=== PATIENT | female | born 1955 | race Caucasian/White ===

== ENCOUNTER → 2018-03-24 08:08 | Outpatient (CLI) | payer OTHER, SELFPAY ==
--- NOTE | 2018-03-24 | DI.US.S_ITS ---
PROCEDURE: US RENAL COMPLETE INDICATIONS: RECURRANT UTI TECHNIQUE: Real-time scanning was performed of the kidneys and bladder, with image documentation. COMPARISON: [facility], US, ABDOMEN COMPLETE, 12/22/2017, 9:08. [facility], US, ABDOMEN COMPLETE, 01/17/2015, 10:34. FINDINGS: Kidneys: Kidneys are normal in size. Right kidney measures 12.1 cm long; left kidney measures 13.2 cm long. Right renal cortical thickness is 1.8 cm; left renal cortical thickness is 2.1 cm. Renal cortical echotexture is normal. No hydronephrosis or nephrolithiasis. No suspicious solid mass lesions. Bladder: Pre-void bladder volume is 58 mL. Post-void residual is 2 mL. Pre-void images demonstrate no intraluminal masses or stones. On pre-void images, no ureteral jets are noted with color Doppler interrogation. (Of note, ureteral jets may not be detectable in up to 25% of cases due to insufficient differences in specific gravity between ureteral and bladder urine). Miscellaneous: No free pelvic fluid. IMPRESSION: 1. Normal-appearing kidneys without obstruction. 2. Nondistended urinary bladder with no post voiding residual Dictated by: Pasha Stubbs M.D. on 03/24/2018 at 9:35 Approved by: Pasha Stubbs M.D. on 03/24/2018 at 9:37
== END ==
PROVIDERS: Family Provider Internal Medicine; PCP Internal Medicine; Visit Provider Physician Assistant
DX: N39.0 Urinary tract infection, site not specified (principal)
CPT/HCPCS: 76770

== ENCOUNTER → 2018-03-25 08:20 | Outpatient (CLI) | payer OTHER, SELFPAY ==
--- NOTE | 2018-03-25 | DI.MG.S_ITS ---
BILATERAL DIGITAL SCREENING MAMMOGRAM 3D/2D WITH CAD: 03/25/2018 CLINICAL: Routine screening. Family history of breast cancer. Comparison is made to exams dated: 03/12/2017 mammogram, 03/06/2016 mammogram, and 03/05/2015 mammogram - [facility]. The tissue of both breasts is predominantly fatty. Current study was also evaluated with a Computer Aided Detection (CAD) system. No significant masses, calcifications, or other findings are seen in either breast. There has been no significant interval change. IMPRESSION: NEGATIVE There is no mammographic evidence of malignancy. A 1 year screening mammogram is recommended. NOTE: For mammograms, a report in lay terms will be sent to the patient. Approximately 15% of breast malignancies will not be visualized mammographically. In the management of a palpable breast mass, a negative mammogram must not discourage biopsy of a clinically suspicious lesion. Electronically Signed By: Geraldine [email or web address]:03/25/2018 10:53:11 copy to: Lala Nuñez letter sent: Normal Exam ACR BI-RADS Category 1: Negative [id number]
== END ==
PROVIDERS: Family Provider Obstetrics & Gynecology; PCP Internal Medicine; Visit Provider Internal Medicine
DX: Z12.31 Encounter for screening mammogram for malignant neoplasm of breast (principal)
CPT/HCPCS: 77063; 77067

== ENCOUNTER → 2018-05-01 10:32 | Outpatient (CLI) | payer OTHER, SELFPAY ==
[2018-05-01 11:31] LABS: Alanine Aminotransferase 47 IU/L (9-52); Albumin 4.1 g/dL (3.5-5.0); Albumin Globulin Ratio 1.4 (1.0-2.8); Alkaline Phosphatase 68 U/L (38-126); Aspartate Aminotransferase 61 IU/L (14-36); Bilirubin Total 0.4 mg/dL (0.2-1.3); Blood Urea Nitrogen 14 mg/dL (7-17); Calcium 9.1 mg/dL (8.4-10.2); Carbon Dioxide 26 mmol/L (22-32); Chloride 101 mmol/L (98-107); Estimated Glomerular Filt Rate > 60.0 mL/min (>60); Globulin 2.9 g/dL (1.7-4.1); Glucose 170 mg/dL (80-110); HEMOLYSIS < 15 (0-50); Sodium 137 mmol/L (137-145)
[2018-05-01 12:04] LABS: Hemoglobin A1C% w Est Avg Glu 6.1 % (4.0-6.0)
== END ==
PROVIDERS: PCP Internal Medicine; Visit Provider Internal Medicine
DX: K76.0 Fatty (change of) liver, not elsewhere classified (principal); E11.9 Type 2 diabetes mellitus without complications
CPT/HCPCS: 36415; 80053; 83036

== ENCOUNTER 2018-09-02 15:15 | Outpatient (RCR) | payer OTHER, SELFPAY ==
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
--- NOTE | 2018-08-27 14:35 | PT.IPTN ---
Current Diagnoses Cervicalgia (08/27/18) Dorsalgia, unspecified (08/27/18)
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
== END 2018-09-10 11:11 ==
LOC: PHYS 15:15
PROVIDERS: PCP Internal Medicine; Visit Provider Internal Medicine
DX: M54.2 Cervicalgia (principal); M54.9 Dorsalgia, unspecified
CPT/HCPCS: 97110; 97140; 97161

== ENCOUNTER → 2018-09-11 11:43 | Outpatient (CLI) | payer OTHER, SELFPAY ==
[2018-09-11 12:20] LABS: Hemoglobin A1C% w Est Avg Glu 5.8 % (4.0-6.0)
[2018-09-11 12:25] LABS: Alanine Aminotransferase 36 IU/L (9-52); Albumin 4.2 g/dL (3.5-5.0); Albumin Globulin Ratio 1.4 (1.0-2.8); Alkaline Phosphatase 79 U/L (38-126); Aspartate Aminotransferase 58 IU/L (14-36); BUN Creatinine Ratio 23.3 (6-22); Bilirubin Total 0.3 mg/dL (0.2-1.3); Blood Urea Nitrogen 14 mg/dL (7-17); Calcium 9.2 mg/dL (8.4-10.2); Carbon Dioxide 31 mmol/L (22-32); Chloride 103 mmol/L (98-107); Estimated Glomerular Filt Rate > 60.0 mL/min (>60); Globulin 2.9 g/dL (1.7-4.1); Glucose 128 mg/dL (80-110); HEMOLYSIS < 15 (0-50); Potassium 4.2 mmol/L (3.4-5.1); Sodium 146 mmol/L (137-145); Total Protein 7.1 g/dL (6.3-8.2)
[2018-09-11 12:38] LABS: Erythrocyte Sedimentation Rate 67 MM/HR (0-20)
== END ==
PROVIDERS: PCP Internal Medicine; Visit Provider Internal Medicine
DX: M35.3 Polymyalgia rheumatica (principal); E11.9 Type 2 diabetes mellitus without complications
CPT/HCPCS: 36415; 80053; 83036; 85651

== ENCOUNTER → 2018-10-15 14:14 | Outpatient (CLI) | payer MEDICARE, OTHER, SELFPAY | PROVIDERS: PCP Internal Medicine; Visit Provider Internal Medicine | DX: Z78.0 Asymptomatic menopausal state (principal); M35.3 Polymyalgia rheumatica | CPT/HCPCS: 77080 ==

== ENCOUNTER → 2018-12-22 11:40 | Outpatient (CLI) | payer MEDICARE, OTHER, SELFPAY ==
[2018-12-22 12:09] LABS: Add Manual Diff / Slide Review NO; Basophils Absolute Auto 100 /uL (0-100); Basophils Percent Auto 0.8 % (0-2); Eosinophils Absolute Auto 100 /uL (0-450); Eosinophils Percent Auto 1.9 % (2-4); Hematocrit 40.2 % (36-46); Hemoglobin 13.8 g/dL (12.0-16.0); Lymphocytes Absolute Auto 1800 /uL (1100-4500); Lymphocytes Percent Auto 25.6 % (25-40); Mean Corpuscular HGB Conc 34.4 % (30-36); Mean Corpuscular Hemoglobin 32.7 PG (26-34); Mean Corpuscular Volume 95.2 fL (80-100); Monocytes Absolute Auto 600 /uL (0-900); Monocytes Percent Auto 8.5 % (3-14); Neutrophils Absolute Auto 4400 /uL (1500-7000); Neutrophils Percent Auto 63.2 % (50-75); Platelet Count 157 X10^3/uL (150-400); Red Blood Cell Count 4.22 X10^6/uL (4.0-5.2); Red Cell Distribution Width 14.1 % (11.6-14.8)
[2018-12-22 12:29] LABS: Hemoglobin A1C% w Est Avg Glu 5.7 % (4.0-6.0)
[2018-12-22 12:36] LABS: Erythrocyte Sedimentation Rate 56 MM/HR (0-20)
[2018-12-22 13:35] LABS: Alanine Aminotransferase 45 IU/L (9-52); Albumin 4.4 g/dL (3.5-5.0); Albumin Globulin Ratio 1.6 (1.0-2.8); Alkaline Phosphatase 76 U/L (38-126); Aspartate Aminotransferase 59 IU/L (14-36); Bilirubin Total 0.3 mg/dL (0.2-1.3); Blood Urea Nitrogen 15 mg/dL (7-17); Calcium 9.6 mg/dL (8.4-10.2); Carbon Dioxide 31 mmol/L (22-32); Chloride 102 mmol/L (98-107); Estimated Glomerular Filt Rate > 60.0 mL/min (>60); Globulin 2.7 g/dL (1.7-4.1); Glucose 64 mg/dL (80-110); HEMOLYSIS < 15 (0-50); Potassium 4.5 mmol/L (3.4-5.1); Sodium 142 mmol/L (137-145); Total Protein 7.1 g/dL (6.3-8.2)
== END ==
PROVIDERS: PCP Internal Medicine; Visit Provider Internal Medicine
DX: M35.3 Polymyalgia rheumatica (principal); E11.9 Type 2 diabetes mellitus without complications; K76.0 Fatty (change of) liver, not elsewhere classified
CPT/HCPCS: 36415; 80053; 83036; 85025; 85651

== ENCOUNTER → 2019-01-24 09:39 | Outpatient (CLI) | payer MEDICARE, OTHER, SELFPAY ==
[2019-01-24 10:28] LABS: Erythrocyte Sedimentation Rate 35 MM/HR (0-20)
[2019-01-24 10:37] LABS: Alanine Aminotransferase 38 IU/L (9-52); Albumin 4.1 g/dL (3.5-5.0); Albumin Globulin Ratio 1.5 (1.0-2.8); Alkaline Phosphatase 85 U/L (38-126); Aspartate Aminotransferase 38 IU/L (14-36); BUN Creatinine Ratio 32.9 (6-22); Bilirubin Total 0.4 mg/dL (0.2-1.3); Blood Urea Nitrogen 23 mg/dL (7-17); C-Reactive Protein Quant 1.2 mg/dL (<1.0); Calcium 9.6 mg/dL (8.4-10.2); Carbon Dioxide 31 mmol/L (22-32); Chloride 101 mmol/L (98-107); Estimated Glomerular Filt Rate > 60.0 mL/min (>60); Globulin 2.7 g/dL (1.7-4.1); Glucose 137 mg/dL (80-110); HEMOLYSIS < 15 (0-50); Potassium 4.8 mmol/L (3.4-5.1); Sodium 140 mmol/L (137-145); Total Protein 6.8 g/dL (6.3-8.2)
== END ==
PROVIDERS: PCP Internal Medicine; Visit Provider Internal Medicine
DX: I10 Essential (primary) hypertension (principal); M35.3 Polymyalgia rheumatica; K76.0 Fatty (change of) liver, not elsewhere classified
CPT/HCPCS: 36415; 80053; 85651; 86140

== ENCOUNTER → 2019-03-23 14:32 | Outpatient (CLI) | payer MEDICARE, OTHER, SELFPAY ==
[2019-03-23 16:00] LABS: Erythrocyte Sedimentation Rate 56 MM/HR (0-20)
[2019-03-23 16:05] LABS: C-Reactive Protein Quant 1.9 mg/dL (<1.0)
== END ==
PROVIDERS: PCP Internal Medicine; Visit Provider Internal Medicine
DX: M35.3 Polymyalgia rheumatica (principal)
CPT/HCPCS: 36415; 85651; 86140

== ENCOUNTER → 2019-04-01 12:46 | Outpatient (CLI) | payer MEDICARE, OTHER, SELFPAY ==
--- NOTE | 2019-04-01 | DI.MG.S_ITS ---
BILATERAL DIGITAL SCREENING MAMMOGRAM 3D/2D WITH CAD: 04/01/2019 CLINICAL: Routine screening. Family history of breast cancer. Comparison is made to exams dated: 03/25/2018 mammogram, 03/12/2017 mammogram, and 03/06/2016 mammogram - [facility]. There are scattered fibroglandular elements in both breasts. Current study was also evaluated with a Computer Aided Detection (CAD) system. No significant masses, calcifications, or other findings are seen in either breast. There has been no significant interval change. IMPRESSION: NEGATIVE There is no mammographic evidence of malignancy. A 1 year screening mammogram is recommended. This exam was interpreted at Station ID: [id number]. NOTE: For mammograms, a report in lay terms will be sent to the patient. Approximately 15% of breast malignancies will not be visualized mammographically. In the management of a palpable breast mass, a negative mammogram must not discourage biopsy of a clinically suspicious lesion. Electronically Signed By: Geraldine thibodeaux/matteo:04/01/2019 14:35:31 copy to: Lala Nuñez letter sent: Normal Exam ACR BI-RADS Category 1: Negative [id number]
== END ==
PROVIDERS: Family Provider Obstetrics & Gynecology; PCP Internal Medicine; Visit Provider Internal Medicine
DX: Z12.31 Encounter for screening mammogram for malignant neoplasm of breast (principal); Z80.3 Family history of malignant neoplasm of breast
CPT/HCPCS: 77063; 77067

== ENCOUNTER → 2019-05-13 09:46 | Outpatient (CLI) | payer MEDICARE, OTHER, SELFPAY ==
[2019-05-13 10:39] LABS: Add Manual Diff / Slide Review NO; Basophils Absolute Auto 100 /uL (0-100); Basophils Percent Auto 0.6 % (0-2); Eosinophils Absolute Auto 100 /uL (0-450); Eosinophils Percent Auto 0.8 % (2-4); Hemoglobin 13.5 g/dL (12.0-16.0); Lymphocytes Absolute Auto 1600 /uL (1100-4500); Lymphocytes Percent Auto 17.3 % (25-40); Mean Corpuscular HGB Conc 34.6 % (30-36); Mean Corpuscular Hemoglobin 33.1 PG (26-34); Mean Corpuscular Volume 95.7 fL (80-100); Monocytes Absolute Auto 500 /uL (0-900); Monocytes Percent Auto 5.6 % (3-14); Neutrophils Absolute Auto 6900 /uL (1500-7000); Neutrophils Percent Auto 75.7 % (50-75); Platelet Count 221 X10^3/uL (150-400); Red Blood Cell Count 4.07 X10^6/uL (4.0-5.2); Red Cell Distribution Width 14.5 % (11.6-14.8); White Blood Cell Count 9.2 X10^3/uL (4.5-11.0)
[2019-05-13 10:49] LABS: Alanine Aminotransferase 38 IU/L (9-52); Albumin Globulin Ratio 1.3 (1.0-2.8); Alkaline Phosphatase 81 U/L (38-126); Aspartate Aminotransferase 44 IU/L (14-36); BUN Creatinine Ratio 26.7 (6-22); Bilirubin Total 0.5 mg/dL (0.2-1.3); Blood Urea Nitrogen 16 mg/dL (7-17); C-Reactive Protein Quant 1.8 mg/dL (<1.0); Calcium 9.4 mg/dL (8.4-10.2); Carbon Dioxide 31 mmol/L (22-32); Chloride 104 mmol/L (98-107); Estimated Glomerular Filt Rate > 60.0 mL/min (>60); Globulin 3.1 g/dL (1.7-4.1); Glucose 100 mg/dL (80-110); HEMOLYSIS < 15 (0-50); Potassium 4.4 mmol/L (3.4-5.1); Sodium 143 mmol/L (137-145); Total Protein 7.1 g/dL (6.3-8.2)
[2019-05-13 11:02] LABS: Erythrocyte Sedimentation Rate 53 MM/HR (0-20)
== END ==
PROVIDERS: PCP Internal Medicine; Visit Provider Internal Medicine
DX: I10 Essential (primary) hypertension (principal); M35.3 Polymyalgia rheumatica
CPT/HCPCS: 36415; 80053; 85025; 85651; 86140

== ENCOUNTER → 2019-05-20 06:57 | Outpatient (CLI) | payer MEDICARE, OTHER, SELFPAY ==
--- NOTE | 2019-05-20 | DI.ECHO.S_ITS ---
[facility] +---------+ : : [address] : : : : [id number] : : : : Phone: [phone]+ Echocardiogram Report + + :Name: JOSY LE Study Date: 05/20/2019 Height: 64 in : :[facility] Exam Location: [facility] Weight: 250 lb : : Gender: Female BSA: 2.2 m2 : :: 1955 Age: 63 yrs BP: 158/72 mmHg: :Reason For Study: DIASTOLIC HEART FAILURE : : Performed By: Gold Delgado : :Referring: DO MARADIAGA : + + Interpretation Summary The left ventricle is normal in size. The ejection fraction is estimated to be 65-70%. The right ventricle is normal in size and function. No significant valvular pathology seen. Procedure: A two-dimensional transthoracic echocardiogram with color flow and Doppler was performed. The study quality was technically adequate. There is no prior echocardiogram noted for this patient. The patient was in normal sinus rhythm during the exam. Left Ventricle: The left ventricle is normal in size. Left ventricular wall thickness is mildly increased. There is no echo evidence for significant left ventricular outflow tract obstruction. There is no thrombus. The ejection fraction is estimated to be 65-70%. There are no focal wall motion abnormalities. Diastolic parameters suggest a relaxation abnormality of the left ventricle, consistent with probable normal filling pressures. Right Ventricle: The right ventricle is normal in size and function. Atria: Both atria are normal in size. The interatrial septum is intact with no evidence for an atrial septal defect. Mitral Valve: There is mild mitral annular calcification. There is trace mitral regurgitation. Aortic Valve: The aortic valve is trileaflet. The aortic valve opens well. There is no aortic valve stenosis. No aortic regurgitation is present. Tricuspid Valve: The tricuspid valve is normal in structure and function. There is trace tricuspid regurgitation. The right ventricular systolic pressure is estimated to be at least 26 mmHg based on an estimated right atrial pressure of 3 mm Hg. Pulmonic Valve: The pulmonic valve is not well seen, but is grossly normal. There is trace pulmonic regurgitation. Great Vessels: The aortic root is normal size. The dimensions of the ascending aorta are normal. The pulmonary artery is normal size. The IVC is of normal diameter and collapses greater than 50% with a sniff. This suggests a low right atrial pressure of 3 mm Hg. Pericardium/ Pleura There is no pericardial effusion. There is no pleural effusion. MMode/2D Measurements & Calculations LVIDd: 4.2 cm LVOT diam: 2.2 cm LVIDs: 2.4 cm Ao root diam: 3.0 cm FS: 42.3 % Aortic Jxn: 2.6 cm EPSS: 0.30 cm asc Aorta Diam: 3.3 cm IVSd: 1.2 cm Ao Arch Diam (Prox Trans): 2.3 cm LVPWd: 1.1 cm LV fraser. diameter/BSA (cm/m^2): 2.0 LV sys. diameter/BSA (cm/m^2): 1.1 LA dimension: 3.6 cm RA long axis: 4.1 cm LA A2 area: 19.7 cm2 RA area: 12.3 cm2 LA A4 area: 17.3 cm2 RA vol: 31.4 ml LA length (vol): 4.6 cm RA : 14.6 ml/m2 LA vol: 63.2 ml IVC diam: 0.85 cm LA vol index: 29.4 ml/m2 Doppler Measurements & Calculations Ao V2 max: 149.9 cm/sec LVOT Max Lalit: 123.3 cm/sec Ao V2 mean: 119.4 cm/sec LV V1 max P.1 mmHg Ao max P.0 mmHg LV V1 VTI: 24.0 cm Ao mean P.9 mmHg DONI(I,D): 3.2 cm2 Ao V2 VTI: 28.5 cm DONI(V,D): 3.1 cm2 sev ratio: 0.84 DONI indexed to BSA (cm^2/m^2): 1.5 MV E max lalit: 62.4 cm/sec TR max lalit: 240.1 cm/sec MV A max lalit: 90.6 cm/sec TR max P.1 mmHg MV E/A: 0.69 PA V2 max: 92.5 cm/sec Med Peak E' Lalit: 4.5 cm/sec PA V2 mean: 74.7 cm/sec E/E' med: 13.8 PA mean P.3 mmHg Lat Peak E' Lalit: 7.2 cm/sec PA pr(Accel): 46.6 mmHg E/E' lat: 8.6 PA Accel Time: 0.08 sec E/e' average: 11.2 MV dec time: 0.15 sec SV(LVOT): 91.0 ml Reading Physician:01:43 PM
== END ==
PROVIDERS: PCP Internal Medicine; Visit Provider Internal Medicine
DX: I50.32 Chronic diastolic (congestive) heart failure (principal)
CPT/HCPCS: 93306

== ENCOUNTER → 2019-06-22 10:12 | Outpatient (CLI) | payer MEDICARE, OTHER, SELFPAY ==
[2019-06-22 11:55] LABS: BUN Creatinine Ratio 26.7 (6-22); Blood Urea Nitrogen 16 mg/dL (7-17); Calcium 9.6 mg/dL (8.4-10.2); Carbon Dioxide 28 mmol/L (22-32); Chloride 100 mmol/L (98-107); Estimated Glomerular Filt Rate > 60.0 mL/min (>60); Glucose 140 mg/dL (80-110); HEMOLYSIS 17 (0-50); Potassium 4.2 mmol/L (3.4-5.1); Sodium 139 mmol/L (137-145)
== END ==
PROVIDERS: PCP Internal Medicine; Visit Provider Internal Medicine
DX: M35.3 Polymyalgia rheumatica (principal); I50.32 Chronic diastolic (congestive) heart failure
CPT/HCPCS: 36415; 80048

== ENCOUNTER → 2019-08-11 10:23 | Outpatient (CLI) | payer MEDICARE, OTHER, SELFPAY ==
--- NOTE | 2019-08-11 | DI.RAD.S_ITS ---
PROCEDURE: XR TIBIA FIBULA RT 2V INDICATIONS: LEFT LET PAIN TECHNIQUE: 2 views of the tibia and fibula were acquired. COMPARISON: Left knee radiographs 09/13/2015. FINDINGS: Bones: No fractures or dislocations. No periosteal reaction. No suspicious bony lesions. Soft tissues: No suspicious soft tissue calcifications or masses. IMPRESSION: No fracture or dislocation. Dictated by: Ankit Baez M.D. on 08/11/2019 at 11:06 Approved by: Ankit Baez M.D. on 08/11/2019 at 11:10
== END ==
PROVIDERS: PCP Internal Medicine; Visit Provider Student in an Organized Health Care Education/Training Program
DX: M79.605 Pain in left leg (principal); K62.5 Hemorrhage of anus and rectum; K64.4 Residual hemorrhoidal skin tags; K64.8 Other hemorrhoids; K62.89 Other specified diseases of anus and rectum; K21.9 Gastro-esophageal reflux disease without esophagitis; I10 Essential (primary) hypertension; M35.3 Polymyalgia rheumatica; E28.2 Polycystic ovarian syndrome; G47.33 Obstructive sleep apnea (adult) (pediatric); J45.909 Unspecified asthma, uncomplicated
CPT/HCPCS: 73590; 99214

== ENCOUNTER 2019-09-07 10:10 | Day surgery (SDC) | payer MEDICARE, OTHER, SELFPAY ==
[2019-09-02 15:14] VITALS: BMI 43.6
--- NOTE | 2019-09-07 | PATH_ITS ---
[facility] Accession Number: [id number] . 01 Material submitted: . rectum - RECTAL BIOPSY . 01 Clinical history: . ANORECTL EXAM . 02 Diagnosis: Rectum, Biopsy: Anorectal junctional mucosa with features consistent with fissure/fistula tract. No evidence of neoplasm. MRV 09/09/2019 1108 Local . 02 Electronically signed: . Arsalan Ervin MD, PhD, Pathologist NPI- [id number] . 01 Gross description: . RECTAL BIOPSY: Received in formalin is 1 fragment(s) of guadarrama, soft tissue measuring 1.4 x 0.6 x 0.4 cm which is inked, serially sectioned and submitted entirely in 1 cassette(s) /TRC 09/08/2019 1602 Local . 02 Pathologist provided ICD-10: K60.3 . 02 CPT . 041896 Performed at: 01 [facility] [address] [facility], [place], [place] [id number] MD Jose Rice MD Phone: [phone] Performed at: 02 [facility] [address] [place], [place] [id number] MD Linda Garcia MD Phone: [phone]
[2019-09-07] MEDS: metroNIDAZOLE 500 MG/100 ML PIGGYBACK 100 MG IV (11:00)
[2019-09-07 11:09] VITALS: BP 173/85; PULSE 97; RESP 16; TEMP 36.4; O2SAT 95; BMI 43.6
[2019-09-07] MEDS: LACTATED RINGERS 1,000 ML 100 ML IV (11:25)
--- NOTE | 2019-09-07 12:21 | PM.PREOP ---
Pre-operative Note Interval Note History & Physical reviewed/Exam performed by Physician: Yes Changes to H&P: No
[2019-09-07] MEDS: CEFAZOLIN 2 GM/100 ML FROZ.PIGGY IV (12:40)
--- NOTE | 2019-09-07 12:57 | SUR.OPER ---
Prone on padded OR bed, head in foam head support, gel chest rolls, gel pad under knees, pillow under lower legs, toes free of pressure, arms secured on padded arm boards at <90 degrees abduction. Safety belt at thigh.
[2019-09-07] MEDS: BUPIVACAINE 0.25% W/ EPI 30 ML VIAL INJ (13:05)
[2019-09-07] MEDS: DIBUCAINE 1% OINT 28 GM 1 APPLIC TOP (13:07)
[2019-09-07 13:17] VITALS: BP 151/88; PULSE 99; RESP 13; TEMP 36.8; O2SAT 94
--- NOTE | 2019-09-07 13:18 | PM.OP.1 ---
Operative Date/Time/Diagnoses Date of procedure: 09/07/19 Time of procedure: 13:18 Pre-op diagnosis: hemorrhoids, possible anal neoplasm Post-op diagnosis: same Procedure & Clinicians Procedure: Anorectal exam under anesthesia, biopsy of anal plaque Same procedure as scheduled: Yes Indications: This is a 63 yo woman with hemorrhoids and anal bleeding. She was found to have a white plaque in her anal canal on exam by her shift stacker doctor. She is here for anal exam under anesthesia and biopsy of the anal plaque. Surgeon: Naida Matos Click Yes if Unassisted: Yes Anesthesia Type: General Operative Notes Findings: circumferential hemorrhoids, heavy scar with fissure; biopsied anal plaque Specimen(s): other (excisional biopsy of anal plaque) Estimated Blood Loss (mL): 1 Procedure in detail: The patient was brought into the OR. Sequential compression devices were placed on both legs and turned on. Appropriate perioperative antibiotics were given. General anesthesia was induced and the patient was intubated. She was turned prone onto the OR table. All bony prominences were padded. The buttocks were taped apart. The perianal area was prepped and draped in sterile fashion. Surgical timeout was conducted. 0.25% Marcaine with epi was used to place a four quadrant anal block. On visual inspection she was found to have large external hemorrhoids. With copious lubricant, an anorectal exam was performed. A heavy white plaque was seen on the posterior anal mucosa approximately 2cm x 2cm in size. 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 A 1mm x 5mm section of the white plaque was excised and sent to pathology. Hemostasis was achieved with cautery. A large Gelfoam was then coated and rolled with Dibucaine and placed in the anal canal. A thick layer of Dibucaine was used to coat the anoderm. A stack of 4x4 gauze was then used to cover the anal opening and secured in place with medipore tape. The patient was transferred onto her hospital bed into supine position. She was then awakened from anesthesia and extubated. Needle, sponge, and instrument counts were correct x 2. The patient was transferred to the PACU in stable condition. Complications: none Post-operative Condition: stable Disposition: PACU
[2019-09-07 13:23] VITALS: BP 172/82; PULSE 99; RESP 13; O2SAT 96
[2019-09-07 13:30] VITALS: BP 150/69; PULSE 99; RESP 14; O2SAT 98
[2019-09-07] MEDS: ALBUTEROL 2.5 MG/3 ML NEB (ADULT) INH (13:32)
--- NOTE | 2019-09-07 13:35 | SUR.PHASEI ---
ALBUTEROL TREATMENT GIVEN FOR CONTINUED COUGHING, LUNGS ARE CLEAR .
[2019-09-07 13:40] VITALS: BP 127/54; PULSE 97; RESP 16; TEMP 36.7; O2SAT 97
[2019-09-07 14:05] VITALS: BP 139/79; PULSE 96; RESP 16; TEMP 36.2; O2SAT 92
--- NOTE | 2019-09-07 15:36 | SUR.PHASEII ---
1415 late entry tyler corbett sent home with patient.
== END 2019-09-07 14:18 | disposition home or self-care (01) ==
PROVIDERS: PCP Internal Medicine; Referring Provider Obstetrics & Gynecology; Visit Provider Surgery
PROC: (CPT 45990; principal; 2019-09-07 11:15)
DX: K64.4 Residual hemorrhoidal skin tags (principal); K60.2 Anal fissure, unspecified; J45.909 Unspecified asthma, uncomplicated; G47.33 Obstructive sleep apnea (adult) (pediatric); M35.3 Polymyalgia rheumatica
CPT/HCPCS: 46999; J0690; J1100; J2405; J2704; J3010; J7613

== ENCOUNTER → 2019-09-13 11:23 | Outpatient (CLI) | payer MEDICARE, OTHER, SELFPAY ==
[2019-09-13 11:49] LABS: Hematocrit 41.3 % (36-46); Hemoglobin 13.9 g/dL (12.0-16.0); Mean Corpuscular HGB Conc 33.6 % (30-36); Mean Corpuscular Hemoglobin 32.1 PG (26-34); Mean Corpuscular Volume 95.4 fL (80-100); Platelet Count 211 X10^3/uL (150-400); Red Blood Cell Count 4.32 X10^6/uL (4.0-5.2); Red Cell Distribution Width 14.4 % (11.6-14.8); White Blood Cell Count 11.2 X10^3/uL (4.5-11.0)
== END ==
PROVIDERS: Family Provider Internal Medicine; PCP Internal Medicine; Visit Provider Surgery
DX: K62.5 Hemorrhage of anus and rectum (principal); R53.1 Weakness
CPT/HCPCS: 36415; 85027

== ENCOUNTER → 2019-10-19 13:03 | Outpatient (CLI) | payer MEDICARE, OTHER, SELFPAY ==
[2019-10-19 14:02] LABS: Hemoglobin A1C% w Est Avg Glu 6.2 % (4.0-6.0)
[2019-10-19 14:11] LABS: Alanine Aminotransferase 26 IU/L (<35); Albumin 4.2 g/dL (3.5-5.0); Albumin Globulin Ratio 1.4 (1.0-2.8); Alkaline Phosphatase 108 U/L (38-126); Aspartate Aminotransferase 42 IU/L (14-36); Bilirubin Total 0.3 mg/dL (0.2-1.3); Blood Urea Nitrogen 14 mg/dL (7-17); Calcium 9.5 mg/dL (8.4-10.2); Carbon Dioxide 32 mmol/L (22-32); Chloride 99 mmol/L (98-107); Estimated Glomerular Filt Rate > 60.0 mL/min (>60); Globulin 2.9 g/dL (1.7-4.1); Glucose 132 mg/dL (80-110); HEMOLYSIS < 15 (0-50); Potassium 3.7 mmol/L (3.4-5.1); Sodium 141 mmol/L (137-145); Total Protein 7.1 g/dL (6.3-8.2)
== END ==
PROVIDERS: PCP Internal Medicine; Visit Provider Internal Medicine
DX: I10 Essential (primary) hypertension (principal); E11.9 Type 2 diabetes mellitus without complications; K76.0 Fatty (change of) liver, not elsewhere classified
CPT/HCPCS: 36415; 80053; 83036

== ENCOUNTER → 2019-11-23 18:48 | Outpatient (ROUT) | payer MEDICARE, OTHER, SELFPAY | PROVIDERS: PCP Internal Medicine; Visit Provider Internal Medicine | DX: R39.9 Unspecified symptoms and signs involving the genitourinary system (principal) | CPT/HCPCS: 87077; 87086; 87186 ==

== ENCOUNTER → 2020-02-13 09:56 | Outpatient (CLI) | payer MEDICARE, OTHER, SELFPAY ==
[2020-02-13 11:20] LABS: Hemoglobin A1C% w Est Avg Glu 6.5 % (4.0-6.0)
[2020-02-13 11:25] LABS: Alanine Aminotransferase 32 IU/L (<35); Albumin Globulin Ratio 1.3 (1.0-2.8); Alkaline Phosphatase 93 U/L (38-126); Aspartate Aminotransferase 44 IU/L (14-36); BUN Creatinine Ratio 19.1 (6-22); Bilirubin Total 0.3 mg/dL (0.2-1.3); Blood Urea Nitrogen 13 mg/dL (7-17); Calcium 9.8 mg/dL (8.4-10.2); Carbon Dioxide 31 mmol/L (22-32); Chloride 100 mmol/L (98-107); Estimated Glomerular Filt Rate > 60.0 mL/min (>60); Globulin 3.1 g/dL (1.7-4.1); Glucose 170 mg/dL (80-110); HEMOLYSIS < 15 (0-50); Potassium 3.8 mmol/L (3.4-5.1); Sodium 139 mmol/L (137-145); Total Protein 7.1 g/dL (6.3-8.2)
== END ==
PROVIDERS: PCP Internal Medicine; Referring Provider Internal Medicine; Visit Provider Internal Medicine
DX: E11.9 Type 2 diabetes mellitus without complications (principal); I10 Essential (primary) hypertension
CPT/HCPCS: 36415; 80053; 83036

== ENCOUNTER → 2020-02-15 08:16 | Outpatient (CLI) | payer MEDICARE, OTHER, SELFPAY ==
[2020-02-16 09:56] LABS: SARS CoV19 IgG Negative (Negative)
== END ==
PROVIDERS: PCP Internal Medicine; Referring Provider Internal Medicine; Visit Provider Internal Medicine
DX: Z03.818 Encounter for observation for suspected exposure to other biological agents ruled out (principal)
CPT/HCPCS: 36415; 86769

== ENCOUNTER → 2020-02-27 11:51 | Outpatient (CLI) | payer MEDICARE, OTHER, SELFPAY ==
[2020-02-27 14:19] LABS: Appearance Urine UA SL CLOUDY; Bilirubin Urine UA NEGATIVE (NEGATIVE); Color Urine UA YELLOW; Glucose Urine UA TRACE g/dL (Negative); Ketones Urine UA NEGATIVE (NEGATIVE); Leukocyte Esterase Urine UA 2+ (NEGATIVE); Nitrite Urine UA NEGATIVE (Negative); Occult Blood Urine UA 1+ (Negative); Protein Urine UA TRACE (Negative); Urobilinogen Urine UA 0.2 E.U./dL (0.2)
[2020-02-27 14:20] LABS: pH Urine UA 5.5 (4.5-8.0)
[2020-02-27 14:34] LABS: Bacteria Urine Few (2-10); RBC Urine 1-5/HPF (0-5/HPF); Squamous Epithelial Cell Urine 1-5 /HPF (0-5/HPF); WBC Urine >100/HPF (0-5/HPF)
[2020-02-27 14:35] LABS: Mucus Urine 1+ (Negative)
== END ==
PROVIDERS: Physician Assistant; PCP Internal Medicine; Referring Provider Internal Medicine; Visit Provider Internal Medicine
DX: I10 Essential (primary) hypertension (principal); M35.3 Polymyalgia rheumatica; E11.9 Type 2 diabetes mellitus without complications; N39.0 Urinary tract infection, site not specified
CPT/HCPCS: 81001; 87077; 87086; 87186

== ENCOUNTER → 2020-04-25 11:56 | Outpatient (CLI) | payer MEDICARE, OTHER, SELFPAY ==
[2020-04-25 13:08] LABS: Appearance Urine UA CLEAR; Bilirubin Urine UA NEGATIVE (NEGATIVE); Color Urine UA ORANGE; Glucose Urine UA NEGATIVE (Negative); Ketones Urine UA NEGATIVE (NEGATIVE); Leukocyte Esterase Urine UA NEGATIVE (NEGATIVE); Nitrite Urine UA POSITIVE (Negative); Occult Blood Urine UA NEGATIVE (Negative); Protein Urine UA NEGATIVE (Negative); Urobilinogen Urine UA 0.2 E.U./dL (0.2)
[2020-04-25 13:12] LABS: RBC Urine None Seen (0-5/HPF); pH Urine UA 5.5 (4.5-8.0)
[2020-04-25 13:15] LABS: WBC Urine 0-1/HPF (0-5/HPF)
[2020-04-25 13:16] LABS: Bacteria Urine Few (2-10); Squamous Epithelial Cell Urine 5-10 /HPF (0-5/HPF)
== END ==
PROVIDERS: PCP Internal Medicine; Referring Provider Internal Medicine; Visit Provider Internal Medicine
DX: N39.0 Urinary tract infection, site not specified (principal)
CPT/HCPCS: 81003; 81015; 87077; 87086; 87186

== ENCOUNTER → 2020-05-03 08:39 | Outpatient (CLI) | payer MEDICARE, OTHER, SELFPAY ==
[2020-05-03 10:05] LABS: Add Manual Diff / Slide Review NO; Basophils Absolute Auto 100 /uL (0-100); Eosinophils Absolute Auto 200 /uL (0-450); Eosinophils Percent Auto 2.2 % (2-4); Hematocrit 40.7 % (36-46); Hemoglobin 13.7 g/dL (12.0-16.0); Lymphocytes Absolute Auto 1800 /uL (1100-4500); Lymphocytes Percent Auto 23.1 % (25-40); Mean Corpuscular HGB Conc 33.6 % (30-36); Mean Corpuscular Hemoglobin 32.3 PG (26-34); Mean Corpuscular Volume 96.3 fL (80-100); Monocytes Absolute Auto 500 /uL (0-900); Monocytes Percent Auto 6.8 % (3-14); Neutrophils Absolute Auto 5300 /uL (1500-7000); Neutrophils Percent Auto 66.9 % (50-75); Platelet Count 154 X10^3/uL (150-400); Red Blood Cell Count 4.23 X10^6/uL (4.0-5.2); Red Cell Distribution Width 14.3 % (11.6-14.8); White Blood Cell Count 7.9 X10^3/uL (4.5-11.0)
[2020-05-03 10:23] LABS: Hemoglobin A1C% w Est Avg Glu 6.4 % (4.0-6.0)
[2020-05-03 10:37] LABS: Alanine Aminotransferase 38 IU/L (<35); Albumin Globulin Ratio 1.5 (1.0-2.8); Alkaline Phosphatase 104 U/L (38-126); Aspartate Aminotransferase 50 IU/L (14-36); BUN Creatinine Ratio 33.3 (6-22); Bilirubin Total 0.6 mg/dL (0.2-1.3); Blood Urea Nitrogen 19 mg/dL (7-17); Calcium 9.7 mg/dL (8.4-10.2); Carbon Dioxide 27 mmol/L (22-32); Chloride 105 mmol/L (98-107); Cholesterol 151 mg/dL (140-199); Estimated Glomerular Filt Rate > 60.0 mL/min (>60); Globulin 2.6 g/dL (1.7-4.1); Glucose 106 mg/dL (80-110); HDL Cholesterol 68 mg/dL (40-60); HEMOLYSIS 15 (0-50); LDL Cholesterol Calculated 70 mg/dL (<100); Potassium 4.2 mmol/L (3.4-5.1); Sodium 140 mmol/L (137-145); Total Protein 6.6 g/dL (6.3-8.2); Triglycerides 66 mg/dL (35-150)
[2020-05-03 10:53] LABS: Erythrocyte Sedimentation Rate 57 MM/HR (0-20)
== END ==
PROVIDERS: PCP Internal Medicine; Referring Provider Internal Medicine; Visit Provider Internal Medicine
DX: I10 Essential (primary) hypertension (principal); M35.3 Polymyalgia rheumatica; E11.9 Type 2 diabetes mellitus without complications
CPT/HCPCS: 36415; 80053; 80061; 83036; 85025; 85651

== ENCOUNTER → 2020-05-09 15:01 | Outpatient (CLI) | payer MEDICARE, OTHER, SELFPAY ==
--- NOTE | 2020-05-09 | DI.MG.S_ITS ---
BILATERAL DIGITAL SCREENING MAMMOGRAM 3D/2D WITH CAD: 05/09/2020 CLINICAL: Routine screening. Family history of breast cancer. Comparison is made to exams dated: 04/01/2019 mammogram, 03/25/2018 mammogram, and 03/12/2017 mammogram - [facility]. There are scattered fibroglandular elements in both breasts. Current study was also evaluated with a Computer Aided Detection (CAD) system. No significant masses, calcifications, or other findings are seen in either breast. There has been no significant interval change. IMPRESSION: NEGATIVE There is no mammographic evidence of malignancy. A 1 year screening mammogram is recommended. This exam was interpreted at Station ID: [id number]. NOTE: For mammograms, a report in lay terms will be sent to the patient. Approximately 15% of breast malignancies will not be visualized mammographically. In the management of a palpable breast mass, a negative mammogram must not discourage biopsy of a clinically suspicious lesion. Electronically Signed By: Tomasz lopez/matteo:05/09/2020 17:01:08 copy to: Lala Nuñez letter sent: Normal Exam ACR BI-RADS Category 1: Negative [id number]
== END ==
PROVIDERS: PCP Internal Medicine; Referring Provider Internal Medicine; Visit Provider Internal Medicine
DX: Z12.31 Encounter for screening mammogram for malignant neoplasm of breast (principal); Z80.3 Family history of malignant neoplasm of breast
CPT/HCPCS: 77063; 77067

== ENCOUNTER → 2020-05-18 15:12 | Outpatient (ROUT) | payer MEDICARE, OTHER, SELFPAY | PROVIDERS: PCP Internal Medicine; Visit Provider Internal Medicine | DX: N39.0 Urinary tract infection, site not specified (principal) | CPT/HCPCS: 87077; 87086; 87186 ==

== ENCOUNTER → 2020-05-29 14:24 | Outpatient (CLI) | payer MEDICARE, OTHER, SELFPAY ==
[2020-05-30 10:12] LABS: COVID19 Sendout Not Detected (Not Detect)
== END ==
PROVIDERS: PCP Internal Medicine; Visit Provider Nurse Practitioner
DX: Z11.59 Encounter for screening for other viral diseases (principal)
CPT/HCPCS: 87635

== ENCOUNTER 2020-06-01 06:50 | Day surgery (SDC) | payer MEDICARE, OTHER, SELFPAY ==
--- NOTE | 2020-06-01 | PATH_ITS ---
[facility] Accession Number: [id number] . 01 Material submitted: . colon - COLON POLYP AT 45CM . 01 Clinical history: . SCREENING COLONOSCOPY . 02 Diagnosis: Colon Polyp at 45 cm, Biopsy: Tubular adenoma. V 06/05/2020 1008 Local . 02 Electronically signed: . Arsalan Ervin MD, PhD, Pathologist NPI- [id number] . 01 Gross description: . Received in formalin, labeled with the patient's name, MRN, and colon polyp at 45 cm, are two guadarrama-white, irregular fragments of tissue measuring 0.3 cm and 0.4 cm in greatest dimension. The entire specimen is submitted in cassette A1. ([id number]) /[facility] 06/02/2020 0959 Local . 02 Pathologist provided ICD-10: D12.6 . 02 CPT . 632164 Performed at: 01 [facility] [address] [facility], [place], [place] [id number] MD Jose Rice MD Phone: [phone] Performed at: 02 [facility] [address] [place], [place] [id number] MD Linda Garcia MD Phone: [phone]
[2020-06-01 07:20] VITALS: BP 152/88; PULSE 92; RESP 16; TEMP 37; O2SAT 98; BMI 42.0
[2020-06-01] MEDS: SODIUM CHLORIDE 0.9% 1,000 ML 200 ML IV (07:20)
--- NOTE | 2020-06-01 07:30 | PM.PREOP ---
Pre-operative Note COVID-19 COVID-19 status: Negative Result date/Date tested (Pos, Neg/Pending): 05/29/20 Interval Note History & Physical reviewed/Exam performed by Physician: Yes Changes to H&P: No
--- NOTE | 2020-06-01 07:40 | PM.OP.ENDO ---
Operative Date/Time/Diagnoses Date of procedure: 06/01/20 Time of procedure: 07:40 Pre-op diagnosis: Personal history of colon polyps number with Procedure & Clinicians Study performed: Colonoscopy Conscious sedation performed by endoscopy Polypectomy with cold forceps at 45 cm Same procedure as scheduled: Yes Indications: Personal history of colon polyps, rectal bleed Surgeon: Naida Matos Procedure Notes SCOAP/Timeout: Performed Procedure in detail: The patient was brought to the room and placed in left lateral decubitus position with all bony prominences padded. A time-out was performed and then the patient was given procedural sedation starting with 3 mg of Versed and 100 mcg of fentanyl. Total of 5 mg of Versed and 150 micro g of fentanyl were given for the entire procedure Vitals were monitored throughout the procedure and remained stable. Once adequately sedated, the procedure was begun. A rectal exam was performed revealing large external hemorrhoids, and a chronic fissure the posterior midline. The colonoscope was then introduced to the rectum and advanced to the cecum in the usual fashion. The cecum was identified by the appendiceal orifice, the mucosal tri-fold, and the ileocecal valve. The scope was then retracted while rotating side to side and examining each mucosal fold. A small polyp was found at 45 cm and removed clips. At the conclusion of the procedure retroflexion was performed and moderate grade 2-3 internal hemorrhoids with stigmata of recent bleeding were seen]. There is a raw place on the mucosa consistent with chronic prolapsing internal hemorrhoids. The scope was then withdrawn from the rectum the procedure was concluded. The patient tolerated the procedure well and was transferred to the PACU in stable condition. Scope withdrawal time: 9 Sedation minutes: 28 Findings: internal hemorrhoids, polyp and other findings (External hemorrhoids, chronic fissure) Specimen(s): other (Small polyp from 45 cm) Complications: none Impression: The patient is hemorrhoids and fissure of the likely source of her rectal bleeding. Post-procedure Recommendations: Colonscopy in 10 years Follow up: as needed Disposition: PACU
[2020-06-01] MEDS: MIDAZOLAM 5 MG/5 ML VIAL IV ×3 (07:43→07:48)
[2020-06-01] MEDS: fentaNYL 250 MCG/5 ML INJ IV ×2 (07:43→07:48)
[2020-06-01 08:17] VITALS: BP 121/65; PULSE 87; RESP 20; TEMP 35.6; O2SAT 96
--- NOTE | 2020-06-01 08:22 | SUR.PHASEI ---
pt awake and alert. Denies any complaints sitting up drinking cranberry juice.
[2020-06-01 08:23] VITALS: BP 114/68; PULSE 85; RESP 16; O2SAT 97
[2020-06-01 08:27] VITALS: BP 117/58; PULSE 83; RESP 20; TEMP 35.8; O2SAT 98
[2020-06-01 08:45] VITALS: BP 121/65; PULSE 78; RESP 15; TEMP 36.3; O2SAT 97
== END 2020-06-01 08:50 | disposition home or self-care (01) ==
PROVIDERS: PCP Internal Medicine; Referring Provider Internal Medicine; Visit Provider Surgery
PROC: 0DJD8ZZ Inspection of Lower Intestinal Tract, Via Natural or Artificial Opening Endoscopic (ICD-10-PCS; CPT 45378; principal; 2020-06-01 07:45)
DX: Z12.11 Encounter for screening for malignant neoplasm of colon (principal); Z86.010 Personal history of colon polyps; E66.01 Morbid (severe) obesity due to excess calories; Z68.41 Body mass index [BMI] 40.0-44.9, adult; K64.1 Second degree hemorrhoids; K64.4 Residual hemorrhoidal skin tags; K60.1 Chronic anal fissure
CPT/HCPCS: G0105; 99152; J2250; J3010

== ENCOUNTER → 2020-06-20 14:11 | Outpatient (CLI) | payer MEDICARE, OTHER, SELFPAY ==
[2020-06-20 14:42] LABS: Add Manual Diff / Slide Review NO; Basophils Absolute Auto 0 /uL (0-100); Basophils Percent Auto 0.4 % (0-2); Eosinophils Absolute Auto 100 /uL (0-450); Eosinophils Percent Auto 1.2 % (2-4); Hemoglobin 13.4 g/dL (12.0-16.0); Lymphocytes Absolute Auto 1100 /uL (1100-4500); Lymphocytes Percent Auto 12.3 % (25-40); Mean Corpuscular HGB Conc 34.2 % (30-36); Mean Corpuscular Hemoglobin 32.6 PG (26-34); Mean Corpuscular Volume 95.3 fL (80-100); Monocytes Absolute Auto 800 /uL (0-900); Monocytes Percent Auto 8.6 % (3-14); Neutrophils Absolute Auto 7200 /uL (1500-7000); Neutrophils Percent Auto 77.5 % (50-75); Platelet Count 151 X10^3/uL (150-400); White Blood Cell Count 9.3 X10^3/uL (4.5-11.0)
[2020-06-20 14:57] LABS: Blood Urea Nitrogen 13 mg/dL (7-17); Calcium 8.9 mg/dL (8.4-10.2); Carbon Dioxide 33 mmol/L (22-32); Chloride 102 mmol/L (98-107); Estimated Glomerular Filt Rate > 60.0 mL/min (>60); Glucose 116 mg/dL (80-110); HEMOLYSIS < 15 (0-50); Potassium 3.9 mmol/L (3.4-5.1); Sodium 140 mmol/L (137-145)
[2020-06-20 15:00] LABS: Erythrocyte Sedimentation Rate 54 MM/HR (0-20)
== END ==
PROVIDERS: PCP Internal Medicine; Referring Provider Internal Medicine; Visit Provider Internal Medicine
DX: I10 Essential (primary) hypertension (principal); E11.9 Type 2 diabetes mellitus without complications; E88.81 Metabolic syndrome and other insulin resistance
CPT/HCPCS: 36415; 80048; 85025; 85651

== ENCOUNTER 2020-06-20 15:25 | Observation (INO) | payer MEDICARE, OTHER, SELFPAY ==
[2020-06-20] VITALS (37 sets, daily range): BP systolic 108–232; BP diastolic 57–107; PULSE 72–110; RESP 11–26; TEMP 36.9–37.7; O2SAT 95–99; BMI 41.5
--- NOTE | 2020-06-20 | DI.ECHO.S_ITS ---
[place] [facility]---------+ [facility] +---------+ : : [address] : : : : [id number] : : : : Phone: [phone]+ Echocardiogram Report + + :Name: JOSY LE Study Date: 06/21/2020 Height: 65 in : :[facility] Weight: 249 lb : : Gender: Female BSA: 2.2 m2 : :: 1955 Age: 64 yrs BP: 142/68 mmHg: :Reason For Study: CHEST PAIN : :Ordering Physician: : :HOSPITALISTKAROL Performed By: Pat Benavidez : :Referring: KAROL GRACIA : + + Interpretation Summary Normal sinus rhythm. Normal LV size, mild concentric LVH, normal wall motion and left ventricular systolic function. Ejection fraction is 65-70%. Normal chamber sizes. No significant valvular abnormalities. 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 Peak gradient at rest is 16 mmHg. Peak gradient with Valsalva maneuvers 36 mmHg. Compared to prior study 05/20/2019 LVOT obstruction is newly described Procedure: Comparison is made with the echocardiogram of 05/20/2019. Left Ventricle: The left ventricle is normal in size. There is mild concentric left ventricular hypertrophy. An intracavitary gradient is suspected. The ejection fraction is estimated to be 65-70%. Diastolic function could not be accurately assessed due to tachycardia. Right Ventricle: The right ventricle is normal in size and function. Atria: Both atria are normal in size. There is no Doppler evidence for an interatrial shunt. Mitral Valve: The mitral valve is normal in structure and function. There is trace mitral regurgitation. Aortic Valve: The aortic valve is trileaflet. The aortic valve opens well. There is no aortic valve stenosis. No aortic regurgitation is present. Tricuspid Valve: The tricuspid valve is normal in structure and function. Pulmonary artery pressures cannot be estimated because of the lack of a measurable TR jet velocity but the IVC suggests a CVP of around 3 mmHg. There is trace tricuspid regurgitation. Pulmonic Valve: The pulmonic valve is not well seen, but is grossly normal. There is no pulmonic valvular regurgitation. Great Vessels: The aortic root is normal size. The dimensions of the ascending aorta are normal. The IVC is of normal diameter and collapses greater than 50% with a sniff. This suggests a low right atrial pressure of 3 mm Hg. Pericardium/ Pleura There is no pericardial effusion. There is no pleural effusion. MMode/2D Measurements & Calculations LVIDd: 4.3 cm LVOT diam: 2.0 cm LVIDs: 2.7 cm Ao root diam: 3.2 cm FS: 38.0 % asc Aorta Diam: 3.3 cm EPSS: 0.49 cm Ao Arch Diam (Prox Trans): 3.4 cm IVSd: 1.00 cm LVPWd: 1.1 cm LV fraser. diameter/BSA (cm/m^2): 2.0 LV sys. diameter/BSA (cm/m^2): 1.2 LA A2 area: 15.8 cm2 RA long axis: 4.6 cm LA A4 area: 19.9 cm2 RA area: 15.3 cm2 LA length (vol): 5.3 cm RA vol: 42.9 ml LA vol: 50.0 ml RA : 19.8 ml/m2 LA vol index: 23.0 ml/m2 IVC diam: 1.2 cm RVD1 (basal): 3.3 cm TAPSE: 2.7 cm Doppler Measurements & Calculations Ao V2 max: 156.6 cm/sec LVOT Max Lalit: 149.7 cm/sec Ao V2 mean: 110.2 cm/sec LV V1 max P.0 mmHg Ao max P.8 mmHg LV V1 VTI: 26.5 cm Ao mean P.6 mmHg DONI(I,D): 2.8 cm2 Ao V2 VTI: 30.5 cm DONI(V,D): 3.1 cm2 sev ratio: 0.87 DONI indexed to BSA (cm^2/m^2): 1.3 MV E max lalit: 92.7 cm/sec PA V2 max: 92.4 cm/sec MV A max lalit: 108.0 cm/sec PA V2 mean: 64.9 cm/sec MV E/A: 0.86 PA mean P.9 mmHg Med Peak E' Lalit: 6.8 cm/sec PA pr(Accel): 36.2 mmHg E/E' med: 13.6 Lat Peak E' Lalit: 8.6 cm/sec E/E' lat: 10.8 E/e' average: 12.2 MV dec time: 0.18 sec SV(LVOT): 86.6 ml Electronically signed by: Astrid Christine M.D. on Reading Physician:06/21/2020 06:35 PM
--- NOTE | 2020-06-20 15:38 | DI.RAD.S_ITS ---
PROCEDURE: XR CHEST 1V INDICATIONS: chest pain TECHNIQUE: One view of the chest was acquired. COMPARISON: None. FINDINGS: Surgical changes and devices: None. Lungs and pleura: Lungs are clear. No pleural effusions or pneumothorax. Mediastinum: Mediastinal contours appear normal. Heart size is normal. Bones and chest wall: No suspicious bony lesions. Overlying soft tissues appear unremarkable. IMPRESSION: No acute cardiopulmonary disease process. Dictated by: Liliam Zaldivar MD, PhD on 06/20/2020 at 16:01 Approved by: Liliam Zaldivar MD, PhD on 06/20/2020 at 16:02
--- NOTE | 2020-06-20 15:52 | ED.CHESTPAIN ---
HPI - Chest Pain <Helena Ashley MD - Last Filed: 06/21/20 07:19> General Chief Complaint: Chest Pain Stated Complaint: chest pain Time Seen by Provider: 06/20/20 15:39 Source: patient Mode of arrival: Ambulatory History of Present Illness HPI narrative: 64-year-old woman with obesity, hypertension, polymyalgia rheumatica presents with chest pain. Her symptoms began last night with some discomfort up the back of her neck and mild headache. When she woke this morning she had chest pain across the front of her neck and underneath her shoulder blades. She talked with her primary care physician who had her do some blood work. As she was coming from that visit walking up the stairs she describes dramatic dyspnea diaphoresis crushing pain and decided at that point to come to the emergency department. On arrival she is still describing 7/10 pain is tachycardic and hypertensive but not diaphoretic at this time. She has never had a heart attack or stroke. Has not been diagnosed with diabetes. Describes no fever, cough, vomiting, diarrhea, abdominal pain, urinary symptoms, rashes. She does note she has lower extremity edema for which she wears compression socks left is greater than right after having some surgery on the left leg. She has not noticed that the edema has gotten worsen describes no recent orthopnea. Related Data Home Medications Medication Instructions Recorded Confirmed cholecalciferol (vitamin D3) 2,000 unit PO DAILY #0 07/14/11 06/20/20 [Vitamin D3] albuterol sulfate 90 mcg/actuation 2 puff INHALATION Q6H PRN 03/02/18 06/20/20 aerosol inhaler clindamycin phosphate 1 % topical 1 applictn TOP BEDTIME 03/02/18 06/20/20 solution [id number] 1 mg PO DAILY ml 03/02/18 06/20/20 1,937 mg-188 mg/15 mL oral liquid cyanocobalamin (vitamin B-12) 2,500 mcg PO DAILY 03/02/18 06/20/20 2,500 mcg tablet Resmed Airsense 10 CPAP #1 ea 04/13/19 06/21/20 fluticasone 250 mcg-salmeterol 50 1 inhalation INHALATION BID PRN 09/13/19 06/20/20 mcg/dose blistr powdr for inhalation methotrexate sodium 2.5 mg tablet 20 mg PO QWEEK tab 04/11/20 06/20/20 prednisone 10 mg tablet 3 mg PO DAILY tab 04/11/20 06/20/20 tolterodine 2 mg capsule,extended 4 mg PO DAILY cap 04/11/20 06/20/20 release 24 hr venlafaxine 150 mg tablet,extended 150 mg PO DAILY 04/11/20 06/20/20 release 24 hr estradiol 10 mcg vaginal tablet 10 mcg VAG 2XW 05/22/20 06/20/20 folic acid 1 mg tablet 1 mg PO DAILY 05/22/20 06/20/20 hydrochlorothiazide 25 mg tablet 25 mg PO DAILY PRN 05/22/20 06/20/20 losartan 25 mg tablet 25 mg PO DAILY 05/22/20 06/20/20 naproxen sodium 220 mg tablet 220 mg PO BID PRN 05/22/20 06/20/20 Allergies Allergy/AdvReac Type Severity Reaction Status Date / Time clarithromycin [From BIAXIN] Allergy Unknown Verified 06/20/20 15:48 ciprofloxacin AdvReac Severe tendonitis Verified 06/20/20 15:48 sulfamethoxazole AdvReac Intermediate Nausea Verified 06/20/20 15:48 [From Bactrim] trimethoprim [From Bactrim] AdvReac Intermediate Nausea Verified 06/20/20 15:48 Review of Systems <Helena Ashley MD - Last Filed: 06/21/20 07:19> Review of Systems Narrative: Remainder of review of systems including constitutional, ENT, cardiovascular, respiratory, GI, , musculoskeletal, skin, neurologic and psychiatric systems reviewed and are unremarkable except as noted in HPI. Patient History <Helena Ashley MD - Last Filed: 06/21/20 07:19> Medical History Asthma (Chronic) Basal cell carcinoma (BCC) in situ of skin (Resolved) Depression (Chronic) Diastolic heart failure (Acute) GERD (gastroesophageal reflux disease) (Chronic) Hayfever (Chronic) Hx of lipoma (Acute) Hypertension (Resolved) Insulin resistance (Chronic) Lower extremity edema (Acute) Obstructive sleep apnea of adult (Chronic) Osteoarthritis (Chronic) PCOS (polycystic ovarian syndrome) (Chronic) Polymyalgia rheumatica (Acute) Primary insomnia (Chronic) Rosacea (Chronic) Snoring (Inactive) Surgical History History of third molar tooth extraction (Resolved 1973) History of tonsillectomy (Resolved 1958) Status post delivery (Resolved 12/28/80) Status post cholecystectomy (Resolved 1991) Status post colonoscopy (Resolved 2013) Status post dilation and curettage (Resolved 09/16/11) Family History Father CVA (cerebral vascular accident) Chronic lymphocytic leukemia Mother Lewy body dementia Other Dementia Habitual snoring Social History marital status: household members: spouse occupational status: previously employed Smoking Status: Never smoker alcohol intake: never substance use type: does not use Smoking Status: Never smoker alcohol intake frequency: a few times a week Substance Use Type: does not use Exam <Helena Ashley MD - Last Filed: 06/21/20 07:19> Narrative Exam Narrative: General: in no acute distress. Able to give a complete and coherent history. Well-nourished well-developed HEENT: Moist mucous membranes, normal sclera with reactive pupils, Neck: No JVD, supple Respiratory: Lungs are clear to auscultation, no wheezing no rales no rhonchi. Full and symmetrical air movement Cardiac: Regular rate and rhythm no murmurs no bruits Abdomen: Soft nontender good bowel tones, no flank pain Skin: Warm and dry, no rashes Neurologic: Grossly neurologically intact with no obvious asymmetries or abnormalities Extremities: No trauma, well perfused Psych: Cooperative, appropriate insight and affect Initial Vital Signs Initial Vital Signs: Vital Signs Temperature 99.9 F H 06/20/20 15:32 Pulse Rate 106 H 06/20/20 15:32 Respiratory Rate 18 06/20/20 15:32 Blood Pressure 232/107 H 06/20/20 15:32 Pulse Oximetry 98 06/20/20 15:32 <Arnaud Paz MD - Last Filed: 06/21/20 00:39> Initial Vital Signs Initial Vital Signs: Vital Signs Temperature 99.9 F H 06/20/20 15:32 Pulse Rate 106 H 06/20/20 15:32 Respiratory Rate 18 06/20/20 15:32 Blood Pressure 232/107 H 06/20/20 15:32 Pulse Oximetry 98 06/20/20 15:32 Course <Helena Ashley MD - Last Filed: 06/21/20 07:19> Orders Ordered: Acetaminophen (Tylenol) 650 mg PO Q6HR PRN PRN Reason: Fever/Mild Pain (1-3) Aspirin (Aspirin Ec) 81 mg PO DAILY [facility] Atorvastatin Calcium (Lipitor) 40 mg PO BEDTIME [facility] Dextrose (D50w) 25 gm IV PRN PRN PRN Reason: Hypoglycemia Heparin Sodium/Dextrose (Heparin Drip) 25,000 unit in 500 mls @ 20 mls/hr IV CONT BELTRAN; Protocol Last Titration: 06/20/20 22:19 Dose: 950 units/hr, 19 mls/hr Documented by: Titration: 06/20/20 20:58 Dose: 1,000 units/hr, 20 mls/hr Documented by: Admin: 06/20/20 16:10 Dose: 1,000 units/hr, 20 mls/hr Documented by: SUSIE Insulin Aspart (Novolog Flexpen) 0 unit SUBCUT ACHS [facility]; Protocol Morphine Sulfate (Morphine) 2 mg IV Q5MIN PRN PRN Reason: Chest Pain Last Admin: 06/21/20 01:26 Dose: 1 mg Documented by: NINA Naloxone HCl (Narcan) 0.2 mg IV Q2MIN PRN PRN Reason: Opiate Reversal Nitroglycerin (Nitrostat) 0.4 mg SL [id number] PRN PRN Reason: Chest Pain Last Admin: 06/21/20 00:10 Dose: 0.4 mg Documented by: Admin: 06/20/20 23:54 Dose: 0.4 mg Documented by: NINA Ondansetron HCl (Zofran) 4 mg IV Q8HR PRN PRN Reason: Nausea And Vomiting Discontinued Medications Acetaminophen (Tylenol) 975 mg PO NOW ONE Stop: 06/20/20 17:16 Last Admin: 06/20/20 17:23 Dose: 975 mg Documented by: SUSIE Aspirin (Aspirin Chew) 324 mg PO NOW ONE Stop: 06/20/20 15:39 Last Admin: 06/20/20 16:03 Dose: Not Given Documented by: SUSIE Heparin Sodium (Porcine) (Heparin) 7,500 unit IV NOW ONE Stop: 06/20/20 15:51 Last Admin: 06/20/20 16:01 Dose: 7,500 unit Documented by: SUSIE Nitroglycerin (Nitrostat) 0.4 mg SL [id number] PRN PRN Reason: Chest Pain Last Admin: 06/20/20 16:33 Dose: 0.4 mg Documented by: Admin: 06/20/20 16:18 Dose: 0.4 mg Documented by: Admin: 06/20/20 15:59 Dose: 0.4 mg Documented by: SUSIE Nitroglycerin (Nitro-Bid) 1 inch TOP NOW ONE Stop: 06/20/20 17:12 Last Admin: 06/20/20 17:24 Dose: 1 inch Documented by: SUSIE Vital Signs Vital signs: Vital Signs - 8 hr 06/20/20 16:40 06/20/20 16:45 06/20/20 16:50 Temperature Pulse Rate 100 H 96 H 94 H Respiratory Rate 20 17 14 Blood Pressure 137/62 135/64 135/65 Pulse Oximetry 96 97 97 06/20/20 16:55 06/20/20 17:00 06/20/20 17:05 Temperature Pulse Rate 100 H 97 H 96 H Respiratory Rate 25 H 14 17 Blood Pressure 137/63 142/64 H 143/64 H Pulse Oximetry 98 98 98 06/20/20 17:10 06/20/20 17:15 06/20/20 17:20 Temperature Pulse Rate 94 H 93 H 95 H Respiratory Rate 13 12 12 Blood Pressure 147/63 H 146/66 H 147/65 H Pulse Oximetry 98 99 97 06/20/20 17:24 06/20/20 17:30 06/20/20 17:45 Temperature Pulse Rate 94 H 94 H 96 H Respiratory Rate 17 22 Blood Pressure 147/65 H 153/65 H 147/68 H Pulse Oximetry 99 98 06/20/20 18:00 06/20/20 18:15 06/20/20 18:30 Temperature Pulse Rate 97 H 97 H 96 H Respiratory Rate 26 H 14 11 L Blood Pressure 144/58 H 145/64 H 141/64 H Pulse Oximetry 98 97 97 06/20/20 18:41 06/20/20 19:00 Temperature 99.1 F Pulse Rate 101 H Respiratory Rate 19 Blood Pressure 149/65 H Pulse Oximetry 95 <Arnaud Paz MD - Last Filed: 06/21/20 00:39> Course Course Narrative: Time 6:00 p.m.. Sign-out from Dr. Gifford, 2nd troponin pending. Results dictate hospitalization here or at [facility]. Currently chest pain free. On heparin drip. Hemodynamically stable. Blood pressures improved Orders Ordered: Acetaminophen (Tylenol) 650 mg PO Q6HR PRN PRN Reason: Fever/Mild Pain (1-3) Aspirin (Aspirin Ec) 81 mg PO DAILY [facility] Atorvastatin Calcium (Lipitor) 40 mg PO BEDTIME BELTRAN Dextrose (D50w) 25 gm IV PRN PRN PRN Reason: Hypoglycemia Heparin Sodium/Dextrose (Heparin Drip) 25,000 unit in 500 mls @ 20 mls/hr IV CONT [facility]; Protocol Last Titration: 06/20/20 22:19 Dose: 950 units/hr, 19 mls/hr Documented by: Titration: 06/20/20 20:58 Dose: 1,000 units/hr, 20 mls/hr Documented by: Admin: 06/20/20 16:10 Dose: 1,000 units/hr, 20 mls/hr Documented by: SUSEI Insulin Aspart (Novolog Flexpen) 0 unit SUBCUT ACHS [facility]; Protocol Morphine Sulfate (Morphine) 2 mg IV Q5MIN PRN PRN Reason: Chest Pain Last Admin: 06/21/20 01:26 Dose: 1 mg Documented by: NINA Naloxone HCl (Narcan) 0.2 mg IV Q2MIN PRN PRN Reason: Opiate Reversal Nitroglycerin (Nitrostat) 0.4 mg SL [id number] PRN PRN Reason: Chest Pain Last Admin: 06/21/20 00:10 Dose: 0.4 mg Documented by: Admin: 06/20/20 23:54 Dose: 0.4 mg Documented by: NINA Ondansetron HCl (Zofran) 4 mg IV Q8HR PRN PRN Reason: Nausea And Vomiting Discontinued Medications Acetaminophen (Tylenol) 975 mg PO NOW ONE Stop: 06/20/20 17:16 Last Admin: 06/20/20 17:23 Dose: 975 mg Documented by: SUSIE Aspirin (Aspirin Chew) 324 mg PO NOW ONE Stop: 06/20/20 15:39 Last Admin: 06/20/20 16:03 Dose: Not Given Documented by: SUSIE Heparin Sodium (Porcine) (Heparin) 7,500 unit IV NOW ONE Stop: 06/20/20 15:51 Last Admin: 06/20/20 16:01 Dose: 7,500 unit Documented by: SUSIE Nitroglycerin (Nitrostat) 0.4 mg SL [id number] PRN PRN Reason: Chest Pain Last Admin: 06/20/20 16:33 Dose: 0.4 mg Documented by: Admin: 06/20/20 16:18 Dose: 0.4 mg Documented by: Admin: 06/20/20 15:59 Dose: 0.4 mg Documented by: SUSIE Nitroglycerin (Nitro-Bid) 1 inch TOP NOW ONE Stop: 06/20/20 17:12 Last Admin: 06/20/20 17:24 Dose: 1 inch Documented by: SUSIE Consultations Consultation #1: Spoke with Dr. Moeller, cardiology. Second troponin negative. Keep patient here. Continue heparin drip through the night and may DC in the morning if troponins tonight remain normal. Stress test in the morning. Time: 19:00 Consultation #2: Spoke with hospitalist, Dr. Goyal, will admit Time: 19:00 Vital Signs Vital signs: Vital Signs - 8 hr 06/20/20 16:40 06/20/20 16:45 06/20/20 16:50 Temperature Pulse Rate 100 H 96 H 94 H Respiratory Rate 20 17 14 Blood Pressure 137/62 135/64 135/65 Pulse Oximetry 96 97 97 06/20/20 16:55 06/20/20 17:00 06/20/20 17:05 Temperature Pulse Rate 100 H 97 H 96 H Respiratory Rate 25 H 14 17 Blood Pressure 137/63 142/64 H 143/64 H Pulse Oximetry 98 98 98 06/20/20 17:10 06/20/20 17:15 06/20/20 17:20 Temperature Pulse Rate 94 H 93 H 95 H Respiratory Rate 13 12 12 Blood Pressure 147/63 H 146/66 H 147/65 H Pulse Oximetry 98 99 97 06/20/20 17:24 06/20/20 17:30 06/20/20 17:45 Temperature Pulse Rate 94 H 94 H 96 H Respiratory Rate 17 22 Blood Pressure 147/65 H 153/65 H 147/68 H Pulse Oximetry 99 98 06/20/20 18:00 06/20/20 18:15 06/20/20 18:30 Temperature Pulse Rate 97 H 97 H 96 H Respiratory Rate 26 H 14 11 L Blood Pressure 144/58 H 145/64 H 141/64 H Pulse Oximetry 98 97 97 06/20/20 18:41 06/20/20 19:00 Temperature 99.1 F Pulse Rate 101 H Respiratory Rate 19 Blood Pressure 149/65 H Pulse Oximetry 95 MDM - Chest Pain <Helena Ashley MD - Last Filed: 06/21/20 07:19> Medical Records Data Attestation: I reviewed the patient's medical records. Lab Data Attestation: I reviewed the patient's lab results. Result diagrams: 06/21/20 03:36 06/21/20 03:36 Labs: Lab Results 06/20/20 06/20/20 06/20/20 Range/Units 15:45 15:45 15:45 WBC 10.0 (4.5-11.0) X10^3/uL RBC 4.31 (4.0-5.2) X10^6/uL Hgb 14.1 (12.0-16.0) g/dL Hct 40.9 (36-46) % MCV 95.0 (80-100) fL MCH 32.8 (26-34) PG MCHC 34.5 (30-36) % RDW 14.9 H (11.6-14.8) % Plt Count 151 (150-400) X10^3/uL Neut % (Auto) 77.6 H (50-75) % Lymph % (Auto) 11.3 L (25-40) % [place] % (Auto) 9.8 (3-14) % Eos % (Auto) 0.9 L (2-4) % Baso % (Auto) 0.4 (0-2) % Neut # (Auto) 7800 H (0062-9997) /uL Lymph # (Auto) 1100 (2107-5901) /uL [place] # (Auto) 1000 H (0-900) /uL Eos # (Auto) 100 (0-450) /uL Baso # (Auto) 0 (0-100) /uL PT 12.8 H (10.1-12.7) SECONDS INR 1.1 (0.9-1.3) APTT 30 (26.4-36.2) SECONDS Sodium 139 (137-145) mmol/L Potassium 3.7 (3.4-5.1) mmol/L Chloride 100 (98-107) mmol/L Carbon Dioxide 34 H (22-32) mmol/L BUN 13 (7-17) mg/dL Creatinine 0.67 (0.52-1.04) mg/dL Estimated GFR > 60.0 (>60) mL/min BUN/Creatinine Ratio 19.4 (6-22) Glucose 101 (80-110) mg/dL Hemoglobin A1c (4.0-6.0) % Calcium 9.2 (8.4-10.2) mg/dL Total Bilirubin 0.5 (0.2-1.3) mg/dL AST 42 H (14-36) IU/L ALT 37 H (<35) IU/L Alkaline Phosphatase 124 (38-126) U/L Total Creatine Kinase 35 (30-135) U/L CK-MB (CK-2) TNP CK-MB (CK-2) Rel Index TNP Troponin I < 0.012 (0.01-0.034) ng/mL Total Protein 7.6 (6.3-8.2) g/dL Albumin 4.1 (3.5-5.0) g/dL Globulin 3.5 (1.7-4.1) g/dL Albumin/Globulin Ratio 1.2 (1.0-2.8) Lipase 77 (23-300) U/L COVID-19 PCR (Negative) 06/20/20 06/20/20 06/20/20 Range/Units 15:45 18:00 18:35 WBC (4.5-11.0) X10^3/uL RBC (4.0-5.2) X10^6/uL Hgb (12.0-16.0) g/dL Hct (36-46) % MCV (80-100) fL MCH (26-34) PG MCHC (30-36) % RDW (11.6-14.8) % Plt Count (150-400) X10^3/uL Neut % (Auto) (50-75) % Lymph % (Auto) (25-40) % [place] % (Auto) (3-14) % Eos % (Auto) (2-4) % Baso % (Auto) (0-2) % Neut # (Auto) (5587-1630) /uL Lymph # (Auto) (9441-7548) /uL [place] # (Auto) (0-900) /uL Eos # (Auto) (0-450) /uL Baso # (Auto) (0-100) /uL PT (10.1-12.7) SECONDS INR (0.9-1.3) APTT (26.4-36.2) SECONDS Sodium (137-145) mmol/L Potassium (3.4-5.1) mmol/L Chloride (98-107) mmol/L Carbon Dioxide (22-32) mmol/L BUN (7-17) mg/dL Creatinine (0.52-1.04) mg/dL Estimated GFR (>60) mL/min BUN/Creatinine Ratio (6-22) Glucose (80-110) mg/dL Hemoglobin A1c 6.2 H (4.0-6.0) % Calcium (8.4-10.2) mg/dL Total Bilirubin (0.2-1.3) mg/dL AST (14-36) IU/L ALT (<35) IU/L Alkaline Phosphatase (38-126) U/L Total Creatine Kinase (30-135) U/L CK-MB (CK-2) CK-MB (CK-2) Rel Index Troponin I < 0.012 (0.01-0.034) ng/mL Total Protein (6.3-8.2) g/dL Albumin (3.5-5.0) g/dL Globulin (1.7-4.1) g/dL Albumin/Globulin Ratio (1.0-2.8) Lipase (23-300) U/L COVID-19 PCR Negative (Negative) Imaging Data Chest x-ray: Radiologist's Impression: FINDINGS: Surgical changes and devices: None. Lungs and pleura: Lungs are clear. No pleural effusions or pneumothorax. Mediastinum: Mediastinal contours appear normal. Heart size is normal. Bones and chest wall: No suspicious bony lesions. Overlying soft tissues appear unremarkable. IMPRESSION: No acute cardiopulmonary disease process. Dictated by: Liliam Zaldivar MD, PhD on 06/20/2020 at 16:01 ECG Data Attestation: I personally reviewed and interpreted this ECG as follows: Interpretation: Sinus rhythm at a rate of 100 Normal interval, normal axis No acute ischemic changes MDM Narrative Medical decision making narrative: 64-year-old woman with a clinical story very concerning for unstable angina. Initial troponin and EKG are unremarkable. Story is impressive enough that she was started on heparin drip on arrival. Pain went from a 7/10 to a 1/10 with 3 sublingual nitroglycerin. Blood pressure has come down nicely. An inch of nitro paste is placed. [address] Moeller, cardiology. If repeat troponin is still negative she remains pain-free and EKG does not suggest evolving changes than admit to [facility] would be appropriate. If there are additional changes or her symptoms escalate then transfer to [facility] would be appropriate. 545 pain was down to a 1/10 after the sublingual nitroglycerin. In the time from the last sublingual nitro and nitropaste been placed her pain was beginning to increase again. EKG has been ordered and repeat troponin has been ordered as well. <Arnaud Paz MD - Last Filed: 06/21/20 00:39> Lab Data Labs: Lab Results 06/20/20 06/20/20 06/20/20 Range/Units 15:45 15:45 15:45 WBC 10.0 (4.5-11.0) X10^3/uL RBC 4.31 (4.0-5.2) X10^6/uL Hgb 14.1 (12.0-16.0) g/dL Hct 40.9 (36-46) % MCV 95.0 (80-100) fL MCH 32.8 (26-34) PG MCHC 34.5 (30-36) % RDW 14.9 H (11.6-14.8) % Plt Count 151 (150-400) X10^3/uL Neut % (Auto) 77.6 H (50-75) % Lymph % (Auto) 11.3 L (25-40) % [place] % (Auto) 9.8 (3-14) % Eos % (Auto) 0.9 L (2-4) % Baso % (Auto) 0.4 (0-2) % Neut # (Auto) 7800 H (8599-6336) /uL Lymph # (Auto) 1100 (3888-8043) /uL [place] # (Auto) 1000 H (0-900) /uL Eos # (Auto) 100 (0-450) /uL Baso # (Auto) 0 (0-100) /uL PT 12.8 H (10.1-12.7) SECONDS INR 1.1 (0.9-1.3) APTT 30 (26.4-36.2) SECONDS Sodium 139 (137-145) mmol/L Potassium 3.7 (3.4-5.1) mmol/L Chloride 100 (98-107) mmol/L Carbon Dioxide 34 H (22-32) mmol/L BUN 13 (7-17) mg/dL Creatinine 0.67 (0.52-1.04) mg/dL Estimated GFR > 60.0 (>60) mL/min BUN/Creatinine Ratio 19.4 (6-22) Glucose 101 (80-110) mg/dL Hemoglobin A1c (4.0-6.0) % Calcium 9.2 (8.4-10.2) mg/dL Total Bilirubin 0.5 (0.2-1.3) mg/dL AST 42 H (14-36) IU/L ALT 37 H (<35) IU/L Alkaline Phosphatase 124 (38-126) U/L Total Creatine Kinase 35 (30-135) U/L CK-MB (CK-2) TNP CK-MB (CK-2) Rel Index TNP Troponin I < 0.012 (0.01-0.034) ng/mL Total Protein 7.6 (6.3-8.2) g/dL Albumin 4.1 (3.5-5.0) g/dL Globulin 3.5 (1.7-4.1) g/dL Albumin/Globulin Ratio 1.2 (1.0-2.8) Lipase 77 (23-300) U/L COVID-19 PCR (Negative) 06/20/20 06/20/20 06/20/20 Range/Units 15:45 18:00 18:35 WBC (4.5-11.0) X10^3/uL RBC (4.0-5.2) X10^6/uL Hgb (12.0-16.0) g/dL Hct (36-46) % MCV (80-100) fL MCH (26-34) PG MCHC (30-36) % RDW (11.6-14.8) % Plt Count (150-400) X10^3/uL Neut % (Auto) (50-75) % Lymph % (Auto) (25-40) % [place] % (Auto) (3-14) % Eos % (Auto) (2-4) % Baso % (Auto) (0-2) % Neut # (Auto) (7685-9564) /uL Lymph # (Auto) (2157-9706) /uL [place] # (Auto) (0-900) /uL Eos # (Auto) (0-450) /uL Baso # (Auto) (0-100) /uL PT (10.1-12.7) SECONDS INR (0.9-1.3) APTT (26.4-36.2) SECONDS Sodium (137-145) mmol/L Potassium (3.4-5.1) mmol/L Chloride (98-107) mmol/L Carbon Dioxide (22-32) mmol/L BUN (7-17) mg/dL Creatinine (0.52-1.04) mg/dL Estimated GFR (>60) mL/min BUN/Creatinine Ratio (6-22) Glucose (80-110) mg/dL Hemoglobin A1c 6.2 H (4.0-6.0) % Calcium (8.4-10.2) mg/dL Total Bilirubin (0.2-1.3) mg/dL AST (14-36) IU/L ALT (<35) IU/L Alkaline Phosphatase (38-126) U/L Total Creatine Kinase (30-135) U/L CK-MB (CK-2) CK-MB (CK-2) Rel Index Troponin I < 0.012 (0.01-0.034) ng/mL Total Protein (6.3-8.2) g/dL Albumin (3.5-5.0) g/dL Globulin (1.7-4.1) g/dL Albumin/Globulin Ratio (1.0-2.8) Lipase (23-300) U/L COVID-19 PCR Negative (Negative) Discharge Plan Departure Patient Disposition: Admitted as Observation Clinical Impression: Chest pain Qualifiers: Chest pain type: unspecified Qualified Code(s): R07.9 - Chest pain, unspecified Discharge Date/Time: 06/20/20 20:45 Referrals: Jj Hernandez MD [Primary Care Provider] - Admit Date/Time: 06/20/20 19:03 Admit Provider: Reji Goyal ED Sign-out <Helena Ashley MD - Last Filed: 06/21/20 07:19> Cosign ED Attending Cosignature Attestation: I was immediately available in the department for consultation throughout this patient's visit. I agree with documentation as above. Helena Ashley MD
[2020-06-20 15:54] LABS: Add Manual Diff / Slide Review NO; Basophils Absolute Auto 0 /uL (0-100); Basophils Percent Auto 0.4 % (0-2); Eosinophils Absolute Auto 100 /uL (0-450); Eosinophils Percent Auto 0.9 % (2-4); Hematocrit 40.9 % (36-46); Hemoglobin 14.1 g/dL (12.0-16.0); Lymphocytes Absolute Auto 1100 /uL (1100-4500); Lymphocytes Percent Auto 11.3 % (25-40); Mean Corpuscular HGB Conc 34.5 % (30-36); Mean Corpuscular Hemoglobin 32.8 PG (26-34); Monocytes Absolute Auto 1000 /uL (0-900); Monocytes Percent Auto 9.8 % (3-14); Neutrophils Absolute Auto 7800 /uL (1500-7000); Neutrophils Percent Auto 77.6 % (50-75); Platelet Count 151 X10^3/uL (150-400); Red Blood Cell Count 4.31 X10^6/uL (4.0-5.2); Red Cell Distribution Width 14.9 % (11.6-14.8)
[2020-06-20] MEDS: NITROGLYCERIN 0.4 MG SL TAB SL ×4 (15:59→23:54)
[2020-06-20 16:01] LABS: INR 1.1 (0.9-1.3); Prothrombin Time 12.8 SECONDS (10.1-12.7)
[2020-06-20] MEDS: HEPARIN 5,000 UNIT/ML VIAL 7500 UNIT IV (16:01)
[2020-06-20 16:09] LABS: PTT Partial Thromboplastin Tim 30 SECONDS (26.4-36.2)
[2020-06-20 16:10] LABS: Alanine Aminotransferase 37 IU/L (<35); Albumin 4.1 g/dL (3.5-5.0); Albumin Globulin Ratio 1.2 (1.0-2.8); Alkaline Phosphatase 124 U/L (38-126); Aspartate Aminotransferase 42 IU/L (14-36); BUN Creatinine Ratio 19.4 (6-22); Bilirubin Total 0.5 mg/dL (0.2-1.3); Blood Urea Nitrogen 13 mg/dL (7-17); Calcium 9.2 mg/dL (8.4-10.2); Carbon Dioxide 34 mmol/L (22-32); Chloride 100 mmol/L (98-107); Creatine Kinase 35 U/L (30-135); Estimated Glomerular Filt Rate > 60.0 mL/min (>60); Globulin 3.5 g/dL (1.7-4.1); Glucose 101 mg/dL (80-110); HEMOLYSIS < 15 (0-50); Lipase 77 U/L (23-300); Potassium 3.7 mmol/L (3.4-5.1); Sodium 139 mmol/L (137-145); Total Protein 7.6 g/dL (6.3-8.2)
[2020-06-20] MEDS: HEPARIN DRIP 25,000 UNIT/500 ML IV.SOLN 20 UNIT IV (16:10)
[2020-06-20 16:21] LABS: Troponin I < 0.012 ng/mL (0.01-0.034)
[2020-06-20] MEDS: ACETAMINOPHEN 325 MG TABLET 975 MG PO (17:23)
[2020-06-20] MEDS: NITROGLYCERIN OINT 1 INCH/GM OINT...G. TOP (17:24)
[2020-06-20 18:29] LABS: Troponin I < 0.012 ng/mL (0.01-0.034)
[2020-06-20 19:10] LABS: COVID19 -Nasal RAPID Negative (Negative)
--- NOTE | 2020-06-20 20:45 | PC.ADMIT ---
Admission Note: The patient,Marie Bernal,64 y/o, was given written information regarding hospital policies, unit procedures and contact persons. Patient's smoking status: Never smoker. Pt arrived from ED via stretcher. Ambulated from stretcher to bed. Denies dizziness when up. BP much lower than prior readings. Reports mild chest pain 12/05. Hep drip infusing at 20 ml/hr (1000 units/hr). Next lab draw ordered by ER . Oriented to room and call system. Pt verbalized she will call for needs. Vital Signs - 8 hr 06/20/20 15:32 06/20/20 15:33 06/20/20 15:36 Temperature 99.9 F H Pulse Rate 106 H 105 H 104 H Respiratory Rate 18 21 Blood Pressure 232/107 H 232/107 H 204/88 H Pulse Oximetry 98 98 99 06/20/20 15:59 06/20/20 16:00 06/20/20 16:01 Temperature Pulse Rate 103 H 102 H 100 H Respiratory Rate 20 26 H Blood Pressure 192/86 H 192/86 H Pulse Oximetry 98 98 06/20/20 16:05 06/20/20 16:10 06/20/20 16:15 Temperature Pulse Rate 99 H 100 H 101 H Respiratory Rate 18 14 20 Blood Pressure 162/77 H 136/67 143/65 H Pulse Oximetry 96 95 97 06/20/20 16:18 06/20/20 16:21 06/20/20 16:25 Temperature Pulse Rate 110 H 109 H 109 H Respiratory Rate 18 20 Blood Pressure 143/65 H 139/62 114/57 L Pulse Oximetry 98 96 06/20/20 16:30 06/20/20 16:33 06/20/20 16:35 Temperature Pulse Rate 104 H 99 H 97 H Respiratory Rate 22 13 Blood Pressure 144/66 H 144/66 H 139/63 Pulse Oximetry 95 97 06/20/20 16:40 06/20/20 16:45 06/20/20 16:50 Temperature Pulse Rate 100 H 96 H 94 H Respiratory Rate 20 17 14 Blood Pressure 137/62 135/64 135/65 Pulse Oximetry 96 97 97 06/20/20 16:55 06/20/20 17:00 06/20/20 17:05 Temperature Pulse Rate 100 H 97 H 96 H Respiratory Rate 25 H 14 17 Blood Pressure 137/63 142/64 H 143/64 H Pulse Oximetry 98 98 98 06/20/20 17:10 06/20/20 17:15 06/20/20 17:20 Temperature Pulse Rate 94 H 93 H 95 H Respiratory Rate 13 12 12 Blood Pressure 147/63 H 146/66 H 147/65 H Pulse Oximetry 98 99 97 06/20/20 17:24 06/20/20 17:30 06/20/20 17:45 Temperature Pulse Rate 94 H 94 H 96 H Respiratory Rate 17 22 Blood Pressure 147/65 H 153/65 H 147/68 H Pulse Oximetry 99 98 06/20/20 18:00 06/20/20 18:15 06/20/20 18:30 Temperature Pulse Rate 97 H 97 H 96 H Respiratory Rate 26 H 14 11 L Blood Pressure 144/58 H 145/64 H 141/64 H Pulse Oximetry 98 97 97 06/20/20 18:41 06/20/20 19:00 06/20/20 19:30 Temperature 99.1 F Pulse Rate 101 H 96 H Respiratory Rate 19 24 Blood Pressure 149/65 H 148/65 H Pulse Oximetry 95 95 06/20/20 20:00 Temperature Pulse Rate 96 H Respiratory Rate 15 Blood Pressure 143/65 H Pulse Oximetry 95
[2020-06-20 22:16] LABS: PTT Partial Thromboplastin Tim 79 SECONDS (26.4-36.2)
[2020-06-20 22:19] LABS: Troponin I < 0.012 ng/mL (0.01-0.034)
[2020-06-20 22:19] LABS: Hemoglobin A1C% w Est Avg Glu 6.2 % (4.0-6.0)
[2020-06-21] VITALS (9 sets, daily range): BP systolic 121–155; BP diastolic 54–79; PULSE 82–101; RESP 16–20; TEMP 36.7–37.2; O2SAT 93–98
[2020-06-21] MEDS: NITROGLYCERIN 0.4 MG SL TAB SL (00:10)
--- NOTE | 2020-06-21 01:19 | PM.HP.1 ---
History of Present Illness History of Present Illness Date Patient Seen: 06/20/20 Time Patient Seen: 21:00 Chief complaint: chest pain Narrative: Marie Knott is a 64-year-old morbidly obese female with polymyalgia rheumatica, depression, bladder leakage, asthma and a history of fatty liver disease presented to the ED with chest pain. It started out with a headache this morning and then had pain in her back of her neck. When she returned home seeing her PCP today she noted that she had pain across her upper chest described as a crushing pain in her chest and radiating to her back. And also had a headache. She states that she has been watching her blood pressures and it has been running from systolics of 108-162 to diastolics of 55-70, the highest being today. She does state that she feels losartan makes her fingers curl and her legs cramp. She denies nausea or vomiting, abdominal pain, dysuria other than chronic bladder leakage, diarrhea or constipation. She takes methotrexate and prednisone regularly for the polymyalgia rheumatica. ED consulted with Dr. Moeller on-call medical dermatologist who recommended that the patient be put on a heparin drip and admitted to the floor. Patient's EKG was reported to be normal sinus rhythm. Troponins x3 are negative. Patient is afebrile with a blood pressure of 129/69, heart rate 88, respiratory rate of 18, oxygen saturation of 95% on room air, she weighs 113 kg with a BMI of 41.5. CBC is largely within normal limits, she does have an elevated APTT of 79 seconds, she has a CO2 of 34, hemoglobin A1c, AST 42, ALT is 37, COVID-19 is negative. Patient History Medical History Asthma (Chronic) Basal cell carcinoma (BCC) in situ of skin (Resolved) Depression (Chronic) Diastolic heart failure (Acute) GERD (gastroesophageal reflux disease) (Chronic) Hayfever (Chronic) Hx of lipoma (Acute) Hypertension (Resolved) Insulin resistance (Chronic) Lower extremity edema (Acute) Obstructive sleep apnea of adult (Chronic) Osteoarthritis (Chronic) PCOS (polycystic ovarian syndrome) (Chronic) Polymyalgia rheumatica (Acute) Primary insomnia (Chronic) Rosacea (Chronic) Snoring (Inactive) Surgical History History of third molar tooth extraction (Resolved 1973) History of tonsillectomy (Resolved 1958) Status post delivery (Resolved 12/28/80) Status post cholecystectomy (Resolved 1991) Status post colonoscopy (Resolved 2013) Status post dilation and curettage (Resolved 09/16/11) Family & Social History Family History Father CVA (cerebral vascular accident) Chronic lymphocytic leukemia Mother Lewy body dementia Other Dementia Habitual snoring Social History: household members spouse Prior Living Arrangements House Safety & Behavioral: Feels Safe in Current Yes Environment Been Physically Hurt or No Threatened By a Person Suicidal Ideation Description None Suicide Plan Description No Plan Tobacco & Substance use: Smoking Status Never smoker alcohol intake never alcohol intake frequency a few times a week Substance Use Type does not use Meds Home Medications and Allergies Home Medications Medication Instructions Recorded Confirmed Type cholecalciferol (vitamin D3) 2,000 unit PO DAILY #0 07/14/11 06/20/20 History [Vitamin D3] albuterol sulfate 90 mcg/actuation 2 puff INHALATION Q6H PRN 03/02/18 06/20/20 History aerosol inhaler clindamycin phosphate 1 % topical 1 applictn TOP BEDTIME 03/02/18 06/20/20 History solution [id number]-[id number] 1 mg PO DAILY ml 03/02/18 06/20/20 History 1,937 mg-188 mg/15 mL oral liquid cyanocobalamin (vitamin B-12) 2,500 mcg PO DAILY 03/02/18 06/20/20 History 2,500 mcg tablet Resmed Airsense 10 CPAP #1 ea 04/13/19 06/19/20 History fluticasone 250 mcg-salmeterol 50 1 inhalation INHALATION BID PRN 09/13/19 06/20/20 History mcg/dose blistr powdr for inhalation methotrexate sodium 2.5 mg tablet 20 mg PO QWEEK tab 04/11/20 06/20/20 History prednisone 10 mg tablet 3 mg PO DAILY tab 04/11/20 06/20/20 History tolterodine 2 mg capsule,extended 4 mg PO DAILY cap 04/11/20 06/20/20 History release 24 hr venlafaxine 150 mg tablet,extended 150 mg PO DAILY 04/11/20 06/20/20 History release 24 hr estradiol 10 mcg vaginal tablet 10 mcg VAG 2XW 05/22/20 06/20/20 History folic acid 1 mg tablet 1 mg PO DAILY 05/22/20 06/20/20 History hydrochlorothiazide 25 mg tablet 25 mg PO DAILY PRN 05/22/20 06/20/20 History losartan 25 mg tablet 25 mg PO DAILY 05/22/20 06/20/20 History naproxen sodium 220 mg tablet 220 mg PO BID PRN 05/22/20 06/20/20 History Allergies Allergy/AdvReac Type Severity Reaction Status Date / Time clarithromycin [From BIAXIN] Allergy Unknown Verified 06/20/20 15:48 ciprofloxacin AdvReac Severe tendonitis Verified 06/20/20 15:48 sulfamethoxazole AdvReac Intermediate Nausea Verified 06/20/20 15:48 [From Bactrim] trimethoprim [From Bactrim] AdvReac Intermediate Nausea Verified 06/20/20 15:48 Review of Systems Review of Systems ROS: Yes All systems reviewed with the patient and are negative except as otherwise documented Exam Vital Signs (past 8 hours): - 06/20/20 17:20 06/20/20 17:24 06/20/20 17:30 Temperature Pulse Rate 95 H 94 H 94 H Respiratory Rate 12 17 Blood Pressure 147/65 H 147/65 H 153/65 H Pulse Oximetry 97 99 06/20/20 17:45 06/20/20 18:00 06/20/20 18:15 Temperature Pulse Rate 96 H 97 H 97 H Respiratory Rate 22 26 H 14 Blood Pressure 147/68 H 144/58 H 145/64 H Pulse Oximetry 98 98 97 06/20/20 18:30 06/20/20 18:41 06/20/20 19:00 Temperature 99.1 F Pulse Rate 96 H 101 H Respiratory Rate 11 L 19 Blood Pressure 141/64 H 149/65 H Pulse Oximetry 97 95 06/20/20 19:30 06/20/20 20:00 06/20/20 21:31 Temperature 98.4 F Pulse Rate 96 H 96 H 93 H Respiratory Rate 24 15 18 Blood Pressure 148/65 H 143/65 H 108/57 L Pulse Oximetry 95 95 96 06/20/20 22:40 06/20/20 23:54 06/21/20 00:10 Temperature Pulse Rate 72 91 H 92 H Respiratory Rate 16 Blood Pressure 141/63 H 121/58 L Pulse Oximetry 96 06/21/20 00:56 06/21/20 00:57 06/21/20 01:16 Temperature 98.9 F Pulse Rate 90 92 H 88 Respiratory Rate 18 Blood Pressure 141/63 H 121/54 L 129/69 Pulse Oximetry 95 Oxygen Delivery Method CPAP Narrative Exam Narrative: Gen: Alert, oriented, morbidly obese 64 y.o. female, NAD HEENT: normocephalic, atraumatic, conjunctiva clear, sclera non-icteric, oral mucosa pink and moist Neck: supple, full ROM, no JVD, trachea is midline Resp: Lungs CTA, non-labored breathing CV: RRR, no murmur or rubs Abd: soft, non-tender, normoactive BTs Skin: no lesions or rashes, dry and intact Neuro: Alert and oriented X 4 w/no focal deficits. Speech clear and coherent. Extremities: moves all 4 extremities, is ambulatory, negative Nelson?s sign Psyche: normal mood and affect. Objective Labs Result Diagrams: 06/20/20 15:45 06/20/20 15:45 Labs: Laboratory Results - last 24 hr 06/20/20 06/20/20 06/20/20 15:45 15:45 15:45 WBC 10.0 RBC 4.31 Hgb 14.1 Hct 40.9 MCV 95.0 MCH 32.8 MCHC 34.5 RDW 14.9 H Plt Count 151 Neut % (Auto) 77.6 H Lymph % (Auto) 11.3 L [place] % (Auto) 9.8 Eos % (Auto) 0.9 L Baso % (Auto) 0.4 Neut # (Auto) 7800 H Lymph # (Auto) 1100 [place] # (Auto) 1000 H Eos # (Auto) 100 Baso # (Auto) 0 PT 12.8 H INR 1.1 APTT 30 Sodium 139 Potassium 3.7 Chloride 100 Carbon Dioxide 34 H BUN 13 Creatinine 0.67 Estimated GFR > 60.0 BUN/Creatinine Ratio 19.4 Glucose 101 Hemoglobin A1c Calcium 9.2 Total Bilirubin 0.5 AST 42 H ALT 37 H Alkaline Phosphatase 124 Total Creatine Kinase 35 CK-MB (CK-2) TNP CK-MB (CK-2) Rel Index TNP Troponin I < 0.012 Total Protein 7.6 Albumin 4.1 Globulin 3.5 Albumin/Globulin Ratio 1.2 Lipase 77 COVID-19 PCR 06/20/20 06/20/20 06/20/20 15:45 18:00 18:35 WBC RBC Hgb Hct MCV MCH MCHC RDW Plt Count Neut % (Auto) Lymph % (Auto) [place] % (Auto) Eos % (Auto) Baso % (Auto) Neut # (Auto) Lymph # (Auto) [place] # (Auto) Eos # (Auto) Baso # (Auto) PT INR APTT Sodium Potassium Chloride Carbon Dioxide BUN Creatinine Estimated GFR BUN/Creatinine Ratio Glucose Hemoglobin A1c 6.2 H Calcium Total Bilirubin AST ALT Alkaline Phosphatase Total Creatine Kinase CK-MB (CK-2) CK-MB (CK-2) Rel Index Troponin I < 0.012 Total Protein Albumin Globulin Albumin/Globulin Ratio Lipase COVID-19 PCR Negative 06/20/20 06/20/20 21:44 21:44 WBC RBC Hgb Hct MCV MCH MCHC RDW Plt Count Neut % (Auto) Lymph % (Auto) [place] % (Auto) Eos % (Auto) Baso % (Auto) Neut # (Auto) Lymph # (Auto) [place] # (Auto) Eos # (Auto) Baso # (Auto) PT INR APTT 79 H* D Sodium Potassium Chloride Carbon Dioxide BUN Creatinine Estimated GFR BUN/Creatinine Ratio Glucose Hemoglobin A1c Calcium Total Bilirubin AST ALT Alkaline Phosphatase Total Creatine Kinase CK-MB (CK-2) CK-MB (CK-2) Rel Index Troponin I < 0.012 Total Protein Albumin Globulin Albumin/Globulin Ratio Lipase COVID-19 PCR Assessment & Plan Assessment & Plan narrative: Marie Bernal is placed into observation for ACS rule out and a new diagnosis of diabetes type 2. Chest pain, acute and present on admission -All 3 troponins were negative -Echo and nuclear stress study tomorrow. -start ASA 81 mg po daily tomorrow -After discussion w/Dr. Moeller, the patient was initiated on heparin drip in the ED. -She was administered ASA 325 mg in the ED -start Beta canelo after stress test New diagonosis of diabetes type 2 with an A1c of 6.2 -Has existing diagnosis of insulin intolerance, probable steriod induced -Carb controlled diet -ACHS glucose checks -Low dose correctional insulin -Will need diabetic teaching Risk stratification -lipid panel in the am -started on atorvastatin 40 mg po at bedtime Asthma, chronic -Albuterol prn VTE prophylaxis: Wells risk score: 0 Patient is on a heparin drip Consults: none Patient is admitted under inpatient status with expected length of stay greater than 2 midnights due to severity of presenting symptoms, risk of adverse event, and complexity of treatment plan. FEN: IV saline lock, carb controlled diet, BMP and magnesium in the am. Dispo: Likely discharge to home Code Status: Full code as discussed with patient COVID-19 COVID-19 status: Negative Result date/Date tested (Pos, Neg/Pending): 06/20/20 Scores Wells' Criteria for PE Clinical signs and symptoms of DVT: No PE is #1 Dx or equally likely: No Heart rate > 100: No Immobilization at least 3 days or surg in previous 4 weeks: No History of PE or DVT: No Hemoptysis: No Malignancy w/Treatment within 6 months or palliative: No Wells' PE Score total: 0 Quality VTE Deep Vein Thrombosis/Pulmonary Embolism Present on Admission: No
[2020-06-21] MEDS: MORPHINE 2 MG/ML INJ IV (01:26)
[2020-06-21 04:01] LABS: Add Manual Diff / Slide Review NO; Basophils Absolute Auto 0 /uL (0-100); Basophils Percent Auto 0.3 % (0-2); Eosinophils Absolute Auto 100 /uL (0-450); Eosinophils Percent Auto 0.8 % (2-4); Hematocrit 37.6 % (36-46); Hemoglobin 12.7 g/dL (12.0-16.0); Lymphocytes Absolute Auto 1300 /uL (1100-4500); Lymphocytes Percent Auto 12.9 % (25-40); Mean Corpuscular HGB Conc 33.9 % (30-36); Mean Corpuscular Hemoglobin 32.3 PG (26-34); Mean Corpuscular Volume 95.3 fL (80-100); Monocytes Absolute Auto 800 /uL (0-900); Monocytes Percent Auto 8.5 % (3-14); Neutrophils Absolute Auto 7600 /uL (1500-7000); Neutrophils Percent Auto 77.5 % (50-75); Platelet Count 140 X10^3/uL (150-400); Red Blood Cell Count 3.94 X10^6/uL (4.0-5.2); Red Cell Distribution Width 14.8 % (11.6-14.8); White Blood Cell Count 9.8 X10^3/uL (4.5-11.0)
[2020-06-21 04:09] LABS: PTT Partial Thromboplastin Tim 52 SECONDS (26.4-36.2)
[2020-06-21 04:11] LABS: Creatine Kinase < 20 U/L (30-135)
[2020-06-21 04:12] LABS: Alanine Aminotransferase 29 IU/L (<35); Albumin 3.6 g/dL (3.5-5.0); Albumin Globulin Ratio 1.2 (1.0-2.8); Alkaline Phosphatase 106 U/L (38-126); Aspartate Aminotransferase 33 IU/L (14-36); BUN Creatinine Ratio 28.1 (6-22); Bilirubin Total 0.7 mg/dL (0.2-1.3); Bilirubin Unconjugated 0.6 mg/dL (0.0-1.1); Blood Urea Nitrogen 16 mg/dL (7-17); Carbon Dioxide 30 mmol/L (22-32); Chloride 100 mmol/L (98-107); Cholesterol 132 mg/dL (140-199); Estimated Glomerular Filt Rate > 60.0 mL/min (>60); Glucose 203 mg/dL (80-110); HDL Cholesterol 56 mg/dL (40-60); HEMOLYSIS < 15 (0-50); LDL Cholesterol Calculated 64 mg/dL (<100); Magnesium 1.9 mg/dL (1.6-2.3); Potassium 3.5 mmol/L (3.4-5.1); Sodium 136 mmol/L (137-145); Total Protein 6.6 g/dL (6.3-8.2); Triglycerides 59 mg/dL (35-150)
[2020-06-21 04:22] LABS: Troponin I < 0.012 ng/mL (0.01-0.034)
[2020-06-21 04:23] LABS: Hemoglobin A1C% w Est Avg Glu 6.2 % (4.0-6.0)
[2020-06-21 05:26] LABS: TSH w/ Reflex to FT4 2.88 uIU/mL (0.47-4.68)
--- NOTE | 2020-06-21 07:59 | DI.CT.S_ITS ---
PROCEDURE: CT ANGIO CHEST ABDOMEN PELVIS INDICATIONS: severe chest/back pain, diaphoresis TECHNIQUE: Precontrast 5 mm thick sections acquired from the lung apices to the iliac crests. After the administration of intravenous contrast, 2.5 mm thick sections again acquired from the lung apices to the iliac crests. Maximum intensity projection (MIP) oblique sagittal and coronal reformats were then acquired. For radiation dose reduction, the following was used: automated exposure control. COMPARISON: None. FINDINGS: Image quality: Excellent. AORTA: The thoracic aorta is normal caliber without evidence of aneurysm, dissection, or intramural hematoma. No periaortic inflammation. CHEST: Lungs and pleura: Patchy bibasilar alveolar opacities, left more extensive than right. Trace bilateral pleural effusions.. Central and peripheral airways are patent and normal in caliber. Mediastinum: Heart size is normal. Circumferential pericardial thickening without effusion.. Borderline right subcarinal/bronchovascular adenopathy measuring 9 mm in short axis. Other mediastinal and hilar lymph nodes are normal caliber. No mediastinal or hilar adenopathy by size criteria. Central pulmonary arteries are normal in size. Esophagus is normal in caliber. No hiatal hernias. Bones and chest wall: No axillary adenopathy by size criteria. Thyroid gland is normal . No suspicious bony lesions. No vertebral body compression fractures. ABDOMEN: Vasculature: The abdominal aortic caliber is normal. No significant atherosclerotic calcification. Celiac trunk and mesenteric arteries are patent. Renal arteries are also patent. Retro aortic left renal vein. Solid organs: The liver demonstrates left lobe hypertrophy and nodular margin. Mild diffuse parenchymal hypodensity. No discrete lesion. The portal vein is patent.. Gallbladder surgically absent. . Biliary system is non dilated. Pancreas enhances normally. Spleen is enlarged measuring 14.1 cm in craniocaudal dimension by 14.6 cm in AP diameter, but is normal in enhancement. No adrenal nodules. Both kidneys are normal in size and enhancement, without hydronephrosis. Peritoneum and bowel: No free fluid or air. Bowel loops are normal in caliber and wall thickness. Nodes and vessels: No retroperitoneal or mesenteric adenopathy by size criteria. Inferior vena cava is normal in morphology. Miscellaneous: No ventral hernias. PELVIS: Genitourinary: Bladder wall thickness is normal. Uterus and ovaries are normal. Miscellaneous: No inguinal hernias or adenopathy. No ventral hernias. Bones: No suspicious bony lesions. No vertebral body compression fractures. There is moderate sclerosis on both sides of both sacroiliac joints and vacuum phenomenon within both joints. Severe degenerative facet arthropathy on the left at the L5-S1 level. IMPRESSION: 1. No evidence of acute aortic pathology. 2. Small bibasilar parenchymal opacities and trace effusions. This is likely atelectasis although underlying infection may be present. 3. Normal size heart with circumferential pericardial thickening. Correlate with any cardiac history and/or echocardiogram. 4. Cirrhotic liver morphology with mild splenomegaly. No ascites present. 5. Surgically absent gallbladder. 6. Sacroiliitis, degenerative disease, or osteitis condensans ilii. Dictated by: Melissa Dixon M.D. on 06/21/2020 at 8:17 Approved by: Melissa Dixon M.D. on 06/21/2020 at 8:39
[2020-06-21] MEDS: CYCLOBENZAPRINE 10 MG TABLET PO (08:49)
[2020-06-21] MEDS: ASPIRIN EC 81 MG TABLET PO (08:49)
--- NOTE | 2020-06-21 11:33 | PC.NURSE ---
Addendum entered by Sg Burgess R.N. 06/21/20 12:02: ECHO completed at bedside. Patient back in chair sitting up, states she is feeling a little better now. Dr. Arechiga ordering home medications, patient agrees to try tylenol at this time. Declines heat pack or ice pack at this time. call light within reach, continue to monitor. Original Note: 0800 Patient reports that pain across chest has continued throughout the night, states there was a brief period of time in ER that it seems to dissipate but then came back worse and now rates the discomfort and tightness as moderate 6-/10. Describes it as worse with deep breathing, denies that it changes with exertion, endorses a feeling of shortness of breath at times and with exertion, 97% on RA. Patient declines trying nitroglycerin and morphine as ordered prn, stating they did not seem to help and gave her a headache. Dr. Arechiga notified of patient's complaints. Tried cyclobenzaprine as ordered. Patient down to CT for her scan. Plan for ECHO today and Nuc med stress test. Call light within reach, continue to monitor.
[2020-06-21] MEDS: predniSONE 1 MG TABLET 3 MG PO (12:32)
[2020-06-21] MEDS: ACETAMINOPHEN 325 MG TABLET 650 MG PO (12:32)
[2020-06-21] MEDS: ALBUTEROL HFA 200 PUFF/18 GM INH (COVID POS/VENT PTS) INH ×2 (12:38→19:24)
--- NOTE | 2020-06-21 13:00 | PC.NURSE ---
Patient picked up for nuc med test approx. 1240.
--- NOTE | 2020-06-21 13:35 | CM.DANOTE ---
Discharge Planning/Care Management DCP: assessment: case received, EMR reviewed and met with pt and her during Team Bedside Rounds. Introduced self and role. Pt is a 64 year old female who admitted to care of hospitalist team last night with c/o chest pain PCP: Dr. Miroslava Hernandez Payer: Medicare and [employer] Admission status: OBS. A d/c order was placed by Dr. Arechiga this morning but she clarifies that this will only be finalized IF pt does well with ECHO and stress test, both planned for today. She stated that she would be back later this afternoon to discuss results and POC going forward and that pt MIGHT be able to d/c home this evening. Pt and spouse with lots of questions for Dr. Arechiga on her home medications and desires to cut out what may not be needed anymore. Dr. Arechiga said she would address this later with them but that pt also should followup with her PCP for this discussion and management of this process in the clinic setting. Will check in tomorrow and follow prn for any needs that may arise. Advanced directive, confirm from FAMILY Start: 06/20/20 21:07 Freq: Q24H Status: Active Protocol: Document 06/20/20 20:41 GMP (Rec: 06/20/20 22:09 [facility] [id number]) Advance Directive, confirm on record Time 20:41 Person contacted pt Copy received Yes CM Discharge Assessment Start: 06/21/20 13:34 Freq: Status: Active Protocol: Document 06/21/20 13:34 ITV (Rec: 06/21/20 13:34 ITV [id number]) Discharge Planning Assessment Advance Directives? Yes History Provided By Patient,Family Member,Medical Record Has Patient been admitted in last 30 No days? Prior Living Arrangements House Household Members spouse Review Status In Process
--- NOTE | 2020-06-21 14:41 | PC.NURSE ---
Patient back from nuc med stress test, she states it went well and is now waiting for chief airport guide for results. She is sitting up in chair, smiling, states she is feeling much better, conversant with her . Plan for discharge home later if cleared by MD. Back on telemetry, shows sinus rhythm.
[2020-06-21] MEDS: INSULIN ASPART 100 UNIT/ML INSULN PEN SUBCUT (17:33)
--- NOTE | 2020-06-21 18:39 | P.DS_ITS ---
History of Present Illness History of Present Illness Date Patient Seen: 06/20/20 Chief complaint: chest pain Narrative: Written by Destinee CHAUDHARY: Marie Knott is a 64-year-old morbidly obese female with polymyalgia rheumatica, depression, bladder leakage, asthma and a history of fatty liver disease presented to the ED with chest pain. It started out with a headache this morning and then had pain in her back of her neck. When she returned home seeing her PCP today she noted that she had pain across her upper chest described as a crushing pain in her chest and radiating to her back. And also had a headache. She states that she has been watching her blood pressures and it has been running from systolics of 108-162 to diastolics of 55-70, the highest being today. She does state that she feels losartan makes her fingers curl and her legs cramp. She denies nausea or vomiting, abdominal pain, dysuria other than chronic bladder leakage, diarrhea or constipation. She takes methotrexate and prednisone regularly for the polymyalgia rheumatica. ED consulted with Dr. Moeller on-call supervisor dog license officer who recommended that the patient be put on a heparin drip and admitted to the floor. Patient's EKG was reported to be normal sinus rhythm. Troponins x3 are negative. Patient is afebrile with a blood pressure of 129/69, heart rate 88, respiratory rate of 18, oxygen saturation of 95% on room air, she weighs 113 kg with a BMI of 41.5. CBC is largely within normal limits, she does have an elevated APTT of 79 seconds, she has a CO2 of 34, hemoglobin A1c, AST 42, ALT is 37, COVID-19 is negative. Discharge Providers Provider Date of admission: 06/20/20 19:03 Discharge Date: 06/21/20 Primary care physician: Jj Hernandez MD Discharge provider: Claudia Arechiga DO Summary Hospital Course Discharge Diagnosis: 1. Acute chest pain, present on admission. Resolved. 2. Newly diagnosed hypertrophic cardiomyopathy with moderate outflow tract obstruction, secondary to hypertension, present on admission. Stable. 3. NICE with evidence on cirrhosis CT, chronic and newly diagnosed, present on admission. Stable. 4. Hypertension, chronic, present on admission. Stable. 5. Prediabetes, chronic, present on admission. Stable. 6. Asthma, chronic, present on admission. Stable. 7. Morbid obesity, chronic, present on admission. Stable. 8. Polymyalgia rhumatic, chronic, present on admission. Stable. Hospital Course: Marie Knott is a 64-year-old morbidly obese female with a past medical history significant for hypertension, prediabetes, polymyalgia rheumatica, depression, b ladder leakage, asthma and a history of fatty liver disease who presented to the ED with chest pain. 1. Acute chest pain, present on admission. Resolved. -Patient presented with neck pain that later progressed to substernal chest pain/pressure radiating to back with associated diaphoresis. -Cardiac risk factors include: Hypertension and prediabetes. -EKG demonstrated sinus rhythm without acute ischemic changes such as ST elevation or depression. Continued to monitor closely on telemetry. Patient remained in sinus rhythm throughout hospitalization without significant ectopy. -CTA chest, abdomen and pelvis did not demonstrate any evidence of aortic dissection or aortic pathology. -Trended serial troponins x3 which were < 0.012. -Risk stratified with hemoglobin A1c which was elevated at 6.2% indicative of prediabetes and and fasting lipid panel which demonstrated excellent lipid con trol with: Total cholesterol 132, triglyceride 59, LDL 64 (goal <100) and HDL 56. -Echocardiogram did not demonstrate any wall motion abnormalities and moderate LVOT with hypertrophic cardiomyopathy as below. -Ordered nitroglycerin 0.4 mg sublingual every 5 minutes as needed for chest pain and morphine 2 mg every 5 minutes as needed for chest pain not relieved with nitroglycerin. -Received aspirin 324 mg in ED. Continued aspirin 81 mg daily and atorvastatin 40 mg daily at bedtime until stress test was performed and low risk. Started cardiac heparin gtt until troponins negative x 3. Started and continued metoprolol tartrate 25 mg twice daily. -NM cardiac stress test normal myocardial perfusion study with evidence of breast tissue attenuation artifact which resolved during prone images. Overall, a low-risk myocardial perfusion scan. 2. Newly diagnosed hypertrophic cardiomyopathy with moderate outflow tract obstruction, secondary to hypertension, present on admission. Stable. -Echocardiogram demonstrated normal sinus rhythm, normal LV size, mild concentric LVH, normal wall motion and left ventricular systolic function EF is 65-70%, normal chamber sizes, no significant valvular abnormalities and moderate left ventricular outflow tract obstruction with peak gradient at rest is 16 mmHg and peak gradient with Valsalva maneuvers 36 mmHg. Compared to prior study 05/20/2019 LVOT obstruction is newly described. -CTA chest, abdomen and pelvis demonstrated normal size heart with cir cumferential pericardial thickening. -Started metoprolol tartrate 25 mg twice daily. Discontinued losartan per patients wishes due to concern for allergic reaction. Continued HCTZ only if needed for lower extremity edema. Recommend caution with diuretics or discontinuation in setting of LVOT per PCP or cardiology. -Recommend referral to cardiology per PCP. 3. NICE with evidence on cirrhosis CT, chronic and newly diagnosed, present on admission. Stable. -CTA chest, abdomen and pelvis demonstrated cirrhotic liver morphology with mild splenomegaly. No ascites present. -Recommend referral to hepatology per PCP. 4. Hypertension, chronic, present on admission. Stable. -Discontinued losartan per patients wishes due to concern for allergic reaction. Started metoprolol tartrate 25 mg twice daily. Continued HCTZ only if needed for lower extremity edema. Recommend caution with diuretics or discontinuation in setting of LVOT per PCP or cardiology. -Recommended heart healthy low fat, sodium and carbohydrate diet. 5. Prediabetes, chronic, present on admission. Stable. -Hemoglobin A1C 6.2% indicative of prediabetes likely steriod induced. -Continued ACHS blood glucose checks and low dose correctional scale insulin. -Discussed in detail and recommended lifestyle modification including diet and exercise. 6. Asthma, chronic, present on admission. Stable. -Continued home Albuterol 2 puffs every 6 hours as needed for shortness of ana ath or wheezing and Advair 1 puff twice daily. 7. Morbid obesity, chronic, present on admission. Stable. -BMI 41.5. -Discussed in detail and recommended lifestyle modification including diet and exercise. 8. Polymyalgia rhumatic, chronic, present on admission. Stable. -Continued prednisone 3 mg daily which she has been slowly titrating off over the last several months. Consider staying at 3 mg daily or going back up to 5 mg daily as neck/chest pain could be flare of PMR. Continue methotrexate 20 mg weekly and folic acid 1 mg daily. Recommend rheumatology referral per PCP in lieu of possible flare of PMR titrating down in glucocorticoid and cirrhosis on CT with concurrent methotrexate therapy. Exam Vital Signs (past 8 hours): - 06/21/20 11:45 06/21/20 15:33 Temperature 98.5 F 98.9 F Pulse Rate 99 H 101 H Respiratory Rate 19 16 Blood Pressure 155/78 H 130/54 L Pulse Oximetry 98 93 Oxygen Delivery Method Room Air Oxygen Flow Rate 2 Narrative Exam Narrative: General: Older female lying in bed and in no acute distress, well-developed, well-nourished, appropriately interactive. HEENT: Normocephalic, atraumatic. External ears without defect. Pupils equal, round, and reactive to light . Anicteric sclerae, moist conjunctivae, and no lid lag. Oropharynx free of erythema and cobble stoning with moist mucosa. Neck: Supple with full range of motion. No jugular venous distension. No lymphadenopathy or thyromegaly. Cardiovascular: Regular rate and rhythm without murmurs, rubs, or gallops appreciated. Pulmonary: Clear to auscultation bilaterally without crackles, wheezes, or rhonchi. Normal respiratory effort with no use of accessory muscles. Abdomen: Soft, bowel tones present, nontender, nondistended. No hepatosplenomegaly or masses appreciated. Extremities: No clubbing, cyanosis, or edema. Skin: Normal temperature, turgor, and texture; no rash, ulcers, or subcutaneous nodules appreciated. Neurological: Cranial nerves grossly intact. Psychiatric: Normal mood and affect. Alert and oriented to person, place, and time. Objective Labs Result Diagrams: 06/21/20 03:36 06/21/20 03:36 Labs: Laboratory Results - last 24 hr 06/20/20 06/20/20 06/20/20 15:45 18:35 21:44 WBC RBC Hgb Hct MCV MCH MCHC RDW Plt Count Neut % (Auto) Lymph % (Auto) Mccracken % (Auto) Eos % (Auto) Baso % (Auto) Neut # (Auto) Lymph # (Auto) Mccracken # (Auto) Eos # (Auto) Baso # (Auto) APTT 79 H* D Sodium Potassium Chloride Carbon Dioxide BUN Creatinine Estimated GFR BUN/Creatinine Ratio Glucose Hemoglobin A1c 6.2 H Calcium Magnesium Total Bilirubin Conjugated Bilirubin Unconjugated Bilirubin AST ALT Alkaline Phosphatase Total Creatine Kinase CK-MB (CK-2) CK-MB (CK-2) Rel Index Troponin I Total Protein Albumin Globulin Albumin/Globulin Ratio Triglycerides Cholesterol LDL Cholesterol, Calc HDL Cholesterol TSH COVID-19 PCR Negative 06/20/20 06/21/20 06/21/20 21:44 03:36 03:36 WBC 9.8 RBC 3.94 L Hgb 12.7 Hct 37.6 MCV 95.3 MCH 32.3 MCHC 33.9 RDW 14.8 Plt Count 140 L Neut % (Auto) 77.5 H Lymph % (Auto) 12.9 L Mccracken % (Auto) 8.5 Eos % (Auto) 0.8 L Baso % (Auto) 0.3 Neut # (Auto) 7600 H Lymph # (Auto) 1300 Mccracken # (Auto) 800 Eos # (Auto) 100 Baso # (Auto) 0 APTT Sodium 136 L Potassium 3.5 Chloride 100 Carbon Dioxide 30 BUN 16 Creatinine 0.57 Estimated GFR > 60.0 BUN/Creatinine Ratio 28.1 H Glucose 203 H D Hemoglobin A1c Calcium 9.0 Magnesium 1.9 Total Bilirubin 0.7 Conjugated Bilirubin 0.0 Unconjugated Bilirubin 0.6 AST 33 ALT 29 Alkaline Phosphatase 106 Total Creatine Kinase CK-MB (CK-2) CK-MB (CK-2) Rel Index Troponin I < 0.012 Total Protein 6.6 Albumin 3.6 Globulin 3.0 Albumin/Globulin Ratio 1.2 Triglycerides 59 Cholesterol 132 L LDL Cholesterol, Calc 64 HDL Cholesterol 56 TSH COVID-19 PCR 06/21/20 06/21/20 06/21/20 03:36 03:36 03:36 WBC RBC Hgb Hct MCV MCH MCHC RDW Plt Count Neut % (Auto) Lymph % (Auto) Mccracken % (Auto) Eos % (Auto) Baso % (Auto) Neut # (Auto) Lymph # (Auto) Mccracken # (Auto) Eos # (Auto) Baso # (Auto) APTT 52 H D Sodium Potassium Chloride Carbon Dioxide BUN Creatinine Estimated GFR BUN/Creatinine Ratio Glucose Hemoglobin A1c 6.2 H Calcium Magnesium Total Bilirubin Conjugated Bilirubin Unconjugated Bilirubin AST ALT Alkaline Phosphatase Total Creatine Kinase CK-MB (CK-2) CK-MB (CK-2) Rel Index Troponin I Total Protein Albumin Globulin Albumin/Globulin Ratio Triglycerides Cholesterol LDL Cholesterol, Calc HDL Cholesterol TSH 2.88 COVID-19 PCR 06/21/20 03:36 WBC RBC Hgb Hct MCV MCH MCHC RDW Plt Count Neut % (Auto) Lymph % (Auto) Mccracken % (Auto) Eos % (Auto) Baso % (Auto) Neut # (Auto) Lymph # (Auto) Mccracken # (Auto) Eos # (Auto) Baso # (Auto) APTT Sodium Potassium Chloride Carbon Dioxide BUN Creatinine Estimated GFR BUN/Creatinine Ratio Glucose Hemoglobin A1c Calcium Magnesium Total Bilirubin Conjugated Bilirubin Unconjugated Bilirubin AST ALT Alkaline Phosphatase Total Creatine Kinase < 20 L CK-MB (CK-2) TNP CK-MB (CK-2) Rel Index TNP Troponin I < 0.012 Total Protein Albumin Globulin Albumin/Globulin Ratio Triglycerides Cholesterol LDL Cholesterol, Calc HDL Cholesterol TSH COVID-19 PCR Discharge Plan Discharge Plan Patient Disposition: Home Discharge comment: You are being discharged home. Your chest and neck pain were likely a flare of your polymyalgia rheumatica and the slow titration down of your prednisone. Your asthma may also be contributing to chest tightness. You have no evidence of heart attack or impending heart attack. Your EKG and heart monitoring were normal. Your heart enzymes were undetectable. Your stress test was normal and did not show any signs of impending heart attack/blockage. Your heart muscle is thickened and working too efficiently and at times causing MILD obstruction of blood flow from your heart (called left ventricular outflow tract obstruction or hypertrophic cardiomyopathy). You have been started on metoprolol tartrate 25 mg twice daily to slow your heart rate and control blood pressure better. You may continue taking hydrochlorothiazide only as needed for lower extremity edema. You may stop your losartan if you are having side effects of this medication. Recommend keeping a blood pressure log using correct blood pressure measurements technique (sitting in a chair with your back supported, feet flat on the floor, with a cuff at the level of your heart, your arm resting on a hard surface, and sitting stationary for 5 minutes prior to measurement) with 4 measurements daily (2 in the morning and 2 at night 10 minutes apart). Please take your blood pressure log and blood pressure cuff to all of your doctor's appointments. You have fatty liver disease that has led to cirrhosis) extensive scarring) changes of your liver and you are prediabetic. Recommend lifestyle modification as discussed including: Low-fat, low-carbohydrate diet and exercise. Please follow-up with your primary care physician, Dr. Hernandez, in the next 1 week regarding your hospitalization and referral to hepatology for further evaluation of cirrhosis, cardiology for monitoring of your heart and rheumatology for further evaluation of PMR. Discharge orders & Medications Prescriptions: New metoprolol tartrate 25 mg Tablet 25 mg PO BID Qty: 60 RF: 0 Continued cholecalciferol (vitamin D3) [Vitamin D3] 1,000 unit Tablet,Chewable 2,000 unit PO DAILY Qty: 0 RF: 0 clindamycin phosphate 1 % solution 1 applictn TOP BEDTIME RF: 0 [id number]-[id number] [Cystex Cranberry] 1,937-188 mg/15 mL liquid 1 mg PO DAILY RF: 0 cyanocobalamin (vitamin B-12) 2,500 mcg tablet 2,500 mcg PO DAILY RF: 0 albuterol sulfate 90 mcg/actuation HFA aerosol inhaler 2 puff INHALATION Q6H PRN (Reason: Shortness Of Breath Or Wheezing) RF: 0 tolterodine 2 mg capsule,extended release 24hr 4 mg PO DAILY RF: 0 fluticasone propion-salmeterol [Advair Diskus] 250-50 mcg/dose blister with device 1 inhalation INHALATION BID PRN (Reason: Shortness Of Breath) RF: 0 estradiol [Yuvafem] 10 mcg tablet 10 mcg VAG 2XW RF: 0 naproxen sodium 220 mg tablet 220 mg PO BID PRN (Reason: Pain (Scale Score 1-3)) RF: 0 folic acid 1 mg tablet 1 mg PO DAILY RF: 0 prednisone 10 mg tablet 3 mg PO DAILY RF: 0 methotrexate sodium 2.5 mg tablet 20 mg PO QWEEK RF: 0 venlafaxine 150 mg tablet extended release 24hr 150 mg PO DAILY RF: 0 (DME) Resmed Airsense 10 CPAP Qty: 1 RF: 0 Changed hydrochlorothiazide 25 mg tablet 25 mg PO DAILY Qty: 0 RF: 0 Discontinued losartan 25 mg tablet 25 mg PO DAILY RF: 0 Follow up/Referrals: Jj Hernandez MD [Primary Care Provider] - 1 Week Diet/Activity/Treatments Diet: Carb-consistent/Diabetic, Low-fat, Low-sodium and Low-cholesterol Activity: Activity as tolerated Visit Report/Discharge Packet Instructions: The Mediterranean Diet and Good Health, Polymyalgia Rheumatica, Hypertrophic Cardiomyopathy -- Adult, DI for Cirrhosis, Prednisone, DI for Prediabetes Visit Report Forms: Patient Portal/API, Stroke Signs & Symptoms Discharge Data Primary Care Provider: Jj Hernandez Attending Provider: Reji Goyal Admit Date/Time: 06/20/20 19:03 Discharges patient from system. Discharge Date/Time: 06/21/20 20:00 Quality VTE Deep Vein Thrombosis/Pulmonary Embolism Present on Admission: No
--- NOTE | 2020-06-21 20:40 | PC.NURSE ---
Discharge Note Patient A&O, VSS no complaints of pain or discomfort. Discharge information given to patient along with follow-up instructions, no questions or concerns. PIV/telemetry discontinued. All belongings packed and given to patient and , along with discharge packet. Patient reminded to picking tech prescription at local pharmacy. Patient taken to POV via wheelchair by this RN.
--- NOTE | 2020-06-22 06:37 | DI.NM.S_ITS ---
DATE OF SERVICE: 06/21/2020 PROCEDURE: One-day protocol and exercise stress perfusion study only. INDICATIONS: Chest pain with underlying hypertension. RADIOPHARMACEUTICAL: 26.0 millicurie technetium-99m Myoview IV was injected at stress. CARDIAC STRESS: The patient underwent IV Lexiscan perfusion study under the supervision of an attending staff. The patient received IV Lexiscan, as per standard protocol. She remained hemodynamically stable. She felt chest discomfort, lightheadedness, and minimal dyspnea. Baseline rhythm was sinus with mild sinus tachycardia. During stress, no convincing ischemic changes. No significant other arrhythmias. RAW DATA: There was breast shadow seen. GATED STUDY: Stress LV ejection fraction 93 percent without any obvious wall motion abnormalities. Stress end-diastolic volume 84 mL. Lung/heart ratio 0.33, which is within normal limits. MYOCARDIAL PERFUSION: Stress supine images revealed minimally decreased perfusion of the distal anterior wall, which got resolved during prone images suggestive of breast tissue attenuation artifact. Prone images revealed normal myocardial perfusion. CONCLUSION: I will call this study a normal myocardial perfusion study with evidence of breast tissue attenuation artifact which got resolved during prone images. Overall, this is a low-risk myocardial perfusion scan. Marie Bernal - REID/philip/darin doc#: [id number]/job#: [id number] dd: 06/21/2020 17:14:00 dt: 06/21/2020 20:22:00 DICTATING /COPIES TO: Homa Evans MD COPIES MNE: JEFF;
== END 2020-06-21 20:00 | disposition home or self-care (01) ==
LOC: ED 19:01 → AC 19:03
PROVIDERS: Emergency Medicine; Nurse Practitioner Family; Admitting Provider Internal Medicine; Emergency Provider Emergency Medicine; PCP Internal Medicine; Referring Provider Emergency Medicine; Visit Provider Internal Medicine
DX: R07.9 Chest pain, unspecified (principal); E66.9 Obesity, unspecified; K74.69 Other cirrhosis of liver; K76.0 Fatty (change of) liver, not elsewhere classified; M35.3 Polymyalgia rheumatica; J45.909 Unspecified asthma, uncomplicated; K21.9 Gastro-esophageal reflux disease without esophagitis; F32.9 Major depressive disorder, single episode, unspecified; I50.31 Acute diastolic (congestive) heart failure; G47.33 Obstructive sleep apnea (adult) (pediatric); Z68.41 Body mass index [BMI] 40.0-44.9, adult; Z11.59 Encounter for screening for other viral diseases; E11.9 Type 2 diabetes mellitus without complications; E88.81 Metabolic syndrome and other insulin resistance; I11.0 Hypertensive heart disease with heart failure
CPT/HCPCS: 36415; 36592; 71045; 71275; 74174; 78451; 80048; 80053; 80061; 80076; 82550; 82962; 83036; 83690; 83735; 84443; 84484; 85025; 85610; 85651; 85730; 87635; 93005; 93010; 93017; 93306; 94760; 96365; 96366; 96372; 96375; 99284; G0378; A9270; A9502; J1644; J2270; J2785; Q9967

== ENCOUNTER → 2020-08-01 14:31 | Outpatient (CLI) | payer MEDICARE, OTHER, SELFPAY ==
[2020-06-20 20:41] VITALS: BMI 41.5
[2020-08-01 15:33] LABS: Add Manual Diff / Slide Review NO; Basophils Absolute Auto 0 /uL (0-100); Basophils Percent Auto 0.4 % (0-2); Eosinophils Absolute Auto 100 /uL (0-450); Hematocrit 39.6 % (36-46); Hemoglobin 13.2 g/dL (12.0-16.0); Lymphocytes Absolute Auto 1500 /uL (1100-4500); Lymphocytes Percent Auto 23.2 % (25-40); Mean Corpuscular HGB Conc 33.4 % (30-36); Mean Corpuscular Hemoglobin 32.4 PG (26-34); Mean Corpuscular Volume 96.9 fL (80-100); Monocytes Absolute Auto 400 /uL (0-900); Monocytes Percent Auto 6.6 % (3-14); Neutrophils Absolute Auto 4500 /uL (1500-7000); Neutrophils Percent Auto 67.8 % (50-75); Platelet Count 160 X10^3/uL (150-400); Red Blood Cell Count 4.09 X10^6/uL (4.0-5.2); Red Cell Distribution Width 15.1 % (11.6-14.8); White Blood Cell Count 6.6 X10^3/uL (4.5-11.0)
[2020-08-01 15:35] LABS: Hemoglobin A1C% w Est Avg Glu 5.5 % (4.0-6.0)
[2020-08-01 15:41] LABS: Alanine Aminotransferase 26 IU/L (<35); Albumin 3.9 g/dL (3.5-5.0); Albumin Globulin Ratio 1.3 (1.0-2.8); Alkaline Phosphatase 87 U/L (38-126); Aspartate Aminotransferase 37 IU/L (14-36); Bilirubin Total 0.5 mg/dL (0.2-1.3); Blood Urea Nitrogen 16 mg/dL (7-17); C-Reactive Protein Quant 0.8 mg/dL (<1.0); Calcium 9.1 mg/dL (8.4-10.2); Carbon Dioxide 28 mmol/L (22-32); Chloride 105 mmol/L (98-107); Estimated Glomerular Filt Rate > 60.0 mL/min (>60); Globulin 3.1 g/dL (1.7-4.1); Glucose 119 mg/dL (80-110); HEMOLYSIS < 15 (0-50); Potassium 3.8 mmol/L (3.4-5.1); Sodium 140 mmol/L (137-145)
[2020-08-01 16:30] LABS: Erythrocyte Sedimentation Rate 39 MM/HR (0-20)
== END ==
PROVIDERS: PCP Internal Medicine; Referring Provider Internal Medicine; Visit Provider Internal Medicine
DX: M35.3 Polymyalgia rheumatica (principal); M75.81 Other shoulder lesions, right shoulder; E11.9 Type 2 diabetes mellitus without complications
CPT/HCPCS: 36415; 80053; 83036; 85025; 85651; 86140

== ENCOUNTER → 2020-09-03 09:53 | Outpatient (CLI) | payer MEDICARE, OTHER, SELFPAY ==
[2020-06-20 20:41] VITALS: BMI 41.5
[2020-09-03 12:10] LABS: Estimated Glomerular Filt Rate > 60.0 mL/min (>60)
== END ==
PROVIDERS: PCP Internal Medicine; Referring Provider Internal Medicine; Visit Provider Internal Medicine
DX: E11.9 Type 2 diabetes mellitus without complications (principal)
CPT/HCPCS: 36415; 82565

== ENCOUNTER 2020-10-04 10:30 | Outpatient (RCR) | payer MEDICARE, OTHER, SELFPAY ==
--- NOTE | 2020-05-02 16:00 | PT.OPPOC ---
Physical, Occupational & Speech Therapy At Located Within [facility] Current Diagnoses Pain in right shoulder (05/02/20) Stiffness of right shoulder, not elsewhere classified (05/02/20) Other shoulder lesions, right shoulder (05/02/20) Pain in right arm (05/02/20) Strain of muscle(s) and tendon(s) of the rotator cuff of right shoulder, subsequent encounter (05/02/20) Other injury of muscle(s) and tendon(s) of the rotator cuff of right shoulder, subsequent encounter (05/02/20) Visit Care Team Role Provider Type Jj Hernandez MD Attending Provider Physician Primary Care Provider Referring Provider Specialty: Internal Medicine Address: [address] [place] [address], [facility] Email: [email or web address] Plan Of Care PT-OP-T Assessment and Plan Start: 05/02/20 17:44 Freq: Status: Active Protocol: Document 05/02/20 15:15 DCW (Rec: 05/02/20 18:00 DCW [id number]) Physical Therapy Assessment Rehab Potential Rehabilitation Potential Good Evaluation Complexity Number of Personal Factors/Comorbidities 3 or More Number of Body Systems Impaired 3 Clinical Presentation at Evaluation Stable Impairments Impairments Functional Activities, Functional Mobility,Pain, Posture,ROM,Soft Tissue Mobility,Strength Goals Four Impairment Weakness secondary to pain with R shoulder flexion and abduction Assisted Goal (LTG) Pt to demonstrate MMT of 4-/5 with R shoulder flexion and abduction to improve ability to pick items up off her floor LTG Duration 07/02/20 Three Impairment Shoulder AROM limited to 90? abduction and 110? flexion Supervisor Picking Crew Goal (LTG) Pt to demonstrate pain-free AROM to 130? in both flexion and abduction LTG Duration 07/02/20 Two Impairment Pt unable to lift glass of water using right arm without pain Short Term Goal (STG) Pt to drink from glass using right arm with no increased pain STG Duration 06/02/20 Supervisor Picking Crew Goal (LTG) Pt to demonstrate ROM 0?-90? Abduction with no painful arc sign LTG Duration 07/02/20 One Impairment Pt does not have an appropriate home exercise program Short Term Goal (STG) Pt to be independent and compliant with an appropriate HEP STG Duration 06/02/20 Assessment Summary Assessment Pt presents with signs and symptoms strongly suggestive of a supraspinatus injury, potentially a moderate tear or sprain. Pt tests positive with a painful arc, drop arm, and Guillermo-Chris tests, but has no issues with tests that involve other R/C or shoulder muscles, such as Belly Press, Lift-off, Passive ER, or Speed's biceps test. Pt's limited AROM and significant pain when trying to raise arm into abduction, combined with the nearly three month time period since her initial injury, may point toward a tear, although she will likely benefit from skilled rehab in an effort to strengthen supporting musculature and continue to ensure pt's PROM remains WNL. If pt does not show improvement over the next four weeks, she may benefit from imaging to rule in or rule out a tear. Physical Therapy Plan Frequency and Duration Frequency of Treatment 2x/Week Duration of Treatment 10 weeks Plan of Care Start Date 05/02/20 Plan of Care End Date 07/11/20 Therapeutic Interventions Therapeutic Interventions Home Exercise Program,Joint Mobilizations,Manual Therapy, Patient/Caregiver Education, Self-Care/Home Management,Soft Tissue Mobilization, Therapeutic Activities, Therapeutic Exercises Modalities Cold Pack/Ice Massage,Electric Stimulation,Hot Packs, Ultrasound Next Visit Focus/Plan Next Note Type Treatment Note Next Visit Plan PROM, AROM, strengthening Plan of Care Dates Plan of Care Start Date 05/02/20 Plan of Care End Date 07/11/20 Electronically Signed by: Andrea Patricia, PT 05/03/20 [id number] Please Sign and Return: I have reviewed this Plan of Care and certify that the skilled therapy services above are required to meet the patient?s needs. Physician Signature Date Printed Name and Credentials Clinical Instructor Signature Printed Name and Credentials
--- NOTE | 2020-05-02 16:00 | PT.OIE ---
Current Diagnoses Pain in right shoulder (05/02/20) Stiffness of right shoulder, not elsewhere classified (05/02/20) Other shoulder lesions, right shoulder (05/02/20) Pain in right arm (05/02/20) Strain of muscle(s) and tendon(s) of the rotator cuff of right shoulder, subsequent encounter (05/02/20) Other injury of muscle(s) and tendon(s) of the rotator cuff of right shoulder, subsequent encounter (05/02/20) Past Medical History (Last Updated 04/11/20 @ 17:52 by NEENA Sen) Asthma (Chronic) Basal cell carcinoma (BCC) in situ of skin (Resolved) Depression (Chronic) Diastolic heart failure (Acute) GERD (gastroesophageal reflux disease) (Chronic) Hayfever (Chronic) Hx of lipoma (Acute) Hypertension (Resolved) Insulin resistance (Chronic) Lower extremity edema (Acute) Obstructive sleep apnea of adult (Chronic) Osteoarthritis (Chronic) PCOS (polycystic ovarian syndrome) (Chronic) Polymyalgia rheumatica (Acute) Primary insomnia (Chronic) Rosacea (Chronic) Snoring (Inactive) Past Surgical History (Last Reviewed 04/11/20 @ 17:46 by NEENA Sen) History of third molar tooth extraction (Resolved 1973) History of tonsillectomy (Resolved 1958) Status post delivery (Resolved 12/28/80) Status post cholecystectomy (Resolved 1991) Status post colonoscopy (Resolved 2013) Status post dilation and curettage (Resolved 09/16/11) Visit Care Team Role Provider Type Jj Hernandez MD Attending Provider Physician Primary Care Provider Referring Provider Specialty: Internal Medicine Address: [address] [place] [address], [facility] Email: [email or web address] Physical Therapy Initial Evaluation PT-OP-A Visit Information Start: 05/02/20 17:44 Freq: Status: Active Protocol: Document 05/02/20 15:15 DCW (Rec: 05/03/20 09:41 DCW [id number]) Out-Patient Physical Therapy Visit Information Visit Information Visit Type Initial Evaluation Visit Start Time 15:15 Visit Stop Time 16:00 Total Visit Minutes 45 Visit Number 1 Number of NIGHT SHIFT SUPERVISOR Visits 0 Evaluation Information Evaluation Date 05/02/20 PT-OP-B Current Condition Start: 05/02/20 17:44 Freq: Status: Active Protocol: Document 05/02/20 15:15 DCW (Rec: 05/03/20 09:41 DCW [id number]) Current Condition History of Current Condition Onset Date 2.5 months Current Complaints R shoulder pain, immobility History of Current Condition Pt is a 64 year old female presenting with a two and a half month history of shoulder pain. Pt reports she and her were moving furniture out of her snlrso-[id number]'s house, and there was no actual instance of pain or injury that she can remember, but then over the next few days she began to experience more and more pain and limitations with movement. Pt reports she cannot really lift anything, even a glass of water, and it hurts to even just attempt to lift her arm up. The pain also limits her sleeping at night. Pt does admit that last Thursday, she suffered a fall, and her shoulder pain has been even worse since then. Treatment Goals Patient/Caregiver Goals Improve shoulder mobility and strength, decrease pain Prior Functional Status Baseline Function- ADL's Independent Baseline Function- Mobility Independent PT-OP-C Subjective Start: 05/02/20 17:44 Freq: Status: Active Protocol: Document 05/02/20 15:15 DCW (Rec: 05/03/20 09:46 DCW [id number]) OP-PT Subjective Patient Comments Patient Comments The pain at night might be the worst thing. It is really limiting my ability to sleep. Patient Reported Progress Worse Patient Questionnaires Quick Dash- Upper Extremity Quick Dash UE Score 43.18 Quick Dash UE Impairment 40 to 59% Impaired (Score 40- 59) OP-PT Pain Assessment Pain Assessment Grid Paper Pain Assessment Grid Completed Yes Location Right Shoulder Intensity 7 Scale Used Numeric (0 - 10) Description Aching,Throbbing Pain Aggravating Factors ADL's,Activity,Lifting PT-OP-K Range of Motion Start: 05/02/20 17:44 Freq: Status: Active Protocol: Document 05/02/20 15:15 DCW (Rec: 05/03/20 14:57 DCW [id number]) Shoulder Goniometric Range of Motion Shoulder Right Passive Shoulder ROM WFL Yes Flexion 180 Abduction 170 Right Active Testing Position Sitting Flexion 120 Abduction 90 External Rotation at 0 degrees Abduction 80 Internal Rotation Behind Back (text) T10 PT-OP-L Special Tests Start: 05/02/20 17:44 Freq: Status: Active Protocol: Document 05/02/20 15:15 DCW (Rec: 05/03/20 14:57 [facility] [id number]) Special Tests Shoulder Special Tests Yergason's Biceps Test Results Negative Speed's Biceps Test Results Negative Guillermo Chris Impingement Test Results Positive R Painful Arc Test Results Positive R Lift-Off Rotator Cuff Test Results Negative Empty Can Test Results Positive R Drop Arm Rotator Cuff Test Results Positive R Belly Press Test Results Negative PT-OP-M Strength Start: 05/02/20 17:44 Freq: Status: Active Protocol: Document 05/02/20 15:15 DCW (Rec: 05/03/20 14:57 [facility] [id number]) Shoulder Strength Shoulder Manual Muscle Testing Right Flexion 3- Fair- Abduction (C5) 2+ Poor+ External Rotation 4 Good Internal Rotation 5 Normal PT-OP-Q Treatments Start: 05/02/20 17:44 Freq: Status: Active Protocol: Document 05/02/20 15:15 DCW (Rec: 05/03/20 14:57 [facility] [id number]) Therapeutic Exercises Sitting Exercises 3 Sitting Exercise Name Table stretch Side right Comments Flexion/Abduction PROM 2 Sitting Exercise Name Shoulder Abduction Side right Equipment Used PVC Comments PROM 1 Sitting Exercise Name Shoulder Flexion Side right Equipment Used PVC Comments PROM Upper Trap stretch Sitting Exercise Name Upper trap stretch Side right Reps/Minutes 30 x 2 PT-OP-T Assessment and Plan Start: 05/02/20 17:44 Freq: Status: Active Protocol: Document 05/02/20 15:15 DCW (Rec: 05/02/20 18:00 [facility] [id number]) Physical Therapy Assessment Rehab Potential Rehabilitation Potential Good Evaluation Complexity Number of Personal Factors/Comorbidities 3 or More Number of Body Systems Impaired 3 Clinical Presentation at Evaluation Stable Impairments Impairments Functional Activities, Functional Mobility,Pain, Posture,ROM,Soft Tissue Mobility,Strength Goals Four Impairment Weakness secondary to pain with R shoulder flexion and abduction Non Destructive Testing Technician Goal (LTG) Pt to demonstrate MMT of 4-/5 with R shoulder flexion and abduction to improve ability to pick items up off her floor LTG Duration 07/02/20 Three Impairment Shoulder AROM limited to 90? abduction and 110? flexion Care Home Goal (LTG) Pt to demonstrate pain-free AROM to 130? in both flexion and abduction LTG Duration 07/02/20 Two Impairment Pt unable to lift glass of water using right arm without pain Short Term Goal (STG) Pt to drink from glass using right arm with no increased pain STG Duration 06/02/20 Non Destructive Testing Technician Goal (LTG) Pt to demonstrate ROM 0?-90? Abduction with no painful arc sign LTG Duration 07/02/20 One Impairment Pt does not have an appropriate home exercise program Short Term Goal (STG) Pt to be independent and compliant with an appropriate HEP STG Duration 06/02/20 Assessment Summary Assessment Pt presents with signs and symptoms strongly suggestive of a supraspinatus injury, potentially a moderate tear or sprain. Pt tests positive with a painful arc, drop arm, and Guillermo-Chris tests, but has no issues with tests that involve other R/C or shoulder muscles, such as Belly Press, Lift-off, Passive ER, or Speed's biceps test. Pt's limited AROM and significant pain when trying to raise arm into abduction, combined with the nearly three month time period since her initial injury, may point toward a tear, although she will likely benefit from skilled rehab in an effort to strengthen supporting musculature and continue to ensure pt's PROM remains WNL. If pt does not show improvement over the next four weeks, she may benefit from imaging to rule in or rule out a tear. Physical Therapy Plan Frequency and Duration Frequency of Treatment 2x/Week Duration of Treatment 10 weeks Plan of Care Start Date 05/02/20 Plan of Care End Date 07/11/20 Therapeutic Interventions Therapeutic Interventions Home Exercise Program,Joint Mobilizations,Manual Therapy, Patient/Caregiver Education, Self-Care/Home Management,Soft Tissue Mobilization, Therapeutic Activities, Therapeutic Exercises Modalities Cold Pack/Ice Massage,Electric Stimulation,Hot Packs, Ultrasound Next Visit Focus/Plan Next Note Type Treatment Note Next Visit Plan PROM, AROM, strengthening
--- NOTE | 2020-05-08 16:02 | PT.OTN ---
Current Diagnoses Pain in right shoulder (05/08/20) Stiffness of right shoulder, not elsewhere classified (05/08/20) Other shoulder lesions, right shoulder (05/08/20) Pain in right arm (05/08/20) Strain of muscle(s) and tendon(s) of the rotator cuff of right shoulder, subsequent encounter (05/08/20) Other injury of muscle(s) and tendon(s) of the rotator cuff of right shoulder, subsequent encounter (05/08/20) Physical Therapy Treatment Note PT-OP-A Visit Information Start: 05/02/20 17:44 Freq: Status: Active Protocol: Document 05/08/20 15:15 DCW (Rec: 05/08/20 16:02 DCW [id number]) Out-Patient Physical Therapy Visit Information Visit Information Visit Type Treatment Note Visit Start Time 15:15 Visit Stop Time 16:10 Total Visit Minutes 55 Visit Number 3 Number of [employer]ERAL DISTRICT LAW CLERK Visits 0 Evaluation Information Evaluation Date 05/02/20 PT-OP-B Current Condition Start: 05/02/20 17:44 Freq: Status: Active Protocol: Document 05/02/20 15:15 DCW (Rec: 05/03/20 09:41 DCW [id number]) Current Condition History of Current Condition Onset Date 2.5 months Current Complaints R shoulder pain, immobility History of Current Condition Pt is a 64 year old female presenting with a two and a half month history of shoulder pain. Pt reports she and her were moving furniture out of her ejimqn-sj-xfu's house, and there was no actual instance of pain or injury that she can remember, but then over the next few days she began to experience more and more pain and limitations with movement. Pt reports she cannot really lift anything, even a galss of water, and it hurts to even just attempt to lift her arm up. The pain also limits her sleeping at night. Pt does admit that last Thursday, she suffered a fall, and her shoulder pain has been even worse since then. Treatment Goals Patient/Caregiver Goals Improve shoulder mobility and strength, decrease pain Prior Functional Status Baseline Function- ADL's Independent Baseline Function- Mobility Independent PT-OP-C Subjective Start: 05/02/20 17:44 Freq: Status: Active Protocol: Document 05/08/20 15:15 DCW (Rec: 05/08/20 16:02 DCW [id number]) OP-PT Subjective Patient Comments Patient Comments Pt is a little sore today, but admits she was working in her garden this morning. PT-OP-K Range of Motion Start: 05/02/20 17:44 Freq: Status: Active Protocol: Document 05/02/20 15:15 DCW (Rec: 05/03/20 14:57 DCW [id number]) Shoulder Goniometric Range of Motion Shoulder Right Passive Shoulder ROM WFL Yes Flexion 180 Abduction 170 Right Active Testing Position Sitting Flexion 120 Abduction 90 External Rotation at 0 degrees Abduction 80 Internal Rotation Behind Back (text) T10 PT-OP-L Special Tests Start: 05/02/20 17:44 Freq: Status: Active Protocol: Document 05/02/20 15:15 DCW (Rec: 05/03/20 14:57 DCW [id number]) Special Tests Shoulder Special Tests Yergason's Biceps Test Results Negative Speed's Biceps Test Results Negative Guillermo Chris Impingement Test Results Positive R Painful Arc Test Results Positive R Lift-Off Rotator Cuff Test Results Negative Empty Can Test Results Positive R Drop Arm Rotator Cuff Test Results Positive R Belly Press Test Results Negative PT-OP-M Strength Start: 05/02/20 17:44 Freq: Status: Active Protocol: Document 05/02/20 15:15 DCW (Rec: 05/03/20 14:57 DCW [id number]) Shoulder Strength Shoulder Manual Muscle Testing Right Flexion 3- Fair- Abduction (C5) 2+ Poor+ External Rotation 4 Good Internal Rotation 5 Normal PT-OP-Q Treatments Start: 05/02/20 17:44 Freq: Status: Active Protocol: Document 05/08/20 15:15 DCW (Rec: 05/08/20 16:02 DCW [id number]) Cardio Equipment Upper Body Ergometer (UBE) Duration (Minutes) 5 RPM 60 Seat Position 15 Height 3 Therapeutic Exercises Supine Exercises 1 Supine Exercise Name ER/IR at 90? Side right Resistance 3.3# Equipment Used Weighted ball Supine Punch Supine Exercise Name Serratus Punch Side bilateral Sitting Exercises 4 Sitting Exercise Name PROM Flexion/Abduction Side bilateral Equipment Used Pulleys 2 Sitting Exercise Name Shoulder Abduction Side right Equipment Used PVC Comments PROM 1 Sitting Exercise Name Shoulder Flexion Side right Equipment Used PVC Comments PROM Manual Therapy Treatment Soft Tissue Mobilization STM/MFR Body Location Upper Trap Mobilization Type Strumming,Sustained Pressure Body Position Supine Joint Mobilizations 1 Joint A/C joint Direction Inf Grade II PT-OP-R Modalities Start: 05/02/20 17:44 Freq: Status: Active Protocol: Document 05/08/20 15:15 DCW (Rec: 05/08/20 16:02 DCW [id number]) Electric Stimulation Electric Stimulation Interferential Current (IFC) Body Location R shoulder Duration (Minutes) 15 Patient Position Hooklying Combined With Heat/Cold Cold Pack PT-OP-T Assessment and Plan Start: 05/02/20 17:44 Freq: Status: Active Protocol: Document 05/08/20 15:15 DCW (Rec: 05/08/20 16:02 DCW [id number]) Physical Therapy Assessment Assessment Summary Assessment Pt did well today, had no complaints of increased pain or soreness. Physical Therapy Plan Frequency and Duration Frequency of Treatment 2x/Week Duration of Treatment 10 weeks Plan of Care Start Date 05/02/20 Plan of Care End Date 07/11/20 Therapeutic Interventions Therapeutic Interventions Home Exercise Program,Joint Mobilizations,Manual Therapy, Patient/Caregiver Education, Self-Care/Home Management,Soft Tissue Mobilization, Therapeutic Activities, Therapeutic Exercises Modalities Cold Pack/Ice Massage,Electric Stimulation,Hot Packs, Ultrasound Next Visit Focus/Plan Next Note Type Treatment Note Next Visit Plan PROM, AROM, strengthening
--- NOTE | 2020-05-11 16:02 | PT.OTN ---
Current Diagnoses Pain in right shoulder (05/11/20) Stiffness of right shoulder, not elsewhere classified (05/11/20) Other shoulder lesions, right shoulder (05/11/20) Pain in right arm (05/11/20) Strain of muscle(s) and tendon(s) of the rotator cuff of right shoulder, subsequent encounter (05/11/20) Other injury of muscle(s) and tendon(s) of the rotator cuff of right shoulder, subsequent encounter (05/11/20) Physical Therapy Treatment Note PT-OP-A Visit Information Start: 05/02/20 17:44 Freq: Status: Active Protocol: Document 05/11/20 15:15 DCW (Rec: 05/11/20 16:02 DCW [id number]) Out-Patient Physical Therapy Visit Information Visit Information Visit Type Treatment Note Visit Start Time 15:15 Visit Stop Time 16:10 Total Visit Minutes 55 Visit Number 4 Number of MENTAL HEALTH PRACTITIONER Visits 0 Evaluation Information Evaluation Date 05/02/20 PT-OP-B Current Condition Start: 05/02/20 17:44 Freq: Status: Active Protocol: Document 05/02/20 15:15 DCW (Rec: 05/03/20 09:41 DCW [id number]) Current Condition History of Current Condition Onset Date 2.5 months Current Complaints R shoulder pain, immobility History of Current Condition Pt is a 64 year old female presenting with a two and a half month history of shoulder pain. Pt reports she and her were moving furniture out of her khpvoz-xi-ykd's house, and there was no actual instance of pain or injury that she can remember, but then over the next few days she began to experience more and more pain and limitations with movement. Pt reports she cannot really lift anything, even a galss of water, and it hurts to even just attempt to lift her arm up. The pain also limits her sleeping at night. Pt does admit that last Thursday, she suffered a fall, and her shoulder pain has been even worse since then. Treatment Goals Patient/Caregiver Goals Improve shoulder mobility and strength, decrease pain Prior Functional Status Baseline Function- ADL's Independent Baseline Function- Mobility Independent PT-OP-C Subjective Start: 05/02/20 17:44 Freq: Status: Active Protocol: Document 05/11/20 15:15 DCW (Rec: 05/11/20 16:02 DCW [id number]) OP-PT Subjective Patient Comments Patient Comments Pt reports she had a cortisone injection this morning, but it is too soon to determine if it actually helped or not. Pt reports Dr Hernandez told her to just keep it up regarding therapy. PT-OP-K Range of Motion Start: 05/02/20 17:44 Freq: Status: Active Protocol: Document 05/02/20 15:15 DCW (Rec: 05/03/20 14:57 DCW [id number]) Shoulder Goniometric Range of Motion Shoulder Right Passive Shoulder ROM WFL Yes Flexion 180 Abduction 170 Right Active Testing Position Sitting Flexion 120 Abduction 90 External Rotation at 0 degrees Abduction 80 Internal Rotation Behind Back (text) T10 PT-OP-L Special Tests Start: 05/02/20 17:44 Freq: Status: Active Protocol: Document 05/02/20 15:15 DCW (Rec: 05/03/20 14:57 DCW [id number]) Special Tests Shoulder Special Tests Yergason's Biceps Test Results Negative Speed's Biceps Test Results Negative Guillermo Chris Impingement Test Results Positive R Painful Arc Test Results Positive R Lift-Off Rotator Cuff Test Results Negative Empty Can Test Results Positive R Drop Arm Rotator Cuff Test Results Positive R Belly Press Test Results Negative PT-OP-M Strength Start: 05/02/20 17:44 Freq: Status: Active Protocol: Document 05/02/20 15:15 DCW (Rec: 05/03/20 14:57 DCW [id number]) Shoulder Strength Shoulder Manual Muscle Testing Right Flexion 3- Fair- Abduction (C5) 2+ Poor+ External Rotation 4 Good Internal Rotation 5 Normal PT-OP-Q Treatments Start: 05/02/20 17:44 Freq: Status: Active Protocol: Document 05/11/20 15:15 DCW (Rec: 05/11/20 16:02 DCW [id number]) Cardio Equipment Upper Body Ergometer (UBE) Duration (Minutes) 6 RPM 60 Seat Position 15 Height 3 Therapeutic Exercises Supine Exercises 1 Supine Exercise Name ER/IR at 90? Side right Resistance 3.3# Equipment Used Weighted ball Sitting Exercises 4 Sitting Exercise Name PROM Flexion/Abduction Side bilateral Equipment Used Pulleys 2 Sitting Exercise Name Shoulder Abduction Side right Equipment Used PVC Comments PROM - standing 1 Sitting Exercise Name Shoulder Flexion Side right Equipment Used PVC Comments PROM - standing Standing Exercises 1 Standing Exercise Name Shoulder Extension Side bilateral Equipment Used PVC Manual Therapy Treatment Soft Tissue Mobilization STM/MFR Body Location Upper Trap Mobilization Type Strumming,Sustained Pressure Body Position Supine Joint Mobilizations 1 Joint A/C joint Direction Inf Grade II PT-OP-R Modalities Start: 05/02/20 17:44 Freq: Status: Active Protocol: Document 05/11/20 15:15 DCW (Rec: 05/11/20 16:02 DCW [id number]) Electric Stimulation Electric Stimulation Interferential Current (IFC) Body Location R shoulder Duration (Minutes) 15 Patient Position Hooklying Combined With Heat/Cold Cold Pack PT-OP-T Assessment and Plan Start: 05/02/20 17:44 Freq: Status: Active Protocol: Document 05/11/20 15:15 DCW (Rec: 05/11/20 16:02 DCW [id number]) Physical Therapy Assessment Impairments Impairments Functional Activities, Functional Mobility,Pain, Posture,ROM,Soft Tissue Mobility,Strength Goals Four Impairment Weakness secondary to pain with R shoulder flexion and abduction Offset Proof Press Operator Goal (LTG) Pt to demonstrate MMT of 4-/5 with R shoulder flexion and abduction to improve ability to pick items up off her floor LTG Duration 07/02/20 Three Impairment Shoulder AROM limited to 90? abduction and 110? flexion Group Home Goal (LTG) Pt to demonstrate pain-free AROM to 130? in both flexion and abduction LTG Duration 07/02/20 Two Impairment Pt unable to lift glass of water using right arm without pain Short Term Goal (STG) Pt to drink from glass using right arm with no increased pain STG Duration 06/02/20 Offset Proof Press Operator Goal (LTG) Pt to demonstrate ROM 0?-90? Abduction with no painful arc sign LTG Duration 07/02/20 One Impairment Pt does not have an appropriate home exercise program Short Term Goal (STG) Pt to be independent and compliant with an appropriate HEP STG Duration 06/02/20 Assessment Summary Assessment Pt continues to have limitations with AROM due to pain/discomfort, but tolerates PROM well. Physical Therapy Plan Frequency and Duration Frequency of Treatment 2x/Week Duration of Treatment 10 weeks Plan of Care Start Date 05/02/20 Plan of Care End Date 07/11/20 Therapeutic Interventions Therapeutic Interventions Home Exercise Program,Joint Mobilizations,Manual Therapy, Patient/Caregiver Education, Self-Care/Home Management,Soft Tissue Mobilization, Therapeutic Activities, Therapeutic Exercises Modalities Cold Pack/Ice Massage,Electric Stimulation,Hot Packs, Ultrasound Next Visit Focus/Plan Next Note Type Treatment Note Next Visit Plan If cortisone injection has decreased pain significantly, increase gentle strengthening.
--- NOTE | 2020-05-25 09:00 | PT.OTN ---
Current Diagnoses Pain in right shoulder (05/25/20) Stiffness of right shoulder, not elsewhere classified (05/25/20) Other shoulder lesions, right shoulder (05/25/20) Pain in right arm (05/25/20) Strain of muscle(s) and tendon(s) of the rotator cuff of right shoulder, subsequent encounter (05/25/20) Other injury of muscle(s) and tendon(s) of the rotator cuff of right shoulder, subsequent encounter (05/25/20) Physical Therapy Treatment Note PT-OP-A Visit Information Start: 05/02/20 17:44 Freq: Status: Active Protocol: Document 05/25/20 08:15 SP (Rec: 05/25/20 09:02 SP [id number]) Out-Patient Physical Therapy Visit Information Visit Information Visit Type Treatment Note Visit Start Time 08:15 Visit Stop Time 09:00 Total Visit Minutes 45 Visit Number 5 Number of SENIOR RECRUITER Visits 1 PT-OP-B Current Condition Start: 05/02/20 17:44 Freq: Status: Active Protocol: Document 05/02/20 15:15 DCW (Rec: 05/03/20 09:41 DCW [id number]) Current Condition History of Current Condition Onset Date 2.5 months Current Complaints R shoulder pain, immobility History of Current Condition Pt is a 64 year old female presenting with a two and a half month history of shoulder pain. Pt reports she and her were moving furniture out of her poegnw-lt-vve's house, and there was no actual instance of pain or injury that she can remember, but then over the next few days she began to experience more and more pain and limitations with movement. Pt reports she cannot really lift anything, even a galss of water, and it hurts to even just attempt to lift her arm up. The pain also limits her sleeping at night. Pt does admit that last Thursday, she suffered a fall, and her shoulder pain has been even worse since then. Treatment Goals Patient/Caregiver Goals Improve shoulder mobility and strength, decrease pain Prior Functional Status Baseline Function- ADL's Independent Baseline Function- Mobility Independent PT-OP-C Subjective Start: 05/02/20 17:44 Freq: Status: Active Protocol: Document 05/25/20 08:15 SP (Rec: 05/25/20 09:02 SP [id number]) OP-PT Subjective Patient Comments Patient Comments Pt stated couple week ago was more painful but since cortizone in R shld and combo of PT shld is much better. It' s not really painful to lift R arm up OH. Pt stated her L knee twisted when going down stairs last week so noticing more awareness than R shld. Pt stated used to go to pool to help knee strength and hasn't since COVID, SENIOR RECRUITER suggested calling and reserving spot for self guided think allowing right now. Pt stated able to put clothes on easier. PT-OP-K Range of Motion Start: 05/02/20 17:44 Freq: Status: Active Protocol: Document 05/02/20 15:15 DCW (Rec: 05/03/20 14:57 DCW [id number]) Shoulder Goniometric Range of Motion Shoulder Right Passive Shoulder ROM WFL Yes Flexion 180 Abduction 170 Right Active Testing Position Sitting Flexion 120 Abduction 90 External Rotation at 0 degrees Abduction 80 Internal Rotation Behind Back (text) T10 PT-OP-L Special Tests Start: 05/02/20 17:44 Freq: Status: Active Protocol: Document 05/02/20 15:15 DCW (Rec: 05/03/20 14:57 DCW [id number]) Special Tests Shoulder Special Tests Yergason's Biceps Test Results Negative Speed's Biceps Test Results Negative Guillermo Chris Impingement Test Results Positive R Painful Arc Test Results Positive R Lift-Off Rotator Cuff Test Results Negative Empty Can Test Results Positive R Drop Arm Rotator Cuff Test Results Positive R Belly Press Test Results Negative PT-OP-M Strength Start: 05/02/20 17:44 Freq: Status: Active Protocol: Document 05/02/20 15:15 DCW (Rec: 05/03/20 14:57 DCW [id number]) Shoulder Strength Shoulder Manual Muscle Testing Right Flexion 3- Fair- Abduction (C5) 2+ Poor+ External Rotation 4 Good Internal Rotation 5 Normal PT-OP-Q Treatments Start: 05/02/20 17:44 Freq: Status: Active Protocol: Document 05/25/20 08:15 SP (Rec: 05/25/20 09:02 SP [id number]) Cardio Equipment Upper Body Ergometer (UBE) Duration (Minutes) 6 RPM 60 Seat Position 15 Height 3 Other little pinching during retro but tolerable to do. Therapeutic Exercises Sitting Exercises 4 Sitting Exercise Name PROM Flexion/Abduction Side bilateral Equipment Used Pulleys Standing Exercises IR R shld towel stretch Side right Reps/Minutes 15 sec x3 Comments cued slow tolerant range scap retraction/depression Reps/Minutes 5 sec hold x5 Comments cued neutral c/s and no forceful arm involvement standing wall slide Standing Exercise Name FF/ ABD Reps/Minutes 20 sec hold x10 Comments cued scap depression PT-OP-R Modalities Start: 05/02/20 17:44 Freq: Status: Active Protocol: Document 05/11/20 15:15 DCW (Rec: 05/11/20 16:02 DCW [id number]) Electric Stimulation Electric Stimulation Interferential Current (IFC) Body Location R shoulder Duration (Minutes) 15 Patient Position Hooklying Combined With Heat/Cold Cold Pack PT-OP-T Assessment and Plan Start: 05/02/20 17:44 Freq: Status: Active Protocol: Document 05/25/20 08:15 SP (Rec: 05/25/20 09:02 SP [id number]) Physical Therapy Assessment Goals Four Impairment Weakness secondary to pain with R shoulder flexion and abduction Snf Goal (LTG) Pt to demonstrate MMT of 4-/5 with R shoulder flexion and abduction to improve ability to pick items up off her floor LTG Duration 07/02/20 Three Impairment Shoulder AROM limited to 90? abduction and 110? flexion Bag Mender Goal (LTG) Pt to demonstrate pain-free AROM to 130? in both flexion and abduction LTG Duration 07/02/20 Two Impairment Pt unable to lift glass of water using right arm without pain Short Term Goal (STG) Pt to drink from glass using right arm with no increased pain STG Duration 06/02/20 Bag Mender Goal (LTG) Pt to demonstrate ROM 0?-90? Abduction with no painful arc sign LTG Duration 07/02/20 One Impairment Pt does not have an appropriate home exercise program Short Term Goal (STG) Pt to be independent and compliant with an appropriate HEP STG Duration 06/02/20 Assessment Summary Assessment Pt tolerated tx today, progressed into AAROM and scapular and GH stabilization strengthening using wall and towel FF, ABD IR R shld with good response. Cued no shld elevation and head protraction compenstations. Provided HO for self review at home HEP. Physical Therapy Plan Frequency and Duration Frequency of Treatment 2x/Week Duration of Treatment 10 weeks Plan of Care Start Date 05/02/20 Plan of Care End Date 07/11/20 Therapeutic Interventions Therapeutic Interventions Home Exercise Program,Joint Mobilizations,Manual Therapy, Patient/Caregiver Education, Self-Care/Home Management,Soft Tissue Mobilization, Therapeutic Activities, Therapeutic Exercises Modalities Cold Pack/Ice Massage,Electric Stimulation,Hot Packs, Ultrasound Next Visit Focus/Plan Next Note Type Treatment Note Next Visit Plan Assess response to last tx AAROM and strengthening: good response to cortisone injection 2 weeks ago and so gentle progression in strengthening and stretching today.
--- NOTE | 2020-05-28 09:50 | PT.OTN ---
Current Diagnoses Pain in right shoulder (05/28/20) Stiffness of right shoulder, not elsewhere classified (05/28/20) Other shoulder lesions, right shoulder (05/28/20) Pain in right arm (05/28/20) Strain of muscle(s) and tendon(s) of the rotator cuff of right shoulder, subsequent encounter (05/28/20) Other injury of muscle(s) and tendon(s) of the rotator cuff of right shoulder, subsequent encounter (05/28/20) Physical Therapy Treatment Note PT-OP-A Visit Information Start: 05/02/20 17:44 Freq: Status: Active Protocol: Document 05/28/20 09:18 HH (Rec: 05/28/20 09:49 HH [id number]) Out-Patient Physical Therapy Visit Information Visit Information Visit Type Treatment Note Visit Note pt is 15 mins late Visit Start Time 09:15 Visit Stop Time 09:44 Total Visit Minutes 29 Visit Number 6 Number of STUDIO OWNER Visits 0 PT-OP-B Current Condition Start: 05/02/20 17:44 Freq: Status: Active Protocol: Document 05/02/20 15:15 DCW (Rec: 05/03/20 09:41 DCW [id number]) Current Condition History of Current Condition Onset Date 2.5 months Current Complaints R shoulder pain, immobility History of Current Condition Pt is a 64 year old female presenting with a two and a half month history of shoulder pain. Pt reports she and her were moving furniture out of her tohzut-rw-jaa's house, and there was no actual instance of pain or injury that she can remember, but then over the next few days she began to experience more and more pain and limitations with movement. Pt reports she cannot really lift anything, even a galss of water, and it hurts to even just attempt to lift her arm up. The pain also limits her sleeping at night. Pt does admit that last Thursday, she suffered a fall, and her shoulder pain has been even worse since then. Treatment Goals Patient/Caregiver Goals Improve shoulder mobility and strength, decrease pain Prior Functional Status Baseline Function- ADL's Independent Baseline Function- Mobility Independent PT-OP-C Subjective Start: 05/02/20 17:44 Freq: Status: Active Protocol: Document 05/28/20 09:49 HH (Rec: 05/28/20 09:50 HH [id number]) OP-PT Subjective Patient Comments Patient Comments Its been getting a lot better since i started therapy. I still have difficulty getting my end range of motion. Im a bit sore today. Patient Reported Progress Improving PT-OP-K Range of Motion Start: 05/02/20 17:44 Freq: Status: Active Protocol: Document 05/02/20 15:15 DCW (Rec: 05/03/20 14:57 DCW [id number]) Shoulder Goniometric Range of Motion Shoulder Right Passive Shoulder ROM WFL Yes Flexion 180 Abduction 170 Right Active Testing Position Sitting Flexion 120 Abduction 90 External Rotation at 0 degrees Abduction 80 Internal Rotation Behind Back (text) T10 PT-OP-L Special Tests Start: 05/02/20 17:44 Freq: Status: Active Protocol: Document 05/02/20 15:15 DCW (Rec: 05/03/20 14:57 DCW [id number]) Special Tests Shoulder Special Tests Yergason's Biceps Test Results Negative Speed's Biceps Test Results Negative Guillermo Crhis Impingement Test Results Positive R Painful Arc Test Results Positive R Lift-Off Rotator Cuff Test Results Negative Empty Can Test Results Positive R Drop Arm Rotator Cuff Test Results Positive R Belly Press Test Results Negative PT-OP-M Strength Start: 05/02/20 17:44 Freq: Status: Active Protocol: Document 05/02/20 15:15 DCW (Rec: 05/03/20 14:57 DCW [id number]) Shoulder Strength Shoulder Manual Muscle Testing Right Flexion 3- Fair- Abduction (C5) 2+ Poor+ External Rotation 4 Good Internal Rotation 5 Normal PT-OP-Q Treatments Start: 05/02/20 17:44 Freq: Status: Active Protocol: Document 05/28/20 09:18 HH (Rec: 05/28/20 09:49 HH [id number]) Therapeutic Exercises Sitting Exercises OH madeleine Sitting Exercise Name flexion, abd, IR Side bilateral Reps/Minutes 4 mins Comments slight soreness at end range Standing Exercises shoulder lift off at end range Standing Exercise Name with extended arm, flex and abd Side bilateral Equipment Used towel Reps/Minutes full range 5 x2 Comments then lift off at end range, cues on engaging deltoid standing wall slide Standing Exercise Name with extended arm, flex and abd Side bilateral Equipment Used towel Reps/Minutes full range 5 x 2 Comments no discomfort noted Manual Therapy Treatment Soft Tissue Mobilization STM/MFR Body Location Upper Trap Mobilization Type Strumming,Sustained Pressure Body Position Sitting PT-OP-R Modalities Start: 05/02/20 17:44 Freq: Status: Active Protocol: Document 05/11/20 15:15 DCW (Rec: 05/11/20 16:02 DCW [id number]) Electric Stimulation Electric Stimulation Interferential Current (IFC) Body Location R shoulder Duration (Minutes) 15 Patient Position Hooklying Combined With Heat/Cold Cold Pack PT-OP-T Assessment and Plan Start: 05/02/20 17:44 Freq: Status: Active Protocol: Document 05/28/20 09:18 HH (Rec: 05/28/20 09:49 HH [id number]) Physical Therapy Assessment Goals Four Impairment Weakness secondary to pain with R shoulder flexion and abduction Chcf Goal (LTG) Pt to demonstrate MMT of 4-/5 with R shoulder flexion and abduction to improve ability to pick items up off her floor LTG Duration 07/02/20 Three Impairment Shoulder AROM limited to 90? abduction and 110? flexion Police Cadet Goal (LTG) Pt to demonstrate pain-free AROM to 130? in both flexion and abduction LTG Duration 07/02/20 Two Impairment Pt unable to lift glass of water using right arm without pain Short Term Goal (STG) Pt to drink from glass using right arm with no increased pain STG Duration 06/02/20 Police Cadet Goal (LTG) Pt to demonstrate ROM 0?-90? Abduction with no painful arc sign LTG Duration 07/02/20 One Impairment Pt does not have an appropriate home exercise program Short Term Goal (STG) Pt to be independent and compliant with an appropriate HEP STG Duration 06/02/20 Assessment Summary Assessment pt cont to improve but still has difficulty at end range flexion, abduction and reaching behind her back with min discomfort. Rec her to acquire OH madeleine for home use , modified her wall slide today with end range lift off to focus on deltoid engagement . Physical Therapy Plan Next Visit Focus/Plan Next Note Type Treatment Note Next Visit Plan Assess response to last tx AAROM and strengthening: good response to cortisone injection 2 weeks ago and so gentle progression in strengthening and stretching today.
--- NOTE | 2020-05-29 11:18 | PT.OTN ---
Current Diagnoses Pain in right shoulder (05/29/20) Stiffness of right shoulder, not elsewhere classified (05/29/20) Other shoulder lesions, right shoulder (05/29/20) Pain in right arm (05/29/20) Strain of muscle(s) and tendon(s) of the rotator cuff of right shoulder, subsequent encounter (05/29/20) Other injury of muscle(s) and tendon(s) of the rotator cuff of right shoulder, subsequent encounter (05/29/20) Physical Therapy Treatment Note PT-OP-A Visit Information Start: 05/02/20 17:44 Freq: Status: Active Protocol: Document 05/29/20 10:37 HH (Rec: 05/29/20 11:18 HH [id number]) Out-Patient Physical Therapy Visit Information Visit Information Visit Type Treatment Note Visit Start Time 10:35 Visit Stop Time 11:15 Total Visit Minutes 40 Visit Number 7 Number of SERVER MANAGER Visits 0 PT-OP-B Current Condition Start: 05/02/20 17:44 Freq: Status: Active Protocol: Document 05/02/20 15:15 DCW (Rec: 05/03/20 09:41 DCW [id number]) Current Condition History of Current Condition Onset Date 2.5 months Current Complaints R shoulder pain, immobility History of Current Condition Pt is a 64 year old female presenting with a two and a half month history of shoulder pain. Pt reports she and her were moving furniture out of her bdcvdd-mi-fxw's house, and there was no actual instance of pain or injury that she can remember, but then over the next few days she began to experience more and more pain and limitations with movement. Pt reports she cannot really lift anything, even a galss of water, and it hurts to even just attempt to lift her arm up. The pain also limits her sleeping at night. Pt does admit that last Thursday, she suffered a fall, and her shoulder pain has been even worse since then. Treatment Goals Patient/Caregiver Goals Improve shoulder mobility and strength, decrease pain Prior Functional Status Baseline Function- ADL's Independent Baseline Function- Mobility Independent PT-OP-C Subjective Start: 05/02/20 17:44 Freq: Status: Active Protocol: Document 05/29/20 10:37 HH (Rec: 05/29/20 11:18 HH [id number]) OP-PT Subjective Patient Comments Patient Comments I got sore from yesterday session and i wasnt able to sleep well. I got a OH madeleine and my motion seems pretty good overall. Patient Reported Progress Same PT-OP-K Range of Motion Start: 05/02/20 17:44 Freq: Status: Active Protocol: Document 05/02/20 15:15 DCW (Rec: 05/03/20 14:57 DCW [id number]) Shoulder Goniometric Range of Motion Shoulder Right Passive Shoulder ROM WFL Yes Flexion 180 Abduction 170 Right Active Testing Position Sitting Flexion 120 Abduction 90 External Rotation at 0 degrees Abduction 80 Internal Rotation Behind Back (text) T10 PT-OP-L Special Tests Start: 05/02/20 17:44 Freq: Status: Active Protocol: Document 05/02/20 15:15 DCW (Rec: 05/03/20 14:57 DCW [id number]) Special Tests Shoulder Special Tests Yergason's Biceps Test Results Negative Speed's Biceps Test Results Negative Guillermo Chris Impingement Test Results Positive R Painful Arc Test Results Positive R Lift-Off Rotator Cuff Test Results Negative Empty Can Test Results Positive R Drop Arm Rotator Cuff Test Results Positive R Belly Press Test Results Negative PT-OP-M Strength Start: 05/02/20 17:44 Freq: Status: Active Protocol: Document 05/02/20 15:15 DCW (Rec: 05/03/20 14:57 DCW [id number]) Shoulder Strength Shoulder Manual Muscle Testing Right Flexion 3- Fair- Abduction (C5) 2+ Poor+ External Rotation 4 Good Internal Rotation 5 Normal PT-OP-Q Treatments Start: 05/02/20 17:44 Freq: Status: Active Protocol: Document 05/29/20 10:37 HH (Rec: 05/29/20 11:18 HH [id number]) Cardio Equipment Upper Body Ergometer (UBE) Duration (Minutes) 6 RPM 60 Seat Position 13 Height 3 Other little pinching occasionally during RETRO Therapeutic Exercises Sidelying Exercises SL scap stability Sidelying Exercise Name elevation, depression, protraction and retractoin Side right Reps/Minutes 6 mins Comments against PT resistance Sitting Exercises OH madeleine Sitting Exercise Name flexion, abd, IR Side bilateral Reps/Minutes 8 mins Comments slight soreness at end range Manual Therapy Treatment Soft Tissue Mobilization Deltoids Mobilization Type Sustained Pressure,Trigger Point Release Intensity/Depth Moderate Body Position Sidelying Comments slight soreness today. RTC Mobilization Type Sustained Pressure,Trigger Point Release Intensity/Depth Moderate Body Position Sidelying Comments infraspinatus tenderness noted . STM/MFR Body Location Upper Trap Mobilization Type Strumming,Sustained Pressure Body Position Sitting PT-OP-R Modalities Start: 05/02/20 17:44 Freq: Status: Active Protocol: Document 05/11/20 15:15 DCW (Rec: 05/11/20 16:02 DCW [id number]) Electric Stimulation Electric Stimulation Interferential Current (IFC) Body Location R shoulder Duration (Minutes) 15 Patient Position Hooklying Combined With Heat/Cold Cold Pack PT-OP-T Assessment and Plan Start: 05/02/20 17:44 Freq: Status: Active Protocol: Document 05/29/20 10:37 HH (Rec: 05/29/20 11:18 HH [id number]) Physical Therapy Assessment Goals Four Impairment Weakness secondary to pain with R shoulder flexion and abduction Skilled Nursing Goal (LTG) Pt to demonstrate MMT of 4-/5 with R shoulder flexion and abduction to improve ability to pick items up off her floor LTG Duration 07/02/20 Three Impairment Shoulder AROM limited to 90? abduction and 110? flexion Mortgage Operations Manager Goal (LTG) Pt to demonstrate pain-free AROM to 130? in both flexion and abduction LTG Duration 07/02/20 Two Impairment Pt unable to lift glass of water using right arm without pain Short Term Goal (STG) Pt to drink from glass using right arm with no increased pain STG Duration 06/02/20 Mortgage Operations Manager Goal (LTG) Pt to demonstrate ROM 0?-90? Abduction with no painful arc sign LTG Duration 07/02/20 One Impairment Pt does not have an appropriate home exercise program Short Term Goal (STG) Pt to be independent and compliant with an appropriate HEP STG Duration 06/02/20 Assessment Summary Assessment Pt feels sore today since she had her appointment yesterday but her ROM cont to improve. Flexion is WFL, abd = ~120-140 degrees with slight discomfort, reaching behind her back @ T-6. This session focused on mobility and manual therapy for active recovery. Pt bolivar session well. Physical Therapy Plan Next Visit Focus/Plan Next Note Type Treatment Note Next Visit Plan progress scap stability, strength SL/ prone position end range abd flexion strengthening (wall lift off) wall slide
--- NOTE | 2020-06-08 15:17 | PT.OTN ---
Current Diagnoses Pain in right shoulder (06/08/20) Stiffness of right shoulder, not elsewhere classified (06/08/20) Other shoulder lesions, right shoulder (06/08/20) Pain in right arm (06/08/20) Strain of muscle(s) and tendon(s) of the rotator cuff of right shoulder, subsequent encounter (06/08/20) Other injury of muscle(s) and tendon(s) of the rotator cuff of right shoulder, subsequent encounter (06/08/20) Physical Therapy Treatment Note PT-OP-A Visit Information Start: 05/02/20 17:44 Freq: Status: Active Protocol: Document 06/08/20 14:35 DCW (Rec: 06/08/20 15:17 DCW [id number]) Out-Patient Physical Therapy Visit Information Visit Information Visit Type Treatment Note Visit Note 5 min late Visit Start Time 14:35 Visit Stop Time 15:15 Total Visit Minutes 40 Visit Number 8 Number of WORKDAY DIRECTOR Visits 0 Evaluation Information Evaluation Date 05/02/20 PT-OP-B Current Condition Start: 05/02/20 17:44 Freq: Status: Active Protocol: Document 05/02/20 15:15 DCW (Rec: 05/03/20 09:41 DCW [id number]) Current Condition History of Current Condition Onset Date 2.5 months Current Complaints R shoulder pain, immobility History of Current Condition Pt is a 64 year old female presenting with a two and a half month history of shoulder pain. Pt reports she and her were moving furniture out of her rwloxu-do-sxq's house, and there was no actual instance of pain or injury that she can remember, but then over the next few days she began to experience more and more pain and limitations with movement. Pt reports she cannot really lift anything, even a galss of water, and it hurts to even just attempt to lift her arm up. The pain also limits her sleeping at night. Pt does admit that last Thursday, she suffered a fall, and her shoulder pain has been even worse since then. Treatment Goals Patient/Caregiver Goals Improve shoulder mobility and strength, decrease pain Prior Functional Status Baseline Function- ADL's Independent Baseline Function- Mobility Independent PT-OP-C Subjective Start: 05/02/20 17:44 Freq: Status: Active Protocol: Document 06/08/20 14:35 DCW (Rec: 06/08/20 15:17 DCW [id number]) OP-PT Subjective Patient Comments Patient Comments My arms been feeling a lot better, but then I've been doing things I really shouldn' t have been, like mulching and pushing a wheelbarrow around, but even then it really isn't too bad. PT-OP-K Range of Motion Start: 05/02/20 17:44 Freq: Status: Active Protocol: Document 05/02/20 15:15 DCW (Rec: 05/03/20 14:57 DCW [id number]) Shoulder Goniometric Range of Motion Shoulder Right Passive Shoulder ROM WFL Yes Flexion 180 Abduction 170 Right Active Testing Position Sitting Flexion 120 Abduction 90 External Rotation at 0 degrees Abduction 80 Internal Rotation Behind Back (text) T10 PT-OP-L Special Tests Start: 05/02/20 17:44 Freq: Status: Active Protocol: Document 05/02/20 15:15 DCW (Rec: 05/03/20 14:57 DCW [id number]) Special Tests Shoulder Special Tests Yergason's Biceps Test Results Negative Speed's Biceps Test Results Negative Guillermo Chris Impingement Test Results Positive R Painful Arc Test Results Positive R Lift-Off Rotator Cuff Test Results Negative Empty Can Test Results Positive R Drop Arm Rotator Cuff Test Results Positive R Belly Press Test Results Negative PT-OP-M Strength Start: 05/02/20 17:44 Freq: Status: Active Protocol: Document 05/02/20 15:15 DCW (Rec: 05/03/20 14:57 DCW [id number]) Shoulder Strength Shoulder Manual Muscle Testing Right Flexion 3- Fair- Abduction (C5) 2+ Poor+ External Rotation 4 Good Internal Rotation 5 Normal PT-OP-Q Treatments Start: 05/02/20 17:44 Freq: Status: Active Protocol: Document 06/08/20 14:35 DCW (Rec: 06/08/20 15:17 DCW [id number]) Cardio Equipment Upper Body Ergometer (UBE) Duration (Minutes) 6 RPM 60 Seat Position 14 Height 3 Therapeutic Exercises Sitting Exercises OH madeleine Sitting Exercise Name flexion, abd, IR Side bilateral Reps/Minutes 8 mins Comments slight soreness at end range Standing Exercises IR R shld towel stretch Side right Reps/Minutes 15 sec x3 Comments cued slow tolerant range 3 Standing Exercise Name Sh Abd Side bilateral Resistance 3# Comments Pain-free ROM 2 Standing Exercise Name Sh Flex Side bilateral Resistance 3# Comments Pain-free ROM 1 Standing Exercise Name Shoulder Press Side bilateral Resistance 4# Equipment Used PVC Manual Therapy Treatment Soft Tissue Mobilization Deltoids Mobilization Type Sustained Pressure,Trigger Point Release Intensity/Depth Moderate Body Position Sidelying Comments slight soreness today. RTC Mobilization Type Sustained Pressure,Trigger Point Release Intensity/Depth Moderate Body Position Sidelying Comments infraspinatus tenderness noted . STM/MFR Body Location Upper Trap Mobilization Type Strumming,Sustained Pressure Body Position Sitting Joint Mobilizations 1 Joint A/C joint Direction Inf Grade II PT-OP-R Modalities Start: 05/02/20 17:44 Freq: Status: Active Protocol: Document 05/11/20 15:15 DCW (Rec: 05/11/20 16:02 DCW [id number]) Electric Stimulation Electric Stimulation Interferential Current (IFC) Body Location R shoulder Duration (Minutes) 15 Patient Position Hooklying Combined With Heat/Cold Cold Pack PT-OP-T Assessment and Plan Start: 05/02/20 17:44 Freq: Status: Active Protocol: Document 06/08/20 14:35 DCW (Rec: 06/08/20 15:17 DCW [id number]) Physical Therapy Assessment Impairments Impairments Functional Activities, Functional Mobility,Pain, Posture,ROM,Soft Tissue Mobility,Strength Goals Four Impairment Weakness secondary to pain with R shoulder flexion and abduction Retread Operator Goal (LTG) Pt to demonstrate MMT of 4-/5 with R shoulder flexion and abduction to improve ability to pick items up off her floor LTG Duration 07/02/20 Three Impairment Shoulder AROM limited to 90? abduction and 110? flexion Retread Operator Goal (LTG) Pt to demonstrate pain-free AROM to 130? in both flexion and abduction LTG Duration 07/02/20 Two Impairment Pt unable to lift glass of water using right arm without pain Short Term Goal (STG) Pt to drink from glass using right arm with no increased pain STG Duration 06/02/20 Care Home Goal (LTG) Pt to demonstrate ROM 0?-90? Abduction with no painful arc sign LTG Duration 07/02/20 One Impairment Pt does not have an appropriate home exercise program Short Term Goal (STG) Pt to be independent and compliant with an appropriate HEP STG Duration 06/02/20 Assessment Summary Assessment Pt has made great progress over the past few weeks, ROM and activity tolerance substantially improved, much less discomfort with movement. Still has some difficulty with shoulder abduction and flexion with resistance Physical Therapy Plan Frequency and Duration Frequency of Treatment 2x/Week Duration of Treatment 10 weeks Plan of Care Start Date 05/02/20 Plan of Care End Date 07/11/20 Next Visit Focus/Plan Next Note Type Treatment Note Next Visit Plan progress scap stability, strength SL/ prone position end range abd flexion strengthening (wall lift off) wall slide
--- NOTE | 2020-06-14 09:04 | PT.OTN ---
Current Diagnoses Pain in right shoulder (06/14/20) Stiffness of right shoulder, not elsewhere classified (06/14/20) Other shoulder lesions, right shoulder (06/14/20) Pain in right arm (06/14/20) Strain of muscle(s) and tendon(s) of the rotator cuff of right shoulder, subsequent encounter (06/14/20) Other injury of muscle(s) and tendon(s) of the rotator cuff of right shoulder, subsequent encounter (06/14/20) Physical Therapy Treatment Note PT-OP-A Visit Information Start: 05/02/20 17:44 Freq: Status: Active Protocol: Document 06/14/20 08:17 SP (Rec: 06/14/20 11:47 SP [id number]) Out-Patient Physical Therapy Visit Information Visit Information Visit Type Treatment Note Visit Start Time 08:17 Visit Stop Time 09:04 Total Visit Minutes 47 Visit Number 9 Number of METAL FURNITURE POLISHER Visits 1 PT-OP-B Current Condition Start: 05/02/20 17:44 Freq: Status: Active Protocol: Document 05/02/20 15:15 DCW (Rec: 05/03/20 09:41 DCW [id number]) Current Condition History of Current Condition Onset Date 2.5 months Current Complaints R shoulder pain, immobility History of Current Condition Pt is a 64 year old female presenting with a two and a half month history of shoulder pain. Pt reports she and her were moving furniture out of her [id number]-cv-tjs's house, and there was no actual instance of pain or injury that she can remember, but then over the next few days she began to experience more and more pain and limitations with movement. Pt reports she cannot really lift anything, even a galss of water, and it hurts to even just attempt to lift her arm up. The pain also limits her sleeping at night. Pt does admit that last Thursday, she suffered a fall, and her shoulder pain has been even worse since then. Treatment Goals Patient/Caregiver Goals Improve shoulder mobility and strength, decrease pain Prior Functional Status Baseline Function- ADL's Independent Baseline Function- Mobility Independent PT-OP-C Subjective Start: 05/02/20 17:44 Freq: Status: Active Protocol: Document 06/14/20 08:17 SP (Rec: 06/14/20 11:47 SP [id number]) OP-PT Subjective Patient Comments Patient Comments Pt reported having a little set back and some pain in R anterior shld and neck pain with hard to reach up in front over head, compliant with exercises and wall slide to help get range but not helping feel better. PT-OP-K Range of Motion Start: 05/02/20 17:44 Freq: Status: Active Protocol: Document 05/02/20 15:15 DCW (Rec: 05/03/20 14:57 DCW [id number]) Shoulder Goniometric Range of Motion Shoulder Right Passive Shoulder ROM WFL Yes Flexion 180 Abduction 170 Right Active Testing Position Sitting Flexion 120 Abduction 90 External Rotation at 0 degrees Abduction 80 Internal Rotation Behind Back (text) T10 PT-OP-L Special Tests Start: 05/02/20 17:44 Freq: Status: Active Protocol: Document 05/02/20 15:15 DCW (Rec: 05/03/20 14:57 DCW [id number]) Special Tests Shoulder Special Tests Yergason's Biceps Test Results Negative Speed's Biceps Test Results Negative Guillermo Chris Impingement Test Results Positive R Painful Arc Test Results Positive R Lift-Off Rotator Cuff Test Results Negative Empty Can Test Results Positive R Drop Arm Rotator Cuff Test Results Positive R Belly Press Test Results Negative PT-OP-M Strength Start: 05/02/20 17:44 Freq: Status: Active Protocol: Document 05/02/20 15:15 DCW (Rec: 05/03/20 14:57 DCW [id number]) Shoulder Strength Shoulder Manual Muscle Testing Right Flexion 3- Fair- Abduction (C5) 2+ Poor+ External Rotation 4 Good Internal Rotation 5 Normal PT-OP-Q Treatments Start: 05/02/20 17:44 Freq: Status: Active Protocol: Document 06/14/20 08:17 SP (Rec: 06/14/20 11:47 SP [id number]) Therapeutic Exercises Supine Exercises supine foam roller Supine Exercise Name R and B FF, HABD, scaption OH Side bilateral Resistance tB #1 Reps/Minutes x10 each direction Comments cued scap stabilization and inferior glide R humerous for pain free range supine pec stretch over foam roller Side bilateral Reps/Minutes 30 x2 approx 45-90 deg abd Sitting Exercises SHLD ER tb Resistance TB #1 Reps/Minutes 2x10 Comments cued humerous inf glide OH madeleine Sitting Exercise Name performing at home Upper Trap stretch Sitting Exercise Name Upper trap stretch Side right Reps/Minutes 30 x 2 Scalene stretch Sitting Exercise Name Scalene stretch Side bilateral Reps/Minutes 30 x 2 Standing Exercises standing row Tb Side bilateral Resistance TB #3 Reps/Minutes x20 Comments occasional cuing for scap retract/dep Manual Therapy Treatment Soft Tissue Mobilization STM/MFR Body Location R distal pec, coracobrachialis , pec minor, prox bicep, anterior deltoid Mobilization Type Strumming,Sustained Pressure Body Position Sitting Joint Mobilizations 1 Joint R GH jt Direction Inf, posterior Grade II PT-OP-R Modalities Start: 05/02/20 17:44 Freq: Status: Active Protocol: Document 05/11/20 15:15 DCW (Rec: 05/11/20 16:02 DCW [id number]) Electric Stimulation Electric Stimulation Interferential Current (IFC) Body Location R shoulder Duration (Minutes) 15 Patient Position Hooklying Combined With Heat/Cold Cold Pack PT-OP-T Assessment and Plan Start: 05/02/20 17:44 Freq: Status: Active Protocol: Document 06/14/20 08:17 SP (Rec: 06/14/20 11:47 SP [id number]) Physical Therapy Assessment Goals Four Impairment Weakness secondary to pain with R shoulder flexion and abduction Retirement Goal (LTG) Pt to demonstrate MMT of 4-/5 with R shoulder flexion and abduction to improve ability to pick items up off her floor LTG Duration 07/02/20 Three Impairment Shoulder AROM limited to 90? abduction and 110? flexion Retirement Goal (LTG) Pt to demonstrate pain-free AROM to 130? in both flexion and abduction LTG Duration 07/02/20 Two Impairment Pt unable to lift glass of water using right arm without pain Short Term Goal (STG) Pt to drink from glass using right arm with no increased pain STG Duration 06/02/20 Mechanical Meter Tester Goal (LTG) Pt to demonstrate ROM 0?-90? Abduction with no painful arc sign LTG Duration 07/02/20 One Impairment Pt does not have an appropriate home exercise program Short Term Goal (STG) Pt to be independent and compliant with an appropriate HEP STG Duration 06/02/20 Assessment Summary Assessment Pt responded well to today's tx, manual anterior R shld, intitiated scap stabilization supine on foam roller has at home while incorporating pec/ shld opening with reports of no pain with L1 TB. Reviewed neck stretching and anterior shld pec stretch with statement I feel alot looser than when arrived. Pt initially only able reach 90 deg FF supine improved to OH with TB during tx and cued serratus facilitation with good results. Physical Therapy Plan Frequency and Duration Frequency of Treatment 2x/Week Duration of Treatment 10 weeks Plan of Care Start Date 05/02/20 Plan of Care End Date 07/11/20 Therapeutic Interventions Therapeutic Interventions Home Exercise Program,Joint Mobilizations,Manual Therapy, Patient/Caregiver Education, Self-Care/Home Management,Soft Tissue Mobilization, Therapeutic Activities, Therapeutic Exercises Modalities Cold Pack/Ice Massage,Electric Stimulation,Hot Packs, Ultrasound Next Visit Focus/Plan Next Note Type Treatment Note Next Visit Plan Assess reponse to last tx: manual R shld, supine Tb foam roller UE strengthening and stretching. Continue per PT POC: progress scap stability, strength SL/ prone position end range abd flexion strengthening (wall lift off) wall slide
--- NOTE | 2020-06-19 09:03 | PT.OTN ---
Current Diagnoses Pain in right shoulder (06/19/20) Stiffness of right shoulder, not elsewhere classified (06/19/20) Other shoulder lesions, right shoulder (06/19/20) Pain in right arm (06/19/20) Strain of muscle(s) and tendon(s) of the rotator cuff of right shoulder, subsequent encounter (06/19/20) Other injury of muscle(s) and tendon(s) of the rotator cuff of right shoulder, subsequent encounter (06/19/20) Physical Therapy Treatment Note PT-OP-A Visit Information Start: 05/02/20 17:44 Freq: Status: Active Protocol: Document 06/19/20 08:17 (Rec: 06/19/20 09:02 [id number]) Out-Patient Physical Therapy Visit Information Visit Information Visit Type Treatment Note Visit Start Time 08:17 Visit Stop Time 09:00 Total Visit Minutes 43 Visit Number 10 Number of GEOTECHNICAL ENGINEER Visits 0 PT-OP-B Current Condition Start: 05/02/20 17:44 Freq: Status: Active Protocol: Document 05/02/20 15:15 DCW (Rec: 05/03/20 09:41 DCW [id number]) Current Condition History of Current Condition Onset Date 2.5 months Current Complaints R shoulder pain, immobility History of Current Condition Pt is a 64 year old female presenting with a two and a half month history of shoulder pain. Pt reports she and her were moving furniture out of her wzufqb-xk-jfx's house, and there was no actual instance of pain or injury that she can remember, but then over the next few days she began to experience more and more pain and limitations with movement. Pt reports she cannot really lift anything, even a galss of water, and it hurts to even just attempt to lift her arm up. The pain also limits her sleeping at night. Pt does admit that last Thursday, she suffered a fall, and her shoulder pain has been even worse since then. Treatment Goals Patient/Caregiver Goals Improve shoulder mobility and strength, decrease pain Prior Functional Status Baseline Function- ADL's Independent Baseline Function- Mobility Independent PT-OP-C Subjective Start: 05/02/20 17:44 Freq: Status: Active Protocol: Document 06/19/20 08:17 HH (Rec: 06/19/20 09:02 [id number]) OP-PT Subjective Patient Comments Patient Comments I think my cortisone shot has weaned off thats why my shoulder has been quite irritating. I had to put pillow underneath my shoulder to sleep now. I also coundnt lift my arm up. Patient Reported Progress Worse PT-OP-K Range of Motion Start: 05/02/20 17:44 Freq: Status: Active Protocol: Document 05/02/20 15:15 DCW (Rec: 05/03/20 14:57 DCW [id number]) Shoulder Goniometric Range of Motion Shoulder Right Passive Shoulder ROM WFL Yes Flexion 180 Abduction 170 Right Active Testing Position Sitting Flexion 120 Abduction 90 External Rotation at 0 degrees Abduction 80 Internal Rotation Behind Back (text) T10 PT-OP-L Special Tests Start: 05/02/20 17:44 Freq: Status: Active Protocol: Document 05/02/20 15:15 DCW (Rec: 05/03/20 14:57 DCW [id number]) Special Tests Shoulder Special Tests Yergason's Biceps Test Results Negative Speed's Biceps Test Results Negative Guillermo Chris Impingement Test Results Positive R Painful Arc Test Results Positive R Lift-Off Rotator Cuff Test Results Negative Empty Can Test Results Positive R Drop Arm Rotator Cuff Test Results Positive R Belly Press Test Results Negative PT-OP-M Strength Start: 05/02/20 17:44 Freq: Status: Active Protocol: Document 05/02/20 15:15 DCW (Rec: 05/03/20 14:57 DCW [id number]) Shoulder Strength Shoulder Manual Muscle Testing Right Flexion 3- Fair- Abduction (C5) 2+ Poor+ External Rotation 4 Good Internal Rotation 5 Normal PT-OP-Q Treatments Start: 05/02/20 17:44 Freq: Status: Active Protocol: Document 06/19/20 08:17 HH (Rec: 06/19/20 09:02 HH [id number]) Therapeutic Exercises Sidelying Exercises hor abduction Side bilateral Equipment Used 1lb DB Reps/Minutes 10 x2 Comments R is 70% weaker than L as pt stated SL ER Side bilateral Equipment Used 2 lbs DB Reps/Minutes 12 x 2 Comments R is 70% weaker than L as pt stated open book Sidelying Exercise Name prevent lumbar rotation Side bilateral Reps/Minutes 10 x2 Comments for HEP, slight discomfort noted at mid range cues on thoracic rotation Manual Therapy Treatment Soft Tissue Mobilization bicep tendon Body Location long head of bicep tendon on R Mobilization Type Sustained Pressure,Trigger Point Release Intensity/Depth Moderate Body Position Sidelying Comments tenderness noted at insertion STM/MFR Body Location R distal pec, coracobrachialis , pec minor, prox bicep, anterior deltoid Mobilization Type Strumming,Sustained Pressure Body Position Sitting Joint Mobilizations 1 Joint R GH jt Direction Inf, posterior Grade II PT-OP-R Modalities Start: 05/02/20 17:44 Freq: Status: Active Protocol: Document 05/11/20 15:15 DCW (Rec: 05/11/20 16:02 DCW [id number]) Electric Stimulation Electric Stimulation Interferential Current (IFC) Body Location R shoulder Duration (Minutes) 15 Patient Position Hooklying Combined With Heat/Cold Cold Pack PT-OP-T Assessment and Plan Start: 05/02/20 17:44 Freq: Status: Active Protocol: Document 06/19/20 08:17 HH (Rec: 06/19/20 09:02 HH [id number]) Physical Therapy Assessment Goals Four Impairment Weakness secondary to pain with R shoulder flexion and abduction Snf Goal (LTG) Pt to demonstrate MMT of 4-/5 with R shoulder flexion and abduction to improve ability to pick items up off her floor LTG Duration 07/02/20 Three Impairment Shoulder AROM limited to 90? abduction and 110? flexion Front Loader Residential Driver Goal (LTG) Pt to demonstrate pain-free AROM to 130? in both flexion and abduction LTG Duration 07/02/20 Two Impairment Pt unable to lift glass of water using right arm without pain Short Term Goal (STG) Pt to drink from glass using right arm with no increased pain STG Duration 06/02/20 Snf Goal (LTG) Pt to demonstrate ROM 0?-90? Abduction with no painful arc sign LTG Duration 07/02/20 One Impairment Pt does not have an appropriate home exercise program Short Term Goal (STG) Pt to be independent and compliant with an appropriate HEP STG Duration 06/02/20 Assessment Summary Assessment Pt has been having irritation on R shoulder since 10 days ago possibly d/t muscle strain from daily activities and home exercises. tx focused on manual therapy and pec stretch with RTC light strengthening. Pt did c/o pain during standing shoulder ER with resistive band at home. Modified her ex into SL ER with no discomfort noted. Physical Therapy Plan Frequency and Duration Frequency of Treatment 2x/Week Duration of Treatment 10 weeks Plan of Care Start Date 05/02/20 Plan of Care End Date 07/11/20 Next Visit Focus/Plan Next Note Type Treatment Note Next Visit Plan Assess reponse to last tx: manual R shld, supine Tb foam roller UE strengthening and stretching. Continue per PT POC: progress scap stability, strength SL/ prone position end range abd flexion strengthening (wall lift off) wall slide
--- NOTE | 2020-06-21 09:15 | PT-OP ANOTE ---
Pt appt cancelled, admitted to hospital for observations. Will need dr note to continue PT when DC from hospital.
--- NOTE | 2020-06-28 12:39 | PT.OTN ---
Current Diagnoses Pain in right shoulder (06/28/20) Stiffness of right shoulder, not elsewhere classified (06/28/20) Other shoulder lesions, right shoulder (06/28/20) Pain in right arm (06/28/20) Strain of muscle(s) and tendon(s) of the rotator cuff of right shoulder, subsequent encounter (06/28/20) Other injury of muscle(s) and tendon(s) of the rotator cuff of right shoulder, subsequent encounter (06/28/20) Physical Therapy Treatment Note PT-OP-A Visit Information Start: 05/02/20 17:44 Freq: Status: Active Protocol: Document 06/28/20 08:20 (Rec: 06/28/20 12:39 [id number]) Out-Patient Physical Therapy Visit Information Visit Information Visit Type Progress Note Visit Start Time 08:16 Visit Stop Time 09:00 Total Visit Minutes 44 Visit Number 11 Number of MIS DIRECTOR Visits 0 PT-OP-B Current Condition Start: 05/02/20 17:44 Freq: Status: Active Protocol: Document 05/02/20 15:15 DCW (Rec: 05/03/20 09:41 DCW [id number]) Current Condition History of Current Condition Onset Date 2.5 months Current Complaints R shoulder pain, immobility History of Current Condition Pt is a 64 year old female presenting with a two and a half month history of shoulder pain. Pt reports she and her were moving furniture out of her zfqfng-fz-axr's house, and there was no actual instance of pain or injury that she can remember, but then over the next few days she began to experience more and more pain and limitations with movement. Pt reports she cannot really lift anything, even a galss of water, and it hurts to even just attempt to lift her arm up. The pain also limits her sleeping at night. Pt does admit that last Thursday, she suffered a fall, and her shoulder pain has been even worse since then. Treatment Goals Patient/Caregiver Goals Improve shoulder mobility and strength, decrease pain Prior Functional Status Baseline Function- ADL's Independent Baseline Function- Mobility Independent PT-OP-C Subjective Start: 05/02/20 17:44 Freq: Status: Active Protocol: Document 06/28/20 08:20 HH (Rec: 06/28/20 12:39 [id number]) OP-PT Subjective Patient Comments Patient Comments I was admitted to hospital last week for 2 days d/t chest pain. I have to see weapons officer naval activity for further work up. I have not done any exercises at all but i did feel better after last time. Patient Reported Progress Improving PT-OP-K Range of Motion Start: 05/02/20 17:44 Freq: Status: Active Protocol: Document 05/02/20 15:15 DCW (Rec: 05/03/20 14:57 DCW [id number]) Shoulder Goniometric Range of Motion Shoulder Right Passive Shoulder ROM WFL Yes Flexion 180 Abduction 170 Right Active Testing Position Sitting Flexion 120 Abduction 90 External Rotation at 0 degrees Abduction 80 Internal Rotation Behind Back (text) T10 PT-OP-L Special Tests Start: 05/02/20 17:44 Freq: Status: Active Protocol: Document 05/02/20 15:15 DCW (Rec: 05/03/20 14:57 DCW [id number]) Special Tests Shoulder Special Tests Yergason's Biceps Test Results Negative Speed's Biceps Test Results Negative Guillermo Chris Impingement Test Results Positive R Painful Arc Test Results Positive R Lift-Off Rotator Cuff Test Results Negative Empty Can Test Results Positive R Drop Arm Rotator Cuff Test Results Positive R Belly Press Test Results Negative PT-OP-M Strength Start: 05/02/20 17:44 Freq: Status: Active Protocol: Document 05/02/20 15:15 DCW (Rec: 05/03/20 14:57 DCW [id number]) Shoulder Strength Shoulder Manual Muscle Testing Right Flexion 3- Fair- Abduction (C5) 2+ Poor+ External Rotation 4 Good Internal Rotation 5 Normal PT-OP-Q Treatments Start: 05/02/20 17:44 Freq: Status: Active Protocol: Document 06/28/20 08:20 HH (Rec: 06/28/20 12:39 HH [id number]) Therapeutic Exercises Sidelying Exercises SL abd Side right Equipment Used 1lb DB Reps/Minutes 8 x2 Comments min discomfort. hor abduction Side bilateral Equipment Used 1lb DB Reps/Minutes 10 x2 Comments R is 50% weaker than L as pt stated SL ER Side bilateral Equipment Used 2 lbs DB Reps/Minutes 12 x 2 Comments R is 50% weaker than L as pt stated open book Sidelying Exercise Name prevent lumbar rotation Side bilateral Reps/Minutes 10 x2 Comments for HEP, slight discomfort noted at mid range cues on thoracic rotation Manual Therapy Treatment Soft Tissue Mobilization bicep tendon Body Location long head of bicep tendon on R Mobilization Type Sustained Pressure,Trigger Point Release Intensity/Depth Moderate Body Position Sidelying Comments reduced tenderness noted at insertion RTC Mobilization Type Sustained Pressure,Trigger Point Release Intensity/Depth Moderate Body Position Sidelying Comments infrapsinatus STM/MFR Body Location R distal pec, coracobrachialis , pec minor, prox bicep, anterior deltoid Mobilization Type Strumming,Sustained Pressure Body Position Sitting Joint Mobilizations 1 Joint R GH jt Direction Inf, posterior Grade II PT-OP-R Modalities Start: 05/02/20 17:44 Freq: Status: Active Protocol: Document 05/11/20 15:15 DCW (Rec: 05/11/20 16:02 DCW [id number]) Electric Stimulation Electric Stimulation Interferential Current (IFC) Body Location R shoulder Duration (Minutes) 15 Patient Position Hooklying Combined With Heat/Cold Cold Pack PT-OP-T Assessment and Plan Start: 05/02/20 17:44 Freq: Status: Active Protocol: Document 06/28/20 08:20 HH (Rec: 06/28/20 12:39 HH [id number]) Physical Therapy Assessment Goals Three Impairment Shoulder AROM limited to 90? abduction and 110? flexion Short Term Goal (STG) Pt is able to reach 160 degrees with minimal pain but mod pain with abduction up to 130 Supervisor Mechanic Boilermaking Goal (LTG) Pt to demonstrate pain-free AROM to 170 in both flexion and abduction LTG Duration 08/28/20 Two Impairment Pt unable to lift glass of water using right arm without pain Short Term Goal (STG) no increased discomfort drinking with her glass using R arm STG Duration 06/02/20 [facility] Goal (LTG) 06/28 cont in progress Pt to demonstrate ROM 0?-90? Abduction with no painful arc sign LTG Duration 07/02/20 One Impairment Pt does not have an appropriate home exercise program Short Term Goal (STG) Pt to be independent and compliant with an appropriate HEP STG Duration 07/29/20 Assessment Summary Assessment Pt was hospitalized for few days last weekP because of new onset of chest pain. Howevre, Pt shows improved ROM with no discomfort during flexion but mod pain for abduction. Pt came in abduction up to 80- 90degrees but got up to 130 at the end of session. She reached full ROM with min-none discomfort in SL position. Needed cues to engage scap retraction. Tx focuses on strengthening in gravity eliminated position at this point. Physical Therapy Plan Frequency and Duration Frequency of Treatment 2x/Week Duration of Treatment 10 weeks Plan of Care Start Date 05/02/20 Plan of Care End Date 07/11/20 Next Visit Focus/Plan Next Note Type Treatment Note Next Visit Plan Assess reponse to last tx: focus on gravity eliminated position for abduction. progress strengthening as bolivar
--- NOTE | 2020-07-02 12:13 | PT.OTN ---
Current Diagnoses Pain in right shoulder (07/02/20) Stiffness of right shoulder, not elsewhere classified (07/02/20) Other shoulder lesions, right shoulder (07/02/20) Pain in right arm (07/02/20) Strain of muscle(s) and tendon(s) of the rotator cuff of right shoulder, subsequent encounter (07/02/20) Other injury of muscle(s) and tendon(s) of the rotator cuff of right shoulder, subsequent encounter (07/02/20) Physical Therapy Treatment Note PT-OP-A Visit Information Start: 05/02/20 17:44 Freq: Status: Active Protocol: Document 07/02/20 11:15 HH (Rec: 07/02/20 12:13 [id number]) Out-Patient Physical Therapy Visit Information Visit Information Visit Type Treatment Note Visit Start Time 11:17 Visit Stop Time 12:00 Total Visit Minutes 43 Visit Number 12 Number of ENGINEERING PROFESSOR Visits 0 PT-OP-B Current Condition Start: 05/02/20 17:44 Freq: Status: Active Protocol: Document 05/02/20 15:15 DCW (Rec: 05/03/20 09:41 DCW [id number]) Current Condition History of Current Condition Onset Date 2.5 months Current Complaints R shoulder pain, immobility History of Current Condition Pt is a 64 year old female presenting with a two and a half month history of shoulder pain. Pt reports she and her were moving furniture out of her wdxsrq-fh-his's house, and there was no actual instance of pain or injury that she can remember, but then over the next few days she began to experience more and more pain and limitations with movement. Pt reports she cannot really lift anything, even a galss of water, and it hurts to even just attempt to lift her arm up. The pain also limits her sleeping at night. Pt does admit that last Thursday, she suffered a fall, and her shoulder pain has been even worse since then. Treatment Goals Patient/Caregiver Goals Improve shoulder mobility and strength, decrease pain Prior Functional Status Baseline Function- ADL's Independent Baseline Function- Mobility Independent PT-OP-C Subjective Start: 05/02/20 17:44 Freq: Status: Active Protocol: Document 07/02/20 11:15 HH (Rec: 07/02/20 12:13 [id number]) OP-PT Subjective Patient Comments Patient Comments Its getting better but it bothers me at night. PT-OP-K Range of Motion Start: 05/02/20 17:44 Freq: Status: Active Protocol: Document 05/02/20 15:15 DCW (Rec: 05/03/20 14:57 DCW [id number]) Shoulder Goniometric Range of Motion Shoulder Right Passive Shoulder ROM WFL Yes Flexion 180 Abduction 170 Right Active Testing Position Sitting Flexion 120 Abduction 90 External Rotation at 0 degrees Abduction 80 Internal Rotation Behind Back (text) T10 PT-OP-L Special Tests Start: 05/02/20 17:44 Freq: Status: Active Protocol: Document 05/02/20 15:15 DCW (Rec: 05/03/20 14:57 DCW [id number]) Special Tests Shoulder Special Tests Davidernivia's Biceps Test Results Negative Speed's Biceps Test Results Negative Guillermo Chris Impingement Test Results Positive R Painful Arc Test Results Positive R Lift-Off Rotator Cuff Test Results Negative Empty Can Test Results Positive R Drop Arm Rotator Cuff Test Results Positive R Belly Press Test Results Negative PT-OP-M Strength Start: 05/02/20 17:44 Freq: Status: Active Protocol: Document 05/02/20 15:15 DCW (Rec: 05/03/20 14:57 DCW [id number]) Shoulder Strength Shoulder Manual Muscle Testing Right Flexion 3- Fair- Abduction (C5) 2+ Poor+ External Rotation 4 Good Internal Rotation 5 Normal PT-OP-Q Treatments Start: 05/02/20 17:44 Freq: Status: Active Protocol: Document 07/02/20 11:15 HH (Rec: 07/02/20 12:13 HH [id number]) Therapeutic Exercises Supine Exercises supine flexion Supine Exercise Name with PVC pipe Equipment Used 4lbs ankle weight Reps/Minutes 8 x2 Comments no discomfort with supinated arms. Supine Punch Side bilateral Equipment Used 4lbs ankle weight Reps/Minutes 8x1 Comments no dsicomfort Sidelying Exercises SL abd Side right Equipment Used 1lb DB Reps/Minutes 8 x2 Comments min discomfort but none with ER shoulder hor abduction Side bilateral Equipment Used 1lb DB Reps/Minutes 10 x2 Comments R is 50% weaker than L as pt stated SL ER Side bilateral Equipment Used 2 lbs DB Reps/Minutes 12 x 2 Comments R is 50% weaker than L as pt stated Standing Exercises ER Side right Equipment Used level 1 Reps/Minutes 8 Comments cues on scap retraction, no discomfort noted. wall slide Standing Exercise Name for abd Side bilateral Reps/Minutes 8 x2 Comments for HEP, slight pressure at top of abd scap retraction/depression Equipment Used level 1 band Reps/Minutes 8x1 Comments cues on scap retraction Manual Therapy Treatment Soft Tissue Mobilization bicep tendon Body Location long head of bicep tendon on R Mobilization Type Sustained Pressure,Trigger Point Release Intensity/Depth Moderate Body Position Sidelying Comments reduced tenderness noted at insertion RTC Mobilization Type Sustained Pressure,Trigger Point Release Intensity/Depth Moderate Body Position Sidelying Comments infrapsinatus and subscap Joint Mobilizations 1 Joint R GH jt Direction Inf, posterior Grade III PT-OP-R Modalities Start: 05/02/20 17:44 Freq: Status: Active Protocol: Document 05/11/20 15:15 DCW (Rec: 05/11/20 16:02 DCW [id number]) Electric Stimulation Electric Stimulation Interferential Current (IFC) Body Location R shoulder Duration (Minutes) 15 Patient Position Hooklying Combined With Heat/Cold Cold Pack PT-OP-T Assessment and Plan Start: 05/02/20 17:44 Freq: Status: Active Protocol: Document 07/02/20 11:15 HH (Rec: 07/02/20 12:13 HH [id number]) Physical Therapy Assessment Goals Four Impairment Weakness secondary to pain with R shoulder flexion and abduction Short Term Goal (STG) 105 flexion= 4-/5 abd= 3+/5 Nursing Home Goal (LTG) Pt to demonstrate MMT of 4-/5 with R shoulder flexion and abduction to improve ability to pick items up off her floor LTG Duration 07/02/20 Three Impairment Shoulder AROM limited to 90? abduction and 110? flexion Short Term Goal (STG) 10/5 no pain with full range of flexion able to reach full abd but slight pain at 90 degrees abd Public Health Microbiologist Goal (LTG) Pt to demonstrate pain-free AROM to 130? in both flexion and abduction LTG Duration 07/02/20 Two Impairment Pt unable to lift glass of water using right arm without pain Short Term Goal (STG) 10/5 Pt to drink from glass using right arm with no increased pain, but discomfort with a heavy pitcher. Public Health Microbiologist Goal (LTG) 10/5 slight discomfort at 90 degrees but no discomfort with external rotated shoulder. Pt to demonstrate ROM 0?-90? Abduction with no painful arc sign LTG Duration 07/02/20 One Impairment Pt does not have an appropriate home exercise program Short Term Goal (STG) Pt to be independent and compliant with an appropriate HEP STG Duration 06/02/20 Assessment Summary Assessment Pt shows improved symptoms since last visit. Able to reach full abd with min discomfort when she came in. Also noticed pt has less pain for abd with external rotated shoulder. Ex progressed to more in standing position. Added wall slide abd for HEP. Physical Therapy Plan Frequency and Duration Frequency of Treatment 2x/Week Duration of Treatment 10 weeks Plan of Care Start Date 05/02/20 Plan of Care End Date 07/11/20 Next Visit Focus/Plan Next Note Type Treatment Note Next Visit Plan Assess reponse to last tx: focus on gravity eliminated position for abduction. progress strengthening as bolivar
--- NOTE | 2020-07-10 10:31 | PT.OTN ---
Current Diagnoses Pain in right shoulder (07/10/20) Stiffness of right shoulder, not elsewhere classified (07/10/20) Other shoulder lesions, right shoulder (07/10/20) Pain in right arm (07/10/20) Strain of muscle(s) and tendon(s) of the rotator cuff of right shoulder, subsequent encounter (07/10/20) Other injury of muscle(s) and tendon(s) of the rotator cuff of right shoulder, subsequent encounter (07/10/20) Physical Therapy Treatment Note PT-OP-A Visit Information Start: 05/02/20 17:44 Freq: Status: Active Protocol: Document 07/10/20 09:45 DCW (Rec: 07/10/20 10:31 DCW [id number]) Out-Patient Physical Therapy Visit Information Visit Information Visit Type Treatment Note Visit Start Time 09:45 Visit Stop Time 10:30 Total Visit Minutes 45 Visit Number 13 Number of STEEL WELDER Visits 0 Evaluation Information Evaluation Date 05/02/20 PT-OP-B Current Condition Start: 05/02/20 17:44 Freq: Status: Active Protocol: Document 05/02/20 15:15 DCW (Rec: 05/03/20 09:41 DCW [id number]) Current Condition History of Current Condition Onset Date 2.5 months Current Complaints R shoulder pain, immobility History of Current Condition Pt is a 64 year old female presenting with a two and a half month history of shoulder pain. Pt reports she and her were moving furniture out of her [id number]'s house, and there was no actual instance of pain or injury that she can remember, but then over the next few days she began to experience more and more pain and limitations with movement. Pt reports she cannot really lift anything, even a galss of water, and it hurts to even just attempt to lift her arm up. The pain also limits her sleeping at night. Pt does admit that last Thursday, she suffered a fall, and her shoulder pain has been even worse since then. Treatment Goals Patient/Caregiver Goals Improve shoulder mobility and strength, decrease pain Prior Functional Status Baseline Function- ADL's Independent Baseline Function- Mobility Independent PT-OP-C Subjective Start: 05/02/20 17:44 Freq: Status: Active Protocol: Document 07/10/20 09:45 DCW (Rec: 07/10/20 10:31 DCW [id number]) OP-PT Subjective Patient Comments Patient Comments I'm not completely better, but I'm getting there. I think I'm probably even better than I had been my last visit here . PT-OP-K Range of Motion Start: 05/02/20 17:44 Freq: Status: Active Protocol: Document 05/02/20 15:15 DCW (Rec: 05/03/20 14:57 DCW [id number]) Shoulder Goniometric Range of Motion Shoulder Right Passive Shoulder ROM WFL Yes Flexion 180 Abduction 170 Right Active Testing Position Sitting Flexion 120 Abduction 90 External Rotation at 0 degrees Abduction 80 Internal Rotation Behind Back (text) T10 PT-OP-L Special Tests Start: 05/02/20 17:44 Freq: Status: Active Protocol: Document 05/02/20 15:15 DCW (Rec: 05/03/20 14:57 DCW [id number]) Special Tests Shoulder Special Tests Yergason's Biceps Test Results Negative Speed's Biceps Test Results Negative Guillermo Chris Impingement Test Results Positive R Painful Arc Test Results Positive R Lift-Off Rotator Cuff Test Results Negative Empty Can Test Results Positive R Drop Arm Rotator Cuff Test Results Positive R Belly Press Test Results Negative PT-OP-M Strength Start: 05/02/20 17:44 Freq: Status: Active Protocol: Document 05/02/20 15:15 DCW (Rec: 05/03/20 14:57 DCW [id number]) Shoulder Strength Shoulder Manual Muscle Testing Right Flexion 3- Fair- Abduction (C5) 2+ Poor+ External Rotation 4 Good Internal Rotation 5 Normal PT-OP-Q Treatments Start: 05/02/20 17:44 Freq: Status: Active Protocol: Document 07/10/20 09:45 DCW (Rec: 07/10/20 10:31 DCW [id number]) Therapeutic Exercises Supine Exercises supine flexion Supine Exercise Name with PVC pipe Equipment Used 4lbs ankle weight Reps/Minutes 8 x2 Comments no discomfort with supinated arms. Supine Punch Side bilateral Resistance 3# Reps/Minutes 8x1 Comments no dsicomfort Sitting Exercises OH madeleine Sitting Exercise Name Flex/Abd Standing Exercises 3 Standing Exercise Name Sh Abd Side bilateral Resistance 3# Comments Pain-free ROM 2 Standing Exercise Name Sh Flex Side bilateral Resistance 3# Comments Pain-free ROM Manual Therapy Treatment Soft Tissue Mobilization bicep tendon Body Location long head of bicep tendon on R Mobilization Type Sustained Pressure,Trigger Point Release Intensity/Depth Moderate Body Position Sidelying Comments reduced tenderness noted at insertion RTC Mobilization Type Sustained Pressure,Trigger Point Release Intensity/Depth Moderate Body Position Sidelying Comments infrapsinatus STM/MFR Body Location R distal pec, coracobrachialis , pec minor, prox bicep, anterior deltoid Mobilization Type Strumming,Sustained Pressure Body Position Sitting Joint Mobilizations 1 Joint R GH jt Direction Inf, posterior Grade II PT-OP-R Modalities Start: 05/02/20 17:44 Freq: Status: Active Protocol: Document 05/11/20 15:15 DCW (Rec: 05/11/20 16:02 DCW [id number]) Electric Stimulation Electric Stimulation Interferential Current (IFC) Body Location R shoulder Duration (Minutes) 15 Patient Position Hooklying Combined With Heat/Cold Cold Pack PT-OP-T Assessment and Plan Start: 05/02/20 17:44 Freq: Status: Active Protocol: Document 07/10/20 09:45 DCW (Rec: 07/10/20 10:31 DCW [id number]) Physical Therapy Assessment Goals Four Impairment Weakness secondary to pain with R shoulder flexion and abduction Short Term Goal (STG) 105 flexion= 4-/5 abd= 3+/5 Commercial Or Institutional Cleaner Goal (LTG) Pt to demonstrate MMT of 4-/5 with R shoulder flexion and abduction to improve ability to pick items up off her floor LTG Duration 07/02/20 Three Impairment Shoulder AROM limited to 90? abduction and 110? flexion Short Term Goal (STG) 105 no pain with full range of flexion able to reach full abd but slight pain at 90 degrees abd Nursing Home Goal (LTG) Pt to demonstrate pain-free AROM to 130? in both flexion and abduction LTG Duration 07/02/20 Two Impairment Pt unable to lift glass of water using right arm without pain Short Term Goal (STG) 10/5 Pt to drink from glass using right arm with no increased pain, but discomfort with a heavy pitcher. Nursing Home Goal (LTG) 10/5 slight discomfort at 90 degrees but no discomfort with external rotated shoulder. Pt to demonstrate ROM 0?-90? Abduction with no painful arc sign LTG Duration 07/02/20 One Impairment Pt does not have an appropriate home exercise program Short Term Goal (STG) Pt to be independent and compliant with an appropriate HEP STG Duration 06/02/20 Assessment Summary Assessment Pt continues to improve, still having increased pain with abduction activities. Pt continuing with independent HEP, continued skilled therapy beneficial to improvement. Physical Therapy Plan Frequency and Duration Frequency of Treatment 2x/Week Duration of Treatment 10 weeks Plan of Care Start Date 05/02/20 Plan of Care End Date 07/11/20 Next Visit Focus/Plan Next Note Type Treatment Note Next Visit Plan Assess reponse to last tx: focus on gravity eliminated position for abduction. progress strengthening as bolivar
--- NOTE | 2020-07-13 09:52 | PT.OTN ---
Current Diagnoses Pain in right shoulder (07/13/20) Stiffness of right shoulder, not elsewhere classified (07/13/20) Other shoulder lesions, right shoulder (07/13/20) Pain in right arm (07/13/20) Strain of muscle(s) and tendon(s) of the rotator cuff of right shoulder, subsequent encounter (07/13/20) Other injury of muscle(s) and tendon(s) of the rotator cuff of right shoulder, subsequent encounter (07/13/20) Physical Therapy Treatment Note PT-OP-A Visit Information Start: 05/02/20 17:44 Freq: Status: Active Protocol: Document 07/13/20 09:00 DCW (Rec: 07/13/20 09:46 DCW [id number]) Out-Patient Physical Therapy Visit Information Visit Information Visit Type Treatment Note Visit Start Time 09:00 Visit Stop Time 09:45 Total Visit Minutes 45 Visit Number 14 Number of AFTER SCHOOL CAREGIVER Visits 0 Evaluation Information Evaluation Date 05/02/20 PT-OP-B Current Condition Start: 05/02/20 17:44 Freq: Status: Active Protocol: Document 05/02/20 15:15 DCW (Rec: 05/03/20 09:41 DCW [id number]) Current Condition History of Current Condition Onset Date 2.5 months Current Complaints R shoulder pain, immobility History of Current Condition Pt is a 64 year old female presenting with a two and a half month history of shoulder pain. Pt reports she and her were moving furniture out of her sklvdw-vl-dzt's house, and there was no actual instance of pain or injury that she can remember, but then over the next few days she began to experience more and more pain and limitations with movement. Pt reports she cannot really lift anything, even a galss of water, and it hurts to even just attempt to lift her arm up. The pain also limits her sleeping at night. Pt does admit that last Thursday, she suffered a fall, and her shoulder pain has been even worse since then. Treatment Goals Patient/Caregiver Goals Improve shoulder mobility and strength, decrease pain Prior Functional Status Baseline Function- ADL's Independent Baseline Function- Mobility Independent PT-OP-C Subjective Start: 05/02/20 17:44 Freq: Status: Active Protocol: Document 07/13/20 09:00 DCW (Rec: 07/13/20 09:46 DCW [id number]) OP-PT Subjective Patient Comments Patient Comments Pt reports some pain in her upper arm today, thinks it was due to gardening yesterday. PT-OP-K Range of Motion Start: 05/02/20 17:44 Freq: Status: Active Protocol: Document 07/13/20 09:00 DCW (Rec: 07/13/20 09:52 DCW [id number]) Shoulder Goniometric Range of Motion Shoulder Right Passive Shoulder ROM WFL Yes Flexion 180 Abduction 170 Right Active Testing Position Sitting Flexion 128 Abduction 102 PT-OP-L Special Tests Start: 05/02/20 17:44 Freq: Status: Active Protocol: Document 07/13/20 09:00 DCW (Rec: 07/13/20 09:52 DCW [id number]) Special Tests Shoulder Special Tests Yergason's Biceps Test Results Negative Speed's Biceps Test Results Negative Guillermo Chris Impingement Test Results Positive R Painful Arc Test Results Positive R Lift-Off Rotator Cuff Test Results Negative Empty Can Test Results Positive R Drop Arm Rotator Cuff Test Results Positive R Belly Press Test Results Negative PT-OP-M Strength Start: 05/02/20 17:44 Freq: Status: Active Protocol: Document 07/13/20 09:00 DCW (Rec: 07/13/20 09:52 DCW [id number]) Shoulder Strength Shoulder Manual Muscle Testing Right Flexion 3 Fair Abduction (C5) 2+ Poor+ External Rotation 4+ Good+ Internal Rotation 5 Normal PT-OP-Q Treatments Start: 05/02/20 17:44 Freq: Status: Active Protocol: Document 07/13/20 09:00 DCW (Rec: 07/13/20 09:46 DCW [id number]) Cardio Equipment Upper Body Ergometer (UBE) Duration (Minutes) 6 RPM 60 Seat Position 14 Height 3 Therapeutic Exercises Supine Exercises supine flexion Supine Exercise Name with PVC pipe Equipment Used 4lbs ankle weight Reps/Minutes 8 x2 Comments no discomfort with supinated arms. Supine Punch Side bilateral Resistance 3# Reps/Minutes 8x1 Comments no dsicomfort Sitting Exercises OH madeleine Sitting Exercise Name Flex/Abd Standing Exercises ER Standing Exercise Name ER/IR Side right Resistance Lv 2 Equipment Used T-band Reps/Minutes x20 Comments cues on scap retraction, no discomfort noted. standing row Tb Side bilateral Resistance Lv 2 Equipment Used T-band Reps/Minutes x20 Comments occasional cuing for scap retract/dep 2 Standing Exercise Name Sh Flex Side bilateral Resistance 4# Equipment Used PVC Comments Pain-free ROM 1 Standing Exercise Name Sh Extension Side bilateral Resistance Lv 2 Equipment Used T-band Manual Therapy Treatment Soft Tissue Mobilization bicep tendon Body Location long head of bicep tendon on R Mobilization Type Sustained Pressure,Trigger Point Release Intensity/Depth Moderate Body Position Sidelying Comments reduced tenderness noted at insertion RTC Mobilization Type Sustained Pressure,Trigger Point Release Intensity/Depth Moderate Body Position Sidelying Comments infrapsinatus STM/MFR Body Location R distal pec, coracobrachialis , pec minor, prox bicep, anterior deltoid Mobilization Type Strumming,Sustained Pressure Body Position Sitting Joint Mobilizations 1 Joint R GH jt Direction Inf, posterior Grade II PT-OP-R Modalities Start: 05/02/20 17:44 Freq: Status: Active Protocol: Document 05/11/20 15:15 DCW (Rec: 05/11/20 16:02 DCW [id number]) Electric Stimulation Electric Stimulation Interferential Current (IFC) Body Location R shoulder Duration (Minutes) 15 Patient Position Hooklying Combined With Heat/Cold Cold Pack PT-OP-T Assessment and Plan Start: 05/02/20 17:44 Freq: Status: Active Protocol: Document 07/13/20 09:00 DCW (Rec: 07/13/20 09:46 DCW [id number]) Physical Therapy Assessment Goals Four Impairment Weakness secondary to pain with R shoulder flexion and abduction Short Term Goal (STG) 10 flexion= 4-/5 abd= 3+/5 Environmental Assistant Goal (LTG) Pt to demonstrate MMT of 4-/5 with R shoulder flexion and abduction to improve ability to pick items up off her floor LTG Duration 09/21/20 Three Impairment Shoulder AROM limited to 90? abduction and 110? flexion Short Term Goal (STG) 10/5 no pain with full range of flexion able to reach full abd but slight pain at 90 degrees abd Long-Term Goal (LTG) Pt to demonstrate pain-free AROM to 130? in both flexion and abduction LTG Duration 09/21/20 Two Impairment Pt unable to lift glass of water using right arm without pain Short Term Goal (STG) 10/5 Pt to drink from glass using right arm with no increased pain, but discomfort with a heavy pitcher. Environmental Assistant Goal (LTG) 10/ slight discomfort at 90 degrees but no discomfort with external rotated shoulder. Pt to demonstrate ROM 0?-90? Abduction with no painful arc sign LTG Duration 09/21/20 One Impairment Pt does not have an appropriate home exercise program Short Term Goal (STG) Pt to be independent and compliant with an appropriate HEP STG Duration Met Assessment Summary Assessment Pt still showing progress with ROM and pain level, may eventually need to return to PCP for possible MRI if a progress plateau is reached, but for now continue with current POC. Physical Therapy Plan Frequency and Duration Frequency of Treatment 2x/Week Duration of Treatment 10 weeks Plan of Care Start Date 07/13/20 Plan of Care End Date 09/21/20 Next Visit Focus/Plan Next Note Type Treatment Note Next Visit Plan Assess reponse to last tx: focus on gravity eliminated position for abduction. progress strengthening as bolivar
--- NOTE | 2020-07-13 09:53 | PT.OPPOC ---
Physical, Occupational & Speech Therapy At [facility] Current Diagnoses Pain in right shoulder (07/13/20) Stiffness of right shoulder, not elsewhere classified (07/13/20) Other shoulder lesions, right shoulder (07/13/20) Pain in right arm (07/13/20) Strain of muscle(s) and tendon(s) of the rotator cuff of right shoulder, subsequent encounter (07/13/20) Other injury of muscle(s) and tendon(s) of the rotator cuff of right shoulder, subsequent encounter (07/13/20) Visit Care Team Role Provider Type Jj Hernandez MD Attending Provider Physician Primary Care Provider Referring Provider Specialty: Internal Medicine Address: [address] [place] [address], [facility] Email: [email or web address] Plan Of Care PT-OP-T Assessment and Plan Start: 05/02/20 17:44 Freq: Status: Active Protocol: Document 07/13/20 09:00 DCW (Rec: 07/13/20 09:46 DCW [id number]) Physical Therapy Assessment Goals Four Impairment Weakness secondary to pain with R shoulder flexion and abduction Short Term Goal (STG) 10/5 flexion= 4-/5 abd= 3+/5 Half-Way Goal (LTG) Pt to demonstrate MMT of 4-/5 with R shoulder flexion and abduction to improve ability to pick items up off her floor LTG Duration 09/21/20 Three Impairment Shoulder AROM limited to 90? abduction and 110? flexion Short Term Goal (STG) 10/5 no pain with full range of flexion able to reach full abd but slight pain at 90 degrees abd Finance Intern Goal (LTG) Pt to demonstrate pain-free AROM to 130? in both flexion and abduction LTG Duration 09/21/20 Two Impairment Pt unable to lift glass of water using right arm without pain Short Term Goal (STG) 10/5 Pt to drink from glass using right arm with no increased pain, but discomfort with a heavy pitcher. Half-Way Goal (LTG) 10/5 slight discomfort at 90 degrees but no discomfort with external rotated shoulder. Pt to demonstrate ROM 0?-90? Abduction with no painful arc sign LTG Duration 09/21/20 One Impairment Pt does not have an appropriate home exercise program Short Term Goal (STG) Pt to be independent and compliant with an appropriate HEP STG Duration Met Assessment Summary Assessment Pt still showing progress with ROM and pain level, may eventually need to return to PCP for possible MRI if a progress plateau is reached, but for now continue with current POC. Physical Therapy Plan Frequency and Duration Frequency of Treatment 2x/Week Duration of Treatment 10 weeks Plan of Care Start Date 07/13/20 Plan of Care End Date 09/21/20 Next Visit Focus/Plan Next Note Type Treatment Note Next Visit Plan Assess reponse to last tx: focus on gravity eliminated position for abduction. progress strengthening as bolivar Plan of Care Dates Plan of Care Start Date 07/13/20 Plan of Care End Date 09/21/20 Electronically Signed by: Andrea Patricia, PT 07/13/20 0953 Please Sign and Return: I have reviewed this Plan of Care and certify that the skilled therapy services above are required to meet the patient?s needs. Physician Signature Date Printed Name and Credentials Clinical Instructor Signature Printed Name and Credentials
--- NOTE | 2020-07-17 10:30 | PT.OTN ---
Current Diagnoses Pain in right shoulder (07/17/20) Stiffness of right shoulder, not elsewhere classified (07/17/20) Other shoulder lesions, right shoulder (07/17/20) Pain in right arm (07/17/20) Strain of muscle(s) and tendon(s) of the rotator cuff of right shoulder, subsequent encounter (07/17/20) Other injury of muscle(s) and tendon(s) of the rotator cuff of right shoulder, subsequent encounter (07/17/20) Physical Therapy Treatment Note PT-OP-A Visit Information Start: 05/02/20 17:44 Freq: Status: Active Protocol: Document 07/17/20 09:46 HH (Rec: 07/17/20 10:29 HH [id number]) Out-Patient Physical Therapy Visit Information Visit Information Visit Type Treatment Note Visit Start Time 09:47 Visit Stop Time 10:30 Total Visit Minutes 43 Visit Number 15 Number of OFFICE TECHNICIAN Visits 0 PT-OP-B Current Condition Start: 05/02/20 17:44 Freq: Status: Active Protocol: Document 05/02/20 15:15 DCW (Rec: 05/03/20 09:41 DCW [id number]) Current Condition History of Current Condition Onset Date 2.5 months Current Complaints R shoulder pain, immobility History of Current Condition Pt is a 64 year old female presenting with a two and a half month history of shoulder pain. Pt reports she and her were moving furniture out of her lalphc-ph-jdo's house, and there was no actual instance of pain or injury that she can remember, but then over the next few days she began to experience more and more pain and limitations with movement. Pt reports she cannot really lift anything, even a galss of water, and it hurts to even just attempt to lift her arm up. The pain also limits her sleeping at night. Pt does admit that last Thursday, she suffered a fall, and her shoulder pain has been even worse since then. Treatment Goals Patient/Caregiver Goals Improve shoulder mobility and strength, decrease pain Prior Functional Status Baseline Function- ADL's Independent Baseline Function- Mobility Independent PT-OP-C Subjective Start: 05/02/20 17:44 Freq: Status: Active Protocol: Document 07/17/20 09:46 HH (Rec: 07/17/20 10:29 HH [id number]) OP-PT Subjective Patient Comments Patient Comments Im getting better with less trouble lifting my arms. But still cannot reach overhead for heavy objects. Patient Reported Progress Improving PT-OP-K Range of Motion Start: 05/02/20 17:44 Freq: Status: Active Protocol: Document 07/13/20 09:00 DCW (Rec: 07/13/20 09:52 DCW [id number]) Shoulder Goniometric Range of Motion Shoulder Right Passive Shoulder ROM WFL Yes Flexion 180 Abduction 170 Right Active Testing Position Sitting Flexion 128 Abduction 102 PT-OP-L Special Tests Start: 05/02/20 17:44 Freq: Status: Active Protocol: Document 07/13/20 09:00 DCW (Rec: 07/13/20 09:52 DCW [id number]) Special Tests Shoulder Special Tests Yergason's Biceps Test Results Negative Speed's Biceps Test Results Negative Guillermo Chris Impingement Test Results Positive R Painful Arc Test Results Positive R Lift-Off Rotator Cuff Test Results Negative Empty Can Test Results Positive R Drop Arm Rotator Cuff Test Results Positive R Belly Press Test Results Negative PT-OP-M Strength Start: 05/02/20 17:44 Freq: Status: Active Protocol: Document 07/13/20 09:00 DCW (Rec: 07/13/20 09:52 DCW [id number]) Shoulder Strength Shoulder Manual Muscle Testing Right Flexion 3 Fair Abduction (C5) 2+ Poor+ External Rotation 4+ Good+ Internal Rotation 5 Normal PT-OP-Q Treatments Start: 05/02/20 17:44 Freq: Status: Active Protocol: Document 07/17/20 09:46 HH (Rec: 07/17/20 10:29 HH [id number]) Cardio Equipment Upper Body Ergometer (UBE) Duration (Minutes) 4 Seat Position 14 Height 3 Other switch direction every min Therapeutic Exercises Sidelying Exercises SL abd Side bilateral Resistance #2 DB Reps/Minutes 8 x3 Comments No discomfort noted. #1 for the first set for the R, then progressed to #2. hor abduction Side bilateral Resistance #1 DB (R), #2 DB (L) Reps/Minutes 10 x2 Comments unable to perform #2 on the R d/t discomfort SL ER Side bilateral Resistance #2 DB Reps/Minutes 10 x2 Comments cues to keep elbow in place. Sitting Exercises OH madeleine Sitting Exercise Name Flex/Abd Side bilateral Reps/Minutes 2 min Standing Exercises Shoulder fly Standing Exercise Name body= lateral lean Side bilateral Resistance #1 on L, no weight on R Reps/Minutes 10 x2 Comments slight discomfort at superior aspect of shoulder standing wall slide Standing Exercise Name Lateral slide (abduction) Side bilateral Reps/Minutes 10 x2 Comments Lift off the wall at the end. Manual Therapy Treatment Soft Tissue Mobilization bicep tendon Body Location long head of bicep tendon on R Mobilization Type Sustained Pressure,Trigger Point Release Intensity/Depth Moderate Body Position Sidelying RTC Mobilization Type Sustained Pressure,Trigger Point Release Intensity/Depth Moderate Body Position Sidelying Comments infrapsinatus PT-OP-R Modalities Start: 05/02/20 17:44 Freq: Status: Active Protocol: Document 05/11/20 15:15 DCW (Rec: 05/11/20 16:02 DCW [id number]) Electric Stimulation Electric Stimulation Interferential Current (IFC) Body Location R shoulder Duration (Minutes) 15 Patient Position Hooklying Combined With Heat/Cold Cold Pack PT-OP-T Assessment and Plan Start: 05/02/20 17:44 Freq: Status: Active Protocol: Document 07/17/20 09:46 HH (Rec: 07/17/20 10:29 HH [id number]) Physical Therapy Assessment Goals Four Impairment Weakness secondary to pain with R shoulder flexion and abduction Short Term Goal (STG) 10/5 flexion= 4-/5 abd= 3+/5 Delivery Crew Member Goal (LTG) Pt to demonstrate MMT of 4-/5 with R shoulder flexion and abduction to improve ability to pick items up off her floor LTG Duration 09/21/20 Three Impairment Shoulder AROM limited to 90? abduction and 110? flexion Short Term Goal (STG) 10/5 no pain with full range of flexion able to reach full abd but slight pain at 90 degrees abd Delivery Crew Member Goal (LTG) Pt to demonstrate pain-free AROM to 130? in both flexion and abduction LTG Duration 09/21/20 Two Impairment Pt unable to lift glass of water using right arm without pain Short Term Goal (STG) 10/5 Pt to drink from glass using right arm with no increased pain, but discomfort with a heavy pitcher. Delivery Crew Member Goal (LTG) 10/5 slight discomfort at 90 degrees but no discomfort with external rotated shoulder. Pt to demonstrate ROM 0?-90? Abduction with no painful arc sign LTG Duration 12/25/20 One Impairment Pt does not have an appropriate home exercise program Short Term Goal (STG) Pt to be independent and compliant with an appropriate HEP STG Duration Met Assessment Summary Assessment Pt shows good progress with abduction. Progressed to SL abd with 2# lb DB and standing abd without weight. Cont POC and might add standing abd ex next visit Physical Therapy Plan Frequency and Duration Frequency of Treatment 2x/Week Duration of Treatment 10 weeks Plan of Care Start Date 07/13/20 Plan of Care End Date 09/21/20 Next Visit Focus/Plan Next Note Type Treatment Note Next Visit Plan Assess reponse to last tx: focus on gravity eliminated position for abduction. progress strengthening as bolivar
--- NOTE | 2020-07-19 10:36 | PT.OTN ---
Current Diagnoses Pain in right shoulder (07/19/20) Stiffness of right shoulder, not elsewhere classified (07/19/20) Other shoulder lesions, right shoulder (07/19/20) Pain in right arm (07/19/20) Strain of muscle(s) and tendon(s) of the rotator cuff of right shoulder, subsequent encounter (07/19/20) Other injury of muscle(s) and tendon(s) of the rotator cuff of right shoulder, subsequent encounter (07/19/20) Physical Therapy Treatment Note PT-OP-A Visit Information Start: 05/02/20 17:44 Freq: Status: Active Protocol: Document 07/19/20 09:52 HH (Rec: 07/19/20 10:35 [id number]) Out-Patient Physical Therapy Visit Information Visit Information Visit Type Treatment Note Visit Start Time 09:47 Visit Stop Time 10:31 Total Visit Minutes 44 Visit Number 16 Number of FENCE MANUFACTURE SUPERVISOR Visits 0 PT-OP-B Current Condition Start: 05/02/20 17:44 Freq: Status: Active Protocol: Document 05/02/20 15:15 DCW (Rec: 05/03/20 09:41 DCW [id number]) Current Condition History of Current Condition Onset Date 2.5 months Current Complaints R shoulder pain, immobility History of Current Condition Pt is a 64 year old female presenting with a two and a half month history of shoulder pain. Pt reports she and her were moving furniture out of her lizvxo-ny-wzn's house, and there was no actual instance of pain or injury that she can remember, but then over the next few days she began to experience more and more pain and limitations with movement. Pt reports she cannot really lift anything, even a galss of water, and it hurts to even just attempt to lift her arm up. The pain also limits her sleeping at night. Pt does admit that last Thursday, she suffered a fall, and her shoulder pain has been even worse since then. Treatment Goals Patient/Caregiver Goals Improve shoulder mobility and strength, decrease pain Prior Functional Status Baseline Function- ADL's Independent Baseline Function- Mobility Independent PT-OP-C Subjective Start: 05/02/20 17:44 Freq: Status: Active Protocol: Document 07/19/20 09:52 HH (Rec: 07/19/20 10:35 [id number]) OP-PT Subjective Patient Comments Patient Comments I am feeling okay. PT-OP-K Range of Motion Start: 05/02/20 17:44 Freq: Status: Active Protocol: Document 07/13/20 09:00 DCW (Rec: 07/13/20 09:52 DCW [id number]) Shoulder Goniometric Range of Motion Shoulder Right Passive Shoulder ROM WFL Yes Flexion 180 Abduction 170 Right Active Testing Position Sitting Flexion 128 Abduction 102 PT-OP-L Special Tests Start: 05/02/20 17:44 Freq: Status: Active Protocol: Document 07/13/20 09:00 DCW (Rec: 07/13/20 09:52 DCW [id number]) Special Tests Shoulder Special Tests Yergason's Biceps Test Results Negative Speed's Biceps Test Results Negative Guillermo Chris Impingement Test Results Positive R Painful Arc Test Results Positive R Lift-Off Rotator Cuff Test Results Negative Empty Can Test Results Positive R Drop Arm Rotator Cuff Test Results Positive R Belly Press Test Results Negative PT-OP-M Strength Start: 05/02/20 17:44 Freq: Status: Active Protocol: Document 07/13/20 09:00 DCW (Rec: 07/13/20 09:52 DCW [id number]) Shoulder Strength Shoulder Manual Muscle Testing Right Flexion 3 Fair Abduction (C5) 2+ Poor+ External Rotation 4+ Good+ Internal Rotation 5 Normal PT-OP-Q Treatments Start: 05/02/20 17:44 Freq: Status: Active Protocol: Document 07/19/20 09:52 HH (Rec: 07/19/20 10:35 HH [id number]) Cardio Equipment Upper Body Ergometer (UBE) Duration (Minutes) 4 Seat Position 14 Height 3 Other switch direction every min Therapeutic Exercises Sidelying Exercises SL abd Side bilateral Resistance #2 DB Reps/Minutes 8 x3 Comments No discomfort noted. #1 for the first set for the R, then progressed to #2. hor abduction Side bilateral Resistance #1 DB (R), #2 DB (L) Reps/Minutes 10 x2 Comments unable to complete #2 on R d/t pain SL ER Side bilateral Resistance #2 DB Reps/Minutes 10 x2 Comments cues to keep elbow in place. Sitting Exercises shoulder press Side bilateral Equipment Used pvc with 2 lbs Reps/Minutes 10 x2 Comments no discomfort Standing Exercises Shoulder fly Standing Exercise Name body= lateral lean Side bilateral Resistance #1 on L, no weight on R Reps/Minutes 10 x2 Comments less pain with ER shoulder standing row Tb Side bilateral Resistance Lv 2 Equipment Used T-band Reps/Minutes x20 Comments occasional cuing for scap retract/dep standing wall slide Standing Exercise Name Lateral slide (abduction) Side bilateral Reps/Minutes 10 x2 Comments Lift off the wall at the end. Manual Therapy Treatment Soft Tissue Mobilization bicep tendon Body Location long head of bicep tendon on R Mobilization Type Sustained Pressure,Trigger Point Release Intensity/Depth Moderate Body Position Sidelying RTC Mobilization Type Sustained Pressure,Trigger Point Release Intensity/Depth Moderate Body Position Sidelying Comments infrapsinatus PT-OP-R Modalities Start: 05/02/20 17:44 Freq: Status: Active Protocol: Document 05/11/20 15:15 DCW (Rec: 05/11/20 16:02 DCW [id number]) Electric Stimulation Electric Stimulation Interferential Current (IFC) Body Location R shoulder Duration (Minutes) 15 Patient Position Hooklying Combined With Heat/Cold Cold Pack PT-OP-T Assessment and Plan Start: 05/02/20 17:44 Freq: Status: Active Protocol: Document 07/19/20 09:52 HH (Rec: 07/19/20 10:35 HH [id number]) Physical Therapy Assessment Goals Four Impairment Weakness secondary to pain with R shoulder flexion and abduction Short Term Goal (STG) 10/5 flexion= 4-/5 abd= 3+/5 Scooper Goal (LTG) Pt to demonstrate MMT of 4-/5 with R shoulder flexion and abduction to improve ability to pick items up off her floor LTG Duration 09/21/20 Three Impairment Shoulder AROM limited to 90? abduction and 110? flexion Short Term Goal (STG) 10/5 no pain with full range of flexion able to reach full abd but slight pain at 90 degrees abd Scooper Goal (LTG) Pt to demonstrate pain-free AROM to 130? in both flexion and abduction LTG Duration 09/21/20 Two Impairment Pt unable to lift glass of water using right arm without pain Short Term Goal (STG) 10/5 Pt to drink from glass using right arm with no increased pain, but discomfort with a heavy pitcher. Residential Goal (LTG) 10/5 slight discomfort at 90 degrees but no discomfort with external rotated shoulder. Pt to demonstrate ROM 0?-90? Abduction with no painful arc sign LTG Duration 09/21/20 One Impairment Pt does not have an appropriate home exercise program Short Term Goal (STG) Pt to be independent and compliant with an appropriate HEP STG Duration Met Assessment Summary Assessment Pt bolivar this and last session without much discomfort. Able to complete OH shoulder press. Abd in standing is still difficult but easier with ER shoulder. Physical Therapy Plan Frequency and Duration Frequency of Treatment 2x/Week Duration of Treatment 10 weeks Plan of Care Start Date 07/13/20 Plan of Care End Date 09/21/20 Next Visit Focus/Plan Next Note Type Treatment Note Next Visit Plan Assess reponse to last tx: focus on gravity eliminated position for abduction. progress strengthening as bolivar
--- NOTE | 2020-07-24 09:00 | PT.OTN ---
Current Diagnoses Pain in right shoulder (07/24/20) Stiffness of right shoulder, not elsewhere classified (07/24/20) Other shoulder lesions, right shoulder (07/24/20) Pain in right arm (07/24/20) Strain of muscle(s) and tendon(s) of the rotator cuff of right shoulder, subsequent encounter (07/24/20) Other injury of muscle(s) and tendon(s) of the rotator cuff of right shoulder, subsequent encounter (07/24/20) Physical Therapy Treatment Note PT-OP-A Visit Information Start: 05/02/20 17:44 Freq: Status: Active Protocol: Document 07/24/20 08:28 (Rec: 07/24/20 09:00 [id number]) Out-Patient Physical Therapy Visit Information Visit Information Visit Type Treatment Note Visit Start Time 08:18 Visit Stop Time 09:00 Total Visit Minutes 42 Visit Number 17 Number of UNDERWEAR TRIMMER Visits 0 PT-OP-B Current Condition Start: 05/02/20 17:44 Freq: Status: Active Protocol: Document 05/02/20 15:15 DCW (Rec: 05/03/20 09:41 DCW [id number]) Current Condition History of Current Condition Onset Date 2.5 months Current Complaints R shoulder pain, immobility History of Current Condition Pt is a 64 year old female presenting with a two and a half month history of shoulder pain. Pt reports she and her were moving furniture out of her rnaqfi-po-wwk's house, and there was no actual instance of pain or injury that she can remember, but then over the next few days she began to experience more and more pain and limitations with movement. Pt reports she cannot really lift anything, even a galss of water, and it hurts to even just attempt to lift her arm up. The pain also limits her sleeping at night. Pt does admit that last Thursday, she suffered a fall, and her shoulder pain has been even worse since then. Treatment Goals Patient/Caregiver Goals Improve shoulder mobility and strength, decrease pain Prior Functional Status Baseline Function- ADL's Independent Baseline Function- Mobility Independent PT-OP-C Subjective Start: 05/02/20 17:44 Freq: Status: Active Protocol: Document 07/24/20 08:28 HH (Rec: 07/24/20 09:00 [id number]) OP-PT Subjective Patient Comments Patient Comments I am a littel sore from yesterday exercises but i have been doing good with my shoulder. Patient Reported Progress Improving PT-OP-K Range of Motion Start: 05/02/20 17:44 Freq: Status: Active Protocol: Document 07/13/20 09:00 DCW (Rec: 07/13/20 09:52 DCW [id number]) Shoulder Goniometric Range of Motion Shoulder Right Passive Shoulder ROM WFL Yes Flexion 180 Abduction 170 Right Active Testing Position Sitting Flexion 128 Abduction 102 PT-OP-L Special Tests Start: 05/02/20 17:44 Freq: Status: Active Protocol: Document 07/13/20 09:00 DCW (Rec: 07/13/20 09:52 DCW [id number]) Special Tests Shoulder Special Tests Yergason's Biceps Test Results Negative Speed's Biceps Test Results Negative Guillermo Chris Impingement Test Results Positive R Painful Arc Test Results Positive R Lift-Off Rotator Cuff Test Results Negative Empty Can Test Results Positive R Drop Arm Rotator Cuff Test Results Positive R Belly Press Test Results Negative PT-OP-M Strength Start: 05/02/20 17:44 Freq: Status: Active Protocol: Document 07/13/20 09:00 DCW (Rec: 07/13/20 09:52 DCW [id number]) Shoulder Strength Shoulder Manual Muscle Testing Right Flexion 3 Fair Abduction (C5) 2+ Poor+ External Rotation 4+ Good+ Internal Rotation 5 Normal PT-OP-Q Treatments Start: 05/02/20 17:44 Freq: Status: Active Protocol: Document 07/24/20 08:28 HH (Rec: 07/24/20 09:00 HH [id number]) Cardio Equipment Upper Body Ergometer (UBE) Duration (Minutes) 5 Seat Position 14 Height 3 Other switch direction every min Therapeutic Exercises Prone Exercises I, T Side bilateral Reps/Minutes 8 x 2 Comments no discomfort noted. Sidelying Exercises SL abd Side bilateral Resistance #2 DB Reps/Minutes 8 x3 Comments No discomfort noted. #1 for the first set for the R, then progressed to #2. hor abduction Side bilateral Resistance 2# bilateral Reps/Minutes 8 x2 Comments minimal discomfort on R SL ER Side bilateral Resistance #2 DB Reps/Minutes 10 x2 Comments no cues needed Sitting Exercises shoulder press Side bilateral Equipment Used pvc with 7lbs Reps/Minutes 10 x2 Comments no discomfort Standing Exercises standing row Tb Side bilateral Resistance Lv 2 Equipment Used T-band Reps/Minutes x20 Comments occasional cuing for scap retract/dep standing wall slide Standing Exercise Name Lateral slide (abduction) Side bilateral Reps/Minutes 10 x2 Comments Lift off the wall from 100 degress of abd PT-OP-R Modalities Start: 05/02/20 17:44 Freq: Status: Active Protocol: Document 05/11/20 15:15 DCW (Rec: 05/11/20 16:02 DCW [id number]) Electric Stimulation Electric Stimulation Interferential Current (IFC) Body Location R shoulder Duration (Minutes) 15 Patient Position Hooklying Combined With Heat/Cold Cold Pack PT-OP-T Assessment and Plan Start: 05/02/20 17:44 Freq: Status: Active Protocol: Document 07/24/20 08:28 HH (Rec: 07/24/20 09:00 HH [id number]) Physical Therapy Assessment Goals Four Impairment Weakness secondary to pain with R shoulder flexion and abduction Short Term Goal (STG) 10/5 flexion= 4-/5 abd= 3+/5 Musician Instrumental Goal (LTG) Pt to demonstrate MMT of 4-/5 with R shoulder flexion and abduction to improve ability to pick items up off her floor LTG Duration 09/21/20 Three Impairment Shoulder AROM limited to 90? abduction and 110? flexion Short Term Goal (STG) 10/5 no pain with full range of flexion able to reach full abd but slight pain at 90 degrees abd Musician Instrumental Goal (LTG) Pt to demonstrate pain-free AROM to 130? in both flexion and abduction LTG Duration 09/21/20 Two Impairment Pt unable to lift glass of water using right arm without pain Short Term Goal (STG) 10/5 Pt to drink from glass using right arm with no increased pain, but discomfort with a heavy pitcher. Senior Living Goal (LTG) 10/5 slight discomfort at 90 degrees but no discomfort with external rotated shoulder. Pt to demonstrate ROM 0?-90? Abduction with no painful arc sign LTG Duration 09/21/20 One Impairment Pt does not have an appropriate home exercise program Short Term Goal (STG) Pt to be independent and compliant with an appropriate HEP STG Duration Met Assessment Summary Assessment Pt bolivar session very with no discomfort noted. She progressed to 2lbs DB for SL abd and able bolivar active abduction from 100 degrees without discomfort x 8 reps x 2sets. Added prone I,T to therex today and no discomforted noted. Physical Therapy Plan Frequency and Duration Frequency of Treatment 2x/Week Duration of Treatment 10 weeks Plan of Care Start Date 07/13/20 Plan of Care End Date 09/21/20 Next Visit Focus/Plan Next Note Type Treatment Note Next Visit Plan Assess reponse to last tx: focus on gravity eliminated position for abduction. progress strengthening as bolivar
--- NOTE | 2020-07-27 14:30 | PT.OTN ---
Current Diagnoses Pain in right shoulder (07/27/20) Stiffness of right shoulder, not elsewhere classified (07/27/20) Other shoulder lesions, right shoulder (07/27/20) Pain in right arm (07/27/20) Strain of muscle(s) and tendon(s) of the rotator cuff of right shoulder, subsequent encounter (07/27/20) Other injury of muscle(s) and tendon(s) of the rotator cuff of right shoulder, subsequent encounter (07/27/20) Physical Therapy Treatment Note PT-OP-A Visit Information Start: 05/02/20 17:44 Freq: Status: Active Protocol: Document 07/27/20 13:51 SP (Rec: 07/27/20 14:30 SP [id number]) Out-Patient Physical Therapy Visit Information Visit Information Visit Type Treatment Note Visit Start Time 13:51 Visit Stop Time 14:30 Total Visit Minutes 39 Visit Number 18 Number of CLINICAL CODER Visits 1 PT-OP-B Current Condition Start: 05/02/20 17:44 Freq: Status: Active Protocol: Document 05/02/20 15:15 DCW (Rec: 05/03/20 09:41 DCW [id number]) Current Condition History of Current Condition Onset Date 2.5 months Current Complaints R shoulder pain, immobility History of Current Condition Pt is a 64 year old female presenting with a two and a half month history of shoulder pain. Pt reports she and her were moving furniture out of her vjhyfw-ul-noi's house, and there was no actual instance of pain or injury that she can remember, but then over the next few days she began to experience more and more pain and limitations with movement. Pt reports she cannot really lift anything, even a galss of water, and it hurts to even just attempt to lift her arm up. The pain also limits her sleeping at night. Pt does admit that last Thursday, she suffered a fall, and her shoulder pain has been even worse since then. Treatment Goals Patient/Caregiver Goals Improve shoulder mobility and strength, decrease pain Prior Functional Status Baseline Function- ADL's Independent Baseline Function- Mobility Independent PT-OP-C Subjective Start: 05/02/20 17:44 Freq: Status: Active Protocol: Document 07/27/20 13:51 SP (Rec: 07/27/20 14:30 SP [id number]) OP-PT Subjective Patient Comments Patient Comments Pt reported R shld pretty sore achy today, had a heavy box to donate to [employer] lifted and groceries at [facility] today and think over estimated the weight. PT-OP-K Range of Motion Start: 05/02/20 17:44 Freq: Status: Active Protocol: Document 07/13/20 09:00 DCW (Rec: 07/13/20 09:52 DCW [id number]) Shoulder Goniometric Range of Motion Shoulder Right Passive Shoulder ROM WFL Yes Flexion 180 Abduction 170 Right Active Testing Position Sitting Flexion 128 Abduction 102 PT-OP-L Special Tests Start: 05/02/20 17:44 Freq: Status: Active Protocol: Document 07/13/20 09:00 DCW (Rec: 07/13/20 09:52 DCW [id number]) Special Tests Shoulder Special Tests Daviderteofiloson's Biceps Test Results Negative Speed's Biceps Test Results Negative Guillermo Chris Impingement Test Results Positive R Painful Arc Test Results Positive R Lift-Off Rotator Cuff Test Results Negative Empty Can Test Results Positive R Drop Arm Rotator Cuff Test Results Positive R Belly Press Test Results Negative PT-OP-M Strength Start: 05/02/20 17:44 Freq: Status: Active Protocol: Document 07/13/20 09:00 DCW (Rec: 07/13/20 09:52 DCW [id number]) Shoulder Strength Shoulder Manual Muscle Testing Right Flexion 3 Fair Abduction (C5) 2+ Poor+ External Rotation 4+ Good+ Internal Rotation 5 Normal PT-OP-Q Treatments Start: 05/02/20 17:44 Freq: Status: Active Protocol: Document 07/27/20 13:51 SP (Rec: 07/27/20 14:30 SP [id number]) Cardio Equipment Upper Body Ergometer (UBE) Duration (Minutes) 6 RPM 55 Seat Position 14 Height 2.5 Other switch direction every min Therapeutic Exercises Supine Exercises supine pec stretch over foam roller Side bilateral Reps/Minutes 30 x2 approx 90 deg abd Prone Exercises I, T Side bilateral Reps/Minutes 8 x 2 Comments no discomfort noted, good stabillzation Sidelying Exercises SL abd Side bilateral Resistance AROM x8, #2 DB, X8, x1 Reps/Minutes 8 x3 hor abduction Side bilateral Resistance 2# bilateral Reps/Minutes 8 x2 Comments minimal discomfort on R Standing Exercises standing row Tb Standing Exercise Name row and ext (pull down) Side bilateral Resistance Lv 2 Equipment Used T-band Reps/Minutes 2x10 Comments occasional cuing for scap retract/dep standing wall slide Standing Exercise Name FF and Lateral slide ( abduction) Side bilateral Reps/Minutes 10 x2 Comments Lift off the wall from 100 degress of abd PT-OP-R Modalities Start: 05/02/20 17:44 Freq: Status: Active Protocol: Document 05/11/20 15:15 DCW (Rec: 05/11/20 16:02 DCW [id number]) Electric Stimulation Electric Stimulation Interferential Current (IFC) Body Location R shoulder Duration (Minutes) 15 Patient Position Hooklying Combined With Heat/Cold Cold Pack PT-OP-T Assessment and Plan Start: 05/02/20 17:44 Freq: Status: Active Protocol: Document 07/27/20 13:51 SP (Rec: 07/27/20 14:30 SP [id number]) Physical Therapy Assessment Goals Four Impairment Weakness secondary to pain with R shoulder flexion and abduction Short Term Goal (STG) 10/5 flexion= 4-/5 abd= 3+/5 Field Laboratory Operator Goal (LTG) Pt to demonstrate MMT of 4-/5 with R shoulder flexion and abduction to improve ability to pick items up off her floor LTG Duration 09/21/20 Three Impairment Shoulder AROM limited to 90? abduction and 110? flexion Short Term Goal (STG) 10/5 no pain with full range of flexion able to reach full abd but slight pain at 90 degrees abd Field Laboratory Operator Goal (LTG) Pt to demonstrate pain-free AROM to 130? in both flexion and abduction LTG Duration 09/21/20 Two Impairment Pt unable to lift glass of water using right arm without pain Short Term Goal (STG) 10/5 Pt to drink from glass using right arm with no increased pain, but discomfort with a heavy pitcher. Custodial Goal (LTG) 10/5 slight discomfort at 90 degrees but no discomfort with external rotated shoulder. Pt to demonstrate ROM 0?-90? Abduction with no painful arc sign LTG Duration 09/21/20 One Impairment Pt does not have an appropriate home exercise program Short Term Goal (STG) Pt to be independent and compliant with an appropriate HEP STG Duration Met Assessment Summary Assessment Tx focused on scap stabilizatoin and strengthening, required decreased to #1 DB HABD due to decreased tolerance from carrying boxes earlier. Occasional cuing for scap stab during wall slide. Pt reported decreased pain end of tx, suprised thought would be slightly worse but strengthening help make feel better. Physical Therapy Plan Frequency and Duration Frequency of Treatment 2x/Week Duration of Treatment 10 weeks Plan of Care Start Date 07/13/20 Plan of Care End Date 09/21/20 Therapeutic Interventions Therapeutic Interventions Home Exercise Program,Joint Mobilizations,Manual Therapy, Patient/Caregiver Education, Self-Care/Home Management,Soft Tissue Mobilization, Therapeutic Activities, Therapeutic Exercises Modalities Cold Pack/Ice Massage,Electric Stimulation,Hot Packs, Ultrasound Next Visit Focus/Plan Next Note Type Treatment Note Next Visit Plan Assess reponse to last tx: focused on gravity eliminated position for abduction, accept wall slide, cuing required. progress strengthening as bolivar
--- NOTE | 2020-07-31 12:00 | PT.OTN ---
Current Diagnoses Pain in right shoulder (07/31/20) Stiffness of right shoulder, not elsewhere classified (07/31/20) Other shoulder lesions, right shoulder (07/31/20) Pain in right arm (07/31/20) Strain of muscle(s) and tendon(s) of the rotator cuff of right shoulder, subsequent encounter (07/31/20) Other injury of muscle(s) and tendon(s) of the rotator cuff of right shoulder, subsequent encounter (07/31/20) Physical Therapy Treatment Note PT-OP-A Visit Information Start: 05/02/20 17:44 Freq: Status: Active Protocol: Document 07/31/20 11:15 DCW (Rec: 07/31/20 12:00 DCW [id number]) Out-Patient Physical Therapy Visit Information Visit Information Visit Type Treatment Note Visit Start Time 11:15 Visit Stop Time 12:00 Total Visit Minutes 45 Visit Number 19 Number of SUPERVISOR INSECTICIDE Visits 0 PT-OP-B Current Condition Start: 05/02/20 17:44 Freq: Status: Active Protocol: Document 05/02/20 15:15 DCW (Rec: 05/03/20 09:41 DCW [id number]) Current Condition History of Current Condition Onset Date 2.5 months Current Complaints R shoulder pain, immobility History of Current Condition Pt is a 64 year old female presenting with a two and a half month history of shoulder pain. Pt reports she and her were moving furniture out of her elceip-cu-wet's house, and there was no actual instance of pain or injury that she can remember, but then over the next few days she began to experience more and more pain and limitations with movement. Pt reports she cannot really lift anything, even a galss of water, and it hurts to even just attempt to lift her arm up. The pain also limits her sleeping at night. Pt does admit that last Thursday, she suffered a fall, and her shoulder pain has been even worse since then. Treatment Goals Patient/Caregiver Goals Improve shoulder mobility and strength, decrease pain Prior Functional Status Baseline Function- ADL's Independent Baseline Function- Mobility Independent PT-OP-C Subjective Start: 05/02/20 17:44 Freq: Status: Active Protocol: Document 07/31/20 11:15 DCW (Rec: 07/31/20 12:00 DCW [id number]) OP-PT Subjective Patient Comments Patient Comments I'm doing better, but it still hurts. Notes she is able to lift her arm up now, there's still a little bit of pain, but the range of motion has improved. PT-OP-K Range of Motion Start: 05/02/20 17:44 Freq: Status: Active Protocol: Document 07/13/20 09:00 DCW (Rec: 07/13/20 09:52 DCW [id number]) Shoulder Goniometric Range of Motion Shoulder Right Passive Shoulder ROM WFL Yes Flexion 180 Abduction 170 Right Active Testing Position Sitting Flexion 128 Abduction 102 PT-OP-L Special Tests Start: 05/02/20 17:44 Freq: Status: Active Protocol: Document 07/13/20 09:00 DCW (Rec: 07/13/20 09:52 DCW [id number]) Special Tests Shoulder Special Tests Yergason's Biceps Test Results Negative Speed's Biceps Test Results Negative Guillermo Chris Impingement Test Results Positive R Painful Arc Test Results Positive R Lift-Off Rotator Cuff Test Results Negative Empty Can Test Results Positive R Drop Arm Rotator Cuff Test Results Positive R Belly Press Test Results Negative PT-OP-M Strength Start: 05/02/20 17:44 Freq: Status: Active Protocol: Document 07/13/20 09:00 DCW (Rec: 07/13/20 09:52 DCW [id number]) Shoulder Strength Shoulder Manual Muscle Testing Right Flexion 3 Fair Abduction (C5) 2+ Poor+ External Rotation 4+ Good+ Internal Rotation 5 Normal PT-OP-Q Treatments Start: 05/02/20 17:44 Freq: Status: Active Protocol: Document 07/31/20 11:15 DCW (Rec: 07/31/20 12:00 DCW [id number]) Cardio Equipment Upper Body Ergometer (UBE) Duration (Minutes) 6 RPM 60 Seat Position 12 Height 3 Other switch direction every min Therapeutic Exercises Supine Exercises supine pec stretch over foam roller Side bilateral Reps/Minutes 30 x2 approx 90 deg abd 1 Supine Exercise Name IR/ER from 90/90 Side right Resistance 3.3# Equipment Used Weighted ball Supine Punch Side bilateral Resistance 3# Reps/Minutes 8x1 Comments no dsicomfort Standing Exercises standing row Tb Standing Exercise Name row and ext (pull down) Side bilateral Resistance Lv 3 Equipment Used T-band Reps/Minutes 2x10 Comments occasional cuing for scap retract/dep Manual Therapy Treatment Soft Tissue Mobilization bicep tendon Body Location long head of bicep tendon on R Mobilization Type Sustained Pressure,Trigger Point Release Intensity/Depth Moderate Body Position Sidelying Deltoids Mobilization Type Sustained Pressure,Trigger Point Release Intensity/Depth Moderate Body Position Sidelying Comments slight soreness today. RTC Mobilization Type Sustained Pressure,Trigger Point Release Intensity/Depth Moderate Body Position Sidelying Comments infrapsinatus Joint Mobilizations 1 Joint R GH jt Direction Inf, posterior Grade II PT-OP-R Modalities Start: 05/02/20 17:44 Freq: Status: Active Protocol: Document 05/11/20 15:15 DCW (Rec: 05/11/20 16:02 DCW [id number]) Electric Stimulation Electric Stimulation Interferential Current (IFC) Body Location R shoulder Duration (Minutes) 15 Patient Position Hooklying Combined With Heat/Cold Cold Pack PT-OP-T Assessment and Plan Start: 05/02/20 17:44 Freq: Status: Active Protocol: Document 07/31/20 11:15 DCW (Rec: 07/31/20 12:00 DCW [id number]) Physical Therapy Assessment Goals Four Impairment Weakness secondary to pain with R shoulder flexion and abduction Short Term Goal (STG) 10/5 flexion= 4-/5 abd= 3+/5 Crew Lead Goal (LTG) Pt to demonstrate MMT of 4-/5 with R shoulder flexion and abduction to improve ability to pick items up off her floor LTG Duration 09/21/20 Three Impairment Shoulder AROM limited to 90? abduction and 110? flexion Short Term Goal (STG) 10/5 no pain with full range of flexion able to reach full abd but slight pain at 90 degrees abd Snf Goal (LTG) Pt to demonstrate pain-free AROM to 130? in both flexion and abduction LTG Duration 09/21/20 Two Impairment Pt unable to lift glass of water using right arm without pain Short Term Goal (STG) 10/5 Pt to drink from glass using right arm with no increased pain, but discomfort with a heavy pitcher. Snf Goal (LTG) 10/5 slight discomfort at 90 degrees but no discomfort with external rotated shoulder. Pt to demonstrate ROM 0?-90? Abduction with no painful arc sign LTG Duration 09/21/20 One Impairment Pt does not have an appropriate home exercise program Short Term Goal (STG) Pt to be independent and compliant with an appropriate HEP STG Duration Met Assessment Summary Assessment Pt improving, still showing some increased pain and tenderness in area of subacromial arch. Physical Therapy Plan Frequency and Duration Frequency of Treatment 2x/Week Duration of Treatment 10 weeks Plan of Care Start Date 07/13/20 Plan of Care End Date 09/21/20 Therapeutic Interventions Therapeutic Interventions Home Exercise Program,Joint Mobilizations,Manual Therapy, Patient/Caregiver Education, Self-Care/Home Management,Soft Tissue Mobilization, Therapeutic Activities, Therapeutic Exercises Modalities Cold Pack/Ice Massage,Electric Stimulation,Hot Packs, Ultrasound Next Visit Focus/Plan Next Note Type Treatment Note Next Visit Plan Assess reponse to last tx: focused on gravity eliminated position for abduction, accept wall slide, cuing required. progress strengthening as bolivar
--- NOTE | 2020-08-07 09:45 | PT.OTN ---
Current Diagnoses Pain in right shoulder (08/07/20) Stiffness of right shoulder, not elsewhere classified (08/07/20) Other shoulder lesions, right shoulder (08/07/20) Pain in right arm (08/07/20) Strain of muscle(s) and tendon(s) of the rotator cuff of right shoulder, subsequent encounter (08/07/20) Other injury of muscle(s) and tendon(s) of the rotator cuff of right shoulder, subsequent encounter (08/07/20) Physical Therapy Treatment Note PT-OP-A Visit Information Start: 05/02/20 17:44 Freq: Status: Active Protocol: Document 08/07/20 09:00 HH (Rec: 08/07/20 09:45 [id number]) Out-Patient Physical Therapy Visit Information Visit Information Visit Type Progress Note Visit Note pt is going to see MD for another cortisone shot this afternoon Visit Start Time 09:01 Visit Stop Time 09:45 Total Visit Minutes 44 Visit Number 20 Number of DATA CENTER PROJECT MANAGER Visits 0 PT-OP-B Current Condition Start: 05/02/20 17:44 Freq: Status: Active Protocol: Document 05/02/20 15:15 DCW (Rec: 05/03/20 09:41 DCW [id number]) Current Condition History of Current Condition Onset Date 2.5 months Current Complaints R shoulder pain, immobility History of Current Condition Pt is a 64 year old female presenting with a two and a half month history of shoulder pain. Pt reports she and her were moving furniture out of her jumrji-ns-vap's house, and there was no actual instance of pain or injury that she can remember, but then over the next few days she began to experience more and more pain and limitations with movement. Pt reports she cannot really lift anything, even a galss of water, and it hurts to even just attempt to lift her arm up. The pain also limits her sleeping at night. Pt does admit that last Thursday, she suffered a fall, and her shoulder pain has been even worse since then. Treatment Goals Patient/Caregiver Goals Improve shoulder mobility and strength, decrease pain Prior Functional Status Baseline Function- ADL's Independent Baseline Function- Mobility Independent PT-OP-C Subjective Start: 05/02/20 17:44 Freq: Status: Active Protocol: Document 08/07/20 09:00 HH (Rec: 08/07/20 09:45 [id number]) OP-PT Subjective Patient Comments Patient Comments Its about the same and i can move better but still have pain at night because i cant get into the right position PT-OP-K Range of Motion Start: 05/02/20 17:44 Freq: Status: Active Protocol: Document 07/13/20 09:00 DCW (Rec: 07/13/20 09:52 DCW [id number]) Shoulder Goniometric Range of Motion Shoulder Right Passive Shoulder ROM WFL Yes Flexion 180 Abduction 170 Right Active Testing Position Sitting Flexion 128 Abduction 102 PT-OP-L Special Tests Start: 05/02/20 17:44 Freq: Status: Active Protocol: Document 07/13/20 09:00 DCW (Rec: 07/13/20 09:52 DCW [id number]) Special Tests Shoulder Special Tests Davidernivia's Biceps Test Results Negative Speed's Biceps Test Results Negative Guillermo Chris Impingement Test Results Positive R Painful Arc Test Results Positive R Lift-Off Rotator Cuff Test Results Negative Empty Can Test Results Positive R Drop Arm Rotator Cuff Test Results Positive R Belly Press Test Results Negative PT-OP-M Strength Start: 05/02/20 17:44 Freq: Status: Active Protocol: Document 07/13/20 09:00 DCW (Rec: 07/13/20 09:52 DCW [id number]) Shoulder Strength Shoulder Manual Muscle Testing Right Flexion 3 Fair Abduction (C5) 2+ Poor+ External Rotation 4+ Good+ Internal Rotation 5 Normal PT-OP-Q Treatments Start: 05/02/20 17:44 Freq: Status: Active Protocol: Document 08/07/20 09:00 (Rec: 08/07/20 09:45 [id number]) Therapeutic Exercises Supine Exercises Supine Punch Side bilateral Resistance 3# Reps/Minutes 8x1 Comments no dsicomfort Sidelying Exercises SL abd Side bilateral Resistance #2 DB, X8 Reps/Minutes 8 x3 Comments min discomfort hor abduction Side bilateral Resistance 2# bilateral Reps/Minutes 8 x2 Comments minimal discomfort on R SL ER Side bilateral Equipment Used 2# Reps/Minutes 10 x2 Sitting Exercises shoulder press Sitting Exercise Name with PVC Side bilateral Equipment Used 4# Reps/Minutes 10 x 2 Standing Exercises wall slide Standing Exercise Name wall slide up to 90 degrees then abd to end range Side bilateral Reps/Minutes 8 x 3 Comments min discomfort noted Manual Therapy Treatment Soft Tissue Mobilization bicep tendon Body Location long head of bicep tendon on R Mobilization Type Sustained Pressure,Trigger Point Release Intensity/Depth Moderate Body Position Sidelying PT-OP-R Modalities Start: 05/02/20 17:44 Freq: Status: Active Protocol: Document 05/11/20 15:15 DCW (Rec: 05/11/20 16:02 DCW [id number]) Electric Stimulation Electric Stimulation Interferential Current (IFC) Body Location R shoulder Duration (Minutes) 15 Patient Position Hooklying Combined With Heat/Cold Cold Pack PT-OP-T Assessment and Plan Start: 05/02/20 17:44 Freq: Status: Active Protocol: Document 08/07/20 09:00 HH (Rec: 08/07/20 09:45 HH [id number]) Physical Therapy Assessment Goals Four Impairment Weakness secondary to pain with R shoulder flexion and abduction Short Term Goal (STG) 10 flexion= 4-/5 abd= 3+/5 Senior Care Goal (LTG) 08/07 Pt demonstrate MMT of 4-/5 with R shoulder flexion and abduction to improve ability to pick items up off her floor LTG Duration 09/21/20 Three Impairment Shoulder AROM limited to 90? abduction and 110? flexion Short Term Goal (STG) 10 no pain with full range of flexion 08/07 able to reach full abd but slight pain at 90 degrees abd Senior Care Goal (LTG) Pt to demonstrate pain-free AROM to 130? in both flexion and abduction LTG Duration 09/21/20 Two Impairment Pt unable to lift glass of water using right arm without pain Short Term Goal (STG) 10/5 Pt to drink from glass using right arm with no increased pain, but discomfort with a heavy pitcher. Senior Care Goal (LTG) 10/5 slight discomfort at 90 degrees but no discomfort with external rotated shoulder. 11 pt still have discomfort reaching overhead for objects . Pt to demonstrate ROM 0?-90? Abduction with no painful arc sign LTG Duration 09/21/20 One Impairment Pt does not have an appropriate home exercise program Short Term Goal (STG) Pt to be independent and compliant with an appropriate HEP STG Duration Met Progress Towards Goals Progress Towards Goals Progressing Toward Goals Assessment Summary Assessment AK today. Pt is progressing with improved painful arc and shoulder strength (flexion and abd = 4-/5) . She is able to do 2# DB consistently for SL abd and able to bolivar from 80 degrees abd to end range actively with min discomfort. Will cont strengthen her painful arc in gravity position. Physical Therapy Plan Frequency and Duration Frequency of Treatment 2x/Week Duration of Treatment 10 weeks Plan of Care Start Date 07/13/20 Plan of Care End Date 09/21/20 Next Visit Focus/Plan Next Note Type Treatment Note Next Visit Plan Assess reponse to last tx: focused on gravity eliminated position for abduction, accept wall slide, cuing required. progress strengthening as bolivar
--- NOTE | 2020-08-21 12:46 | PT.OTN ---
Current Diagnoses Pain in right shoulder (08/21/20) Stiffness of right shoulder, not elsewhere classified (08/21/20) Other shoulder lesions, right shoulder (08/21/20) Pain in right arm (08/21/20) Strain of muscle(s) and tendon(s) of the rotator cuff of right shoulder, subsequent encounter (08/21/20) Other injury of muscle(s) and tendon(s) of the rotator cuff of right shoulder, subsequent encounter (08/21/20) Physical Therapy Treatment Note PT-OP-A Visit Information Start: 05/02/20 17:44 Freq: Status: Active Protocol: Document 08/21/20 12:00 DCW (Rec: 08/21/20 12:43 DCW [id number]) Out-Patient Physical Therapy Visit Information Visit Information Visit Type Treatment Note Visit Start Time 12:00 Visit Stop Time 12:45 Total Visit Minutes 45 Visit Number 21 Number of CHIEF COMPRESSOR STATION ENGINEER Visits 0 Evaluation Information Evaluation Date 05/02/20 PT-OP-B Current Condition Start: 05/02/20 17:44 Freq: Status: Active Protocol: Document 05/02/20 15:15 DCW (Rec: 05/03/20 09:41 DCW [id number]) Current Condition History of Current Condition Onset Date 2.5 months Current Complaints R shoulder pain, immobility History of Current Condition Pt is a 64 year old female presenting with a two and a half month history of shoulder pain. Pt reports she and her were moving furniture out of her tkgyiq-xp-rmn's house, and there was no actual instance of pain or injury that she can remember, but then over the next few days she began to experience more and more pain and limitations with movement. Pt reports she cannot really lift anything, even a galss of water, and it hurts to even just attempt to lift her arm up. The pain also limits her sleeping at night. Pt does admit that last Thursday, she suffered a fall, and her shoulder pain has been even worse since then. Treatment Goals Patient/Caregiver Goals Improve shoulder mobility and strength, decrease pain Prior Functional Status Baseline Function- ADL's Independent Baseline Function- Mobility Independent PT-OP-C Subjective Start: 05/02/20 17:44 Freq: Status: Active Protocol: Document 08/21/20 12:00 DCW (Rec: 08/21/20 12:43 DCW [id number]) OP-PT Subjective Patient Comments Patient Comments It's better. It still gives me some pain, but overall its much better than when I started. I got another Cortisone injection, and that' s helped, but not as much as the first time. Pt does not she was finally seen by the Rectifying Attendant, and was diagnosed with left ventricular hypertrophy PT-OP-K Range of Motion Start: 05/02/20 17:44 Freq: Status: Active Protocol: Document 07/13/20 09:00 DCW (Rec: 07/13/20 09:52 DCW [id number]) Shoulder Goniometric Range of Motion Shoulder Right Passive Shoulder ROM WFL Yes Flexion 180 Abduction 170 Right Active Testing Position Sitting Flexion 128 Abduction 102 PT-OP-L Special Tests Start: 05/02/20 17:44 Freq: Status: Active Protocol: Document 07/13/20 09:00 DCW (Rec: 07/13/20 09:52 DCW [id number]) Special Tests Shoulder Special Tests Yergason's Biceps Test Results Negative Speed's Biceps Test Results Negative Guillermo Chris Impingement Test Results Positive R Painful Arc Test Results Positive R Lift-Off Rotator Cuff Test Results Negative Empty Can Test Results Positive R Drop Arm Rotator Cuff Test Results Positive R Belly Press Test Results Negative PT-OP-M Strength Start: 05/02/20 17:44 Freq: Status: Active Protocol: Document 07/13/20 09:00 DCW (Rec: 07/13/20 09:52 DCW [id number]) Shoulder Strength Shoulder Manual Muscle Testing Right Flexion 3 Fair Abduction (C5) 2+ Poor+ External Rotation 4+ Good+ Internal Rotation 5 Normal PT-OP-Q Treatments Start: 05/02/20 17:44 Freq: Status: Active Protocol: Document 08/21/20 12:00 DCW (Rec: 08/21/20 12:43 DCW [id number]) Cardio Equipment Upper Body Ergometer (UBE) Duration (Minutes) 6 RPM 60 Seat Position 12 Height 3 Other switch direction every min Therapeutic Exercises Sidelying Exercises SL abd Side bilateral Resistance #2 DB, X8 Reps/Minutes x20 hor abduction Side bilateral Resistance 2# bilateral Reps/Minutes x20 SL ER Side bilateral Equipment Used 2# Reps/Minutes x20 Sitting Exercises shoulder press Sitting Exercise Name with PVC Side bilateral Equipment Used 4# Reps/Minutes 10 x 2 Comments switched to standing Standing Exercises standing row Tb Standing Exercise Name row and ext (pull down) Side bilateral Resistance Lv 3 Equipment Used T-band Reps/Minutes 2x10 Comments occasional cuing for scap retract/dep Manual Therapy Treatment Soft Tissue Mobilization bicep tendon Body Location long head of bicep tendon on R Mobilization Type Sustained Pressure,Trigger Point Release Intensity/Depth Moderate Body Position Sidelying Deltoids Mobilization Type Sustained Pressure,Trigger Point Release Intensity/Depth Moderate Body Position Sidelying Comments slight soreness today. RTC Mobilization Type Sustained Pressure,Trigger Point Release Intensity/Depth Moderate Body Position Sidelying Comments infrapsinatus Joint Mobilizations 1 Joint R GH jt Direction Inf, posterior Grade II PT-OP-R Modalities Start: 05/02/20 17:44 Freq: Status: Active Protocol: Document 05/11/20 15:15 DCW (Rec: 05/11/20 16:02 DCW [id number]) Electric Stimulation Electric Stimulation Interferential Current (IFC) Body Location R shoulder Duration (Minutes) 15 Patient Position Hooklying Combined With Heat/Cold Cold Pack PT-OP-T Assessment and Plan Start: 05/02/20 17:44 Freq: Status: Active Protocol: Document 08/21/20 12:00 DCW (Rec: 08/21/20 12:43 DCW [id number]) Physical Therapy Assessment Goals Four Impairment Weakness secondary to pain with R shoulder flexion and abduction Short Term Goal (STG) 07/02 flexion= 4-/5 abd= 3+/5 Sales Operations Manager Goal (LTG) 08/07 Pt demonstrate MMT of 4-/5 with R shoulder flexion and abduction to improve ability to pick items up off her floor LTG Duration 09/21/20 Three Impairment Shoulder AROM limited to 90? abduction and 110? flexion Short Term Goal (STG) 07/02 no pain with full range of flexion 08/07 able to reach full abd but slight pain at 90 degrees abd Half-Way Goal (LTG) Pt to demonstrate pain-free AROM to 130? in both flexion and abduction LTG Duration 09/21/20 Two Impairment Pt unable to lift glass of water using right arm without pain Short Term Goal (STG) 07/02 Pt to drink from glass using right arm with no increased pain, but discomfort with a heavy pitcher. Half-Way Goal (LTG) 07/02 slight discomfort at 90 degrees but no discomfort with external rotated shoulder. 08/07 pt still have discomfort reaching overhead for objects . Pt to demonstrate ROM 0?-90? Abduction with no painful arc sign LTG Duration 09/21/20 One Impairment Pt does not have an appropriate home exercise program Short Term Goal (STG) Pt to be independent and compliant with an appropriate HEP STG Duration Met Assessment Summary Assessment Pt showing good improvement overall. Increased pain-free ROM, improving strength. Pain/ tenderness along deltoid and subacromial arch has also improved. Physical Therapy Plan Frequency and Duration Frequency of Treatment 2x/Week Duration of Treatment 10 weeks Plan of Care Start Date 07/13/20 Plan of Care End Date 09/21/20 Therapeutic Interventions Therapeutic Interventions Home Exercise Program,Joint Mobilizations,Manual Therapy, Patient/Caregiver Education, Self-Care/Home Management,Soft Tissue Mobilization, Therapeutic Activities, Therapeutic Exercises Modalities Cold Pack/Ice Massage,Electric Stimulation,Hot Packs, Ultrasound Next Visit Focus/Plan Next Note Type Treatment Note Next Visit Plan Assess reponse to last tx: focused on gravity eliminated position for abduction, accept wall slide, cuing required. progress strengthening as bolivar
--- NOTE | 2020-08-27 12:07 | PT.OTN ---
Current Diagnoses Pain in right shoulder (08/27/20) Stiffness of right shoulder, not elsewhere classified (08/27/20) Other shoulder lesions, right shoulder (08/27/20) Pain in right arm (08/27/20) Strain of muscle(s) and tendon(s) of the rotator cuff of right shoulder, subsequent encounter (08/27/20) Other injury of muscle(s) and tendon(s) of the rotator cuff of right shoulder, subsequent encounter (08/27/20) Physical Therapy Treatment Note PT-OP-A Visit Information Start: 05/02/20 17:44 Freq: Status: Active Protocol: Document 08/27/20 11:34 HH (Rec: 08/27/20 12:06 [id number]) Out-Patient Physical Therapy Visit Information Visit Information Visit Type Treatment Note Visit Start Time 11:20 Visit Stop Time 12:00 Total Visit Minutes 40 Visit Number 22 Number of DOCTOR OF NURSING PRACTICE Visits 0 PT-OP-B Current Condition Start: 05/02/20 17:44 Freq: Status: Active Protocol: Document 05/02/20 15:15 DCW (Rec: 05/03/20 09:41 DCW [id number]) Current Condition History of Current Condition Onset Date 2.5 months Current Complaints R shoulder pain, immobility History of Current Condition Pt is a 64 year old female presenting with a two and a half month history of shoulder pain. Pt reports she and her were moving furniture out of her inietp-wa-znc's house, and there was no actual instance of pain or injury that she can remember, but then over the next few days she began to experience more and more pain and limitations with movement. Pt reports she cannot really lift anything, even a galss of water, and it hurts to even just attempt to lift her arm up. The pain also limits her sleeping at night. Pt does admit that last Thursday, she suffered a fall, and her shoulder pain has been even worse since then. Treatment Goals Patient/Caregiver Goals Improve shoulder mobility and strength, decrease pain Prior Functional Status Baseline Function- ADL's Independent Baseline Function- Mobility Independent PT-OP-C Subjective Start: 05/02/20 17:44 Freq: Status: Active Protocol: Document 08/27/20 11:34 HH (Rec: 08/27/20 12:06 HH [id number]) OP-PT Subjective Patient Comments Patient Comments Im able to reach over for empty cups but not a full one. My ROM is okay but still lacks of strength. Patient Reported Progress Improving PT-OP-K Range of Motion Start: 05/02/20 17:44 Freq: Status: Active Protocol: Document 07/13/20 09:00 DCW (Rec: 07/13/20 09:52 DCW [id number]) Shoulder Goniometric Range of Motion Shoulder Right Passive Shoulder ROM WFL Yes Flexion 180 Abduction 170 Right Active Testing Position Sitting Flexion 128 Abduction 102 PT-OP-L Special Tests Start: 05/02/20 17:44 Freq: Status: Active Protocol: Document 07/13/20 09:00 DCW (Rec: 07/13/20 09:52 DCW [id number]) Special Tests Shoulder Special Tests Yuval's Biceps Test Results Negative Speed's Biceps Test Results Negative Guillermo Chris Impingement Test Results Positive R Painful Arc Test Results Positive R Lift-Off Rotator Cuff Test Results Negative Empty Can Test Results Positive R Drop Arm Rotator Cuff Test Results Positive R Belly Press Test Results Negative PT-OP-M Strength Start: 05/02/20 17:44 Freq: Status: Active Protocol: Document 07/13/20 09:00 DCW (Rec: 07/13/20 09:52 DCW [id number]) Shoulder Strength Shoulder Manual Muscle Testing Right Flexion 3 Fair Abduction (C5) 2+ Poor+ External Rotation 4+ Good+ Internal Rotation 5 Normal PT-OP-Q Treatments Start: 05/02/20 17:44 Freq: Status: Active Protocol: Document 08/27/20 11:34 HH (Rec: 08/27/20 12:06 HH [id number]) Cardio Equipment Upper Body Ergometer (UBE) Duration (Minutes) 6 RPM 60 Seat Position 12 Height 3 Other switch direction every min Therapeutic Exercises Sidelying Exercises SL abd Side bilateral Resistance #3 DB Reps/Minutes 8 x3 SL ER Side bilateral Equipment Used 3# Reps/Minutes 8 x3 Sitting Exercises shoulder flys Sitting Exercise Name with elbow bend at 90 degrees Side right Equipment Used 1lb DB Reps/Minutes 10 x2 shoulder press Sitting Exercise Name unilateral Side bilateral Equipment Used #2 Reps/Minutes 10 x3 Comments cues on scap upward rotation. OH madeleine Side bilateral Equipment Used madeleine Reps/Minutes 4 mins Manual Therapy Treatment Soft Tissue Mobilization Deltoids Mobilization Type Sustained Pressure,Trigger Point Release Intensity/Depth Moderate Body Position Sidelying Comments slight soreness today. Joint Mobilizations MWM Joint R GH joint Direction upward Grade III Body Position Sidelying Reps/Duration 8 x 2 Comments scap upward rotation with SL shoulder abduction, no pinching discomfort PT-OP-R Modalities Start: 05/02/20 17:44 Freq: Status: Active Protocol: Document 05/11/20 15:15 DCW (Rec: 05/11/20 16:02 DCW [id number]) Electric Stimulation Electric Stimulation Interferential Current (IFC) Body Location R shoulder Duration (Minutes) 15 Patient Position Hooklying Combined With Heat/Cold Cold Pack PT-OP-T Assessment and Plan Start: 05/02/20 17:44 Freq: Status: Active Protocol: Document 08/27/20 11:34 HH (Rec: 08/27/20 12:06 HH [id number]) Physical Therapy Assessment Goals Four Impairment Weakness secondary to pain with R shoulder flexion and abduction Short Term Goal (STG) 07/02 flexion= 4-/5 abd= 3+/5 Detention Goal (LTG) 08/07 Pt demonstrate MMT of 4-/5 with R shoulder flexion and abduction to improve ability to pick items up off her floor LTG Duration 09/21/20 Three Impairment Shoulder AROM limited to 90? abduction and 110? flexion Short Term Goal (STG) 07/02 no pain with full range of flexion 08/07 able to reach full abd but slight pain at 90 degrees abd Detention Goal (LTG) Pt to demonstrate pain-free AROM to 130? in both flexion and abduction LTG Duration 09/21/20 Two Impairment Pt unable to lift glass of water using right arm without pain Short Term Goal (STG) 10 Pt to drink from glass using right arm with no increased pain, but discomfort with a heavy pitcher. Detention Goal (LTG) 07/02 slight discomfort at 90 degrees but no discomfort with external rotated shoulder. 08/07 pt still have discomfort reaching overhead for objects . Pt to demonstrate ROM 0?-90? Abduction with no painful arc sign LTG Duration 09/21/20 One Impairment Pt does not have an appropriate home exercise program Short Term Goal (STG) Pt to be independent and compliant with an appropriate HEP STG Duration Met Assessment Summary Assessment Pt cont to have painful arc for active shoulder abduction from 70-90 degrees, but only with internal rotated shoulder position. Pt's discomfort also improved with MWM for scap upward rotation. Progressed her SL abd with DB to seated shoulder fly with DB (elbow bend at 90 degrees) Physical Therapy Plan Next Visit Focus/Plan Next Note Type Treatment Note Next Visit Plan Assess reponse to last tx: focused on gravity eliminated position for abduction, accept wall slide, cuing required. progress strengthening as bolivar
--- NOTE | 2020-09-03 09:47 | PT.OTN ---
Current Diagnoses Pain in right shoulder (09/03/20) Stiffness of right shoulder, not elsewhere classified (09/03/20) Other shoulder lesions, right shoulder (09/03/20) Pain in right arm (09/03/20) Strain of muscle(s) and tendon(s) of the rotator cuff of right shoulder, subsequent encounter (09/03/20) Other injury of muscle(s) and tendon(s) of the rotator cuff of right shoulder, subsequent encounter (09/03/20) Physical Therapy Treatment Note PT-OP-A Visit Information Start: 05/02/20 17:44 Freq: Status: Active Protocol: Document 09/03/20 09:03 HH (Rec: 09/03/20 09:47 [id number]) Out-Patient Physical Therapy Visit Information Visit Information Visit Type Treatment Note Visit Start Time 09:04 Visit Stop Time 09:45 Total Visit Minutes 41 Visit Number 23 Number of CASH APPLICATIONS ANALYST Visits 0 PT-OP-B Current Condition Start: 05/02/20 17:44 Freq: Status: Active Protocol: Document 05/02/20 15:15 DCW (Rec: 05/03/20 09:41 DCW [id number]) Current Condition History of Current Condition Onset Date 2.5 months Current Complaints R shoulder pain, immobility History of Current Condition Pt is a 64 year old female presenting with a two and a half month history of shoulder pain. Pt reports she and her were moving furniture out of her jqhpgg-fc-rmi's house, and there was no actual instance of pain or injury that she can remember, but then over the next few days she began to experience more and more pain and limitations with movement. Pt reports she cannot really lift anything, even a galss of water, and it hurts to even just attempt to lift her arm up. The pain also limits her sleeping at night. Pt does admit that last Thursday, she suffered a fall, and her shoulder pain has been even worse since then. Treatment Goals Patient/Caregiver Goals Improve shoulder mobility and strength, decrease pain Prior Functional Status Baseline Function- ADL's Independent Baseline Function- Mobility Independent PT-OP-C Subjective Start: 05/02/20 17:44 Freq: Status: Active Protocol: Document 09/03/20 09:03 HH (Rec: 09/03/20 09:47 HH [id number]) OP-PT Subjective Patient Comments Patient Comments I was very sore after last session with the 3lb weight. it took me a few days to recover. Patient Reported Progress Same PT-OP-K Range of Motion Start: 05/02/20 17:44 Freq: Status: Active Protocol: Document 07/13/20 09:00 DCW (Rec: 07/13/20 09:52 DCW [id number]) Shoulder Goniometric Range of Motion Shoulder Right Passive Shoulder ROM WFL Yes Flexion 180 Abduction 170 Right Active Testing Position Sitting Flexion 128 Abduction 102 PT-OP-L Special Tests Start: 05/02/20 17:44 Freq: Status: Active Protocol: Document 07/13/20 09:00 DCW (Rec: 07/13/20 09:52 DCW [id number]) Special Tests Shoulder Special Tests Davidergason's Biceps Test Results Negative Speed's Biceps Test Results Negative Guillermo Chris Impingement Test Results Positive R Painful Arc Test Results Positive R Lift-Off Rotator Cuff Test Results Negative Empty Can Test Results Positive R Drop Arm Rotator Cuff Test Results Positive R Belly Press Test Results Negative PT-OP-M Strength Start: 05/02/20 17:44 Freq: Status: Active Protocol: Document 07/13/20 09:00 DCW (Rec: 07/13/20 09:52 DCW [id number]) Shoulder Strength Shoulder Manual Muscle Testing Right Flexion 3 Fair Abduction (C5) 2+ Poor+ External Rotation 4+ Good+ Internal Rotation 5 Normal PT-OP-Q Treatments Start: 05/02/20 17:44 Freq: Status: Active Protocol: Document 09/03/20 09:03 HH (Rec: 09/03/20 09:47 HH [id number]) Cardio Equipment Upper Body Ergometer (UBE) Duration (Minutes) 6 RPM 60 Seat Position 13 Height 5 Other switch direction every min Therapeutic Exercises Supine Exercises Supine Punch Side bilateral Equipment Used 3lbs DB Reps/Minutes 10 x2 Sidelying Exercises hor abduction Side bilateral Resistance 2# bilateral Reps/Minutes x20 SL ER Side bilateral Equipment Used 2# Reps/Minutes x20 SL scap stability Sidelying Exercise Name shoulder at 90 degrees abduction Equipment Used 3lbs DB Reps/Minutes 10 x2 Sitting Exercises shoulder press Sitting Exercise Name unilateral Side bilateral Equipment Used #2 Reps/Minutes 10 x3 Comments cues on scap upward rotation. SHLD ER tb Side bilateral Equipment Used level2 band Reps/Minutes 8 x1 Comments slight discomfort Scapular row with postural correction Equipment Used level 2 band Reps/Minutes 10 x2 Manual Therapy Treatment Soft Tissue Mobilization bicep tendon Body Location long head of bicep tendon on R Mobilization Type Sustained Pressure,Trigger Point Release Intensity/Depth Moderate Body Position Sidelying PT-OP-R Modalities Start: 05/02/20 17:44 Freq: Status: Active Protocol: Document 05/11/20 15:15 DCW (Rec: 05/11/20 16:02 DCW [id number]) Electric Stimulation Electric Stimulation Interferential Current (IFC) Body Location R shoulder Duration (Minutes) 15 Patient Position Hooklying Combined With Heat/Cold Cold Pack PT-OP-T Assessment and Plan Start: 05/02/20 17:44 Freq: Status: Active Protocol: Document 09/03/20 09:03 HH (Rec: 09/03/20 09:47 HH [id number]) Physical Therapy Assessment Goals Four Impairment Weakness secondary to pain with R shoulder flexion and abduction Short Term Goal (STG) 07/02 flexion= 4-/5 abd= 3+/5 Forklift Operator Goal (LTG) 08/07 Pt demonstrate MMT of 4-/5 with R shoulder flexion and abduction to improve ability to pick items up off her floor LTG Duration 09/21/20 Three Impairment Shoulder AROM limited to 90? abduction and 110? flexion Short Term Goal (STG) 10 no pain with full range of flexion 08/07 able to reach full abd but slight pain at 90 degrees abd Mcfp Goal (LTG) Pt to demonstrate pain-free AROM to 130? in both flexion and abduction LTG Duration 09/21/20 Two Impairment Pt unable to lift glass of water using right arm without pain Short Term Goal (STG) 10/ Pt to drink from glass using right arm with no increased pain, but discomfort with a heavy pitcher. Mcfp Goal (LTG) 10 slight discomfort at 90 degrees but no discomfort with external rotated shoulder. 08/07 pt still have discomfort reaching overhead for objects . Pt to demonstrate ROM 0?-90? Abduction with no painful arc sign LTG Duration 09/21/20 One Impairment Pt does not have an appropriate home exercise program Short Term Goal (STG) Pt to be independent and compliant with an appropriate HEP STG Duration Met Assessment Summary Assessment Pt has irritation after last session which focused on shoulder abduction. Reduced DB weight back to 2lbs today. Physical Therapy Plan Frequency and Duration Frequency of Treatment 2x/Week Duration of Treatment 10 weeks Plan of Care Start Date 07/13/20 Plan of Care End Date 09/21/20 Next Visit Focus/Plan Next Note Type Treatment Note Next Visit Plan Assess reponse to last tx: focused on gravity eliminated position for abduction, accept wall slide, cuing required. progress strengthening as bolivar
--- NOTE | 2020-09-10 12:17 | PT.OTN ---
Current Diagnoses Pain in right shoulder (09/10/20) Stiffness of right shoulder, not elsewhere classified (09/10/20) Other shoulder lesions, right shoulder (09/10/20) Pain in right arm (09/10/20) Strain of muscle(s) and tendon(s) of the rotator cuff of right shoulder, subsequent encounter (09/10/20) Other injury of muscle(s) and tendon(s) of the rotator cuff of right shoulder, subsequent encounter (09/10/20) Physical Therapy Treatment Note PT-OP-A Visit Information Start: 05/02/20 17:44 Freq: Status: Active Protocol: Document 09/10/20 12:01 MA (Rec: 09/10/20 12:17 MA [id number]) Out-Patient Physical Therapy Visit Information Visit Information Visit Type Treatment Note Visit Start Time 11:17 Visit Stop Time 11:59 Total Visit Minutes 42 Visit Number 24 Number of PRODUCT DEVELOPMENT CHEMIST Visits 1 PT-OP-B Current Condition Start: 05/02/20 17:44 Freq: Status: Active Protocol: Document 05/02/20 15:15 DCW (Rec: 05/03/20 09:41 DCW [id number]) Current Condition History of Current Condition Onset Date 2.5 months Current Complaints R shoulder pain, immobility History of Current Condition Pt is a 64 year old female presenting with a two and a half month history of shoulder pain. Pt reports she and her were moving furniture out of her eyhazf-kk-czg's house, and there was no actual instance of pain or injury that she can remember, but then over the next few days she began to experience more and more pain and limitations with movement. Pt reports she cannot really lift anything, even a galss of water, and it hurts to even just attempt to lift her arm up. The pain also limits her sleeping at night. Pt does admit that last Thursday, she suffered a fall, and her shoulder pain has been even worse since then. Treatment Goals Patient/Caregiver Goals Improve shoulder mobility and strength, decrease pain Prior Functional Status Baseline Function- ADL's Independent Baseline Function- Mobility Independent PT-OP-C Subjective Start: 05/02/20 17:44 Freq: Status: Active Protocol: Document 09/10/20 12:01 MA (Rec: 09/10/20 12:17 MA [id number]) OP-PT Subjective Patient Comments Patient Comments I wasn't sore after last session like I was before. PT-OP-K Range of Motion Start: 05/02/20 17:44 Freq: Status: Active Protocol: Document 07/13/20 09:00 DCW (Rec: 07/13/20 09:52 DCW [id number]) Shoulder Goniometric Range of Motion Shoulder Right Passive Shoulder ROM WFL Yes Flexion 180 Abduction 170 Right Active Testing Position Sitting Flexion 128 Abduction 102 PT-OP-L Special Tests Start: 05/02/20 17:44 Freq: Status: Active Protocol: Document 07/13/20 09:00 DCW (Rec: 07/13/20 09:52 DCW [id number]) Special Tests Shoulder Special Tests Yernivia's Biceps Test Results Negative Speed's Biceps Test Results Negative Guillermo Chris Impingement Test Results Positive R Painful Arc Test Results Positive R Lift-Off Rotator Cuff Test Results Negative Empty Can Test Results Positive R Drop Arm Rotator Cuff Test Results Positive R Belly Press Test Results Negative PT-OP-M Strength Start: 05/02/20 17:44 Freq: Status: Active Protocol: Document 07/13/20 09:00 DCW (Rec: 07/13/20 09:52 DCW [id number]) Shoulder Strength Shoulder Manual Muscle Testing Right Flexion 3 Fair Abduction (C5) 2+ Poor+ External Rotation 4+ Good+ Internal Rotation 5 Normal PT-OP-Q Treatments Start: 05/02/20 17:44 Freq: Status: Active Protocol: Document 09/10/20 12:01 MA (Rec: 09/10/20 12:17 MA [id number]) Cardio Equipment Upper Body Ergometer (UBE) Duration (Minutes) 6 RPM 60 Seat Position 13 Height 3 Other switch direction every min Therapeutic Exercises Supine Exercises Horizontal ABD Side bilateral Equipment Used 2# Reps/Minutes x10 Supine Punch Side right Equipment Used 3lbs DB Reps/Minutes 10 x2 Sidelying Exercises SL abd Side bilateral Resistance #2 DB Reps/Minutes 10x2 hor abduction Side right Resistance 2# bilateral Reps/Minutes x5 Comments discont. due to pain SL ER Side bilateral Equipment Used 2# Reps/Minutes x20 open book Sidelying Exercise Name prevent lumbar rotation Side right Reps/Minutes x10 Standing Exercises ER Standing Exercise Name ER/IR Side bilateral Resistance Lv 2 Reps/Minutes 2x10 standing row Tb Standing Exercise Name row Side bilateral Resistance Lv 2 Reps/Minutes 2x10 Comments Hold retraction for 3 sec Manual Therapy Treatment Soft Tissue Mobilization bicep tendon Body Location long head of bicep tendon on R Mobilization Type Sustained Pressure,Trigger Point Release Intensity/Depth Moderate Body Position Sidelying RTC Body Location R Mobilization Type Sustained Pressure,Trigger Point Release Intensity/Depth Moderate Body Position Supine PT-OP-R Modalities Start: 05/02/20 17:44 Freq: Status: Active Protocol: Document 05/11/20 15:15 DCW (Rec: 05/11/20 16:02 DCW [id number]) Electric Stimulation Electric Stimulation Interferential Current (IFC) Body Location R shoulder Duration (Minutes) 15 Patient Position Hooklying Combined With Heat/Cold Cold Pack PT-OP-T Assessment and Plan Start: 05/02/20 17:44 Freq: Status: Active Protocol: Document 09/10/20 12:01 MA (Rec: 09/10/20 12:17 MA [id number]) Physical Therapy Assessment Goals Four Impairment Weakness secondary to pain with R shoulder flexion and abduction Short Term Goal (STG) 07/02 flexion= 4-/5 abd= 3+/5 Integrity Director Goal (LTG) 08/07 Pt demonstrate MMT of 4-/5 with R shoulder flexion and abduction to improve ability to pick items up off her floor LTG Duration 09/21/20 Three Impairment Shoulder AROM limited to 90? abduction and 110? flexion Short Term Goal (STG) 10 no pain with full range of flexion 08/07 able to reach full abd but slight pain at 90 degrees abd Alf Goal (LTG) Pt to demonstrate pain-free AROM to 130? in both flexion and abduction LTG Duration 09/21/20 Two Impairment Pt unable to lift glass of water using right arm without pain Short Term Goal (STG) 10/ Pt to drink from glass using right arm with no increased pain, but discomfort with a heavy pitcher. Alf Goal (LTG) 10 slight discomfort at 90 degrees but no discomfort with external rotated shoulder. / pt still have discomfort reaching overhead for objects . Pt to demonstrate ROM 0?-90? Abduction with no painful arc sign LTG Duration 09/21/20 One Impairment Pt does not have an appropriate home exercise program Short Term Goal (STG) Pt to be independent and compliant with an appropriate HEP STG Duration Met Assessment Summary Assessment Pt had pain during SL horizontal abduction with 2# weight, but no pain when supine. Pt had tenderness to palpation over R bicipital tendon and RTC tendons. She is able to complete almost all exercises with no corrections and feels she is ready to discharge now that she is having less pain and better ROM than when she first started therapy in April. Physical Therapy Plan Frequency and Duration Frequency of Treatment 2x/Week Duration of Treatment 10 weeks Plan of Care Start Date 07/13/20 Plan of Care End Date 09/21/20 Next Visit Focus/Plan Next Note Type Treatment Note Next Visit Plan Reassess goals and proceed with discharge, ensuring pt feels confident in all HEP exercises.
--- NOTE | 2020-09-18 16:37 | PT.OPPOC ---
Physical, Occupational & Speech Therapy At [facility] Current Diagnoses Pain in right shoulder (09/18/20) Stiffness of right shoulder, not elsewhere classified (09/18/20) Other shoulder lesions, right shoulder (09/18/20) Pain in right arm (09/18/20) Strain of muscle(s) and tendon(s) of the rotator cuff of right shoulder, subsequent encounter (09/18/20) Other injury of muscle(s) and tendon(s) of the rotator cuff of right shoulder, subsequent encounter (09/18/20) Visit Care Team Role Provider Type Jj Hernandez MD Attending Provider Physician Primary Care Provider Referring Provider Specialty: Internal Medicine Address: [address] [place] [address], [facility] Email: [email or web address] Plan Of Care PT-OP-T Assessment and Plan Start: 05/02/20 17:44 Freq: Status: Active Protocol: Document 09/18/20 09:52 HH (Rec: 09/18/20 11:16 [id number]) Physical Therapy Assessment Goals Four Impairment Weakness secondary to pain with R shoulder flexion and abduction Short Term Goal (STG) 07/02 flexion= 4-/5 abd= 3+/5 Security System Technician Goal (LTG) 08/07 Pt demonstrate MMT of 4-/5 with R shoulder flexion and abduction to improve ability to pick items up off her floor LTG Duration 09/21/20 Three Impairment Shoulder AROM limited to 90? abduction and 110? flexion Short Term Goal (STG) 10 no pain with full range of flexion 08/07 able to reach full abd but slight pain at 90 degrees abd Security System Technician Goal (LTG) Per last visit, pain free AROM for both flexion and abduction. Pt to demonstrate pain-free AROM to 130? in both flexion and abduction LTG Duration 09/21/20 Two Impairment Pt unable to lift glass of water using right arm without pain Short Term Goal (STG) 10/5 Pt to drink from glass using right arm with no increased pain, but discomfort with a heavy pitcher. Security System Technician Goal (LTG) 10/5 slight discomfort at 90 degrees but no discomfort with external rotated shoulder. 11 pt still have discomfort reaching overhead for objects . Pt to demonstrate ROM 0?-90? Abduction with no painful arc sign LTG Duration 09/21/20 One Impairment Pt does not have an appropriate home exercise program Short Term Goal (STG) 09/18 goal met Pt to be independent and compliant with an appropriate HEP STG Duration Met Progress Towards Goals Progress Towards Goals Slow Progress due to Activity Tolerance Assessment Summary Assessment Pt has a setback after last visit after doing hor shoulder abduction with 3#. Tx focused on AROM and manual therapy. Noticed pt has new tenderness spot at R infraspinatus. Her ROM and pain significantly improved at the end of session . She reported her pain subsided significantly with MWM (for scap upward rotation) Added foam roller climb for SA activation as new HEP. D/t the setback, recommended pt to cont therapy for 2 more visits (every other week) Physical Therapy Plan Frequency and Duration Frequency of Treatment Every Other Week Duration of Treatment 6 weeks Plan of Care Start Date 09/18/20 Plan of Care End Date 11/02/20 Next Visit Focus/Plan Next Note Type Treatment Note Next Visit Plan Reassess goals and ROM and strength, cont upward rotation strengthening overall shoulder strengtehning as well . Plan of Care Dates Plan of Care Start Date 09/18/20 Plan of Care End Date 11/02/20 Electronically Signed by: Jose Benjamin, PT 09/18/20 [id number] Please Sign and Return: I have reviewed this Plan of Care and certify that the skilled therapy services above are required to meet the patient?s needs. Physician Signature Date Printed Name and Credentials Clinical Instructor Signature Printed Name and Credentials
--- NOTE | 2020-09-18 16:37 | PT.OTN ---
Current Diagnoses Pain in right shoulder (09/18/20) Stiffness of right shoulder, not elsewhere classified (09/18/20) Other shoulder lesions, right shoulder (09/18/20) Pain in right arm (09/18/20) Strain of muscle(s) and tendon(s) of the rotator cuff of right shoulder, subsequent encounter (09/18/20) Other injury of muscle(s) and tendon(s) of the rotator cuff of right shoulder, subsequent encounter (09/18/20) Physical Therapy Treatment Note PT-OP-A Visit Information Start: 05/02/20 17:44 Freq: Status: Active Protocol: Document 09/18/20 09:52 HH (Rec: 09/18/20 11:16 [id number]) Out-Patient Physical Therapy Visit Information Visit Information Visit Type Progress Note Visit Start Time 09:55 Visit Stop Time 10:30 Total Visit Minutes 35 Visit Number 25 Number of UPSTAIRS MAID Visits 0 PT-OP-B Current Condition Start: 05/02/20 17:44 Freq: Status: Active Protocol: Document 05/02/20 15:15 DCW (Rec: 05/03/20 09:41 DCW [id number]) Current Condition History of Current Condition Onset Date 2.5 months Current Complaints R shoulder pain, immobility History of Current Condition Pt is a 64 year old female presenting with a two and a half month history of shoulder pain. Pt reports she and her were moving furniture out of her jbfoek-vg-ozp's house, and there was no actual instance of pain or injury that she can remember, but then over the next few days she began to experience more and more pain and limitations with movement. Pt reports she cannot really lift anything, even a galss of water, and it hurts to even just attempt to lift her arm up. The pain also limits her sleeping at night. Pt does admit that last Thursday, she suffered a fall, and her shoulder pain has been even worse since then. Treatment Goals Patient/Caregiver Goals Improve shoulder mobility and strength, decrease pain Prior Functional Status Baseline Function- ADL's Independent Baseline Function- Mobility Independent PT-OP-C Subjective Start: 05/02/20 17:44 Freq: Status: Active Protocol: Document 09/18/20 09:52 HH (Rec: 09/18/20 11:16 HH [id number]) OP-PT Subjective Patient Comments Patient Comments My shoulder has been hurting from last visit after the hor abduction ex with 3lbs DB. It has been couple days and i couldnt lift my arm Patient Reported Progress Improving PT-OP-K Range of Motion Start: 05/02/20 17:44 Freq: Status: Active Protocol: Document 07/13/20 09:00 DCW (Rec: 07/13/20 09:52 DCW [id number]) Shoulder Goniometric Range of Motion Shoulder Right Passive Shoulder ROM WFL Yes Flexion 180 Abduction 170 Right Active Testing Position Sitting Flexion 128 Abduction 102 PT-OP-L Special Tests Start: 05/02/20 17:44 Freq: Status: Active Protocol: Document 07/13/20 09:00 DCW (Rec: 07/13/20 09:52 DCW [id number]) Special Tests Shoulder Special Tests Yergason's Biceps Test Results Negative Speed's Biceps Test Results Negative Guillermo Chris Impingement Test Results Positive R Painful Arc Test Results Positive R Lift-Off Rotator Cuff Test Results Negative Empty Can Test Results Positive R Drop Arm Rotator Cuff Test Results Positive R Belly Press Test Results Negative PT-OP-M Strength Start: 05/02/20 17:44 Freq: Status: Active Protocol: Document 07/13/20 09:00 DCW (Rec: 07/13/20 09:52 DCW [id number]) Shoulder Strength Shoulder Manual Muscle Testing Right Flexion 3 Fair Abduction (C5) 2+ Poor+ External Rotation 4+ Good+ Internal Rotation 5 Normal PT-OP-Q Treatments Start: 05/02/20 17:44 Freq: Status: Active Protocol: Document 09/18/20 09:52 HH (Rec: 09/18/20 11:16 HH [id number]) Cardio Equipment Upper Body Ergometer (UBE) Duration (Minutes) 6 RPM 60 Seat Position 13 Height 3 Other switch direction every min Therapeutic Exercises Sitting Exercises shoulder press Side bilateral Equipment Used PVC pipe Reps/Minutes 10 x3 Comments cues on scap upward rotation. OH madeleine Side bilateral Reps/Minutes 4 mins Comments flexion and abd Standing Exercises foam roller climb Standing Exercise Name forearm against foam roller, roll upward Side bilateral Reps/Minutes 8 x2 Comments for SA activation, pt reports reduced pinching pain. Manual Therapy Treatment Soft Tissue Mobilization RTC Body Location R infrapsinatus Mobilization Type Sustained Pressure,Trigger Point Release Intensity/Depth Moderate Body Position Supine Comments significant tenderness noted today but significantly resolved after manual therapy. Joint Mobilizations MWM Direction upward rotation Grade III Body Position Standing Comments during shoulder abduction, reduced pain noted. PT-OP-R Modalities Start: 05/02/20 17:44 Freq: Status: Active Protocol: Document 05/11/20 15:15 DCW (Rec: 05/11/20 16:02 DCW [id number]) Electric Stimulation Electric Stimulation Interferential Current (IFC) Body Location R shoulder Duration (Minutes) 15 Patient Position Hooklying Combined With Heat/Cold Cold Pack PT-OP-T Assessment and Plan Start: 05/02/20 17:44 Freq: Status: Active Protocol: Document 09/18/20 09:52 HH (Rec: 09/18/20 11:16 HH [id number]) Physical Therapy Assessment Goals Four Impairment Weakness secondary to pain with R shoulder flexion and abduction Short Term Goal (STG) 07/02 flexion= 4-/5 abd= 3+/5 Retirement Goal (LTG) 08/07 Pt demonstrate MMT of 4-/5 with R shoulder flexion and abduction to improve ability to pick items up off her floor LTG Duration 09/21/20 Three Impairment Shoulder AROM limited to 90? abduction and 110? flexion Short Term Goal (STG) 07/02 no pain with full range of flexion 08/07 able to reach full abd but slight pain at 90 degrees abd Retirement Goal (LTG) Per last visit, pain free AROM for both flexion and abduction. Pt to demonstrate pain-free AROM to 130? in both flexion and abduction LTG Duration 09/21/20 Two Impairment Pt unable to lift glass of water using right arm without pain Short Term Goal (STG) 10 Pt to drink from glass using right arm with no increased pain, but discomfort with a heavy pitcher. Retirement Goal (LTG) 07/02 slight discomfort at 90 degrees but no discomfort with external rotated shoulder. 08/07 pt still have discomfort reaching overhead for objects . Pt to demonstrate ROM 0?-90? Abduction with no painful arc sign LTG Duration 09/21/20 One Impairment Pt does not have an appropriate home exercise program Short Term Goal (STG) 09/18 goal met Pt to be independent and compliant with an appropriate HEP STG Duration Met Progress Towards Goals Progress Towards Goals Slow Progress due to Activity Tolerance Assessment Summary Assessment Pt has a setback after last visit after doing hor shoulder abduction with 3#. Tx focused on AROM and manual therapy. Noticed pt has new tenderness spot at R infraspinatus. Her ROM and pain significantly improved at the end of session . She reported her pain subsided significantly with MWM (for scap upward rotation) Added foam roller climb for SA activation as new HEP. D/t the setback, recommended pt to cont therapy for 2 more visits (every other week) Physical Therapy Plan Frequency and Duration Frequency of Treatment Every Other Week Duration of Treatment 6 weeks Plan of Care Start Date 09/18/20 Plan of Care End Date 11/02/20 Next Visit Focus/Plan Next Note Type Treatment Note Next Visit Plan Reassess goals and ROM and strength, cont upward rotation strengthening overall shoulder strengtehning as well .
--- NOTE | 2020-10-04 12:09 | PT.OTN ---
Current Diagnoses Pain in right shoulder (10/04/20) Stiffness of right shoulder, not elsewhere classified (10/04/20) Other shoulder lesions, right shoulder (10/04/20) Pain in right arm (10/04/20) Strain of muscle(s) and tendon(s) of the rotator cuff of right shoulder, subsequent encounter (10/04/20) Other injury of muscle(s) and tendon(s) of the rotator cuff of right shoulder, subsequent encounter (10/04/20) Physical Therapy Treatment Note PT-OP-A Visit Information Start: 05/02/20 17:44 Freq: Status: Active Protocol: Document 10/04/20 10:32 HH (Rec: 10/04/20 12:09 [id number]) Out-Patient Physical Therapy Visit Information Visit Information Visit Type Treatment Note Visit Note Pt is going to see Dr. Carnes for ortho consult. Visit Start Time 10:34 Visit Stop Time 11:15 Total Visit Minutes 41 Visit Number 26 Number of MMI TEACHER Visits 0 PT-OP-B Current Condition Start: 05/02/20 17:44 Freq: Status: Active Protocol: Document 05/02/20 15:15 DCW (Rec: 05/03/20 09:41 DCW [id number]) Current Condition History of Current Condition Onset Date 2.5 months Current Complaints R shoulder pain, immobility History of Current Condition Pt is a 64 year old female presenting with a two and a half month history of shoulder pain. Pt reports she and her were moving furniture out of her nvslog-vg-lcj's house, and there was no actual instance of pain or injury that she can remember, but then over the next few days she began to experience more and more pain and limitations with movement. Pt reports she cannot really lift anything, even a galss of water, and it hurts to even just attempt to lift her arm up. The pain also limits her sleeping at night. Pt does admit that last Thursday, she suffered a fall, and her shoulder pain has been even worse since then. Treatment Goals Patient/Caregiver Goals Improve shoulder mobility and strength, decrease pain Prior Functional Status Baseline Function- ADL's Independent Baseline Function- Mobility Independent PT-OP-C Subjective Start: 05/02/20 17:44 Freq: Status: Active Protocol: Document 10/04/20 10:32 HH (Rec: 10/04/20 12:09 [id number]) OP-PT Subjective Patient Comments Patient Comments My shoulder is still sore but lifting things overhead. My ROM is still good. Patient Reported Progress Same PT-OP-K Range of Motion Start: 05/02/20 17:44 Freq: Status: Active Protocol: Document 07/13/20 09:00 DCW (Rec: 07/13/20 09:52 DCW [id number]) Shoulder Goniometric Range of Motion Shoulder Right Passive Shoulder ROM WFL Yes Flexion 180 Abduction 170 Right Active Testing Position Sitting Flexion 128 Abduction 102 PT-OP-L Special Tests Start: 05/02/20 17:44 Freq: Status: Active Protocol: Document 07/13/20 09:00 DCW (Rec: 07/13/20 09:52 DCW [id number]) Special Tests Shoulder Special Tests Davidernivia's Biceps Test Results Negative Speed's Biceps Test Results Negative Guillermo Chris Impingement Test Results Positive R Painful Arc Test Results Positive R Lift-Off Rotator Cuff Test Results Negative Empty Can Test Results Positive R Drop Arm Rotator Cuff Test Results Positive R Belly Press Test Results Negative PT-OP-M Strength Start: 05/02/20 17:44 Freq: Status: Active Protocol: Document 07/13/20 09:00 DCW (Rec: 07/13/20 09:52 DCW [id number]) Shoulder Strength Shoulder Manual Muscle Testing Right Flexion 3 Fair Abduction (C5) 2+ Poor+ External Rotation 4+ Good+ Internal Rotation 5 Normal PT-OP-Q Treatments Start: 05/02/20 17:44 Freq: Status: Active Protocol: Document 10/04/20 10:32 HH (Rec: 10/04/20 12:09 [id number]) Cardio Equipment Upper Body Ergometer (UBE) Duration (Minutes) 6 RPM 60 Seat Position 13 Height 3 Other switch direction every min Therapeutic Exercises Supine Exercises Supine Punch Side right Equipment Used 3lbs DB Reps/Minutes 10 x2 Sidelying Exercises SL abd Side bilateral Resistance #2 DB Reps/Minutes 10x2 SL ER Side bilateral Equipment Used 2# Reps/Minutes x20 Standing Exercises shoulder flexion with SA activation Side bilateral Equipment Used yellow band Reps/Minutes 10 x2 foam roller climb Standing Exercise Name forearm against foam roller, roll upward Side bilateral Reps/Minutes 8 x2 Comments for SA activation, pt reports reduced pinching pain. PT-OP-R Modalities Start: 05/02/20 17:44 Freq: Status: Active Protocol: Document 05/11/20 15:15 DCW (Rec: 05/11/20 16:02 DCW [id number]) Electric Stimulation Electric Stimulation Interferential Current (IFC) Body Location R shoulder Duration (Minutes) 15 Patient Position Hooklying Combined With Heat/Cold Cold Pack PT-OP-T Assessment and Plan Start: 05/02/20 17:44 Freq: Status: Active Protocol: Document 10/04/20 10:32 HH (Rec: 10/04/20 12:09 HH [id number]) Physical Therapy Assessment Goals Four Impairment Weakness secondary to pain with R shoulder flexion and abduction Short Term Goal (STG) 10 flexion= 4-/5 abd= 3+/5 Jira Developer Goal (LTG) 08/07 Pt demonstrate MMT of 4-/5 with R shoulder flexion and abduction to improve ability to pick items up off her floor LTG Duration 09/21/20 Three Impairment Shoulder AROM limited to 90? abduction and 110? flexion Short Term Goal (STG) 07/02 no pain with full range of flexion 08/07 able to reach full abd but slight pain at 90 degrees abd Shelter Goal (LTG) Per last visit, pain free AROM for both flexion and abduction. Pt to demonstrate pain-free AROM to 130? in both flexion and abduction LTG Duration 09/21/20 Two Impairment Pt unable to lift glass of water using right arm without pain Short Term Goal (STG) 10/5 Pt to drink from glass using right arm with no increased pain, but discomfort with a heavy pitcher. Shelter Goal (LTG) 10 slight discomfort at 90 degrees but no discomfort with external rotated shoulder. 08/07 pt still have discomfort reaching overhead for objects . Pt to demonstrate ROM 0?-90? Abduction with no painful arc sign LTG Duration 09/21/20 One Impairment Pt does not have an appropriate home exercise program Short Term Goal (STG) 09/18 goal met Pt to be independent and compliant with an appropriate HEP STG Duration Met Progress Towards Goals Progress Towards Goals Slow Progress - Other Assessment Summary Assessment Pt has been plateaued with her progress for the past 2 months. Although she has full AROM but her abd strength/ overhead strength is still limited. However, pt seems to progress well with overhead therex that focuses on serratus anterior activation. PRovided SA wall climb and SA scaption with level 1 band. Will keep this PT case open and contact pt in 2 weeks to f /u progress. Physical Therapy Plan Frequency and Duration Frequency of Treatment Every Other Week Duration of Treatment 6 weeks Plan of Care Start Date 09/18/20 Plan of Care End Date 11/02/20 Next Visit Focus/Plan Next Note Type Treatment Note Next Visit Plan Reassess goals and ROM and strength, cont upward rotation strengthening overall shoulder strengtehning as well .
--- NOTE | 2020-10-11 15:18 | PT-OP ANOTE ---
Called pt via phone today and her MRI from 10/10/20 shows: Full-thickness tear of the supraspinatus tendon. Severe infraspinatus tendinopathy with low-grade bursal and articular surface fraying Subscapularis tendinopathy. Mild atrophy of the supraspinatus muscle. 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 Educated pt on outcomes regarding surgical intervention/ continuous PT. pt will consult ortho MD next week. Therefore, on hold for PT at this point.
--- NOTE | 2020-10-29 14:09 | PT.OPDS ---
Current Diagnoses Pain in right shoulder (10/04/20) Stiffness of right shoulder, not elsewhere classified (10/04/20) Other shoulder lesions, right shoulder (10/04/20) Pain in right arm (10/04/20) Strain of muscle(s) and tendon(s) of the rotator cuff of right shoulder, subsequent encounter (10/04/20) Other injury of muscle(s) and tendon(s) of the rotator cuff of right shoulder, subsequent encounter (10/04/20) Visit Care Team Role Provider Type Jj Hernandez MD Attending Provider Physician Primary Care Provider Referring Provider Specialty: Internal Medicine Address: [address] [place] [address] Email: [email or web address] Visit Number Visit Number 26 Discharge Summary PT-OP-T Assessment and Plan Start: 05/02/20 17:44 Freq: Status: Active Protocol: Document 10/29/20 14:08 (Rec: 10/29/20 14:09 [id number]) Physical Therapy Plan Discharge Physical Therapy Discharge Reasons Plateau in Progress Discharge Comments pt consulted with Dr. Rodriguez and decided to have RTC repair on 11/27/20 d/t plateau in rehab. Pt anticipate to cont therapy post surgically. DC this case
== END 2020-10-29 14:13 | disposition home or self-care (01) ==
LOC: PHYS 10:30
PROVIDERS: PCP Internal Medicine; Referring Provider Internal Medicine; Visit Provider Internal Medicine
DX: M75.81 Other shoulder lesions, right shoulder (principal); S46.091D Other injury of muscle(s) and tendon(s) of the rotator cuff of right shoulder, subsequent encounter; S46.011D Strain of muscle(s) and tendon(s) of the rotator cuff of right shoulder, subsequent encounter; M79.601 Pain in right arm; M25.611 Stiffness of right shoulder, not elsewhere classified; M25.511 Pain in right shoulder
CPT/HCPCS: 97032; 97110; 97140; 97161

== ENCOUNTER → 2020-10-10 08:48 | Outpatient (CLI) | payer MEDICARE, OTHER, SELFPAY ==
[2020-06-20 20:41] VITALS: BMI 41.5
--- NOTE | 2020-10-10 | DI.MRI.S_ITS ---
PROCEDURE: MR SHOULDER RT WO CON INDICATIONS: Other specific joint derangements of right shoulde TECHNIQUE: Noncontrast oblique coronal T2 fast spin echo with fat saturation, oblique sagittal T1 spin echo and T2 fast spin echo with fat saturation, axial T1 spin echo and T2 fast spin echo with fat saturation through the shoulder. COMPARISON: None. FINDINGS: Image quality: Excellent. Rotator cuff: Full-thickness tear of the supraspinatus tendon measuring approximately 1.4 cm in the AP dimension as seen on sagittal pulse sequences. This measures approximately 1.2 cm on coronal pulse sequences. Severe infraspinatus tendinopathy with marked thickening and low-grade bursal and articular surface fraying. There is also interstitial tear. Teres minor tendon appears intact. Subscapularis tendinopathy. Mild atrophy of the supraspinatus muscle. There is fatty infiltration of the supraspinatus and infraspinatus muscles. Bones and bursae: No bone marrow contusions or fractures. Moderate acromioclavicular joint degeneration. Acromion demonstrates conventional anatomy, without an os acromiale. Capsule and soft tissues: Labrum: Chronic appearing blunted tear of the posterior labrum, with adjacent spurring and sclerosis in the glenoid rim. Long head of the biceps tendon intact. The rotator interval appears normal, without fibrosis. Coracohumeral ligament intact. IMPRESSION: Full-thickness tear of the supraspinatus tendon. Severe infraspinatus tendinopathy with low-grade bursal and articular surface fraying Subscapularis tendinopathy. Mild atrophy of the supraspinatus muscle. 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 Dictated by: Jesus Ramos M.D. on 10/10/2020 at 9:39 Approved by: Jesus Ramos M.D. on 10/10/2020 at 9:51
== END ==
PROVIDERS: PCP Internal Medicine; Referring Provider Orthopaedic Surgery Adult Reconstructive Orthopaedic Surgery; Visit Provider Orthopaedic Surgery Adult Reconstructive Orthopaedic Surgery
DX: M75.121 Complete rotator cuff tear or rupture of right shoulder, not specified as traumatic (principal); S43.431A Superior glenoid labrum lesion of right shoulder, initial encounter
CPT/HCPCS: 73221

== ENCOUNTER → 2020-11-05 09:35 | Outpatient (CLI) | payer MEDICARE, OTHER, SELFPAY ==
[2020-06-20 20:41] VITALS: BMI 41.5
[2020-11-05 10:21] LABS: Add Manual Diff / Slide Review NO; Basophils Absolute Auto 0 /uL (0-100); Basophils Percent Auto 0.6 % (0-2); Eosinophils Absolute Auto 100 /uL (0-450); Eosinophils Percent Auto 2.7 % (2-4); Hematocrit 36.3 % (36-46); Hemoglobin 12.3 g/dL (12.0-16.0); Lymphocytes Absolute Auto 1300 /uL (1100-4500); Lymphocytes Percent Auto 27.1 % (25-40); Mean Corpuscular HGB Conc 33.9 % (30-36); Mean Corpuscular Hemoglobin 32.4 PG (26-34); Mean Corpuscular Volume 95.6 fL (80-100); Monocytes Absolute Auto 400 /uL (0-900); Monocytes Percent Auto 7.9 % (3-14); Neutrophils Absolute Auto 3100 /uL (1500-7000); Neutrophils Percent Auto 61.7 % (50-75); Platelet Count 124 X10^3/uL (150-400); Red Cell Distribution Width 14.1 % (11.6-14.8)
[2020-11-05 10:51] LABS: Alanine Aminotransferase 19 IU/L (<35); Albumin 3.4 g/dL (3.5-5.0); Albumin Globulin Ratio 1.3 (1.0-2.8); Alkaline Phosphatase 77 U/L (38-126); Aspartate Aminotransferase 34 IU/L (14-36); BUN Creatinine Ratio 27.5 (6-22); Bilirubin Total 0.3 mg/dL (0.2-1.3); Blood Urea Nitrogen 19 mg/dL (7-17); Carbon Dioxide 34 mmol/L (22-32); Chloride 107 mmol/L (98-107); Estimated Glomerular Filt Rate > 60.0 mL/min (>60); Globulin 2.6 g/dL (1.7-4.1); Glucose 102 mg/dL (80-110); HEMOLYSIS < 15 (0-50); Potassium 4.2 mmol/L (3.4-5.1); Sodium 139 mmol/L (137-145)
[2020-11-05 10:53] LABS: Erythrocyte Sedimentation Rate 66 MM/HR (0-20)
== END ==
PROVIDERS: PCP Internal Medicine; Referring Provider Internal Medicine; Visit Provider Internal Medicine
DX: E11.9 Type 2 diabetes mellitus without complications (principal)
CPT/HCPCS: 36415; 80053; 83036; 85025; 85651

== ENCOUNTER → 2020-11-06 11:16 | Outpatient (CLI) | payer MEDICARE, OTHER, SELFPAY ==
[2020-06-20 20:41] VITALS: BMI 41.5
--- NOTE | 2020-11-06 | DI.RAD.S_ITS ---
PROCEDURE: XR ABDOMEN MIN 2V INDICATIONS: Right lower quadrant pain TECHNIQUE: 2 views of the abdomen were acquired. COMPARISON: None. FINDINGS: Surgical changes and devices: None. Bowel: No pneumoperitoneum. The bowel gas pattern is normal. Moderate stool is seen in the colon. Soft tissues: No masses; visualized solid organ contours appear normal in size. No suspicious abdominal calcifications. Surgical clips are seen in the right upper quadrant. Bones: No suspicious bony abnormalities. IMPRESSION: Nonobstructive bowel gas pattern. Moderate stool in the colon. If symptoms persist, further evaluation with CT of the abdomen and pelvis may be obtained. Dictated by: Tomasz Ge M.D. on 11/06/2020 at 12:43 Approved by: Tomasz Ge M.D. on 11/06/2020 at 12:45
== END ==
PROVIDERS: PCP Internal Medicine; Referring Provider Internal Medicine; Visit Provider Internal Medicine
DX: R10.31 Right lower quadrant pain (principal)
CPT/HCPCS: 74019

== ENCOUNTER → 2020-11-07 07:10 | Outpatient (CLI) | payer MEDICARE, OTHER, SELFPAY ==
[2020-06-20 20:41] VITALS: BMI 41.5
--- NOTE | 2020-11-07 | DI.US.S_ITS ---
PROCEDURE: US ABDOMEN LIMITED INDICATIONS: CIRRHOSIS TECHNIQUE: Real-time focused scanning was performed of the abdomen, with image documentation. COMPARISON: [facility], CT, CT ANGIO CHEST ABDOMEN PELVIS, 06/21/2020, 8:27. CT 06/21/20 with contrast reviewed.. FINDINGS: The liver is normal in size, and demonstrates a mild fatty infiltration pattern. The left lateral hepatic segment is asymmetrically enlarged, a finding frequently seen in the setting of cirrhosis. Anterior capsular margination of the liver border is also noted. The main portal vein is patent with appropriate direction of flow. Bile ducts are not distended. Gallbladder is surgically absent. IMPRESSION: Cirrhotic change with mild fatty infiltration involving the liver parenchyma. No ascites varices are found, mass lesion within the liver, prior cholecystectomy. Dictated by: Patricio Hodgson M.D. on 11/07/2020 at 11:09 Approved by: Patricio Hodgson M.D. on 11/07/2020 at 11:11
[2020-11-08 07:39] LABS: Alpha Fetoprotein 2.5 ng/mL (0.0-8.3)
== END ==
PROVIDERS: PCP Internal Medicine; Referring Provider Internal Medicine; Visit Provider Internal Medicine
DX: K74.60 Unspecified cirrhosis of liver (principal); Z90.49 Acquired absence of other specified parts of digestive tract
CPT/HCPCS: 36415; 76705; 82105

== ENCOUNTER → 2020-11-09 12:31 | Outpatient (CLI) | payer MEDICARE, OTHER, SELFPAY ==
[2020-06-20 20:41] VITALS: BMI 41.5
--- NOTE | 2020-11-09 12:33 | DI.CT.S_ITS ---
PROCEDURE: CT ABDOMEN PELVIS W CON INDICATIONS: Right lower quadrant pain TECHNIQUE: After the administration of intravenous contrast, 5 mm thick sections acquired from the diaphragm to the symphysis. 5 mm coronal and sagittal reformats were acquired. For radiation dose reduction, the following was used: automated exposure control, adjustment of mA and/or kV according to patient size. COMPARISON: None. FINDINGS: Image quality: Excellent. ABDOMEN: Lung bases: Lung bases are clear. Heart size is normal. Solid organs: Liver is abnormal in morphology but normal in enhancement. There is asymmetric mild atrophy of the low right hepatic lobe and hypertrophy of the left hepatic lobe with nodular margination in a pattern generally seen in the setting of present. cirrhosis. Gallbladder appears previously resected. Biliary system is non dilated. Pancreas enhances normally. Spleen is mildly enlarged in size at 13.5 cm craniocaudad but normal in enhancement. No adrenal nodules. Kidneys demonstrate normal size and enhancement, without hydronephrosis. Peritoneum and bowel: Bowel loops demonstrate normal wall thickness and caliber. No free fluid or air. Nodes and vessels: No retroperitoneal or mesenteric adenopathy by size criteria. Aorta and inferior vena cava are normal in size. Miscellaneous: No ventral hernias. PELVIS: Genitourinary: Bladder wall thickness is normal. Miscellaneous: No inguinal hernias or adenopathy. Acute appendicitis is found at the right lower quadrant, with periappendiceal edema and abnormal appendiceal enhancement and thickening, with maximal transverse dimension of the appendix 10 mm. A periappendiceal abscess is not present. Bones: No suspicious bony lesions. No vertebral body compression fractures. IMPRESSION: 1. Acute appendicitis right lower quadrant without evidence of appendiceal perforation at this time. 10 mm diameter appendix, no appendicoliths is seen. 2. There is a morphologic pattern of relative right hepatic mild atrophy, and hypertrophy of the left lateral hepatic segment which is nodular. Splenomegaly. Early cirrhosis and early portal hypertension is the presumed cause. Ascites and varices have not yet developed. 3. Prior cholecystectomy. Dictated by: Patricio Hodgson M.D. on 11/09/2020 at 14:39 Approved by: Patricio Hodgson M.D. on 11/09/2020 at 14:44
== END ==
PROVIDERS: PCP Internal Medicine; Referring Provider Internal Medicine; Visit Provider Internal Medicine
DX: R10.31 Right lower quadrant pain (principal); K35.80 Unspecified acute appendicitis; R16.1 Splenomegaly, not elsewhere classified; Z90.49 Acquired absence of other specified parts of digestive tract
CPT/HCPCS: 74177

== ENCOUNTER 2020-11-09 15:47 | Observation (INO) | payer MEDICARE, OTHER, SELFPAY ==
[2020-06-20 20:41] VITALS: BMI 41.5
[2020-11-09] VITALS (9 sets, daily range): BP systolic 123–181; BP diastolic 57–83; PULSE 73–84; RESP 16–18; TEMP 36.7–37.1; O2SAT 94–99; BMI 37.9
[2020-11-09 16:13] LABS: Add Manual Diff / Slide Review NO; Basophils Absolute Auto 0 /uL (0-100); Basophils Percent Auto 0.6 % (0-2); Eosinophils Absolute Auto 200 /uL (0-450); Hematocrit 39.4 % (36-46); Hemoglobin 13.3 g/dL (12.0-16.0); Lymphocytes Absolute Auto 1800 /uL (1100-4500); Lymphocytes Percent Auto 28.5 % (25-40); Mean Corpuscular HGB Conc 33.7 % (30-36); Mean Corpuscular Hemoglobin 32.1 PG (26-34); Mean Corpuscular Volume 95.1 fL (80-100); Monocytes Absolute Auto 500 /uL (0-900); Monocytes Percent Auto 7.3 % (3-14); Neutrophils Absolute Auto 3800 /uL (1500-7000); Neutrophils Percent Auto 60.6 % (50-75); Platelet Count 151 X10^3/uL (150-400); Red Blood Cell Count 4.15 X10^6/uL (4.0-5.2); Red Cell Distribution Width 13.7 % (11.6-14.8); White Blood Cell Count 6.3 X10^3/uL (4.5-11.0)
[2020-11-09] MEDS: PIPERACILLIN-TAZO 3.375 GM/50 ML FROZ.PIGGY IV ×2 (16:15→21:19)
[2020-11-09] MEDS: SODIUM CHLORIDE 0.9% 1,000 ML 1000 ML IV (16:16)
[2020-11-09 16:20] LABS: COVID19 -Nasal RAPID Negative (Negative)
[2020-11-09 16:20] LABS: INR 1.1 (0.9-1.3); Prothrombin Time 12.9 SECONDS (10.1-12.7)
--- NOTE | 2020-11-09 16:24 | ED.ABDPAIN ---
HPI - Abdominal Pain General Chief Complaint: Abdominal Pain Stated Complaint: APPENDICITIS SENT BY DOCTOR Time Seen by Provider: 11/09/20 15:50 Source: patient Mode of arrival: Ambulatory Limitations: no limitations History of Present Illness HPI narrative: 65-year-old female nonsmoker with history of mild cirrhosis presents with an outpatient diagnosis of appendicitis. On Thursday evening she started developing increasingly severe right lower quadrant pain with nausea and vomiting. Her pain was most significant on Thursday and started slowly improving. She has had no fever or chills nor any ongoing nausea or vomiting. She has a normal appetite. She had an outpatient CT scan today which noted appendicitis at which point she was called to come to the emergency department for evaluation. She takes no blood thinners. She last had anything to eat or drink at 3:00 p.m. today. As stated, her discomfort is minimal but seems to maybe be worse with motion and improves with rest MD complaint: abdominal pain Onset (ago): day(s) Pain Consistency: other (improving) Location: RLQ Severity: mild Quality: cramping Radiation: none Relieving factors: rest Exacerbating factors: movement Associated symptoms: nausea and vomiting Related Data Home Medications Medication Instructions Recorded Confirmed albuterol sulfate 90 mcg/actuation 2 puff INHALATION Q6H PRN 03/02/18 11/09/20 aerosol inhaler clindamycin phosphate 1 % topical 1 applictn TOP BEDTIME PRN 03/02/18 11/09/20 solution algugsome-bgwV-xfxokpv-FOS-bromelain 1 mg PO DAILY ml 03/02/18 11/09/20 1,937 mg-188 mg/15 mL oral liquid Resmed Airsense 10 CPAP #1 ea 04/13/19 06/21/20 tolterodine 2 mg capsule,extended 4 mg PO DAILY cap 04/11/20 11/09/20 release 24 hr folic acid 1 mg tablet 1 mg PO DAILY 05/22/20 11/09/20 naproxen sodium 220 mg tablet 220 mg PO BID PRN 05/22/20 11/09/20 aspirin 81 mg tablet,delayed 81 mg PO DAILY 08/06/20 11/09/20 release carvedilol 6.25 mg tablet 6.25 mg PO BID 10/09/20 11/09/20 hydrochlorothiazide 25 mg tablet 25 mg PO DAILY tab 10/09/20 11/09/20 methotrexate sodium 2.5 mg tablet 15 mg PO QWEEK tab 10/09/20 11/09/20 betamethasone dipropionate 1 applic TOPICAL DAILY PRN 11/09/20 11/09/20 cholecalciferol (vitamin D3) 125 mcg PO DAILY 11/09/20 11/09/20 [Vitamin D3] cyanocobalamin (vitamin B-12) 100 mcg PO DAILY 11/09/20 11/09/20 [Vitamin B-12] estradiol [Yuvafem] 10 mcg VAGINAL 2XW 11/09/20 11/09/20 fluticasone propion-salmeterol 1 inh INHALATION BID PRN 11/09/20 11/09/20 [Advair Diskus] loratadine-pseudoephedrine 1 tab PO DAILY 11/09/20 11/09/20 [Claritin-D 24 Hour] nystatin 1,000,000 unit PO BID 11/09/20 11/09/20 nystatin-triamcinolone 1 applic TOPICAL DAILY 11/09/20 11/09/20 venlafaxine 150 mg PO DAILY 11/09/20 11/09/20 Allergies Allergy/AdvReac Type Severity Reaction Status Date / Time clarithromycin [From BIAXIN] Allergy Unknown Verified 11/09/20 16:05 ciprofloxacin AdvReac Severe tendonitis Verified 11/09/20 16:05 sulfamethoxazole AdvReac Intermediate Nausea Verified 11/09/20 16:05 [From Bactrim] trimethoprim [From Bactrim] AdvReac Intermediate Nausea Verified 11/09/20 16:05 Review of Systems Constitutional Constitutional: Denies chills, Denies fatigue, Denies fever(s), Denies frequent falls, Denies lethargy and Denies weakness Eyes Eyes: Denies change in vision, Denies eye discharge, Denies irritation and Denies loss of vision ENT Ears, Nose, Mouth, and Throat: Denies change in voice, Denies dizziness, Denies neck pain, Denies sore throat and Denies throat swelling Cardiovascular Cardiovascular: Denies chest pain, Denies irregular heart rhythm, Denies lightheadedness, Denies palpitations, Denies dyspnea, Denies dyspnea on exertion and Denies orthopnea Respiratory Respiratory: Denies cough, Denies dyspnea, Denies dyspnea on exertion and Denies wheezing Gastrointestinal Gastrointestinal: Reports abdominal pain, Denies change in bowel habits, Denies diarrhea, Reports nausea and Reports vomiting Musculoskeletal Musculoskeletal: Denies neck pain and Denies numbness Integumentary/Breasts Skin/Breast: Denies pruritus, Denies erythema, Denies rash and Denies wounds Neurologic Neurologic: Denies behavioral changes, Denies confusion, Denies dizziness, Denies frequent falls, Denies loss of vision, Denies numbness and Denies weakness Psychiatric Psychiatric: Denies anxiety, Denies behavioral changes, Denies confusion, Denies depression, Denies homicidal ideation and Denies suicidal ideation Endocrine Endocrine: Denies fatigue, Denies flushing and Denies palpitations Hematologic/Lymphatic Hematologic/Lymphatic: Denies easy bruising Allergic/Immunologic Allergic/Immunologic: Denies urticaria, Denies throat swelling and Denies wheezing Patient History Medical History Arthritis Asthma Basal cell carcinoma (BCC) in situ of skin Depression Diastolic heart failure GERD (gastroesophageal reflux disease) Hayfever History of chronic urinary tract infection History of prediabetes Hx of lipoma Hypertension Hypertrophic obstructive cardiomyopathy (~05/2020) Insulin resistance Left ventricular outflow tract obstruction Liver disease Lower extremity edema Obstructive sleep apnea (~2005) Osteoarthritis PCOS (polycystic ovarian syndrome) Polymyalgia rheumatica Primary insomnia Rosacea Snoring Surgical History History of third molar tooth extraction (1973) History of tonsillectomy (1958) Status post delivery (12/28/80) Status post cholecystectomy (1991) Status post colonoscopy (2013) Status post dilation and curettage (09/16/11) Family History Father CVA (cerebral vascular accident) Chronic lymphocytic leukemia Mother Lewy body dementia Other Dementia Habitual snoring Social History marital status: number of children: 1 household members: spouse occupational status: previously employed Smoking Status: Never smoker alcohol intake: never substance use type: does not use caffeine: Yes Smoking Status: Never smoker alcohol intake frequency: a few times a week Substance Use Type: does not use Exam Narrative Exam Narrative: GENERAL: [65] year old patient appears stated age. Well-nourished, well-developed patient, in mild distress. HEAD: Atraumatic. Normocephalic. EYES: Pupils equal round and reactive. Extraocular motions intact. No scleral icterus. No injection or drainage. ENT: Nose without bleeding, purulent drainage. Throat without erythema, tonsillar hypertrophy or exudate. Airway patent. NECK: Trachea midline. Non tender CARDIOVASCULAR: Regular rate and rhythm without murmurs, gallops, or rubs. RESPIRATORY: Clear to auscultation. Breath sounds equal bilaterally. No wheezes, rales, or rhonchi. GASTROINTESTINAL: Abdomen soft, mild RLQ pain, nondistended. NO rebound. No heel tap or obturators EXTREMITIES: No edema or joint tenderness. BACK: Nontender without deformity or crepitance. No flank tenderness. NEURO: AOx3. SKIN: No rash or erythema of visible areas Initial Vital Signs Initial Vital Signs: Vital Signs Pulse Rate 84 11/09/20 16:01 Pulse Oximetry 98 11/09/20 16:01 Course Orders Ordered: ED Orders 11/09/20 15:55 COVID19 Stat 11/09/20 16:05 Complete Blood Count AUTO DIFF Stat Comprehensive Metabolic Panel Stat Prothrombin Time INR Stat Fentanyl (Fentanyl 100 Mcg/2 Ml Inj) 0 mcg IV Q5M PRN PRN Reason: Pain, Moderate (4-6) Lactated Ringer's (Lactated Ringers) 1,000 mls @ 42 mls/hr IV CONT BELTRAN Ondansetron HCl (Ondansetron 4 Mg/2 Ml Inj) 4 mg IV NOW PRN PRN Reason: Nausea And Vomiting Discontinued Medications Sodium Chloride (Normal Saline 0.9%) 1,000 mls @ 1,000 mls/hr IV BOLUS ONE Stop: 11/09/20 16:49 Last Admin: 11/09/20 16:16 Dose: 1,000 mls/hr Documented by: SUSIE Piperacillin/Tazobactam/Dextrose (Zosyn) 3.375 gm in 50 mls @ 100 mls/hr IV NOW ONE Stop: 11/09/20 16:38 Last Admin: 11/09/20 16:15 Dose: 100 mls/hr Documented by: SUSIE Consultations Consultation #1: Dr. Templeton to see patient at bedside, will admit to her service on ABX Vital Signs Vital signs: Vital Signs - 8 hr 11/09/20 16:01 11/09/20 16:05 Temperature 98.2 F Pulse Rate 84 84 Respiratory Rate 18 Blood Pressure 181/83 H Pulse Oximetry 98 98 MDM - Abdominal Pain Lab Data Result diagrams: 11/09/20 16:05 11/09/20 16:05 Labs: Lab Results 11/09/20 11/09/20 11/09/20 Range/Units 15:55 16:05 16:05 WBC 6.3 (4.5-11.0) X10^3/uL RBC 4.15 (4.0-5.2) X10^6/uL Hgb 13.3 (12.0-16.0) g/dL Hct 39.4 (36-46) % MCV 95.1 (80-100) fL MCH 32.1 (26-34) PG MCHC 33.7 (30-36) % RDW 13.7 (11.6-14.8) % Plt Count 151 (150-400) X10^3/uL Neut % (Auto) 60.6 (50-75) % Lymph % (Auto) 28.5 (25-40) % Hubbard % (Auto) 7.3 (3-14) % Eos % (Auto) 3.0 (2-4) % Baso % (Auto) 0.6 (0-2) % Neut # (Auto) 3800 (9518-3083) /uL Lymph # (Auto) 1800 (7323-9564) /uL Hubbard # (Auto) 500 (0-900) /uL Eos # (Auto) 200 (0-450) /uL Baso # (Auto) 0 (0-100) /uL PT 12.9 H (10.1-12.7) SECONDS INR 1.1 (0.9-1.3) Sodium (137-145) mmol/L Potassium (3.4-5.1) mmol/L Chloride (98-107) mmol/L Carbon Dioxide (22-32) mmol/L BUN (7-17) mg/dL Creatinine (0.52-1.04) mg/dL Estimated GFR (>60) mL/min BUN/Creatinine Ratio (6-22) Glucose (80-110) mg/dL Calcium (8.4-10.2) mg/dL Total Bilirubin (0.2-1.3) mg/dL AST (14-36) IU/L ALT (<35) IU/L Alkaline Phosphatase (38-126) U/L Total Protein (6.3-8.2) g/dL Albumin (3.5-5.0) g/dL Globulin (1.7-4.1) g/dL Albumin/Globulin Ratio (1.0-2.8) SARS-CoV-2 (PCR) Negative (Negative) 11/09/20 Range/Units 16:05 WBC (4.5-11.0) X10^3/uL RBC (4.0-5.2) X10^6/uL Hgb (12.0-16.0) g/dL Hct (36-46) % MCV (80-100) fL MCH (26-34) PG MCHC (30-36) % RDW (11.6-14.8) % Plt Count (150-400) X10^3/uL Neut % (Auto) (50-75) % Lymph % (Auto) (25-40) % Hubbard % (Auto) (3-14) % Eos % (Auto) (2-4) % Baso % (Auto) (0-2) % Neut # (Auto) (4548-8373) /uL Lymph # (Auto) (1754-8276) /uL Hubbard # (Auto) (0-900) /uL Eos # (Auto) (0-450) /uL Baso # (Auto) (0-100) /uL PT (10.1-12.7) SECONDS INR (0.9-1.3) Sodium 139 (137-145) mmol/L Potassium 3.5 (3.4-5.1) mmol/L Chloride 103 (98-107) mmol/L Carbon Dioxide 32 (22-32) mmol/L BUN 14 (7-17) mg/dL Creatinine 0.66 (0.52-1.04) mg/dL Estimated GFR > 60.0 (>60) mL/min BUN/Creatinine Ratio 21.2 (6-22) Glucose 81 (80-110) mg/dL Calcium 9.0 (8.4-10.2) mg/dL Total Bilirubin 0.4 (0.2-1.3) mg/dL AST 36 (14-36) IU/L ALT 19 (<35) IU/L Alkaline Phosphatase 85 (38-126) U/L Total Protein 7.3 (6.3-8.2) g/dL Albumin 4.1 (3.5-5.0) g/dL Globulin 3.2 (1.7-4.1) g/dL Albumin/Globulin Ratio 1.3 (1.0-2.8) SARS-CoV-2 (PCR) (Negative) Imaging Data CT scan - abdomen/pelvis: Radiologist's Impression: Chart Viewer Diagnostics DATE TYPE STATUS REF RANGE/AUTHOR Hx Today 12:33 Patricio Hodgson 11/07/20 00:00 Patricio Hodgson 11/06/20 00:00 Tomasz Ge 10/10/20 00:00 Jesus Ramos 06/22/20 06:37 Paliwal,Vikareem 06/22/20 06:37 Paliwal,Vidhu 06/21/20 07:59 Melissa Dixon 06/20/20 19:03 06/20/20 15:38 Liliam Zaldivar 06/20/20 00:00 06/20/20 00:00 Astrid Christine 06/01/20 06:50 05/09/20 00:00 Tomasz Ge 08/11/19 00:00 Ankit Baez 05/20/19 00:00 Paliwal,Vidhu 04/01/19 00:00 KiviatGeraldine 10/15/18 00:00 03/25/18 00:00 Kiviat,Geraldine 03/24/18 00:00 Pasha Stubbs Betty A 65, F1955 ADM [place], [facility] R05 165.1cm 103.419kg BMI: 37.9kg/m? Search Chart No Data to Display NonFormulary Not Included in Conflicts tendonitis Nausea Nausea ONSET ~2005 ~05/2020 Today 17:00 Marie Bernal F [address] [id number] Scan ReportAddendum Patient: Marie Bernal AMR#: [id number]: 1955cct:[id number]/Sex: 65 / FDate of Service: 11/09/20Loc: CTAccession Number: [id number] Procedure: CT abdomen pelvis w con Ordering Provider: Jj Hernandez MD ADDENDUMThis report includes an Addendum and supersedes previous reports for this exam. PROCEDURE: CT ABDOMEN PELVIS W CON INDICATIONS: Right lower quadrant pain TECHNIQUE: After the administration of intravenous contrast, 5 mm thick sections acquired from the diaphragm to the symphysis. 5 mm coronal and sagittal reformats were acquired. For radiation dose reduction, the following was used: automated exposure control, adjustment of mA and/or kV according to patient size. COMPARISON: None. FINDINGS: Image quality: Excellent. ABDOMEN: Lung bases: Lung bases are clear. Heart size is normal. Solid organs: Liver is abnormal in morphology but normal in enhancement. There is asymmetric mild atrophy of the low right hepatic lobe and hypertrophy of the left hepatic lobe with nodular margination in a pattern generally seen in the setting of present. cirrhosis. Gallbladder appears previously resected. Biliary system is non dilated. Pancreas enhances normally. Spleen is mildly enlarged in size at 13.5 cm craniocaudad but normal in enhancement. No adrenal nodules. Kidneys demonstrate normal size and enhancement, without hydronephrosis. Peritoneum and bowel: Bowel loops demonstrate normal wall thickness and caliber. No free fluid or air. Nodes and vessels: No retroperitoneal or mesenteric adenopathy by size criteria. Aorta and inferior vena cava are normal in size. Miscellaneous: No ventral hernias. PELVIS: Genitourinary: Bladder wall thickness is normal. Miscellaneous: No inguinal hernias or adenopathy. Acute appendicitis is found at the right lower quadrant, with periappendiceal edema and abnormal appendiceal enhancement and thickening, with maximal transverse dimension of the appendix 10 mm. A periappendiceal abscess is not present. Bones: No suspicious bony lesions. No vertebral body compression fractures. IMPRESSION: 1. Acute appendicitis right lower quadrant without evidence of appendiceal perforation at this time. 10 mm diameter appendix, no appendicoliths is seen. 2. There is a morphologic pattern of relative right hepatic mild atrophy, and hypertrophy of the left lateral hepatic segment which is nodular. Splenomegaly. Early cirrhosis and early portal hypertension is the presumed cause. Ascites and varices have not yet developed. 3. Prior cholecystectomy. Dictated by: Patricio Hodgson M.D. on 11/09/2020 at 14:39 Approved by: Patricio Hodgson M.D. on 11/09/2020 at 14:44 ADDENDUM: The ordering healthcare provider could not be personally contacted. The clinic was then contacted and the cross covering healthcare provider was located, and the details were discussed including the recommendation for the patient to be returned to the hospital for surgical consultation. Dictated by: Patricio Hodgson M.D. on 11/09/2020 at 14:54 Approved by: Patricio Hodgson M.D. on 11/09/2020 at 14:56 Addendum Dictated By:Patricio Hodgson MDAddendum Signed By:Addendum Cosigned By:DD/ TD/TT: 11/09/2009/17/1456 PROCEDURE: CT ABDOMEN PELVIS W CON INDICATIONS: Right lower quadrant pain TECHNIQUE: After the administration of intravenous contrast, 5 mm thick sections acquired from the diaphragm to the symphysis. 5 mm coronal and sagittal reformats were acquired. For radiation dose reduction, the following was used: automated exposure control, adjustment of mA and/or kV according to patient size. COMPARISON: None. FINDINGS: Image quality: Excellent. ABDOMEN: Lung bases: Lung bases are clear. Heart size is normal. Solid organs: Liver is abnormal in morphology but normal in enhancement. There is asymmetric mild atrophy of the low right hepatic lobe and hypertrophy of the left hepatic lobe with nodular margination in a pattern generally seen in the setting of present. cirrhosis. Gallbladder appears previously resected. Biliary system is non dilated. Pancreas enhances normally. Spleen is mildly enlarged in size at 13.5 cm craniocaudad but normal in enhancement. No adrenal nodules. Kidneys demonstrate normal size and enhancement, without hydronephrosis. Peritoneum and bowel: Bowel loops demonstrate normal wall thickness and caliber. No free fluid or air. Nodes and vessels: No retroperitoneal or mesenteric adenopathy by size criteria. Aorta and inferior vena cava are normal in size. Miscellaneous: No ventral hernias. PELVIS: Genitourinary: Bladder wall thickness is normal. Miscellaneous: No inguinal hernias or adenopathy. Acute appendicitis is found at the right lower quadrant, with periappendiceal edema and abnormal appendiceal enhancement and thickening, with maximal transverse dimension of the appendix 10 mm. A periappendiceal abscess is not present. Bones: No suspicious bony lesions. No vertebral body compression fractures. IMPRESSION: 1. Acute appendicitis right lower quadrant without evidence of appendiceal perforation at this time. 10 mm diameter appendix, no appendicoliths is seen. 2. There is a morphologic pattern of relative right hepatic mild atrophy, and hypertrophy of the left lateral hepatic segment which is nodular. Splenomegaly. Early cirrhosis and early portal hypertension is the presumed cause. Ascites and varices have not yet developed. 3. Prior cholecystectomy. Dictated by: Patricio Hodgson M.D. on 11/09/2020 at 14:39 Approved by: Patricio Hodgson M.D. on 11/09/2020 at 14:44 Discharge Plan Departure Patient Disposition: Admitted As Inpatient Clinical Impression: Acute appendicitis Qualifiers: Acute appendicitis type: with localized peritonitis Appendicitis gangrene presence: without gangrene Appendicitis perforation presence: without perforation Appendicitis abscess presence: without abscess Qualified Code(s): K35.30 - Acute appendicitis with localized peritonitis, without perforation or gangrene Admit Date/Time: 11/09/20 17:19 Admit Provider: Naida Matos
[2020-11-09 16:25] LABS: Alanine Aminotransferase 19 IU/L (<35); Albumin 4.1 g/dL (3.5-5.0); Albumin Globulin Ratio 1.3 (1.0-2.8); Alkaline Phosphatase 85 U/L (38-126); Aspartate Aminotransferase 36 IU/L (14-36); BUN Creatinine Ratio 21.2 (6-22); Bilirubin Total 0.4 mg/dL (0.2-1.3); Blood Urea Nitrogen 14 mg/dL (7-17); Carbon Dioxide 32 mmol/L (22-32); Chloride 103 mmol/L (98-107); Estimated Glomerular Filt Rate > 60.0 mL/min (>60); Globulin 3.2 g/dL (1.7-4.1); Glucose 81 mg/dL (80-110); HEMOLYSIS < 15 (0-50); Potassium 3.5 mmol/L (3.4-5.1); Sodium 139 mmol/L (137-145); Total Protein 7.3 g/dL (6.3-8.2)
--- NOTE | 2020-11-09 16:44 | P.HP_ITS ---
History of Present Illness History of Present Illness Date Patient Seen: 11/09/20 Time Patient Seen: 16:44 Chief complaint: APPENDICITIS SENT BY DOCTOR Narrative: This is a 65 yo woman with history of polymyalgia rheumatica, arthritis, asthma, HOCM with left ventricular outflow tract obx, GERD, prediabetes, HTN, liver cirrhosis, LE edema, JOCELYNE, OA, PCOS who comes in with four days of abdominal pain starting on Thursday night after dinner. She reports she had a severe pain in her right lower abdomen and began to vomit after dinner. She called her primary care and was sent for an xray, US, and today was sent for a CT scan which was read as acute appendicitis. She was called and told to go into the ER because of this finding. She reports she feels better now than she has all week. She denies nausea, vomiting, diarrhea, subjective fevers/chills. She has some low grade RLQ pain as her only symptom. Her labs reveal WBC of 6 with no left shift. Her coags and chemistries are also normal. She is on methotrexate for PMR which may reduce her inflammatory response. ROS: Thirteen system review is otherwise negative other than as mentioned below and in HPI. PE: GENERAL: Alert, comfortable. Morbidly obese. Appears stated age. Answers questions promptly and appropriately. Vital signs noted. HENT: Normocephalic, atraumatic. Hearing intact. EYES: Conjunctiva pink, sclera white, no periorbital swelling. CARDIOVASCULAR: Regular rate. bilateral lower extremity edema, baseline RESPIRATORY: Non-tachypneic, breathing comfortably on room air. GASTROINTESTINAL: Abdomen soft and non-distended, mild tenderness to deep palpation of the right lower quadrant GENITALURINARY: No flank tenderness. MUSCULOSKELETAL: Equal tone and mass bilaterally. SKIN: Warm, dry, soft, appropriate color for ethnicity. No other lesions, rashes, or wounds. NEURO: Alert and Oriented X 3. No gross sensory deficits, or cognitive issues. PSYCH: Appropriate affect and mood. Patient History Medical History Arthritis Asthma Basal cell carcinoma (BCC) in situ of skin Depression Diastolic heart failure GERD (gastroesophageal reflux disease) Hayfever History of chronic urinary tract infection History of prediabetes Hx of lipoma Hypertension Hypertrophic obstructive cardiomyopathy (~05/2020) Insulin resistance Left ventricular outflow tract obstruction Liver disease Lower extremity edema Obstructive sleep apnea (~2005) Osteoarthritis PCOS (polycystic ovarian syndrome) Polymyalgia rheumatica Primary insomnia Rosacea Snoring Surgical History History of third molar tooth extraction (1973) History of tonsillectomy (1958) Status post delivery (12/28/80) Status post cholecystectomy (1991) Status post colonoscopy (2013) Status post dilation and curettage (09/16/11) Family & Social History Family History Father CVA (cerebral vascular accident) Chronic lymphocytic leukemia Mother Lewy body dementia Other Dementia Habitual snoring Social History: household members spouse Safety & Behavioral: Feels Safe in Current Yes Environment Tobacco & Substance use: Smoking Status Never smoker alcohol intake never alcohol intake frequency a few times a week Substance Use Type does not use Meds Home Medications and Allergies Home Medications Medication Instructions Recorded Confirmed Type albuterol sulfate 90 mcg/actuation 2 puff INHALATION Q6H PRN 03/02/18 11/09/20 History aerosol inhaler clindamycin phosphate 1 % topical 1 applictn TOP BEDTIME PRN 03/02/18 11/09/20 History solution dxenpjrej-ujyY-zbowzkt-FOS-bromelain 1 mg PO DAILY ml 03/02/18 11/09/20 History 1,937 mg-188 mg/15 mL oral liquid Resmed Airsense 10 CPAP #1 ea 04/13/19 06/21/20 History tolterodine 2 mg capsule,extended 4 mg PO DAILY cap 04/11/20 11/09/20 History release 24 hr folic acid 1 mg tablet 1 mg PO DAILY 05/22/20 11/09/20 History naproxen sodium 220 mg tablet 220 mg PO BID PRN 05/22/20 11/09/20 History aspirin 81 mg tablet,delayed 81 mg PO DAILY 08/06/20 11/09/20 History release carvedilol 6.25 mg tablet 6.25 mg PO BID 10/09/20 11/09/20 History hydrochlorothiazide 25 mg tablet 25 mg PO DAILY tab 10/09/20 11/09/20 History methotrexate sodium 2.5 mg tablet 15 mg PO QWEEK tab 10/09/20 11/09/20 History betamethasone dipropionate 1 applic TOPICAL DAILY PRN 11/09/20 11/09/20 History cholecalciferol (vitamin D3) 125 mcg PO DAILY 11/09/20 11/09/20 History [Vitamin D3] cyanocobalamin (vitamin B-12) 100 mcg PO DAILY 11/09/20 11/09/20 History [Vitamin B-12] estradiol [Yuvafem] 10 mcg VAGINAL 2XW 11/09/20 11/09/20 History fluticasone propion-salmeterol 1 inh INHALATION BID PRN 11/09/20 11/09/20 History [Advair Diskus] loratadine-pseudoephedrine 1 tab PO DAILY 11/09/20 11/09/20 History [Claritin-D 24 Hour] nystatin 1,000,000 unit PO BID 11/09/20 11/09/20 History nystatin-triamcinolone 1 applic TOPICAL DAILY 11/09/20 11/09/20 History venlafaxine 150 mg PO DAILY 11/09/20 11/09/20 History Allergies Allergy/AdvReac Type Severity Reaction Status Date / Time clarithromycin [From BIAXIN] Allergy Unknown Verified 11/09/20 16:05 ciprofloxacin AdvReac Severe tendonitis Verified 11/09/20 16:05 sulfamethoxazole AdvReac Intermediate Nausea Verified 11/09/20 16:05 [From Bactrim] trimethoprim [From Bactrim] AdvReac Intermediate Nausea Verified 11/09/20 16:05 Exam Vital Signs (past 8 hours): - 11/09/20 16:05 Temperature 98.2 F Pulse Rate 84 Respiratory Rate 18 Blood Pressure 181/83 H Pulse Oximetry 98 Oxygen Delivery Method Room Air Objective Imaging CT scan - abdomen: Radiologist's impression: [address] [id number] Scan ReportAddendum Patient: Marie Bernal [facility]#: [id number]: [id number]/Sex: 65 / FDate of Service: 11/09/20Loc: CTAccession Number: [id number] Procedure: CT abdomen pelvis w con Ordering Provider: Jj Hernandez MD ADDENDUMThis report includes an Addendum and supersedes previous reports for this exam. PROCEDURE: CT ABDOMEN PELVIS W CON INDICATIONS: Right lower quadrant pain TECHNIQUE: After the administration of intravenous contrast, 5 mm thick sections acquired from the diaphragm to the symphysis. 5 mm coronal and sagittal reformats were acquired. For radiation dose reduction, the following was used: automated exposure control, adjustment of mA and/or kV according to patient size. COMPARISON: None. FINDINGS: Image quality: Excellent. ABDOMEN: Lung bases: Lung bases are clear. Heart size is normal. Solid organs: Liver is abnormal in morphology but normal in enhancement. There is asymmetric mild atrophy of the low right hepatic lobe and hypertrophy of the left hepatic lobe with nodular margination in a pattern generally seen in the setting of present. cirrhosis. Gallbladder appears previously resected. Biliary system is non dilated. Pancreas enhances normally. 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 No adrenal nodules. Kidneys demonstrate normal size and enhancement, without hydronephrosis. Peritoneum and bowel: Bowel loops demonstrate normal wall thickness and caliber. No free fluid or air. Nodes and vessels: No retroperitoneal or mesenteric adenopathy by size criteria. Aorta and inferior vena cava are normal in size. Miscellaneous: No ventral hernias. PELVIS: Genitourinary: Bladder wall thickness is normal. Miscellaneous: No inguinal hernias or adenopathy. Acute appendicitis is found at the right lower quadrant, with periappendiceal edema and abnormal appendiceal enhancement and thickening, with maximal transverse dimension of the appendix 10 mm. A periappendiceal abscess is not present. Bones: No suspicious bony lesions. No vertebral body compression fractures. IMPRESSION: 1. Acute appendicitis right lower quadrant without evidence of appendiceal perforation at this time. 10 mm diameter appendix, no appendicoliths is seen. 2. There is a morphologic pattern of relative right hepatic mild atrophy, and hypertrophy of the left lateral hepatic segment which is nodular. Splenomegaly. Early cirrhosis and early portal hypertension is the presumed cause. Ascites and varices have not yet developed. 3. Prior cholecystectomy. Dictated by: Patricio Hodgson M.D. on 11/09/2020 at 14:39 Approved by: Patricio Hodgson M.D. on 11/09/2020 at 14:44 ADDENDUM: The ordering healthcare provider could not be personally contacted. The clinic was then contacted and the cross covering healthcare provider was located, and the details were discussed including the recommendation for the patient to be returned to the hospital for surgical consultation. Labs Result Diagrams: 11/09/20 16:05 11/09/20 16:05 Labs: Laboratory Results - last 24 hr 11/09/20 11/09/20 11/09/20 15:55 16:05 16:05 WBC 6.3 RBC 4.15 Hgb 13.3 Hct 39.4 MCV 95.1 MCH 32.1 MCHC 33.7 RDW 13.7 Plt Count 151 Neut % (Auto) 60.6 Lymph % (Auto) 28.5 Norman % (Auto) 7.3 Eos % (Auto) 3.0 Baso % (Auto) 0.6 Neut # (Auto) 3800 Lymph # (Auto) 1800 Norman # (Auto) 500 Eos # (Auto) 200 Baso # (Auto) 0 PT 12.9 H INR 1.1 Sodium Potassium Chloride Carbon Dioxide BUN Creatinine Estimated GFR BUN/Creatinine Ratio Glucose Calcium Total Bilirubin AST ALT Alkaline Phosphatase Total Protein Albumin Globulin Albumin/Globulin Ratio SARS-CoV-2 (PCR) Negative 11/09/20 16:05 WBC RBC Hgb Hct MCV MCH MCHC RDW Plt Count Neut % (Auto) Lymph % (Auto) Norman % (Auto) Eos % (Auto) Baso % (Auto) Neut # (Auto) Lymph # (Auto) Norman # (Auto) Eos # (Auto) Baso # (Auto) PT INR Sodium 139 Potassium 3.5 Chloride 103 Carbon Dioxide 32 BUN 14 Creatinine 0.66 Estimated GFR > 60.0 BUN/Creatinine Ratio 21.2 Glucose 81 Calcium 9.0 Total Bilirubin 0.4 AST 36 ALT 19 Alkaline Phosphatase 85 Total Protein 7.3 Albumin 4.1 Globulin 3.2 Albumin/Globulin Ratio 1.3 SARS-CoV-2 (PCR) Assessment & Plan Assessment and plan (1) Acute appendicitis: Qualifiers: Acute appendicitis type: with localized peritonitis Appendicitis abscess presence: without abscess Appendicitis gangrene presence: without gangrene Appendicitis perforation presence: without perforation Qualified Code(s): K35.30 - Acute appendicitis with localized peritonitis, without perforation or gangrene Status: Acute (2) Hypertrophic obstructive cardiomyopathy: Status: Chronic (3) Obstructive sleep apnea: Status: Chronic (4) Morbid obesity with BMI of 40.0-44.9, adult: Status: Acute (5) Polymyalgia rheumatica: Status: Acute (6) PCOS (polycystic ovarian syndrome): Status: Chronic (7) Obstructive sleep apnea of adult: Status: Chronic (8) Hypertension: Qualifiers: Hypertension type: unspecified Qualified Code(s): I10 - Essential (primary) hypertension Status: Resolved (9) GERD (gastroesophageal reflux disease): Qualifiers: Esophagitis presence: esophagitis presence not specified Qualified Code(s): K21.9 - Gastro-esophageal reflux disease without esophagitis Status: Chronic (10) Asthma: Qualifiers: Asthma severity: unspecified severity Asthma persistence: unspecified Asthma complication type: unspecified Qualified Code(s): J45.909 - Unspecified asthma, uncomplicated Status: Chronic (11) History of prediabetes: Status: Inactive (12) Left ventricular outflow tract obstruction: Status: Inactive (13) Liver disease: Status: Inactive Assessment & Plan narrative: This is a 65-year-old woman with a mild presentation of acute appendicitis. We discussed the risks and benefits of surgery verses antibiotic treatment. I told her that if she is treated with antibiotics, she has at least a 3 in 10 chance of recurrent appendicitis in the future. She would get 24 hours of IV antibiotics, and if her labs and exam continue to improve, she would go home on 2 weeks of oral antibiotics. I told her that surgery would involve likely laparoscopic but possible open appendectomy, she would likely be able to go home tomorrow, and would have a week or so of recovering at home, with 4 weeks of no lifting more than 10 lb and no straining for the port sites to heal. She understands there are risks of bleeding, infection, damage to nearby structures, need for additional procedures, abscess, bowel obstruction, risks of anesthesia. During this discu ssion she indicated that she would prefer to undergo antibiotic treatment rather than surgical removal of the appendix because she is supposed to get her COVID shot on Thursday, and she has shoulder surgery coming up in November. She said she would rather go ahead and treat with antibiotics now, rather than having surgery, and take the chance that she may have an appendicitis again later. I told her that given her white blood cell count is only 6, she appears nontoxic, and based on her CT scan her appendicitis appears quite early, that this would be a reasonable approach, so long as she continues to progress and improve on antibiotics. If she worsens, or does not improve, we would recommend that she go ahead to surgery. She is in agreement with this plan and seems to understand the risks and benefits of all that was discussed. Plan: Admit to the acute care floor for IV antibiotics x 24 hours Clear liquid Home meds Tylenol for pain Antiemetics as needed Probiotic DVT prophylaxis Stool softener Check labs in the morning, advanced diet as tolerated If improving tomorrow afternoon, she may go home by this time tomorrow with 2 weeks of oral antibiotics I told her that Dr. Sauer will be on tomorrow, would be seeing her and ultimately deciding if she could go home or would need to stay for appendectomy. She was in agreement with this. COVID-19 COVID-19 status: Negative Result date/Date tested (Pos, Neg/Pending): 11/09/20 Time Spent With Patient Time with patient: Greater than 35 minutes Quality VTE Deep Vein Thrombosis/Pulmonary Embolism Present on Admission: No
[2020-11-09] MEDS: LACTATED RINGERS 1,000 ML 100 ML IV (19:10)
[2020-11-09] MEDS: carvediloL 12.5 MG TABLET 6.25 MG PO (20:09)
[2020-11-09] MEDS: LACTOBACILLUS ACIDOPHILUS TABLET 1 EACH PO (20:09)
[2020-11-10 00:11] VITALS: BP 123/59; PULSE 73; RESP 18; TEMP 37.2; O2SAT 96
[2020-11-10 03:30] VITALS: BP 135/60; PULSE 76; RESP 16; TEMP 36.7; O2SAT 98
--- NOTE | 2020-11-10 03:31 | PC.NURSE ---
Addendum entered by Amena Ramires R.N. 11/10/20 05:52: Note: The patient shared with me that she is to get her 2nd Covid-19 vaccination on Thursday, the . Suggest provider consult with patient about postponing the vaccination until antibiotics are complete? She is also on an immunosuppressant. Antibody response to vaccine may not be optimal. Addendum entered by Amena Ramires R.N. 11/10/20 04:31: 0430 IV antibiotic infusing and will leave LR infusing to follow at 100mL/h per order. Original Note: 0000 Patient asks to shut off the IV fluids: I can't sleep with this thing making noise all night. PO intake has been excellent by report of evening nurse, and self report. Assessed for edema, negative in BLE. Shut off IV infusion for the night.
[2020-11-10] MEDS: PIPERACILLIN-TAZO 3.375 GM/50 ML FROZ.PIGGY IV ×3 (04:24→15:09)
[2020-11-10 05:40] LABS: Add Manual Diff / Slide Review NO; Basophils Absolute Auto 0 /uL (0-100); Basophils Percent Auto 0.7 % (0-2); Eosinophils Absolute Auto 100 /uL (0-450); Eosinophils Percent Auto 3.4 % (2-4); Hematocrit 36.4 % (36-46); Hemoglobin 12.3 g/dL (12.0-16.0); Lymphocytes Absolute Auto 1400 /uL (1100-4500); Lymphocytes Percent Auto 32.4 % (25-40); Mean Corpuscular HGB Conc 33.8 % (30-36); Mean Corpuscular Hemoglobin 32.4 PG (26-34); Mean Corpuscular Volume 95.6 fL (80-100); Monocytes Absolute Auto 500 /uL (0-900); Monocytes Percent Auto 11.1 % (3-14); Neutrophils Absolute Auto 2300 /uL (1500-7000); Neutrophils Percent Auto 52.4 % (50-75); Platelet Count 129 X10^3/uL (150-400); Red Blood Cell Count 3.81 X10^6/uL (4.0-5.2); Red Cell Distribution Width 14.2 % (11.6-14.8); White Blood Cell Count 4.4 X10^3/uL (4.5-11.0)
[2020-11-10 05:48] LABS: BUN Creatinine Ratio 15.6 (6-22); Blood Urea Nitrogen 10 mg/dL (7-17); Calcium 8.6 mg/dL (8.4-10.2); Carbon Dioxide 30 mmol/L (22-32); Chloride 110 mmol/L (98-107); Estimated Glomerular Filt Rate > 60.0 mL/min (>60); Glucose 95 mg/dL (80-110); HEMOLYSIS < 15 (0-50); Potassium 3.6 mmol/L (3.4-5.1); Sodium 141 mmol/L (137-145)
[2020-11-10 08:00] VITALS: BP 141/64; PULSE 75; RESP 18; TEMP 36.5; O2SAT 98
[2020-11-10] MEDS: LACTOBACILLUS ACIDOPHILUS TABLET 1 EACH PO (08:57)
[2020-11-10 09:07] VITALS: BP 141/64
[2020-11-10] MEDS: ASPIRIN EC 81 MG TABLET PO (09:07)
[2020-11-10] MEDS: carvediloL 12.5 MG TABLET 6.25 MG PO (09:07)
[2020-11-10] MEDS: CYANOCOBALAMIN (VITAMIN B-12) 100 MCG TABLET PO (09:09)
[2020-11-10] MEDS: CHOLECALCIFEROL (VITAMIN D3) 5,000 UNIT TABLET 5000 UNIT PO (09:09)
[2020-11-10] MEDS: FOLIC ACID 1 MG TABLET PO (09:10)
[2020-11-10] MEDS: LORATADINE 10 MG TABLET PO (09:10)
[2020-11-10] MEDS: hydroCHLOROthiazide 25 MG TABLET PO (09:10)
[2020-11-10] MEDS: TOLTERODINE LA 2 MG CAP 4 MG PO (09:11)
[2020-11-10] MEDS: VENLAFAXINE ER 75 MG CAP 150 MG PO (09:12)
--- NOTE | 2020-11-10 11:30 | CM.DANOTE ---
DCP: Case received, EMR reviewed and met with patient. Introduced self and role. Was able to obtain information from patient regarding her baseline activity status prior to hospitalization. DCP assessment completed with information currently available. Patient is a 65 year old female who admitted yesterday afternoon to the care of the hospitalist team. PCP: Dr. Hernandez. Payer: confirmed: Medicare/[employer]. Patient came to the hospital via private vehicle secondary to having right abdominal quadrant pain. Patient was diagnosed with acute appendicitis. Patient is being treated with IV antibiotics, and is wanting to not have surgery if possible. She will be getting surgery consult. Met with patient in her room. She is alert and oriented. She was sitting up on the chair in her room using her computer. She resides here in [place] with her spouse, Adelso. She is independent at baseline. P: DCP to continue to follow. Patient should be able to go home when she is medically stable. Sophia Vyas RN/Pathology Secretary/Transcriptionist
--- NOTE | 2020-11-10 12:06 | PC.NURSE ---
Addendum entered by Marilee Alicea R.N. 11/10/20 15:14: Patient given discharge instruction regarding follow up, medication, activity and diet modifications. Patient verbalized understanding. Addendum entered by Marilee Alicea R.N. 11/10/20 15:10: Patient eager to discharge. Spoke with Dr. Sauer, once patient receives last dose of IV abx she can discharge. Patient verbalized understanding. Original Note: Patient a/o x 4. Ambulating independently in the room. Voiding in the restroom. Denies pain. Up to chair for breakfast. Denies SOB, chest pain, dizziness or lightheadedness. Pulses equal bilaterally. Lungs clear, patient on RA. Tolerating clear liquid diet. IV is patent, ABX infused at 0945. Remains saline locked at this time. Call light in reach.
[2020-11-10 14:00] VITALS: BP 132/67; PULSE 81; RESP 18; TEMP 37; O2SAT 98
[2020-11-10 15:45] VITALS: BP 144/70; PULSE 78; RESP 16; TEMP 37; O2SAT 99
--- NOTE | 2020-11-10 16:26 | PC.NURSE ---
Pt awake, alert and sitting up in recliner. IV antibiotic has infused. Pt awaiting ride from spouse and states is confident spouse will arrive momentarily despite snowy conditions outside. [facility] RN has provided pt with discharge instructions and pt reports has all valuables in possession. Pt escorted via wheelchair by RNRosaura, to spouse's vehicle. Pt left hospital in stable condition. IV dc'd prior to discharge intact.
== END 2020-11-10 16:20 | disposition home or self-care (01) ==
LOC: ED 16:10 → AC 16:26
PROVIDERS: Admitting Provider Surgery; Emergency Provider Emergency Medicine; PCP Internal Medicine; Referring Provider Emergency Medicine; Visit Provider Surgery
DX: K35.30 Acute appendicitis with localized peritonitis, without perforation or gangrene (principal); I42.1 Obstructive hypertrophic cardiomyopathy; G47.33 Obstructive sleep apnea (adult) (pediatric); E66.01 Morbid (severe) obesity due to excess calories; Z68.41 Body mass index [BMI] 40.0-44.9, adult; M35.3 Polymyalgia rheumatica; E28.2 Polycystic ovarian syndrome; I10 Essential (primary) hypertension; K21.9 Gastro-esophageal reflux disease without esophagitis; J45.909 Unspecified asthma, uncomplicated; Q24.8 Other specified congenital malformations of heart; K76.9 Liver disease, unspecified; R16.1 Splenomegaly, not elsewhere classified; Z90.49 Acquired absence of other specified parts of digestive tract
CPT/HCPCS: 36415; 74177; 80048; 80053; 81003; 85025; 85610; 87635; 96365; 96366; 99219; 99281; 99284; C9803; G0378; A9270; J2543; J8610

== ENCOUNTER → 2020-11-13 09:34 | Outpatient (CLI) | payer MEDICARE, OTHER, SELFPAY ==
[2020-11-12 11:27] VITALS: BMI 37.9
[2020-11-13 10:25] LABS: Add Manual Diff / Slide Review NO; Basophils Absolute Auto 0 /uL (0-100); Basophils Percent Auto 0.4 % (0-2); Eosinophils Absolute Auto 100 /uL (0-450); Eosinophils Percent Auto 2.7 % (2-4); Hematocrit 37.2 % (36-46); Hemoglobin 12.6 g/dL (12.0-16.0); Lymphocytes Absolute Auto 1300 /uL (1100-4500); Lymphocytes Percent Auto 25.7 % (25-40); Mean Corpuscular HGB Conc 33.9 % (30-36); Mean Corpuscular Hemoglobin 32.2 PG (26-34); Monocytes Absolute Auto 300 /uL (0-900); Monocytes Percent Auto 6.1 % (3-14); Neutrophils Absolute Auto 3200 /uL (1500-7000); Neutrophils Percent Auto 65.1 % (50-75); Platelet Count 131 X10^3/uL (150-400); Red Blood Cell Count 3.91 X10^6/uL (4.0-5.2); Red Cell Distribution Width 13.5 % (11.6-14.8); White Blood Cell Count 4.9 X10^3/uL (4.5-11.0)
[2020-11-13 10:57] LABS: Alanine Aminotransferase 18 IU/L (<35); Albumin 3.7 g/dL (3.5-5.0); Albumin Globulin Ratio 1.3 (1.0-2.8); Alkaline Phosphatase 74 U/L (38-126); Aspartate Aminotransferase 33 IU/L (14-36); BUN Creatinine Ratio 22.4 (6-22); Bilirubin Total 0.3 mg/dL (0.2-1.3); Blood Urea Nitrogen 13 mg/dL (7-17); Calcium 8.7 mg/dL (8.4-10.2); Carbon Dioxide 33 mmol/L (22-32); Chloride 104 mmol/L (98-107); Estimated Glomerular Filt Rate > 60.0 mL/min (>60); Globulin 2.8 g/dL (1.7-4.1); Glucose 133 mg/dL (80-110); HEMOLYSIS < 15 (0-50); Potassium 4.1 mmol/L (3.4-5.1); Sodium 138 mmol/L (137-145); Total Protein 6.5 g/dL (6.3-8.2)
== END ==
PROVIDERS: PCP Internal Medicine; Referring Provider Surgery; Visit Provider Surgery
DX: K35.80 Unspecified acute appendicitis (principal)
CPT/HCPCS: 36415; 80053; 85025

== ENCOUNTER → 2020-12-05 12:32 | Outpatient (CLI) | payer MEDICARE, OTHER, SELFPAY ==
[2020-11-12 11:27] VITALS: BMI 37.9
[2020-12-05 14:06] LABS: Platelet Count 113 X10^3/uL (150-400)
[2020-12-05 14:11] LABS: INR 1.1 (0.9-1.3); Prothrombin Time 12.6 SECONDS (10.1-12.7)
== END ==
PROVIDERS: Family Provider Internal Medicine; PCP Internal Medicine; Referring Provider Specialist; Visit Provider Specialist
DX: R74.8 Abnormal levels of other serum enzymes (principal); R94.5 Abnormal results of liver function studies
CPT/HCPCS: 36415; 85049; 85610

== ENCOUNTER → 2020-12-22 11:59 | Outpatient (CLI) | payer MEDICARE, OTHER, SELFPAY ==
[2020-11-12 11:27] VITALS: BMI 37.9
[2020-12-22 13:21] LABS: COVID19 -Nasal RAPID Negative (Negative)
== END ==
PROVIDERS: Family Provider Internal Medicine; PCP Internal Medicine; Visit Provider Physician Assistant
DX: Z20.822 Contact with and (suspected) exposure to COVID-19 (principal)
CPT/HCPCS: 87635; C9803

== ENCOUNTER 2020-12-24 12:01 | Day surgery (SDC) | payer MEDICARE, OTHER, SELFPAY ==
[2020-11-12 11:27] VITALS: BMI 37.9
[2020-12-24] VITALS (10 sets, daily range): BP systolic 119–146; BP diastolic 57–85; PULSE 69–79; RESP 12–22; TEMP 36.5–36.8; O2SAT 94–97; BMI 37.9
[2020-12-24] MEDS: ACETAMINOPHEN 325 MG TABLET 975 MG PO (12:34)
[2020-12-24] MEDS: LACTATED RINGERS 1,000 ML 42 ML IV (12:37)
--- NOTE | 2020-12-24 12:45 | PM.PREOP ---
Pre-operative Note COVID-19 COVID-19 status: Negative Result date/Date tested (Pos, Neg/Pending): 12/22/20 Interval Note History & Physical reviewed/Exam performed by Physician: Yes Changes to H&P: No
--- NOTE | 2020-12-24 13:26 | SUR.PREOP ---
1337 - Block started - Monitoring and O2 2LNC initiated and maintained throughout the procedure. Timeout performed. Medications per Dr Geiger. 1343- Injection time 1345 - Block complete. Patient remained stable throughout procedure. No adverse reactions noted.
--- NOTE | 2020-12-24 13:33 | PM.HP.1 ---
History of Present Illness History of Present Illness Date Patient Seen: 12/24/20 Time Patient Seen: 13:33 Chief complaint: RIGHT SHOULDER *OPB* Narrative: The patient is a 65-year-old yzitk-cbbu-bepdfibb woman with right shoulder pain. She has a history of poly myalgia rheumatica and uses prednisone and methotrexate. She reports the onset of shoulder pain in January of 2020 after moving a lot of furniture after her father in law had . Treatments have included physical therapy for 4 months. Her primary caregiver gave her a corticosteroid injection in April of 2020 which helped for a few weeks. Her shoulder continues to be painful and weak. She complains of difficulty sleeping. Aleve is somewhat helpful. She has been tapered off her prednisone but remains on methotrexate for her PMR. She was originally scheduled for surgery on December 10 but this was delayed in order to allow for liver biopsy which has been completed. Patient History Medical History Acute appendicitis Arthritis Asthma Basal cell carcinoma (BCC) in situ of skin Depression Diastolic heart failure GERD (gastroesophageal reflux disease) Hayfever History of chronic urinary tract infection History of prediabetes Hx of lipoma Hypertension Hypertrophic obstructive cardiomyopathy (~05/2020) Insulin resistance Left ventricular outflow tract obstruction Liver disease Lower extremity edema Nontraumatic complete tear of right rotator cuff Obstructive sleep apnea (~2005) Osteoarthritis PCOS (polycystic ovarian syndrome) Plantar fasciitis Polymyalgia rheumatica Prediabetes Primary insomnia Rosacea Snoring Surgical History History of third molar tooth extraction (1973) History of tonsillectomy (1958) S/P epidural steroid injection Status post delivery (12/28/80) Status post cholecystectomy (1991) Status post colonoscopy (2013) Status post dilation and curettage (09/16/11) Family & Social History Family History Father CVA (cerebral vascular accident) Chronic lymphocytic leukemia Mother Lewy body dementia Other Dementia Habitual snoring Social History: household members spouse Tobacco & Substance use: Smoking Status Never smoker alcohol intake former alcohol intake frequency a few times a week Substance Use Type does not use Meds Home Medications and Allergies Home Medications Medication Instructions Recorded Confirmed Type albuterol sulfate 90 mcg/actuation 2 puff INHALATION Q6H PRN 03/02/18 12/24/20 History aerosol inhaler clindamycin phosphate 1 % topical 1 applictn TOP BEDTIME PRN 03/02/18 12/24/20 History solution hskdrjxhi-cfyT-lcozenp-FOS-bromelain 1 mg PO DAILY ml 03/02/18 12/24/20 History 1,937 mg-188 mg/15 mL oral liquid Resmed Airsense 10 CPAP #1 ea 04/13/19 11/20/20 History tolterodine 2 mg capsule,extended 4 mg PO DAILY cap 04/11/20 12/24/20 History release 24 hr folic acid 1 mg tablet 1 mg PO DAILY 05/22/20 12/24/20 History naproxen sodium 220 mg tablet 220 mg PO BID PRN 05/22/20 12/24/20 History aspirin 81 mg tablet,delayed 81 mg PO DAILY 08/06/20 12/24/20 History release carvedilol 6.25 mg tablet 6.25 mg PO BID 10/09/20 12/24/20 History hydrochlorothiazide 25 mg tablet 25 mg PO PRN PRN tab 10/09/20 12/24/20 History cyanocobalamin (vitamin B-12) 100 mcg PO DAILY 11/09/20 12/24/20 History [Vitamin B-12] estradiol [Yuvafem] 10 mcg VAGINAL 2XW 11/09/20 12/24/20 History fluticasone propion-salmeterol 1 inh INHALATION BID PRN 11/09/20 12/24/20 History [Advair Diskus] loratadine-pseudoephedrine 1 tab PO DAILY 11/09/20 12/24/20 History [Claritin-D 24 Hour] nystatin-triamcinolone 1 applic TOPICAL DAILY 11/09/20 12/24/20 History venlafaxine 150 mg PO DAILY 11/09/20 12/24/20 History Lactobacillus rhamnosus GG 1 cap PO BID #20 cap 11/10/20 12/24/20 Rx [Culturelle] cholecalciferol (vitamin D3) 1,000 unit PO DAILY 12/21/20 12/24/20 History [Vitamin D3] Allergies Allergy/AdvReac Type Severity Reaction Status Date / Time clarithromycin [From BIAXIN] Allergy Unknown Verified 12/24/20 12:18 ciprofloxacin AdvReac Severe tendonitis Verified 12/24/20 12:18 sulfamethoxazole AdvReac Intermediate Nausea Verified 12/24/20 12:18 [From Bactrim] trimethoprim [From Bactrim] AdvReac Intermediate Nausea Verified 12/24/20 12:18 Review of Systems Review of Systems ROS: Yes All systems reviewed with the patient and are negative except as otherwise documented Exam Vital Signs (past 8 hours): - 12/24/20 12:34 12/24/20 12:38 Temperature 98.2 F 98.2 F Pulse Rate 79 Respiratory Rate 14 Blood Pressure 131/75 Pulse Oximetry 97 Oxygen Delivery Method Room Air Narrative Exam Narrative: The patient appears to be in no acute distress. Cardiac exam is regular rate and rhythm no rubs murmurs or gallops. Respiratory examination is clear to auscultation. Abdomen is soft and nontender. The skin in the area of the proposed incisions is without lesions. Right upper extremity exam: She is tender over the subacromial area. Range of motion is forward flexion 150/170, external rotation at the side 45/45, external rotation in abduction 70/80, and internal rotation T7/T6. She does not wing or hikes her scapula and there is no atrophy noted. Strength is 4/5 in abduction, 5/5 in external rotation and internal rotation. Shoulder is stable and translational stress testing. Impingement signs are negative for the Neer and Guillermo but positive for the painful arc maneuver. Cross-body 80 duction is negative. Yergason's and speed's tests are mildly positive. MRI is reviewed. October 10, 2020 from [facility]. Full-thickness rotator cuff tear of the supraspinatus with no muscle atrophy. Degenerative labral tear. Tendinitis of subscapularis and infraspinatus. Assessment & Plan Assessment & Plan narrative: The patient has a full-thickness rotator cuff tear of the supraspinatus on the right with no significant muscle atrophy. This should be a repairable tear. I have discussed rotator cuff repair with her and the anticipated postoperative course. We have discussed risk, benefits and alternatives to surgery. Risks discussed included but were not limited to: Failure to improve pain or function, stiffness, infection, nerve damage, deep venous thrombosis, pulmonary embolism, stroke, myocardial infarction, permanent paralysis, aspiration pneumonia, and . Patient has given her signed informed consent. COVID-19 COVID-19 status: Negative Result date/Date tested (Pos, Neg/Pending): 12/22/20 Time Spent With Patient Time with patient: less than 15 minutes
--- NOTE | 2020-12-24 14:06 | P.PCN_ITS ---
Procedures Date/Time Date of procedure: 12/24/20 Time of procedure: 13:40 Nerve Block Time out performed: Yes Local anesthetic used: other (15mL 0.5opivacaine, 5mL 2* idocaine) Location of anesthetic used: interscalene Amount of anesthesia used (mL): 20 Nerve blocks: brachial plexus (interscalene) Procedure successful: Yes Patient tolerated procedure: well Complications: none Additional comments: Brachial plexus nerve block for post operative pain management. Risks and benefits discussed, including bleeding, infection, intravascular injection, nerve damage, block failure. Standard ASA monitors, NC O2. Pt supine. Chloroprep site preparation, sterile technique. Brachial plexus identified with US guidance, traced from supraclavicular to interscalene. 1mL 2% lidocaine skin wheal. 22g x 50mm Pajunk advanced with in-plane US guidance to brachial plexus. Negative aspiration. LA injected with intermittent negative aspiration. Good LA spread noted on US. No pain, no paraesthesia. Pt tolerated procedure well. Vital signs stable.
--- NOTE | 2020-12-24 14:26 | SUR.OPER ---
Lateral on padded OR bed with araujo bag positioner, head on pillow, gel axillary roll in place, bottom leg bent with gel pad under knee to foot, upper leg straight and supported with pillows. Operative arm secured in shoulder positioning suspension device. non-operative arm secured on padded arm board. Safety belt at hip, tape over blanket securing lower legs.
[2020-12-24] MEDS: BUPIVACAINE 0.25% W/ EPI (PF) 10 ML VIAL 20 ML INJ (14:49)
--- NOTE | 2020-12-24 15:13 | PM.OP.1 ---
Operative Date/Time/Diagnoses Date of procedure: 12/24/20 Time of procedure: 15:13 Pre-op diagnosis: Right shoulder rotator cuff tear Post-op diagnosis: same Procedure & Clinicians Procedure: Right shoulder arthroscopic rotator cuff repair Same procedure as scheduled: Yes Indications: The patient is a 65-year-old woman who has had right shoulder pain that has not responded to nonoperative measures. Her MRI appears to show a rotator cuff tear. She has agreed to surgery after discussion the risks benefits and alternatives as documented in my history and physical note. Surgeon: Mihai Rodriguez Geriatric Social Work Professor: Saroj Krishnan Click Yes if Unassisted: No Anesthesia Type: General, Peripheral nerve block and Local Operative Notes Findings: 1. Normal glenohumeral cartilage 2. Minimal degenerative fraying of the glenoid labrum 3. Intact glenohumeral ligaments 4. Intact subscapularis 5. Normal appearing biceps tendon with no evidence for detachment from its origin 6. 1.2 cm tear of the supraspinatus tendon with the essentially no retraction 7. Intact infraspinatus 8. Normal axillary pouch 9. Rotator cuff from the superior surface notable for the above-mentioned tear 10. Slight curvature of the acromion with mild impingement lesion. 11. AC joint not visualized due to lack of preoperative symptoms 12. Exam under anesthesia notable for full range of motion with no evidence for pathologic laxity. Closure Type: primary Specimen(s): none sent Prosthetic devices, grafts, tissues, transplants, or devices: One Mitek Healix BR 5.5 mm triple threaded anchor Applied: implant(s) Estimated Blood Loss (mL): 5 Blood products transfused: none Procedure in detail: The patient was seen in the preoperative area where she identified her right shoulder as the operative site and this was marked with my initials. She underwent the induction of an interscalene block and received preoperative antibiotics. She was taken to the operating room and placed on the operating room table in a supine position where she underwent induction with general anesthetic. Her shoulder was examined under anesthesia with result given above. She was repositioned in the left lateral decubitus position with an axillary roll and padding for all pressure points. She was stabilized in this position using the beanbag and adhesive tape. A full roll inspector-out was performed. The right arm was prepared for the fingertips to the base neck with ChloraPrep in the usual fashion and draped through sterile drapes. The arm was placed in 10 lb of balanced skin suspension. The subcutaneous landmarks were outlined on the skin with a marking pen and portal sites selected. The posterior portal was created for the arthroscope in the anterior portal created for placement of the shaver. Diagnostic arthroscopy ensued with result given above. The shaver was inserted and bluntly used to manipulate the biceps to confirm that there was no SLAP lesion. Shaver was then used to clean a torn flap of the rotator cuff. The arthroscopic equipment was removed in the arthroscope reinserted into the subacromial bursa through the posterior portal. A lateral portal was created for instrumentation. The shaver was inserted and used to perform bursectomy for visualization. The greater tuberosity was prepared to bleeding bone using the shaver. I elected not to perform a subacromial decompression as there was no significant hook. The impingement lesion was debrided. An accessory superolateral portal was created for anchor placement and a single anchor placed in the center of the prepared bleeding tuberosity. The sutures from this anchor were placed as simple sutures across the rotator cuff and tied to complete the repair. The integrity of the repair was confirmed both from the posterior and lateral views. All arthroscopic equipment was then removed. The wounds were closed with 4-0 Monocryl and Steri-Strips. A total of 20 mL 0.25% Marcaine with epinephrine was injected for postoperative pain control into the subcutaneous tissues in the subacromial bursa. Dressings of sterile 4x4s, an ABD and Medipore tape were applied. A 2nd ABD was placed in the axilla and the patient's arm was placed in a sling. She was then taken to the recovery room in good condition having tolerated procedure well. 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 If she is having difficulty maintaining oxygenation she will be admitted to the hospital for observation overnight. She will be maintained on a standard small size rotator cuff tear protocol.
== END 2020-12-24 16:15 | disposition home or self-care (01) ==
LOC: OR 12:08 → AC 12:08
PROVIDERS: Family Provider Internal Medicine; PCP Internal Medicine; Referring Provider Orthopaedic Surgery; Visit Provider Orthopaedic Surgery
PROC: (CPT 29827; principal; 2020-12-24 13:15)
DX: M75.121 Complete rotator cuff tear or rupture of right shoulder, not specified as traumatic (principal); M25.811 Other specified joint disorders, right shoulder; X50.9XXA Other and unspecified overexertion or strenuous movements or postures, initial encounter; Y93.E6 Activity, residential relocation; E66.01 Morbid (severe) obesity due to excess calories; Z68.39 Body mass index [BMI] 39.0-39.9, adult; G47.33 Obstructive sleep apnea (adult) (pediatric); J45.909 Unspecified asthma, uncomplicated; F32.9 Major depressive disorder, single episode, unspecified; K21.9 Gastro-esophageal reflux disease without esophagitis
CPT/HCPCS: 29827; 29822; J0330; J1100; J2250; J2405; J2704; J3010

== ENCOUNTER → 2021-01-04 14:43 | Outpatient (CLI) | payer MEDICARE, OTHER, SELFPAY ==
[2020-11-12 11:27] VITALS: BMI 37.9
[2021-01-04 15:31] LABS: Add Manual Diff / Slide Review NO; Basophils Absolute Auto 0 /uL (0-100); Basophils Percent Auto 0.5 % (0-2); Eosinophils Absolute Auto 200 /uL (0-450); Eosinophils Percent Auto 3.4 % (2-4); Hematocrit 35.3 % (36-46); Lymphocytes Absolute Auto 1200 /uL (1100-4500); Lymphocytes Percent Auto 23.4 % (25-40); Mean Corpuscular HGB Conc 34.1 % (30-36); Mean Corpuscular Volume 93.8 fL (80-100); Monocytes Absolute Auto 400 /uL (0-900); Monocytes Percent Auto 8.5 % (3-14); Neutrophils Absolute Auto 3200 /uL (1500-7000); Neutrophils Percent Auto 64.2 % (50-75); Platelet Count 107 X10^3/uL (150-400); Red Blood Cell Count 3.76 X10^6/uL (4.0-5.2); Red Cell Distribution Width 13.6 % (11.6-14.8); White Blood Cell Count 4.9 X10^3/uL (4.5-11.0)
[2021-01-04 16:07] LABS: BUN Creatinine Ratio 23.6 (6-22); Blood Urea Nitrogen 17 mg/dL (7-17); Calcium 9.1 mg/dL (8.4-10.2); Carbon Dioxide 30 mmol/L (22-32); Chloride 106 mmol/L (98-107); Estimated Glomerular Filt Rate > 60.0 mL/min (>60); Glucose 82 mg/dL (80-110); HEMOLYSIS < 15 (0-50); Sodium 141 mmol/L (137-145)
== END ==
PROVIDERS: Internal Medicine; Family Provider Internal Medicine; PCP Internal Medicine; Referring Provider Internal Medicine; Visit Provider Internal Medicine
DX: E11.9 Type 2 diabetes mellitus without complications (principal); N39.0 Urinary tract infection, site not specified
CPT/HCPCS: 36415; 80048; 85025; 87077; 87086; 87186

== ENCOUNTER 2021-03-28 17:54 | Observation (INO) | payer MEDICARE, OTHER, SELFPAY ==
[2020-11-12 11:27] VITALS: BMI 37.9
[2021-03-28] VITALS (10 sets, daily range): BP systolic 135–187; BP diastolic 75–98; PULSE 72–86; RESP 16–24; TEMP 36.7; O2SAT 95–99; BMI 38.6
--- NOTE | 2021-03-28 20:53 | ED.ABDPAIN ---
HPI - Abdominal Pain <Helena Ashley MD - Last Filed: 03/30/21 17:52> General Chief Complaint: Abdominal Pain Stated Complaint: states appendix is inflamed again Time Seen by Provider: 03/28/21 20:51 History of Present Illness HPI narrative: Medical history consisting of morbid obesity, PMR, depression, heart failure, obstructive cardiomyopathy, hypertension who was diagnosed with acute appendicitis on November 09 and treated with medical management with discharge home. She returns today saying that her appendix is again inflamed. She did have a rotator cuff repair and November and is still recovering from that. She notes that she has had a bout of constipation that was relieved yesterday. She began having significant right lower quadrant pain yesterday it did get a bit better after the bowel movement but is still quite irritated. She describes no fevers, cough, chills, flank pain, dysuria. She does note that she continues to have shoulder pain and is recovering from her recent rotator cuff surgery. No headaches chest pain palpitations or lower extremity edema appreciated. Related Data Home Medications Medication Instructions Recorded Confirmed albuterol sulfate 90 mcg/actuation 2 puff INHALATION Q6H PRN 03/02/18 03/29/21 aerosol inhaler [id number]-[id number]-FOS-bromelain 1 mg PO DAILY ml 03/02/18 03/29/21 1,937 mg-188 mg/15 mL oral liquid (Cystex Cranberry) Resmed Airsense 10 CPAP #1 ea 04/13/19 03/29/21 tolterodine 2 mg capsule,extended 4 mg PO DAILY cap 04/11/20 03/28/21 release 24 hr naproxen sodium 220 mg tablet 220 mg PO BID PRN 05/22/20 03/29/21 carvedilol 6.25 mg tablet 6.25 mg PO BID 10/09/20 03/28/21 hydrochlorothiazide 25 mg tablet 25 mg PO PRN PRN tab 10/09/20 03/28/21 cyanocobalamin (vitamin B-12) 100 100 mcg PO DAILY 11/09/20 03/29/21 mcg tablet (Vitamin B-12) fluticasone 250 mcg-salmeterol 50 1 inh INHALATION BID PRN 11/09/20 03/29/21 mcg/dose blistr powdr for inhalation (Advair Diskus) loratadine-pseudoephedrine ER 10 1 tab PO DAILY 11/09/20 03/29/21 mg-240 mg tablet,extended [id number] (Claritin-D 24 Hour) nystatin-triamcinolone 100,000 1 applic TOPICAL DAILY 11/09/20 03/29/21 unit/g-0.1 % topical cream venlafaxine 75 mg capsule,extended 150 mg PO DAILY 11/09/20 03/28/21 release 24 hr cholecalciferol (vitamin D3) 100 1,000 unit PO DAILY 12/21/20 03/29/21 mcg (4,000 unit) capsule (Vitamin D3) ursodiol 300 mg capsule 300 mg PO BID 03/28/21 03/28/21 Previous Rx's Medication Instructions Recorded acetaminophen 325 mg capsule 650 mg PO QID PRN #60 cap 03/29/21 (Tylenol) oxycodone 5 mg tablet 5 mg PO Q8H PRN #30 tab 03/29/21 Allergies Allergy/AdvReac Type Severity Reaction Status Date / Time clarithromycin [From BIAXIN] Allergy Unknown Verified 12/24/20 12:18 ciprofloxacin AdvReac Severe tendonitis Verified 12/24/20 12:18 sulfamethoxazole AdvReac Intermediate Nausea Verified 12/24/20 12:18 [From Bactrim] trimethoprim [From Bactrim] AdvReac Intermediate Nausea Verified 12/24/20 12:18 Review of Systems <Helena Ashley MD - Last Filed: 03/30/21 17:52> Review of Systems Narrative: Remainder of complete review of systems is otherwise unremarkable except for that included in the HPI. Patient History <Helena Ashley MD - Last Filed: 03/30/21 17:52> Medical History (Updated 03/28/21 @ 23:06 by Nilson Olson MD) Acute appendicitis Arthritis Asthma Basal cell carcinoma (BCC) in situ of skin Depression Diastolic heart failure GERD (gastroesophageal reflux disease) Hayfever History of chronic urinary tract infection History of prediabetes Hx of lipoma Hypertension Hypertrophic obstructive cardiomyopathy (~05/2020) Insulin resistance Left ventricular outflow tract obstruction Liver disease Lower extremity edema Nontraumatic complete tear of right rotator cuff Obstructive sleep apnea (~2005) Osteoarthritis PCOS (polycystic ovarian syndrome) Plantar fasciitis Polymyalgia rheumatica Prediabetes Primary biliary cirrhosis Primary insomnia Rosacea Snoring Surgical History History of third molar tooth extraction (1973) History of tonsillectomy (1958) S/P epidural steroid injection Status post delivery (12/28/80) Status post cholecystectomy (1991) Status post colonoscopy (2013) Status post dilation and curettage (09/16/11) Family History Father CVA (cerebral vascular accident) Chronic lymphocytic leukemia Mother Lewy body dementia Other Dementia Habitual snoring Social History marital status: number of children: 1 household members: spouse occupational status: previously employed Smoking Status: Never smoker alcohol intake: former substance use type: does not use caffeine: Yes Smoking Status: Never smoker alcohol intake frequency: a few times a week Substance Use Type: does not use Exam <Helena Ashley MD - Last Filed: 03/30/21 17:52> Narrative Exam Narrative: General: Healthy appearing, in no acute distress. Able to give a complete and coherent history. Well-nourished well-developed HEENT: Moist mucous membranes, normal sclera with reactive pupils, Respiratory: Lungs are clear to auscultation, no wheezing no rales no rhonchi. Full and symmetrical air movement Cardiac: Regular rate and rhythm no murmurs no bruits Abdomen: Soft, mildly tender in the right lower quadrant without rebound or guarding, good bowel tones, no flank pain Skin: Warm and dry, no rashes Neurologic: Grossly neurologically intact with no obvious asymmetries or abnormalities Extremities: No trauma, well perfused Psych: Cooperative, appropriate insight and affect Initial Vital Signs Initial Vital Signs: Vital Signs Temperature 98.1 F 03/28/21 18:00 Pulse Rate 81 03/28/21 18:00 Respiratory Rate 16 03/28/21 18:00 Blood Pressure 187/80 H 03/28/21 18:00 Pulse Oximetry 99 03/28/21 18:00 <Arnaud Paz MD - Last Filed: 03/29/21 01:38> Initial Vital Signs Initial Vital Signs: Vital Signs Temperature 98.1 F 03/28/21 18:00 Pulse Rate 81 03/28/21 18:00 Respiratory Rate 16 03/28/21 18:00 Blood Pressure 187/80 H 03/28/21 18:00 Pulse Oximetry 99 03/28/21 18:00 Course <Helena Ashley MD - Last Filed: 03/30/21 17:52> Orders Ordered: Discontinued Medications Acetaminophen (Acetaminophen 325 Mg Tablet) 650 mg PO Q4HR PRN PRN Reason: Fever/Mild Pain (1-3) Albuterol (Albuterol 2.5 Mg/3 Ml Neb (Adult)) 2.5 mg INH Q6H PRN PRN Reason: Shortness Of Breath Or Wheezing Bupivacaine HCl (Bupivacaine 0.25% (Pf) Vial) 30 ml INJ NOW ONE Stop: 03/29/21 14:51 Last Admin: 03/29/21 14:51 Dose: 30 ml Documented by: CHRIS Carvedilol (Carvedilol 3.125 Mg Tablet) 6.25 mg PO BID [facility] Last Admin: 03/30/21 09:42 Dose: 6.25 mg Documented by: Admin: 03/29/21 20:50 Dose: 6.25 mg Documented by: Admin: 03/29/21 09:07 Dose: 6.25 mg Documented by: EHSAN Fentanyl (Fentanyl 100 Mcg/2 Ml Inj) 0 mcg IV Q5M PRN PRN Reason: Pain, Moderate (4-6) Hydrochlorothiazide (Hydrochlorothiazide 25 Mg Tablet) 25 mg PO PRN PRN PRN Reason: Edema Hydrochlorothiazide (Hydrochlorothiazide 25 Mg Tablet) 25 mg PO DAILY PRN PRN Reason: Edema Hydromorphone HCl (Hydromorphone 0.5 Mg Inj) 0.5 mg IV Q15MIN PRN PRN Reason: Pain, Hydromorphone HCl (Hydromorphone 2 Mg Inj) 0 mg IV Q5M PRN PRN Reason: Pain, Severe (7-10) Hydromorphone HCl (Hydromorphone 1 Mg Inj) 1 mg IV Q3H PRN PRN Reason: Pain, Moderate (4-6) Lactated Ringer's (Lactated Ringers) 1,000 mls @ 150 mls/hr IV CONT BELTRAN Last Infusion: 03/30/21 09:46 Dose: 0 mls/hr Documented by: Admin: 03/29/21 22:36 Dose: 150 mls/hr Documented by: Infusion: 03/29/21 20:45 Dose: 150 mls/hr Documented by: Admin: 03/29/21 14:04 Dose: 150 mls/hr Documented by: JOSÉ MIGUEL Infusion: 03/29/21 13:33 Dose: 150 mls/hr Documented by: JOSÉ MIGUEL Admin: 03/29/21 06:52 Dose: 150 mls/hr Documented by: Infusion: 03/29/21 06:02 Dose: 150 mls/hr Documented by: Admin: 03/28/21 23:21 Dose: 150 mls/hr Documented by: SUSIE Ceftriaxone Sodium 1,000 mg/ (Sodium Chloride) 100 mls @ 200 mls/hr IV Q24H [facility] Last Infusion: 03/30/21 00:30 Dose: 0 mls/hr Documented by: Admin: 03/29/21 23:55 Dose: 200 mls/hr Documented by: Infusion: 03/29/21 01:45 Dose: 0 mls/hr Documented by: Admin: 03/29/21 00:45 Dose: 200 mls/hr Documented by: ACE Metronidazole (Flagyl) 250 mg in 50 mls @ 100 mls/hr IV Q6H [facility] Last Admin: 03/29/21 11:15 Dose: Not Given Documented by: Infusion: 03/29/21 04:55 Dose: 0 mls/hr Documented by: Admin: 03/29/21 04:21 Dose: 100 mls/hr Documented by: Infusion: 03/29/21 00:06 Dose: 0 mls/hr Documented by: Admin: 03/28/21 23:25 Dose: 100 mls/hr Documented by: SUSIE Metronidazole (Flagyl) 500 mg in 100 mls @ 100 mls/hr IV Q6H [facility] Last Admin: 03/30/21 11:47 Dose: Not Given Documented by: Infusion: 03/30/21 06:19 Dose: 0 mls/hr Documented by: Admin: 03/30/21 05:05 Dose: 100 mls/hr Documented by: Infusion: 03/29/21 23:55 Dose: 0 mls/hr Documented by: Admin: 03/29/21 22:36 Dose: 100 mls/hr Documented by: Infusion: 03/29/21 18:34 Dose: 100 mls/hr Documented by: Admin: 03/29/21 17:34 Dose: 100 mls/hr Documented by: Infusion: 03/29/21 17:24 Dose: 0 mls/hr Documented by: Admin: 03/29/21 11:14 Dose: 100 mls/hr Documented by: EHSAN Lactated Ringer's (Lactated Ringers) 1,000 mls @ 42 mls/hr IV CONT BELTRAN Last Admin: 03/29/21 17:26 Dose: Not Given Documented by: RONALDO Piperacillin Sod/Tazobactam (Sod 4.5 gm/ Sodium Chloride) 100 mls @ 200 mls/hr IV NOW ONE Stop: 03/29/21 14:17 Last Admin: 03/29/21 17:24 Dose: Not Given Documented by: RONALDO Piperacillin Sod/Tazobactam (Sod 3.375 gm/ Sodium Chloride) 100 mls @ 25 mls/hr IV NOW ONE Stop: 03/29/21 14:52 Last Admin: 03/29/21 14:38 Dose: 25 mls/hr Documented by: SUSY Lorazepam (Lorazepam 2 Mg/Ml Inj) 0.25 mg IV NOW PRN PRN Reason: Anxiety Ondansetron HCl (Ondansetron 4 Mg/2 Ml Inj) 4 mg IV NOW PRN PRN Reason: Nausea And Vomiting Last Admin: 03/29/21 16:18 Dose: 4 mg Documented by: [email or web address] Oxycodone HCl (Oxycodone Ir 5 Mg Tablet) 5 mg PO Q4HR PRN PRN Reason: Pain, Moderate (4-6) Oxycodone/Acetaminophen (Oxycodone/Acetaminophen 5/325 Tablet) 1 tab PO PACUNOW PRN PRN Reason: Mild or Moderate Pain Vital Signs Vital signs: Vital Signs - 8 hr 03/28/21 18:00 03/28/21 20:45 03/28/21 20:52 Temperature 98.1 F Pulse Rate 81 72 74 Respiratory Rate 16 16 23 Blood Pressure 187/80 H 139/79 Pulse Oximetry 99 98 99 03/28/21 21:00 03/28/21 21:01 03/28/21 21:31 Temperature Pulse Rate 76 75 86 Respiratory Rate 22 24 19 Blood Pressure 152/98 H Pulse Oximetry 99 99 98 03/28/21 22:00 Temperature Pulse Rate 77 Respiratory Rate 24 Blood Pressure Pulse Oximetry 96 <Arnaud Paz MD - Last Filed: 03/29/21 01:38> Course Course Narrative: No new issues during course of stay Orders Ordered: Discontinued Medications Acetaminophen (Acetaminophen 325 Mg Tablet) 650 mg PO Q4HR PRN PRN Reason: Fever/Mild Pain (1-3) Albuterol (Albuterol 2.5 Mg/3 Ml Neb (Adult)) 2.5 mg INH Q6H PRN PRN Reason: Shortness Of Breath Or Wheezing Bupivacaine HCl (Bupivacaine 0.25% (Pf) Vial) 30 ml INJ NOW ONE Stop: 03/29/21 14:51 Last Admin: 03/29/21 14:51 Dose: 30 ml Documented by: CHRIS Carvedilol (Carvedilol 3.125 Mg Tablet) 6.25 mg PO BID [facility] Last Admin: 03/30/21 09:42 Dose: 6.25 mg Documented by: Admin: 03/29/21 20:50 Dose: 6.25 mg Documented by: Admin: 03/29/21 09:07 Dose: 6.25 mg Documented by: EHSAN Fentanyl (Fentanyl 100 Mcg/2 Ml Inj) 0 mcg IV Q5M PRN PRN Reason: Pain, Moderate (4-6) Hydrochlorothiazide (Hydrochlorothiazide 25 Mg Tablet) 25 mg PO PRN PRN PRN Reason: Edema Hydrochlorothiazide (Hydrochlorothiazide 25 Mg Tablet) 25 mg PO DAILY PRN PRN Reason: Edema Hydromorphone HCl (Hydromorphone 0.5 Mg Inj) 0.5 mg IV Q15MIN PRN PRN Reason: Pain, Hydromorphone HCl (Hydromorphone 2 Mg Inj) 0 mg IV Q5M PRN PRN Reason: Pain, Severe (7-10) Hydromorphone HCl (Hydromorphone 1 Mg Inj) 1 mg IV Q3H PRN PRN Reason: Pain, Moderate (4-6) Lactated Ringer's (Lactated Ringers) 1,000 mls @ 150 mls/hr IV CONT BELTRAN Last Infusion: 03/30/21 09:46 Dose: 0 mls/hr Documented by: Admin: 03/29/21 22:36 Dose: 150 mls/hr Documented by: Infusion: 03/29/21 20:45 Dose: 150 mls/hr Documented by: Admin: 03/29/21 14:04 Dose: 150 mls/hr Documented by: JOSÉ MIGUEL Infusion: 03/29/21 13:33 Dose: 150 mls/hr Documented by: JOSÉ MIGUEL Admin: 03/29/21 06:52 Dose: 150 mls/hr Documented by: Infusion: 03/29/21 06:02 Dose: 150 mls/hr Documented by: Admin: 03/28/21 23:21 Dose: 150 mls/hr Documented by: SUSIE Ceftriaxone Sodium 1,000 mg/ (Sodium Chloride) 100 mls @ 200 mls/hr IV Q24H [facility] Last Infusion: 03/30/21 00:30 Dose: 0 mls/hr Documented by: Admin: 03/29/21 23:55 Dose: 200 mls/hr Documented by: Infusion: 03/29/21 01:45 Dose: 0 mls/hr Documented by: Admin: 03/29/21 00:45 Dose: 200 mls/hr Documented by: ACE Metronidazole (Flagyl) 250 mg in 50 mls @ 100 mls/hr IV Q6H [facility] Last Admin: 03/29/21 11:15 Dose: Not Given Documented by: Infusion: 03/29/21 04:55 Dose: 0 mls/hr Documented by: Admin: 03/29/21 04:21 Dose: 100 mls/hr Documented by: Infusion: 03/29/21 00:06 Dose: 0 mls/hr Documented by: Admin: 03/28/21 23:25 Dose: 100 mls/hr Documented by: SUSIE Metronidazole (Flagyl) 500 mg in 100 mls @ 100 mls/hr IV Q6H [facility] Last Admin: 03/30/21 11:47 Dose: Not Given Documented by: Infusion: 03/30/21 06:19 Dose: 0 mls/hr Documented by: Admin: 03/30/21 05:05 Dose: 100 mls/hr Documented by: Infusion: 03/29/21 23:55 Dose: 0 mls/hr Documented by: Admin: 03/29/21 22:36 Dose: 100 mls/hr Documented by: Infusion: 03/29/21 18:34 Dose: 100 mls/hr Documented by: Admin: 03/29/21 17:34 Dose: 100 mls/hr Documented by: Infusion: 03/29/21 17:24 Dose: 0 mls/hr Documented by: Admin: 03/29/21 11:14 Dose: 100 mls/hr Documented by: EHSAN Lactated Ringer's (Lactated Ringers) 1,000 mls @ 42 mls/hr IV CONT BELTRAN Last Admin: 03/29/21 17:26 Dose: Not Given Documented by: LVAZQUE Piperacillin Sod/Tazobactam (Sod 4.5 gm/ Sodium Chloride) 100 mls @ 200 mls/hr IV NOW ONE Stop: 03/29/21 14:17 Last Admin: 03/29/21 17:24 Dose: Not Given Documented by: LVAZQUE Piperacillin Sod/Tazobactam (Sod 3.375 gm/ Sodium Chloride) 100 mls @ 25 mls/hr IV NOW ONE Stop: 03/29/21 14:52 Last Admin: 03/29/21 14:38 Dose: 25 mls/hr Documented by: SUSY Lorazepam (Lorazepam 2 Mg/Ml Inj) 0.25 mg IV NOW PRN PRN Reason: Anxiety Ondansetron HCl (Ondansetron 4 Mg/2 Ml Inj) 4 mg IV NOW PRN PRN Reason: Nausea And Vomiting Last Admin: 03/29/21 16:18 Dose: 4 mg Documented by: [email or web address] Oxycodone HCl (Oxycodone Ir 5 Mg Tablet) 5 mg PO Q4HR PRN PRN Reason: Pain, Moderate (4-6) Oxycodone/Acetaminophen (Oxycodone/Acetaminophen 5/325 Tablet) 1 tab PO PACUNOW PRN PRN Reason: Mild or Moderate Pain Reevaluation(s) Reevaluation #1: Patient aware of diagnosis and seen by surgeon. Time: 22:36 Consultations Consultation #1: Surgeon, Dr. Olson, saw patient in room. Admitted patient for appendicitis Vital Signs Vital signs: Vital Signs - 8 hr 03/28/21 18:00 03/28/21 20:45 03/28/21 20:52 Temperature 98.1 F Pulse Rate 81 72 74 Respiratory Rate 16 16 23 Blood Pressure 187/80 H 139/79 Pulse Oximetry 99 98 99 03/28/21 21:00 03/28/21 21:01 03/28/21 21:31 Temperature Pulse Rate 76 75 86 Respiratory Rate 22 24 19 Blood Pressure 152/98 H Pulse Oximetry 99 99 98 03/28/21 22:00 Temperature Pulse Rate 77 Respiratory Rate 24 Blood Pressure Pulse Oximetry 96 MDM - Abdominal Pain <Helena Ashley MD - Last Filed: 03/30/21 17:52> Lab Data Result diagrams: 03/29/21 04:53 03/29/21 04:53 Labs: Lab Results 03/28/21 03/28/21 03/28/21 Range/Units 20:31 20:31 20:31 WBC 6.6 (4.5-11.0) X10^3/uL RBC 4.39 (4.0-5.2) X10^6/uL Hgb 13.7 (12.0-16.0) g/dL Hct 40.7 (36-46) % MCV 92.6 (80-100) fL MCH 31.3 (26-34) PG MCHC 33.8 (30-36) % RDW 13.7 (11.6-14.8) % Plt Count 125 L (150-400) X10^3/uL Neut % (Auto) 54.0 (50-75) % Lymph % (Auto) 31.6 (25-40) % [place] % (Auto) 10.4 (3-14) % Eos % (Auto) 3.2 (2-4) % Baso % (Auto) 0.8 (0-2) % Neut # (Auto) 3500 (7342-5880) /uL Lymph # (Auto) 2100 (6049-2444) /uL [place] # (Auto) 700 (0-900) /uL Eos # (Auto) 200 (0-450) /uL Baso # (Auto) 0 (0-100) /uL Sodium 141 (137-145) mmol/L Potassium 3.3 L (3.4-5.1) mmol/L Chloride 104 (98-107) mmol/L Carbon Dioxide 32 (22-32) mmol/L BUN 18 H (7-17) mg/dL Creatinine 0.61 (0.52-1.04) mg/dL Estimated GFR > 60.0 (>60) mL/min BUN/Creatinine Ratio 29.5 H (6-22) Glucose 79 L (80-110) mg/dL Lactate 0.8 (0.7-2.1) mmol/L Calcium 9.5 (8.4-10.2) mg/dL Magnesium 2.0 (1.6-2.3) mg/dL Total Bilirubin 0.4 (0.2-1.3) mg/dL AST 38 H (14-36) IU/L ALT 19 (<35) IU/L Alkaline Phosphatase 83 (38-126) U/L Total Protein 7.4 (6.3-8.2) g/dL Albumin 4.1 (3.5-5.0) g/dL Globulin 3.3 (1.7-4.1) g/dL Albumin/Globulin Ratio 1.2 (1.0-2.8) Lipase 84 (23-300) U/L Urine Color Urine Appearance Urine pH (4.5-8.0) Ur Specific [place] (1.000-1.035) Urine Protein (Negative) Urine Glucose (UA) (Negative) g/dL Urine Ketones (NEGATIVE) Urine Occult Blood (Negative) Urine Nitrate (Negative) Urine Bilirubin (NEGATIVE) Urine Urobilinogen (0.2) E.U./dL Ur Leukocyte Esterase (NEGATIVE) Urine RBC (0-5/HPF) Urine WBC (0-5/HPF) Ur Squamous Epith Cells (0-5/HPF) Urine Bacteria (None) Ur Culture Indicated? 03/28/21 Range/Units 21:35 WBC (4.5-11.0) X10^3/uL RBC (4.0-5.2) X10^6/uL Hgb (12.0-16.0) g/dL Hct (36-46) % MCV (80-100) fL MCH (26-34) PG MCHC (30-36) % RDW (11.6-14.8) % Plt Count (150-400) X10^3/uL Neut % (Auto) (50-75) % Lymph % (Auto) (25-40) % [place] % (Auto) (3-14) % Eos % (Auto) (2-4) % Baso % (Auto) (0-2) % Neut # (Auto) (2536-7122) /uL Lymph # (Auto) (8163-5611) /uL [place] # (Auto) (0-900) /uL Eos # (Auto) (0-450) /uL Baso # (Auto) (0-100) /uL Sodium (137-145) mmol/L Potassium (3.4-5.1) mmol/L Chloride (98-107) mmol/L Carbon Dioxide (22-32) mmol/L BUN (7-17) mg/dL Creatinine (0.52-1.04) mg/dL Estimated GFR (>60) mL/min BUN/Creatinine Ratio (6-22) Glucose (80-110) mg/dL Lactate (0.7-2.1) mmol/L Calcium (8.4-10.2) mg/dL Magnesium (1.6-2.3) mg/dL Total Bilirubin (0.2-1.3) mg/dL AST (14-36) IU/L ALT (<35) IU/L Alkaline Phosphatase (38-126) U/L Total Protein (6.3-8.2) g/dL Albumin (3.5-5.0) g/dL Globulin (1.7-4.1) g/dL Albumin/Globulin Ratio (1.0-2.8) Lipase (23-300) U/L Urine Color Yellow Urine Appearance Clear Urine pH 5.0 (4.5-8.0) Ur Specific [place] 1.020 (1.000-1.035) Urine Protein Negative (Negative) Urine Glucose (UA) Negative (Negative) g/dL Urine Ketones Negative (NEGATIVE) Urine Occult Blood Negative (Negative) Urine Nitrate Negative (Negative) Urine Bilirubin Negative (NEGATIVE) Urine Urobilinogen 0.2 (0.2) E.U./dL Ur Leukocyte Esterase Negative (NEGATIVE) Urine RBC None seen (0-5/HPF) Urine WBC 1-5/hpf (0-5/HPF) Ur Squamous Epith Cells 5-10 /hpf H (0-5/HPF) Urine Bacteria Few (2-10) H (None) Ur Culture Indicated? Cult not indicated MDM Narrative Medical decision making narrative: 65-year-old woman presents with recurrent right lower quadrant pain after a CT diagnosed episode of acute appendicitis in October of this year. Blood work will be obtained and will repeat CT scan at this point. Patient would prefer to continue with medical management if it again is diagnosed as appendicitis however diagnostic possibilities are wide enough that complete workup is warranted. <Arnaud Paz MD - Last Filed: 03/29/21 01:38> Differential Diagnosis Differential diagnosis: Likely abdominal pain, acute appendicitis and diverticulitis Lab Data Labs: Lab Results 03/28/21 03/28/21 03/28/21 Range/Units 20:31 20:31 20:31 WBC 6.6 (4.5-11.0) X10^3/uL RBC 4.39 (4.0-5.2) X10^6/uL Hgb 13.7 (12.0-16.0) g/dL Hct 40.7 (36-46) % MCV 92.6 (80-100) fL MCH 31.3 (26-34) PG MCHC 33.8 (30-36) % RDW 13.7 (11.6-14.8) % Plt Count 125 L (150-400) X10^3/uL Neut % (Auto) 54.0 (50-75) % Lymph % (Auto) 31.6 (25-40) % [place] % (Auto) 10.4 (3-14) % Eos % (Auto) 3.2 (2-4) % Baso % (Auto) 0.8 (0-2) % Neut # (Auto) 3500 (6602-1864) /uL Lymph # (Auto) 2100 (7907-9427) /uL [place] # (Auto) 700 (0-900) /uL Eos # (Auto) 200 (0-450) /uL Baso # (Auto) 0 (0-100) /uL Sodium 141 (137-145) mmol/L Potassium 3.3 L (3.4-5.1) mmol/L Chloride 104 (98-107) mmol/L Carbon Dioxide 32 (22-32) mmol/L BUN 18 H (7-17) mg/dL Creatinine 0.61 (0.52-1.04) mg/dL Estimated GFR > 60.0 (>60) mL/min BUN/Creatinine Ratio 29.5 H (6-22) Glucose 79 L (80-110) mg/dL Lactate 0.8 (0.7-2.1) mmol/L Calcium 9.5 (8.4-10.2) mg/dL Magnesium 2.0 (1.6-2.3) mg/dL Total Bilirubin 0.4 (0.2-1.3) mg/dL AST 38 H (14-36) IU/L ALT 19 (<35) IU/L Alkaline Phosphatase 83 (38-126) U/L Total Protein 7.4 (6.3-8.2) g/dL Albumin 4.1 (3.5-5.0) g/dL Globulin 3.3 (1.7-4.1) g/dL Albumin/Globulin Ratio 1.2 (1.0-2.8) Lipase 84 (23-300) U/L Urine Color Urine Appearance Urine pH (4.5-8.0) Ur Specific [place] (1.000-1.035) Urine Protein (Negative) Urine Glucose (UA) (Negative) g/dL Urine Ketones (NEGATIVE) Urine Occult Blood (Negative) Urine Nitrate (Negative) Urine Bilirubin (NEGATIVE) Urine Urobilinogen (0.2) E.U./dL Ur Leukocyte Esterase (NEGATIVE) Urine RBC (0-5/HPF) Urine WBC (0-5/HPF) Ur Squamous Epith Cells (0-5/HPF) Urine Bacteria (None) Ur Culture Indicated? 03/28/21 Range/Units 21:35 WBC (4.5-11.0) X10^3/uL RBC (4.0-5.2) X10^6/uL Hgb (12.0-16.0) g/dL Hct (36-46) % MCV (80-100) fL MCH (26-34) PG MCHC (30-36) % RDW (11.6-14.8) % Plt Count (150-400) X10^3/uL Neut % (Auto) (50-75) % Lymph % (Auto) (25-40) % [place] % (Auto) (3-14) % Eos % (Auto) (2-4) % Baso % (Auto) (0-2) % Neut # (Auto) (1365-7549) /uL Lymph # (Auto) (7290-1308) /uL [place] # (Auto) (0-900) /uL Eos # (Auto) (0-450) /uL Baso # (Auto) (0-100) /uL Sodium (137-145) mmol/L Potassium (3.4-5.1) mmol/L Chloride (98-107) mmol/L Carbon Dioxide (22-32) mmol/L BUN (7-17) mg/dL Creatinine (0.52-1.04) mg/dL Estimated GFR (>60) mL/min BUN/Creatinine Ratio (6-22) Glucose (80-110) mg/dL Lactate (0.7-2.1) mmol/L Calcium (8.4-10.2) mg/dL Magnesium (1.6-2.3) mg/dL Total Bilirubin (0.2-1.3) mg/dL AST (14-36) IU/L ALT (<35) IU/L Alkaline Phosphatase (38-126) U/L Total Protein (6.3-8.2) g/dL Albumin (3.5-5.0) g/dL Globulin (1.7-4.1) g/dL Albumin/Globulin Ratio (1.0-2.8) Lipase (23-300) U/L Urine Color Yellow Urine Appearance Clear Urine pH 5.0 (4.5-8.0) Ur Specific [place] 1.020 (1.000-1.035) Urine Protein Negative (Negative) Urine Glucose (UA) Negative (Negative) g/dL Urine Ketones Negative (NEGATIVE) Urine Occult Blood Negative (Negative) Urine Nitrate Negative (Negative) Urine Bilirubin Negative (NEGATIVE) Urine Urobilinogen 0.2 (0.2) E.U./dL Ur Leukocyte Esterase Negative (NEGATIVE) Urine RBC None seen (0-5/HPF) Urine WBC 1-5/hpf (0-5/HPF) Ur Squamous Epith Cells 5-10 /hpf H (0-5/HPF) Urine Bacteria Few (2-10) H (None) Ur Culture Indicated? Cult not indicated Imaging Data CT scan - abdomen/pelvis: Radiologist's Impression: [address] [id number] Scan ReportSigned Patient: Marie Bernal AMR#: [id number]: 4Acct:[id number]/Sex: 65 / FDate of Service: 03/28/21Loc: EDAccession Number: [id number] Procedure: CT abdomen pelvis w con Ordering Provider: Helena Ashley MD PROCEDURE: CT ABDOMEN PELVIS W CON INDICATIONS: RLQ pain TECHNIQUE: After the administration of IV contrast, axial sections were acquired from the lung bases to the pubic symphysis. Coronal and sagittal reformats were performed. For radiation dose reduction, the following was used: automated exposure control, adjustment of mA and/or kV according to patient size. COMPARISON: [facility], CT, CT ANGIO CHEST ABDOMEN PELVIS, 06/21/2020, 8:27. [facility], CT, CT ABDOMEN PELVIS W CON, 11/09/2020, 13:20. FINDINGS: Image quality: Excellent. Lung bases: Unremarkable. Heart: No significant findings. ABDOMEN: Liver: Liver is mildly enlarged without focal lesion. Gallbladder: The gallbladder been removed. Biliary ducts: Unremarkable. Pancreas: Unremarkable. Spleen: Spleen is enlarged. Adrenal Glands: Unremarkable. Kidneys and Ureters: Unremarkable. Retroaortic left renal vein is incidentally noted. Stomach and Bowel: Stomach, small bowel loops, and colon are nonobstructive. Mild hiatal hernia. The appendix is enlarged measuring 1 cm in transverse dimension. There is very minimal surrounding periappendiceal stranding. It is noted that the appendix had a very similar appearance on 11/09/2020. It is noted the appendix was normal in size on 06/21/2020. Peritoneum: No abnormal intraperitoneal fluid. No free air. Ventral Wall: No hernia. Abdominal Nodes: No retroperitoneal or mesenteric adenopathy by size criteria. Vessels: Aorta and inferior vena cava are normal in size. PELVIS: Pelvic Organs: Unremarkable. Bladder: Unremarkable. Pelvic Nodes: No enlarged lymph nodes. Miscellaneous: No inguinal hernias are seen. Bones: Unremarkable. IMPRESSION: 1. Enlarged appendix with minimal periappendiceal stranding. It is noted that this is similar in appearance compared to 202. However, appendix appears normal in 2019. Overall appearance could be secondary to chronic inflammatory change since 2020. Other etiology to consider would be appendiceal mass accounting for enlargement. Dictated by: Summer Keller M.D. on 03/28/2021 at 21:56 Approved by: Summer Keller M.D. on 03/28/2021 at 22:01 Discharge Plan Departure Patient Disposition: Admitted as Observation Clinical Impression: Acute appendicitis Qualifiers: Acute appendicitis type: unspecified acute appendicitis type Qualified Code(s): K35.80 - Unspecified acute appendicitis Admit Date/Time: 03/28/21 22:20 Admit Provider: Nilson Olson
--- NOTE | 2021-03-28 21:08 | DI.CT.S_ITS ---
PROCEDURE: CT ABDOMEN PELVIS W CON INDICATIONS: RLQ pain TECHNIQUE: After the administration of IV contrast, axial sections were acquired from the lung bases to the pubic symphysis. Coronal and sagittal reformats were performed. For radiation dose reduction, the following was used: automated exposure control, adjustment of mA and/or kV according to patient size. COMPARISON: [facility], CT, CT ANGIO CHEST ABDOMEN PELVIS, 06/21/2020, 8:27. [facility], CT, CT ABDOMEN PELVIS W CON, 11/09/2020, 13:20. FINDINGS: Image quality: Excellent. Lung bases: Unremarkable. Heart: No significant findings. ABDOMEN: Liver: Liver is mildly enlarged without focal lesion. Gallbladder: The gallbladder been removed. Biliary ducts: Unremarkable. Pancreas: Unremarkable. Spleen: Spleen is enlarged. Adrenal Glands: Unremarkable. Kidneys and Ureters: Unremarkable. Retroaortic left renal vein is incidentally noted. Stomach and Bowel: Stomach, small bowel loops, and colon are nonobstructive. Mild hiatal hernia. The appendix is enlarged measuring 1 cm in transverse dimension. There is very minimal surrounding periappendiceal stranding. It is noted that the appendix had a very similar appearance on 11/09/2020. It is noted the appendix was normal in size on 06/21/2020. Peritoneum: No abnormal intraperitoneal fluid. No free air. Ventral Wall: No hernia. Abdominal Nodes: No retroperitoneal or mesenteric adenopathy by size criteria. Vessels: Aorta and inferior vena cava are normal in size. PELVIS: Pelvic Organs: Unremarkable. Bladder: Unremarkable. Pelvic Nodes: No enlarged lymph nodes. Miscellaneous: No inguinal hernias are seen. Bones: Unremarkable. IMPRESSION: 1. Enlarged appendix with minimal periappendiceal stranding. It is noted that this is similar in appearance compared to 2020. However, appendix appears normal in 2019. Overall appearance could be secondary to chronic inflammatory change since 2020. Other etiology to consider would be appendiceal mass accounting for enlargement. Dictated by: Summer Keller M.D. on 03/28/2021 at 21:56 Approved by: Summer Keller M.D. on 03/28/2021 at 22:01
[2021-03-28 21:17] LABS: Add Manual Diff / Slide Review NO; Basophils Absolute Auto 0 /uL (0-100); Basophils Percent Auto 0.8 % (0-2); Eosinophils Absolute Auto 200 /uL (0-450); Eosinophils Percent Auto 3.2 % (2-4); Hematocrit 40.7 % (36-46); Hemoglobin 13.7 g/dL (12.0-16.0); Lymphocytes Absolute Auto 2100 /uL (1100-4500); Lymphocytes Percent Auto 31.6 % (25-40); Mean Corpuscular HGB Conc 33.8 % (30-36); Mean Corpuscular Hemoglobin 31.3 PG (26-34); Mean Corpuscular Volume 92.6 fL (80-100); Monocytes Absolute Auto 700 /uL (0-900); Monocytes Percent Auto 10.4 % (3-14); Neutrophils Absolute Auto 3500 /uL (1500-7000); Platelet Count 125 X10^3/uL (150-400); Red Blood Cell Count 4.39 X10^6/uL (4.0-5.2); Red Cell Distribution Width 13.7 % (11.6-14.8); White Blood Cell Count 6.6 X10^3/uL (4.5-11.0)
[2021-03-28 21:23] LABS: Lactate (Lactic Acid) 0.8 mmol/L (0.7-2.1)
[2021-03-28 21:24] LABS: Alanine Aminotransferase 19 IU/L (<35); Albumin 4.1 g/dL (3.5-5.0); Albumin Globulin Ratio 1.2 (1.0-2.8); Alkaline Phosphatase 83 U/L (38-126); Aspartate Aminotransferase 38 IU/L (14-36); BUN Creatinine Ratio 29.5 (6-22); Bilirubin Total 0.4 mg/dL (0.2-1.3); Blood Urea Nitrogen 18 mg/dL (7-17); Calcium 9.5 mg/dL (8.4-10.2); Carbon Dioxide 32 mmol/L (22-32); Chloride 104 mmol/L (98-107); Estimated Glomerular Filt Rate > 60.0 mL/min (>60); Globulin 3.3 g/dL (1.7-4.1); Glucose 79 mg/dL (80-110); HEMOLYSIS < 15 (0-50); Lipase 84 U/L (23-300); Potassium 3.3 mmol/L (3.4-5.1); Sodium 141 mmol/L (137-145); Total Protein 7.4 g/dL (6.3-8.2)
[2021-03-28 21:37] LABS: RBC Urine None Seen (0-5/HPF)
[2021-03-28 21:41] LABS: Appearance Urine UA CLEAR; Bilirubin Urine UA NEGATIVE (NEGATIVE); Color Urine UA YELLOW; Glucose Urine UA NEGATIVE (Negative); Ketones Urine UA NEGATIVE (NEGATIVE); Leukocyte Esterase Urine UA NEGATIVE (NEGATIVE); Nitrite Urine UA NEGATIVE (Negative); Occult Blood Urine UA NEGATIVE (Negative); Protein Urine UA NEGATIVE (Negative); Urobilinogen Urine UA 0.2 E.U./dL (0.2)
[2021-03-28 21:55] LABS: Squamous Epithelial Cell Urine 5-10 /HPF (0-5/HPF); WBC Urine 1-5/HPF (0-5/HPF)
[2021-03-28 21:56] LABS: Bacteria Urine Few (2-10); Culture Indicated Urine Cult Not Indicated
--- NOTE | 2021-03-28 22:55 | P.HP_ITS ---
History of Present Illness History of Present Illness Date Patient Seen: 03/28/21 Time Patient Seen: 22:00 Date of Onset of Symptoms: 03/26/21 Chief complaint: states appendix is inflamed again Narrative: The patient is a woman with a to a history of right lower quadrant pain. She developed discomfort and thought she was constipated and took Metamucil and had a large bowel movement. Her discomfort improved but there is still some residual discomfort in her right lower abdomen. This pain is almost identical to pain she had in October when she was treated with antibiotics for acute appendicitis. Last p.o. intake was on her drive in to the ER. She has had no nausea or vomiting. Patient History Medical History (Updated 03/28/21 @ 23:06 by Nilson Olson MD) Acute appendicitis Arthritis Asthma Basal cell carcinoma (BCC) in situ of skin Depression Diastolic heart failure GERD (gastroesophageal reflux disease) Hayfever History of chronic urinary tract infection History of prediabetes Hx of lipoma Hypertension Hypertrophic obstructive cardiomyopathy (~05/2020) Insulin resistance Left ventricular outflow tract obstruction Liver disease Lower extremity edema Nontraumatic complete tear of right rotator cuff Obstructive sleep apnea (~2005) Osteoarthritis PCOS (polycystic ovarian syndrome) Plantar fasciitis Polymyalgia rheumatica Prediabetes Primary biliary cirrhosis Primary insomnia Rosacea Snoring Surgical History History of third molar tooth extraction (1973) History of tonsillectomy (1958) S/P epidural steroid injection Status post delivery (12/28/80) Status post cholecystectomy (1991) Status post colonoscopy (2013) Status post dilation and curettage (09/16/11) Family & Social History Family History Father CVA (cerebral vascular accident) Chronic lymphocytic leukemia Mother Lewy body dementia Other Dementia Habitual snoring Social History: household members spouse Safety & Behavioral: Feels Safe in Current Yes Environment Been Physically Hurt or No Threatened By a Person Tobacco & Substance use: Smoking Status Never smoker alcohol intake former alcohol intake frequency a few times a week Substance Use Type does not use Meds Home Medications and Allergies Home Medications Medication Instructions Recorded Confirmed Type albuterol sulfate 90 mcg/actuation 2 puff INHALATION Q6H PRN 03/02/18 12/24/20 History aerosol inhaler clindamycin phosphate 1 % topical 1 applictn TOP BEDTIME PRN 03/02/18 12/24/20 History solution xccaxkyxo-eivL-bemvjvh-FOS-bromelain 1 mg PO DAILY ml 03/02/18 12/24/20 History 1,937 mg-188 mg/15 mL oral liquid (Cystex Cranberry) Resmed Airsense 10 CPAP #1 ea 04/13/19 11/20/20 History tolterodine 2 mg capsule,extended 4 mg PO DAILY cap 04/11/20 12/24/20 History release 24 hr folic acid 1 mg tablet 1 mg PO DAILY 05/22/20 12/24/20 History naproxen sodium 220 mg tablet 220 mg PO BID PRN 05/22/20 12/24/20 History aspirin 81 mg tablet,delayed 81 mg PO DAILY 08/06/20 12/24/20 History release (Adult Aspirin Regimen) carvedilol 6.25 mg tablet 6.25 mg PO BID 10/09/20 12/24/20 History hydrochlorothiazide 25 mg tablet 25 mg PO PRN PRN tab 10/09/20 12/24/20 History cyanocobalamin (vitamin B-12) 100 100 mcg PO DAILY 11/09/20 12/24/20 History mcg tablet (Vitamin B-12) estradiol 10 mcg vaginal tablet 10 mcg VAGINAL 2XW 11/09/20 12/24/20 History (Yuvafem) fluticasone 250 mcg-salmeterol 50 1 inh INHALATION BID PRN 11/09/20 12/24/20 History mcg/dose blistr powdr for inhalation (Advair Diskus) loratadine-pseudoephedrine ER 10 1 tab PO DAILY 11/09/20 12/24/20 History mg-240 mg tablet,extended [id number] (Claritin-D 24 Hour) nystatin-triamcinolone 100,000 1 applic TOPICAL DAILY 11/09/20 12/24/20 History unit/g-0.1 % topical cream venlafaxine 75 mg capsule,extended 150 mg PO DAILY 11/09/20 12/24/20 History release 24 hr Lactobacillus rhamnosus GG 10 1 cap PO BID #20 cap 11/10/20 12/24/20 Rx billion cell capsule (Culturelle) cholecalciferol (vitamin D3) 100 1,000 unit PO DAILY 12/21/20 12/24/20 History mcg (4,000 unit) capsule (Vitamin D3) hydroxyzine pamoate 25 mg capsule 25 mg PO Q6HR PRN #30 cap 12/24/20 Rx oxycodone 5 mg tablet 5 mg PO Q4HR PRN #40 tab 12/24/20 Rx Allergies Allergy/AdvReac Type Severity Reaction Status Date / Time clarithromycin [From BIAXIN] Allergy Unknown Verified 12/24/20 12:18 ciprofloxacin AdvReac Severe tendonitis Verified 12/24/20 12:18 sulfamethoxazole AdvReac Intermediate Nausea Verified 12/24/20 12:18 [From Bactrim] trimethoprim [From Bactrim] AdvReac Intermediate Nausea Verified 12/24/20 12:18 Review of Systems Review of Systems Narrative: Patient has no visual difficulties. She does use an inhaler periodically. No chest pain. She does have a diagnosis a cardiomyopathy. She has primary biliary cirrhosis and inherited condition. She says she has a mild case. No black or bloody bowel movements. No seizures or blackouts. She had a recent shoulder surgery for torn rotator cuff. Exam Vital Signs (past 8 hours): - 03/28/21 18:00 03/28/21 20:45 03/28/21 20:52 Temperature 98.1 F Pulse Rate 81 72 74 Respiratory Rate 16 16 23 Blood Pressure 187/80 H 139/79 Pulse Oximetry 99 98 99 03/28/21 21:00 03/28/21 21:01 03/28/21 21:31 Temperature Pulse Rate 76 75 86 Respiratory Rate 22 24 19 Blood Pressure 152/98 H Pulse Oximetry 99 99 98 03/28/21 22:00 03/28/21 22:30 Temperature Pulse Rate 77 76 Respiratory Rate 24 16 Blood Pressure 135/80 Pulse Oximetry 96 96 Oxygen Delivery Method Room Air Narrative Exam Narrative: Patient is a woman in no distress. Her eyes are nonicteric. Neck is supple. No nodes in the neck supraclavicular areas. Lungs are clear to auscultation without rales or rhonchi. Heart regular rate and rhythm without murmur gallop. Abdomen is protuberant soft. There is very localized mild tenderness in the right lower quadrant. No guarding. Alert and oriented. Objective Imaging CT scan - abdomen: My impression: Patient's CT is very similar to his CT done in October. The appendix is still at about 1 cm in size. There is no real stranding around the appendix today as there was At her exam in October. Labs Result Diagrams: 03/28/21 20:31 03/28/21 20:31 Labs: Laboratory Results - last 24 hr 03/28/21 03/28/21 03/28/21 20:31 20:31 20:31 WBC 6.6 RBC 4.39 Hgb 13.7 Hct 40.7 MCV 92.6 MCH 31.3 MCHC 33.8 RDW 13.7 Plt Count 125 L Neut % (Auto) 54.0 Lymph % (Auto) 31.6 [place] % (Auto) 10.4 Eos % (Auto) 3.2 Baso % (Auto) 0.8 Neut # (Auto) 3500 Lymph # (Auto) 2100 [place] # (Auto) 700 Eos # (Auto) 200 Baso # (Auto) 0 Sodium 141 Potassium 3.3 L Chloride 104 Carbon Dioxide 32 BUN 18 H Creatinine 0.61 Estimated GFR > 60.0 BUN/Creatinine Ratio 29.5 H Glucose 79 L Lactate 0.8 Calcium 9.5 Magnesium 2.0 Total Bilirubin 0.4 AST 38 H ALT 19 Alkaline Phosphatase 83 Total Protein 7.4 Albumin 4.1 Globulin 3.3 Albumin/Globulin Ratio 1.2 Lipase 84 Urine Color Urine Appearance Urine pH Ur Specific [place] Urine Protein Urine Glucose (UA) Urine Ketones Urine Occult Blood Urine Nitrate Urine Bilirubin Urine Urobilinogen Ur Leukocyte Esterase Urine RBC Urine WBC Ur Squamous Epith Cells Urine Bacteria Ur Culture Indicated? 03/28/21 21:35 WBC RBC Hgb Hct MCV MCH MCHC RDW Plt Count Neut % (Auto) Lymph % (Auto) [place] % (Auto) Eos % (Auto) Baso % (Auto) Neut # (Auto) Lymph # (Auto) [place] # (Auto) Eos # (Auto) Baso # (Auto) Sodium Potassium Chloride Carbon Dioxide BUN Creatinine Estimated GFR BUN/Creatinine Ratio Glucose Lactate Calcium Magnesium Total Bilirubin AST ALT Alkaline Phosphatase Total Protein Albumin Globulin Albumin/Globulin Ratio Lipase Urine Color Yellow Urine Appearance Clear Urine pH 5.0 Ur Specific [place] 1.020 Urine Protein Negative Urine Glucose (UA) Negative Urine Ketones Negative Urine Occult Blood Negative Urine Nitrate Negative Urine Bilirubin Negative Urine Urobilinogen 0.2 Ur Leukocyte Esterase Negative Urine RBC None seen Urine WBC 1-5/hpf Ur Squamous Epith Cells 5-10 /hpf H Urine Bacteria Few (2-10) H Ur Culture Indicated? Cult not indicated Assessment & Plan Assessment and plan (1) Morbid obesity with BMI of 40.0-44.9, adult: Status: Acute (2) Acute appendicitis: Qualifiers: Acute appendicitis type: unspecified acute appendicitis type Qualified Code(s): K35.80 - Unspecified acute appendicitis Status: Acute (3) Obstructive sleep apnea of adult: Status: Chronic (4) Hypertension: Qualifiers: Hypertension type: unspecified Qualified Code(s): I10 - Essential ( primary) hypertension Status: Resolved (5) GERD (gastroesophageal reflux disease): Qualifiers: Esophagitis presence: esophagitis presence not specified Qualified Code(s): K21.9 - Gastro-esophageal reflux disease without esophagitis Status: Chronic (6) Asthma: Qualifiers: Asthma severity: unspecified severity Asthma persistence: unspecified Asthma complication type: unspecified Qualified Code(s): J45.909 - Unspecified asthma, uncomplicated Status: Chronic (7) Primary biliary cirrhosis: Status: Acute Assessment & Plan narrative: patient is a woman with symptoms similar to a prior treatment for acute appendicitis. CT is a bit improved. Her history is a bit atypical in that she actually has had improvement in her symptoms and has an absolutely normal white count with normal differential. She has numerous significant medical problems in her history such as a cardiomyopathy, primary biliary cirrhosis, sleep apnea and morbid obesity. She appears to have tolerated her operation on her shoulder a few months ago. Her cirrhosis makes selection of her antibiotics to treat her possible acute appendicitis challenging since many antibiotics that I would like to use our cleared by the liver. Cirrhosis will increase the tissue levels and circulating levels and therefore I would like to start her on Rocephin 1 g daily and a reduced dose of Flagyl. Her obesity will make mobilization and an operation if it comes to that challenging. She has sleep apnea which also puts her at risk of complication. Will have her use her own machine if it is available. Will treat her reflux with Protonix temporarily. Continue her carvedilol. Continue her inhaler treatment. Since she had recent p.o. and I do not have any beds in the hospital at this time it is difficult to take her to the operating room. I think that I am not certain this is appendicitis however and therefore will begin her on a broad-spectrum antibiotic and re-evaluate in the morning.
[2021-03-28] MEDS: LACTATED RINGERS 1,000 ML 150 ML IV (23:21)
[2021-03-28] MEDS: metroNIDAZOLE 250 MG/50 ML PIGGYBACK 100 MG IV (23:25)
[2021-03-28 23:48] LABS: COVID19 - ADMIT (NP swab/PCR) Negative (Negative)
[2021-03-29] VITALS (17 sets, daily range): BP systolic 119–149; BP diastolic 57–89; PULSE 69–91; RESP 12–18; TEMP 36.2–36.7; O2SAT 91–100; BMI 38.6; BMI 39.2
--- NOTE | 2021-03-29 | PATH_ITS ---
[facility] Accession Number: [id number] . 01 Material submitted: . appendix - APPENDIX . 01 Clinical history: . STATES APPENDIX IS INFLAMED AGAIN . 02 Diagnosis: Appendix, Appendectomy: Focal acute inflammation, consistent with acute appendicitis in the appropriate clinical setting. Fibrous obliteration of the appendiceal tip. MRV 04/03/2021 1418 Local . 02 Electronically signed: . Melissa Gillespie MD, Pathologist NPI- [id number] . 01 Gross description: . The specimen is received in formalin and labeled appendix. It consists of a 5.5 cm in length by 0.6 cm in diameter intact appendix, stapled at one end. The serosa is pink-guadarrama with prominent vasculature. The staple line is removed, and the specimen is serially sectioned to reveal pink-guadarrama, unremarkable mucosa, a pinpoint lumen, and nguyễn that average 0.3 cm in thickness. Chief Digital Officer sections are submitted. . Summary of sections: A1 = Bisected tip and resection margin, three pieces. A2 = Chief Digital Officer appendix, four pieces. ([id number]) /Caty 03/30/2021 193 Local . 02 Pathologist provided ICD-10: K35.80 . 02 CPT . 331118 Performed at: 01 [facility] [address], [place], [place] [id number] MD Jose Rice MD Phone: [phone] Performed at: 02 [facility] [address] [place], [place] [id number] MD Linda Garcia MD Phone: [phone]
[2021-03-29] MEDS: cefTRIAXone 1,000 MG in SODIUM CHLORIDE 0.9% 100 ML 200 ML IV ×2 (00:45→23:55)
[2021-03-29] MEDS: metroNIDAZOLE 250 MG/50 ML PIGGYBACK 100 MG IV (04:21)
[2021-03-29 05:18] LABS: Add Manual Diff / Slide Review NO; Basophils Absolute Auto 0 /uL (0-100); Basophils Percent Auto 0.6 % (0-2); Eosinophils Absolute Auto 200 /uL (0-450); Eosinophils Percent Auto 3.5 % (2-4); Hematocrit 40.9 % (36-46); Hemoglobin 13.7 g/dL (12.0-16.0); Lymphocytes Absolute Auto 1700 /uL (1100-4500); Lymphocytes Percent Auto 36.9 % (25-40); Mean Corpuscular HGB Conc 33.5 % (30-36); Mean Corpuscular Hemoglobin 31.1 PG (26-34); Mean Corpuscular Volume 92.8 fL (80-100); Monocytes Absolute Auto 400 /uL (0-900); Monocytes Percent Auto 8.4 % (3-14); Neutrophils Absolute Auto 2300 /uL (1500-7000); Neutrophils Percent Auto 50.6 % (50-75); Platelet Count 104 X10^3/uL (150-400); Red Blood Cell Count 4.41 X10^6/uL (4.0-5.2); Red Cell Distribution Width 13.6 % (11.6-14.8); White Blood Cell Count 4.5 X10^3/uL (4.5-11.0)
[2021-03-29 05:29] LABS: Alanine Aminotransferase 18 IU/L (<35); Albumin 3.7 g/dL (3.5-5.0); Albumin Globulin Ratio 1.2 (1.0-2.8); Alkaline Phosphatase 83 U/L (38-126); Aspartate Aminotransferase 38 IU/L (14-36); Bilirubin Total 0.4 mg/dL (0.2-1.3); Blood Urea Nitrogen 15 mg/dL (7-17); Carbon Dioxide 31 mmol/L (22-32); Chloride 106 mmol/L (98-107); Estimated Glomerular Filt Rate > 60.0 mL/min (>60); Glucose 92 mg/dL (80-110); HEMOLYSIS < 15 (0-50); Potassium 3.7 mmol/L (3.4-5.1); Sodium 142 mmol/L (137-145); Total Protein 6.7 g/dL (6.3-8.2)
[2021-03-29] MEDS: LACTATED RINGERS 1,000 ML 150 ML IV ×3 (06:52→22:36)
[2021-03-29] MEDS: carvediloL 3.125 MG TABLET 6.25 MG PO ×2 (09:07→20:50)
[2021-03-29] MEDS: metroNIDAZOLE 500 MG/100 ML PIGGYBACK 100 MG IV ×3 (11:14→22:36)
--- NOTE | 2021-03-29 14:11 | PM.PREOP ---
Pre-operative Note Interval Note History & Physical reviewed/Exam performed by Physician: Yes Changes to H&P: Yes H&P completed within 30 days and has changed as indicated here:: Second admission now for acute appendicitis. Options are either abx therapy or appendectomy. Multiple comorbidities and prior abdominal surgeries do increase perioperative risk however she tolerated shoulder arthroscopic rotator cuff repair 3 months ago without issue. Following discussion of these issues will proceed with a laparoscopic appendectomy. Operative risks including bleeding, infection, damage to surrounding structures, conversion to open were discussed. She is in agreement with this plan.
--- NOTE | 2021-03-29 14:19 | CM.IDA ---
Initial DCP Assessment Note Pt is a 65 yo female, resident of [facility]) arrives w/symptoms of acute appendicitis PCP: Jj Hernandez Payer: [facility]/[place] Reviewed chart, met w/patient to introduce role. Patient states she ins indp. and active, now awaiting appendectomy by Dr Sauer. Patient hopeful the appendectomy will relieve her of battling w/off/on abd discomfort. Patient lives w/supportive spouse and does not anticipate any DC needs. Appreciative of visit. DC home expected, likely no needs from DCP team ROMAINE Sloan Discharge Planning/Care Management CM Discharge Assessment Start: 03/29/21 14:16 Freq: Status: Active Protocol: Document 03/29/21 14:16 ROBIN (Rec: 03/29/21 14:19 ROBIN [id number]) Discharge Planning Assessment Assigned Chronometer Assembler And Adjuster ROMAINE Ramirez DPOA/Assigned Designee Name Adelso Sheehan, spouse Contact Information [phone] Advance Directives? Yes Advance Directives on File No: not sure History Provided By Patient,Medical Record Prior Living Arrangements House Household Members spouse Type of transporation used prior to Drives own vehicle admit Independent with ADL's Yes Is patient alert and oriented? Yes Barriers to Discharge No Discharge Plan Home Transportation Arrangement Spouse Referrals Initiated None needed
[2021-03-29] MEDS: PIPERACILLIN/TAZO 3.375 GM in SODIUM CHLORIDE 0.9% 100 ML 25 ML IV (14:38)
--- NOTE | 2021-03-29 14:46 | SUR.OPER ---
Supine on padded OR bed, head on pillow, arm padded and tucked at side, legs uncrossed, safety belt at thigh, tape over blanket over lower legs .
[2021-03-29] MEDS: BUPIVACAINE 0.25% (PF) VIAL 30 ML INJ (14:51)
--- NOTE | 2021-03-29 16:10 | PM.OP.1 ---
Operative Date/Time/Diagnoses Date of procedure: 03/29/21 Time of procedure: 16:10 Pre-op diagnosis: acute appendicitis Post-op diagnosis: same Procedure & Clinicians Procedure: Laparoscopic appendectomy Same procedure as scheduled: Yes Indications: acute appendicitis Surgeon: Guicho Sauer Anesthesia Type: General Operative Notes Findings: acute non perforated appendicitis Specimen(s): other ( appendix) Estimated Blood Loss (mL): 50 Procedure in detail: Patient was brought to the operating room placed supine on the table. Bilateral lower extremity compression devices were applied. Anesthesia was induced and they intubated with an endotracheal tube. They received 3.375 g of Zosyn prior to skin incision. The left arm was tucked and appropriately padded. They were prepped and draped in sterile fashion. Time-out was performed. An infraumbilical incision was made the umbilical stalk was grasped and elevated and incision was made and the abdomen was entered atraumatically. A 12 mm balloon trocar was then placed through the incision and pneumoperitoneum of 14 mm Hg was established. The scope was then inserted and the abdomen inspected, there was no evidence of injury upon entry. Two 5 mm ports were placed under direct visualization, one in the left lower quadrant and second in the lower midline. A thorough laparoscopic evaluation was performed inspecting all four quadrants. The patient was then tilted right side up. The small bowel was then swept to the upper aspect of the abdomen. The tenie were followed to the base of the cecum where the appendix was identified. It was acutely inflamed but not perforated. The appendix was grasped and a window within the mesentery was made at the base of the appendix using the [place] dissector with care to avoid injuring the cecum. The mesoappendix was then divided using the endo-stapler with a staple length of 2.5 mm-white load. The mesenteric staple line was inspected for hemostasis. The appendix was then amputated flush at the cecum using the endo-stapler blue load. The specimen was retrieved using a endoscopic retrieval bad through the 10 mm infra-umbilical port. The right paracolic gutter and the pouch of Andrea were irrigated The 5 mm ports were then removed under direct visualization. The umbilical fascial incision was closed with 0 Vicryl in a figure-eight fashion. The skin wounds were irrigated and closed with 4-0 Monocryl followed by the application of Dermabond. Sponge instrument count at the end of the operation was correct. The patient tolerated procedure well was extubated and transferred to the postoperative care unit in stable condition. Complications: none Post-operative Condition: stable Disposition: Acute Care
[2021-03-29] MEDS: ONDANSETRON 4 MG/2 ML INJ IV (16:18)
[2021-03-30 00:18] VITALS: BP 140/74; PULSE 96; RESP 16; TEMP 35.9; O2SAT 95
[2021-03-30] MEDS: metroNIDAZOLE 500 MG/100 ML PIGGYBACK 100 MG IV (05:05)
[2021-03-30 05:14] VITALS: BP 141/71; PULSE 86; RESP 18; TEMP 36.6; O2SAT 100
[2021-03-30 08:00] VITALS: BP 124/59; PULSE 90; RESP 18; TEMP 37; O2SAT 97
[2021-03-30 09:13] VITALS: PULSE 86; RESP 16; O2SAT 96
[2021-03-30] MEDS: carvediloL 3.125 MG TABLET 6.25 MG PO (09:42)
[2021-03-30 12:00] VITALS: BP 132/59; PULSE 87; RESP 19; TEMP 36.8; O2SAT 97
== END 2021-03-30 13:10 | disposition home or self-care (01) ==
LOC: ED 20:51 → AC 22:36
PROVIDERS: Surgery; Admitting Provider Specialist; Emergency Provider Emergency Medicine; PCP Internal Medicine; Referring Provider Emergency Medicine; Visit Provider Specialist
PROC: 0DTJ4ZZ Resection of Appendix, Percutaneous Endoscopic Approach (ICD-10-PCS; CPT 44970; principal; 2021-03-29 13:45)
DX: R10.31 Right lower quadrant pain (principal); E66.01 Morbid (severe) obesity due to excess calories; Z68.41 Body mass index [BMI] 40.0-44.9, adult; G47.33 Obstructive sleep apnea (adult) (pediatric); I10 Essential (primary) hypertension; K21.9 Gastro-esophageal reflux disease without esophagitis; J45.909 Unspecified asthma, uncomplicated; K74.3 Primary biliary cirrhosis; Z20.822 Contact with and (suspected) exposure to COVID-19; K35.80 Unspecified acute appendicitis
CPT/HCPCS: 44970; 36415; 74177; 80053; 81001; 83605; 83690; 83735; 85025; 87635; 94760; 94762; 96361; 96365; 96366; 96375; 99219; 99284; C9803; G0378; J0696; J1100; J2250; J2405; J2543; J2704; J3010; Q9967

== ENCOUNTER 2021-05-28 09:45 | Outpatient (RCR) | payer MEDICARE, OTHER, SELFPAY ==
[2020-11-12 11:27] VITALS: BMI 37.9
--- NOTE | 2021-01-01 15:01 | PT.OIE ---
Current Diagnoses Complete rotator cuff tear or rupture of right shoulder, not specified as traumatic (01/01/21) Past Medical History (Last Reviewed 12/24/20 @ 13:34 by Mihai Rodriguez MD) Acute appendicitis Arthritis Asthma Basal cell carcinoma (BCC) in situ of skin Depression Diastolic heart failure GERD (gastroesophageal reflux disease) Hayfever History of chronic urinary tract infection History of prediabetes Hx of lipoma Hypertension Hypertrophic obstructive cardiomyopathy (~05/2020) Insulin resistance Left ventricular outflow tract obstruction Liver disease Lower extremity edema Nontraumatic complete tear of right rotator cuff Obstructive sleep apnea (~2005) Osteoarthritis PCOS (polycystic ovarian syndrome) Plantar fasciitis Polymyalgia rheumatica Prediabetes Primary insomnia Rosacea Snoring Past Surgical History (Last Reviewed 12/24/20 @ 13:34 by Mihai Rodriguez MD) History of third molar tooth extraction (1973) History of tonsillectomy (1958) S/P epidural steroid injection Status post delivery (12/28/80) Status post cholecystectomy (1991) Status post colonoscopy (2013) Status post dilation and curettage (09/16/11) Visit Care Team Role Provider Type Jj Hernandez MD Family Provider Physician Primary Care Provider Specialty: Internal Medicine Address: [address] [place] [address], [facility] Email: [email or web address] Mihai Rodriguez MD Attending Provider Physician Referring Provider Specialty: Orthopedic Surgery Address: [address] [place] [address], [id number] Email: [email or web address] Physical Therapy Initial Evaluation PT-OP-A Visit Information Start: 01/01/21 14:30 Freq: Status: Active Protocol: Document 01/01/21 14:31 HH (Rec: 01/01/21 15:00 [email or web address]) Out-Patient Physical Therapy Visit Information Visit Information Visit Type Initial Evaluation Visit Start Time 13:45 Visit Stop Time 14:20 Total Visit Minutes 35 Visit Number 10/16 Number of HEALTH EDUCATION TEACHER Visits 0 Evaluation Information Evaluation Date 01/01/21 Precautions Precautions post op protocol in EMR. PT-OP-B Current Condition Start: 01/01/21 14:30 Freq: Status: Active Protocol: Document 01/01/21 14:31 (Rec: 01/01/21 15:00 [email or web address]) Current Condition History of Current Condition Onset Date 12/24/20 Current Complaints s/p R small rotator cuff repair, immobility History of Current Condition pt is a 65 returning patient for her R shoulder s/p R small rotator cuff repair on by Dr. Rodriguez. Pt initially injured her R shoulder by moving furniture out of the house in the summer. Pt then participated a course of PT and was able to regain most ROM and partial strength. However, her pain was still persistent at night. Pt was then diagnosed with full thickness tear of supraspinatus from MRI early this year and decided to have it surgically repair. 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 back Functional Limitations- Recreation/ unable to participate Hobbies PT-OP-C Subjective Start: 01/01/21 14:30 Freq: Status: Active Protocol: Document 01/01/21 14:31 HH (Rec: 01/01/21 15:00 [email or web address]) Patient Questionnaires Quick Dash- Upper Extremity Quick Dash UE Score 84 Quick Dash UE Impairment 80 to 99% Impaired (Score 80- 99) OP-PT Pain Assessment Location R shoulder Intensity 6 Scale Used Numeric (0 - 10) Description Aching Frequency Frequent Pain Aggravating Factors Position Pain Alleviating Factors Cold PT-OP-K Range of Motion Start: 01/01/21 14:30 Freq: Status: Active Protocol: Document 01/01/21 14:31 (Rec: 01/01/21 15:00 [email or web address]) Shoulder Goniometric Range of Motion Shoulder Right Passive Comments unable d/t post op protocol (6 week immobilization) Right Active Comments unable d/t post op protocol (6 week immobilization) Elbow/Forearm Range of Motion Elbow/Forearm Right Active Elbow/Forearm ROM WFL Yes Left Active Elbow/Forearm ROM WFL Yes Wrist Goniometric Range of Motion Wrist Right Wrist ROM WFL Yes Left Wrist ROM WFL Yes PT-OP-M Strength Start: 01/01/21 14:30 Freq: Status: Active Protocol: Document 01/01/21 14:31 (Rec: 01/01/21 15:00 [email or web address]) Shoulder Strength Shoulder Manual Muscle Testing Right Comments unable d/t post op protocol (6 week immobilization) PT-OP-Q Treatments Start: 01/01/21 14:30 Freq: Status: Active Protocol: Document 01/01/21 14:31 HH (Rec: 01/01/21 15:00 [email or web address]) Therapeutic Exercises Sitting Exercises wrist AROm Sitting Exercise Name flexion, extension elbow flexion/extension Sitting Exercise Name flexion, extension ,pronation and supination Side right Comments for post op HEP Standing Exercises pendulum Side right Comments for HEP scap retraction/depression Standing Exercise Name scap pinch only Side bilateral Comments for post op HEP Self-Care/Home Management Treatment Education Patient Education Body Mechanics,Home Exercise Program,Joint Protection,Pain Management,Posture,Safety Other Education pt brought in DonJoy Shoulder sling and spent time completed fitting for pt to place his R shoulder at neutral position with elbow at 90 degrees. Provided post op protocol and post op scapular , pendulum and elbow/wrist AROM ex. PT-OP-T Assessment and Plan Start: 01/01/21 14:30 Freq: Status: Active Protocol: Document 01/01/21 14:31 HH (Rec: 01/01/21 15:00 [email or web address]) Physical Therapy Assessment Goals strength Impairment pt is immobilized for 6 weeks in a sling Short Term Goal (STG) pt will be improve his overall R shoulder strength > 3/5 STG Duration 4 weeks Usp Goal (LTG) pt will be improve his overall R shoulder strength > 4/5 LTG Duration 8 weeks pain Impairment pt has pain 6/10 at R shoulder in general Short Term Goal (STG) pt will have no more than 4/10 in a daily basis STG Duration 4 weeks Credit Rating Checker Goal (LTG) pt will have no more than 2/10 in a daily basis which involves daily chores, opening jars etc LTG Duration 8 weeks ROM Impairment pt is immobilized for 6 weeks in a sling Short Term Goal (STG) pt will regain full PROM for her R shoulder in all planes in 4 weeks STG Duration 03/12/21 Usp Goal (LTG) pt will regain full AROM her R shoulder in all planes in 8 weeks LTG Duration 04/11/21 Quickdash Impairment pt scores 84 on quickdash Short Term Goal (STG) Pt will score <50 on quickdash to improve overall shoulder mobility and strength. STG Duration 03/12/21 Usp Goal (LTG) Pt will score <30 on quickdash to improve overall shoulder mobility and strength. LTG Duration 04/11 Assessment Summary Assessment pt is a 65 returning patient for her R shoulder s/p R small rotator cuff repair on by Dr. Rodriguez. Pt is currently POD 1 wk silvia and will be immobilized in her sling for antoher 5 weeks before starting PT again. Spent time completed fitting assessment for her new DonJoy shoulder sling and educating patient post op ex for scapula , elbow and wrist ROM. This PT provides pt a post op protocol and she shows good understanding of it. Pt previously showed good result with PT prior to surgery, therefore, I expect she will cont benefit from skilled therapy which assists pt returning to her prior level of function. Physical Therapy Plan Frequency and Duration Frequency of Treatment 2x/Week Duration of Treatment 12 weeks Plan of Care Start Date 01/01/21 Plan of Care End Date 04/01/21 Therapeutic Interventions Therapeutic Interventions Home Exercise Program,Joint Mobilizations,Manual Therapy, Neuromuscular Re-education, Patient/Caregiver Education, Self-Care/Home Management,Soft Tissue Mobilization,Taping, Therapeutic Activities, Therapeutic Exercises Next Visit Focus/Plan Next Note Type Treatment Note Next Visit Plan reevaluiation, see protocol PROM AAROM if appropriate STM if needed
--- NOTE | 2021-01-01 15:01 | PT.OPPOC ---
Physical, Occupational & Speech Therapy At [facility] Current Diagnoses Complete rotator cuff tear or rupture of right shoulder, not specified as traumatic (01/01/21) Visit Care Team Role Provider Type Jj Hernandez MD Family Provider Physician Primary Care Provider Specialty: Internal Medicine Address: [address] [place] [address], [id number] Email: [email or web address] Mihai Rodriguez MD Attending Provider Physician Referring Provider Specialty: Orthopedic Surgery Address: [address] [place] [address], [address] Email: [email or web address] Of [email or web address] PT-OP-T Assessment and Plan Start: 01/01/21 14:30 Freq: Status: Active Protocol: Document 01/01/21 14:31 (Rec: 01/01/21 15:00 HH [email or web address]) Physical Therapy Assessment Goals strength Impairment pt is immobilized for 6 weeks in a sling Short Term Goal (STG) pt will be improve his overall R shoulder strength > 3/5 STG Duration 4 weeks Supervisor Color Paste Mixing Goal (LTG) pt will be improve his overall R shoulder strength > 4/5 LTG Duration 8 weeks pain Impairment pt has pain 6/10 at R shoulder in general Short Term Goal (STG) pt will have no more than 4/10 in a daily basis STG Duration 4 weeks Fdc Goal (LTG) pt will have no more than 2/10 in a daily basis which involves daily chores, opening jars etc LTG Duration 8 weeks ROM Impairment pt is immobilized for 6 weeks in a sling Short Term Goal (STG) pt will regain full PROM for her R shoulder in all planes in 4 weeks STG Duration 03/12/21 Fdc Goal (LTG) pt will regain full AROM her R shoulder in all planes in 8 weeks LTG Duration 04/11/21 Quickdash Impairment pt scores 84 on quickdash Short Term Goal (STG) Pt will score <50 on quickdash to improve overall shoulder mobility and strength. STG Duration 03/12/21 Supervisor Color Paste Mixing Goal (LTG) Pt will score <30 on quickdash to improve overall shoulder mobility and strength. LTG Duration 04/11 Assessment Summary Assessment pt is a 65 returning patient for her R shoulder s/p R small rotator cuff repair on by Dr. Rodriguez. Pt is currently POD 1 wk silvia and will be immobilized in her sling for antoher 5 weeks before starting PT again. Spent time completed fitting assessment for her new DonJoy shoulder sling and educating patient post op ex for scapula , elbow and wrist ROM. This PT provides pt a post op protocol and she shows good understanding of it. Pt previously showed good result with PT prior to surgery, therefore, I expect she will cont benefit from skilled therapy which assists pt returning to her prior level of function. Physical Therapy Plan Frequency and Duration Frequency of Treatment 2x/Week Duration of Treatment 12 weeks Plan of Care Start Date 01/01/21 Plan of Care End Date 04/01/21 Therapeutic Interventions Therapeutic Interventions Home Exercise Program,Joint Mobilizations,Manual Therapy, Neuromuscular Re-education, Patient/Caregiver Education, Self-Care/Home Management,Soft Tissue Mobilization,Taping, Therapeutic Activities, Therapeutic Exercises Next Visit Focus/Plan Next Note Type Treatment Note Next Visit Plan reevaluiation, see protocol PROM AAROM if appropriate STM if needed Plan of Care Dates Plan of Care Start Date 01/01/21 Plan of Care End Date 04/01/21 Electronically Signed by: Jose Benjamin PT 01/01/21 1501 Please Sign and Return: I have reviewed this Plan of Care and certify that the skilled therapy services above are required to meet the patient?s needs. Physician Signature Date Printed Name and Credentials Clinical Instructor Signature Printed Name and Credentials
--- NOTE | 2021-01-11 12:09 | PT.OTN ---
Current Diagnoses Complete rotator cuff tear or rupture of right shoulder, not specified as traumatic (01/11/21) Physical Therapy Treatment Note PT-OP-A Visit Information Start: 01/01/21 14:30 Freq: Status: Active Protocol: Document 01/11/21 11:16 HH (Rec: 01/11/21 12:08 [id number]) Out-Patient Physical Therapy Visit Information Visit Information Visit Type Treatment Note Visit Start Time 11:20 Visit Stop Time 12:05 Total Visit Minutes 45 Visit Number 11/16 Number of MECHANIC DRIVER Visits 0 PT-OP-B Current Condition Start: 01/01/21 14:30 Freq: Status: Active Protocol: Document 01/01/21 14:31 HH (Rec: 01/01/21 15:00 [email or web address]) Current Condition History of Current Condition Onset Date 12/24/20 Current Complaints s/p R small rotator cuff repair, immobility History of Current Condition pt is a 65 returning patient for her R shoulder s/p R small rotator cuff repair on by Dr. Rodriguez. Pt initially injured her R shoulder by moving furniture out of the house in the summer. Pt then participated a course of PT and was able to regain most ROM and partial strength. However, her pain was still persistent at night. Pt was then diagnosed with full thickness tear of supraspinatus from MRI early this year and decided to have it surgically repair. 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 PT-OP-K Range of Motion Start: 01/01/21 14:30 Freq: Status: Active Protocol: Document 01/11/21 11:16 HH (Rec: 01/11/21 12:08 HH [id number]) Shoulder Goniometric Range of Motion Shoulder Right Passive Shoulder ROM WFL No Testing Position Supine Flexion 140 Abduction 120 External Rotation at 90 degrees 30 Abduction Internal Rotation 90 Comments Pain at all end range and from flexion to neutral position PT-OP-M Strength Start: 01/01/21 14:30 Freq: Status: Active Protocol: Document 01/01/21 14:31 (Rec: 01/01/21 15:00 [email or web address]) Shoulder Strength Shoulder Manual Muscle Testing Right Comments unable d/t post op protocol (6 week immobilization) PT-OP-Q Treatments Start: 01/01/21 14:30 Freq: Status: Active Protocol: Document 01/11/21 11:16 (Rec: 01/11/21 12:08 [id number]) Therapeutic Exercises Supine Exercises PROM Supine Exercise Name flexion, abduction Side right Equipment Used by therapist Sitting Exercises [place] madeleine Sitting Exercise Name PROM on R Side bilateral Comments shoulder up to 90 degree flexion before pain starts Standing Exercises scap circles Side bilateral Reps/Minutes 10 x1 Comments no discomfort Manual Therapy Treatment Soft Tissue Mobilization Upper trap Body Location R Mobilization Type Sustained Pressure,Trigger Point Release Intensity/Depth Moderate Body Position Sitting Comments mod tonicity noted. RTC Body Location R infrapsinatus Mobilization Type Sustained Pressure,Trigger Point Release Intensity/Depth Moderate Body Position Supine Comments minimal discomfort noted. PT-OP-T Assessment and Plan Start: 01/01/21 14:30 Freq: Status: Active Protocol: Document 01/11/21 11:16 (Rec: 01/11/21 12:08 [id number]) Physical Therapy Assessment Goals strength Impairment pt is immobilized for 6 weeks in a sling Short Term Goal (STG) pt will be improve his overall R shoulder strength > 3/5 STG Duration 4 weeks Longterm Goal (LTG) pt will be improve his overall R shoulder strength > 4/5 LTG Duration 8 weeks pain Impairment pt has pain 6/10 at R shoulder in general Short Term Goal (STG) pt will have no more than 4/10 in a daily basis STG Duration 4 weeks Physician Assistant Goal (LTG) pt will have no more than 2/10 in a daily basis which involves daily chores, opening jars etc LTG Duration 8 weeks ROM Impairment pt is immobilized for 6 weeks in a sling Short Term Goal (STG) pt will regain full PROM for her R shoulder in all planes in 4 weeks STG Duration 03/12/21 Physician Assistant Goal (LTG) pt will regain full AROM her R shoulder in all planes in 8 weeks LTG Duration 04/11/21 Quickdash Impairment pt scores 84 on quickdash Short Term Goal (STG) Pt will score <50 on quickdash to improve overall shoulder mobility and strength. STG Duration 03/12/21 Physician Assistant Goal (LTG) Pt will score <30 on quickdash to improve overall shoulder mobility and strength. LTG Duration 04/11 Assessment Summary Assessment Pt consulted with surgeon Dr. Rodriguez and recommended initiate therapy with PROM and progressive use of madeleine as bolivar. Pt overall shows good baseline of PROM today but painful at all end range. Will progress accordingly. Physical Therapy Plan Frequency and Duration Frequency of Treatment 2x/Week Duration of Treatment 12 weeks Plan of Care Start Date 01/01/21 Plan of Care End Date 04/01/21 Therapeutic Interventions Therapeutic Interventions Home Exercise Program,Joint Mobilizations,Manual Therapy, Neuromuscular Re-education, Patient/Caregiver Education, Self-Care/Home Management,Soft Tissue Mobilization,Taping, Therapeutic Activities, Therapeutic Exercises Next Visit Focus/Plan Next Note Type Treatment Note Next Visit Plan reevaluiation, see protocol PROM AAROM if appropriate STM if needed
--- NOTE | 2021-01-15 11:15 | PT.OTN ---
Current Diagnoses Complete rotator cuff tear or rupture of right shoulder, not specified as traumatic (01/15/21) Physical Therapy Treatment Note PT-OP-A Visit Information Start: 01/01/21 14:30 Freq: Status: Active Protocol: Document 01/15/21 10:34 SP (Rec: 01/15/21 11:34 SP [id number]) Out-Patient Physical Therapy Visit Information Visit Information Visit Type Treatment Note Visit Note Pt at 3 weeks post-op. Visit Start Time 10:34 Visit Stop Time 11:15 Total Visit Minutes 41 Visit Number 12/14 Number of BINDER AND WRAPPER PACKER Visits 1 Evaluation Information Evaluation Date 01/01/21 Precautions Precautions post op protocol in EMR. PT-OP-B Current Condition Start: 01/01/21 14:30 Freq: Status: Active Protocol: Document 01/01/21 14:31 HH (Rec: 01/01/21 15:00 HH [email or web address]) Current Condition History of Current Condition Onset Date 12/24/20 Current Complaints s/p R small rotator cuff repair, immobility History of Current Condition pt is a 65 returning patient for her R shoulder s/p R small rotator cuff repair on by Dr. Rodriguez. Pt initially injured her R shoulder by moving furniture out of the house in the summer. Pt then participated a course of PT and was able to regain most ROM and partial strength. However, her pain was still persistent at night. Pt was then diagnosed with full thickness tear of supraspinatus from MRI early this year and decided to have it surgically repair. 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 Notices using a heating pad at night helps with pain. PT-OP-K Range of Motion Start: 01/01/21 14:30 Freq: Status: Active Protocol: Document 01/11/21 11:16 HH (Rec: 01/11/21 12:08 HH [id number]) Shoulder Goniometric Range of Motion Shoulder Right Passive Shoulder ROM WFL No Testing Position Supine Flexion 140 Abduction 120 External Rotation at 90 degrees 30 Abduction Internal Rotation 90 Comments Pain at all end range and from flexion to neutral position PT-OP-M Strength Start: 01/01/21 14:30 Freq: Status: Active Protocol: Document 01/01/21 14:31 HH (Rec: 01/01/21 15:00 HH [email or web address]) Shoulder Strength Shoulder Manual Muscle Testing Right Comments unable d/t post op protocol (6 week immobilization) PT-OP-Q Treatments Start: 01/01/21 14:30 Freq: Status: Active Protocol: Document 01/15/21 10:34 SP (Rec: 01/15/21 11:34 SP [id number]) Therapeutic Exercises Supine Exercises PROM Supine Exercise Name flexion to 80, abduction to 50 deg, ER to 20 deg Side right Equipment Used by therapist Comments good feedback response- painfree Sitting Exercises wrist AROm Sitting Exercise Name flexion, extension, fist squeeze Side right Reps/Minutes x10 elbow flexion/extension Sitting Exercise Name flexion, extension ,pronation and supination Side right Reps/Minutes x10 Comments for post op HEP [place] madeleine Sitting Exercise Name PROM on R Resistance shoulder up to 90 degree flexion and 45 deg ABD before discomfort>pain Equipment Used mirror front for self feedback alignment Comments cued allow scap relax in downward position Standing Exercises scap circles Standing Exercise Name scap posterior circles Side bilateral Reps/Minutes 10 x1 Comments no discomfort pendulum Standing Exercise Name f/b/sts/cw/ccw Side right Comments for HEP scap retraction/depression Standing Exercise Name scap retraction/ depression- seated Side bilateral Comments HEP, cued awareness of CS neutral Manual Therapy Treatment Soft Tissue Mobilization scar mobility Body Location 1/3 still scar tissue nodule ( near AC jt) Mobilization Type Rolling Intensity/Depth Moderate Body Position Supine Comments good tolerance, gentle w/ instruction on self R scapular PNF Body Location retraction, depression PROM, AROM feedback Body Position Sidelying Upper trap Body Location R Mobilization Type Sustained Pressure,Trigger Point Release Intensity/Depth Moderate Body Position Sitting Comments mod tonicity noted, instruction on self using racquetball on wall. Joint Mobilizations 1 Joint R GH jt Direction Inf, posterior Grade I Comments gentle small movement PT-OP-T Assessment and Plan Start: 01/01/21 14:30 Freq: Status: Active Protocol: Document 01/15/21 10:34 SP (Rec: 01/15/21 11:34 SP [id number]) Physical Therapy Assessment Goals strength Impairment pt is immobilized for 6 weeks in a sling Short Term Goal (STG) pt will be improve his overall R shoulder strength > 3/5 STG Duration 4 weeks Cook [place]ili Goal (LTG) pt will be improve his overall R shoulder strength > 4/5 LTG Duration 8 weeks pain Impairment pt has pain 6/10 at R shoulder in general Short Term Goal (STG) pt will have no more than 4/10 in a daily basis STG Duration 4 weeks Cook [place]ili Goal (LTG) pt will have no more than 2/10 in a daily basis which involves daily chores, opening jars etc LTG Duration 8 weeks ROM Impairment pt is immobilized for 6 weeks in a sling Short Term Goal (STG) pt will regain full PROM for her R shoulder in all planes in 4 weeks STG Duration 03/12/21 Detention Goal (LTG) pt will regain full AROM her R shoulder in all planes in 8 weeks LTG Duration 04/11/21 Quickdash Impairment pt scores 84 on quickdash Short Term Goal (STG) Pt will score <50 on quickdash to improve overall shoulder mobility and strength. STG Duration 03/12/21 Cook [place]ili Goal (LTG) Pt will score <30 on quickdash to improve overall shoulder mobility and strength. LTG Duration 04/11 Assessment Summary Assessment Pt had good response to manual , HEP review with no pain end tx feels alot better. Improved in painfree range during pulleys at end tx to approx 80 deg FF and 45 deg abd w/ cuing and mirror front for awareness of no UT recruitment. Physical Therapy Plan Frequency and Duration Frequency of Treatment 2x/Week Duration of Treatment 12 weeks Plan of Care Start Date 01/01/21 Plan of Care End Date 04/01/21 Therapeutic Interventions Therapeutic Interventions Home Exercise Program,Joint Mobilizations,Manual Therapy, Neuromuscular Re-education, Patient/Caregiver Education, Self-Care/Home Management,Soft Tissue Mobilization,Taping, Therapeutic Activities, Therapeutic Exercises Next Visit Focus/Plan Next Note Type Treatment Note Next Visit Plan Assess response to STMs, gentle PROM, scap stab/ circles, wrist/ elbow AROM, pulleys, pendulums Continue per PT POC: see protocol PROM AAROM if appropriate STM if needed
--- NOTE | 2021-01-18 09:01 | PT.OTN ---
Current Diagnoses Complete rotator cuff tear or rupture of right shoulder, not specified as traumatic (01/18/21) Physical Therapy Treatment Note PT-OP-A Visit Information Start: 01/01/21 14:30 Freq: Status: Active Protocol: Document 01/18/21 08:14 HH (Rec: 01/18/21 09:01 [id number]) Out-Patient Physical Therapy Visit Information Visit Information Visit Type Treatment Note Visit Note Pt at 3.5 weeks post-op. Visit Start Time 08:17 Visit Stop Time 09:00 Total Visit Minutes 43 Visit Number 12/14 Number of SECURITY PROJECT MANAGER Visits 1 PT-OP-B Current Condition Start: 01/01/21 14:30 Freq: Status: Active Protocol: Document 01/01/21 14:31 HH (Rec: 01/01/21 15:00 [email or web address]) Current Condition History of Current Condition Onset Date 12/24/20 Current Complaints s/p R small rotator cuff repair, immobility History of Current Condition pt is a 65 returning patient for her R shoulder s/p R small rotator cuff repair on by Dr. Rodriguez. Pt initially injured her R shoulder by moving furniture out of the house in the summer. Pt then participated a course of PT and was able to regain most ROM and partial strength. However, her pain was still persistent at night. Pt was then diagnosed with full thickness tear of supraspinatus from MRI early this year and decided to have it surgically repair. 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 I have less pain too Patient Reported Progress Improving PT-OP-K Range of Motion Start: 01/01/21 14:30 Freq: Status: Active Protocol: Document 01/11/21 11:16 HH (Rec: 01/11/21 12:08 [id number]) Shoulder Goniometric Range of Motion Shoulder Right Passive Shoulder ROM WFL No Testing Position Supine Flexion 140 Abduction 120 External Rotation at 90 degrees 30 Abduction Internal Rotation 90 Comments Pain at all end range and from flexion to neutral position PT-OP-M Strength Start: 01/01/21 14:30 Freq: Status: Active Protocol: Document 01/01/21 14:31 HH (Rec: 01/01/21 15:00 [email or web address]) Shoulder Strength Shoulder Manual Muscle Testing Right Comments unable d/t post op protocol (6 week immobilization) PT-OP-Q Treatments Start: 01/01/21 14:30 Freq: Status: Active Protocol: Document 01/18/21 08:14 (Rec: 01/18/21 09:01 [id number]) Therapeutic Exercises Supine Exercises PROM Supine Exercise Name flexion to 120, abduction to 120 deg, ER to 30 deg Side right Equipment Used by therapist Comments less muscle guarding noted. Sitting Exercises [place] madeleine Sitting Exercise Name PROM on R Resistance shoulder up to 110 degree flexion and 45 deg ABD/ FL before discomfort>pain Equipment Used mirror front for self feedback alignment Comments cued allow scap relax in downward position Standing Exercises scap circles Standing Exercise Name scap posterior circles Side bilateral Reps/Minutes 10 x1 Comments no discomfort Manual Therapy Treatment Soft Tissue Mobilization scar mobility Body Location 1/3 still scar tissue nodule ( near AC jt) Mobilization Type Rolling Intensity/Depth Moderate Body Position Supine Comments good tolerance, R scapular PNF Body Location retraction, depression PROM, AROM feedback Body Position Sidelying Upper trap Body Location R Mobilization Type Sustained Pressure,Trigger Point Release Intensity/Depth Moderate Body Position Sitting Comments decreased tonicity noted, instruction on self using racquetball on wall. PT-OP-T Assessment and Plan Start: 01/01/21 14:30 Freq: Status: Active Protocol: Document 01/18/21 08:14 (Rec: 01/18/21 09:01 [id number]) Physical Therapy Assessment Goals strength Impairment pt is immobilized for 6 weeks in a sling Short Term Goal (STG) pt will be improve his overall R shoulder strength > 3/5 STG Duration 4 weeks Supervisor Sewer System Goal (LTG) pt will be improve his overall R shoulder strength > 4/5 LTG Duration 8 weeks pain Impairment pt has pain 6/10 at R shoulder in general Short Term Goal (STG) pt will have no more than 4/10 in a daily basis STG Duration 4 weeks Supervisor Sewer System Goal (LTG) pt will have no more than 2/10 in a daily basis which involves daily chores, opening jars etc LTG Duration 8 weeks ROM Impairment pt is immobilized for 6 weeks in a sling Short Term Goal (STG) pt will regain full PROM for her R shoulder in all planes in 4 weeks STG Duration 03/12/21 Supervisor Sewer System Goal (LTG) pt will regain full AROM her R shoulder in all planes in 8 weeks LTG Duration 04/11/21 Quickdash Impairment pt scores 84 on quickdash Short Term Goal (STG) Pt will score <50 on quickdash to improve overall shoulder mobility and strength. STG Duration 03/12/21 Assisted Goal (LTG) Pt will score <30 on quickdash to improve overall shoulder mobility and strength. LTG Duration 04/11 Assessment Summary Assessment Pt shows very good progress today with less muscle guarding noted. Able to reach 110-120 degrees for both FL and ABD on OH madeleine. Cont PROM therex as tolerated. Physical Therapy Plan Frequency and Duration Frequency of Treatment 2x/Week Duration of Treatment 12 weeks Plan of Care Start Date 01/01/21 Plan of Care End Date 04/01/21 Therapeutic Interventions Therapeutic Interventions Home Exercise Program,Joint Mobilizations,Manual Therapy, Neuromuscular Re-education, Patient/Caregiver Education, Self-Care/Home Management,Soft Tissue Mobilization,Taping, Therapeutic Activities, Therapeutic Exercises Next Visit Focus/Plan Next Note Type Treatment Note Next Visit Plan Assess response to STMs, gentle PROM, scap stab/ circles, wrist/ elbow AROM, pulleys, pendulums Continue per PT POC: see protocol PROM AAROM if appropriate STM if needed
--- NOTE | 2021-01-22 11:15 | PT.OTN ---
Current Diagnoses Complete rotator cuff tear or rupture of right shoulder, not specified as traumatic (01/22/21) Physical Therapy Treatment Note PT-OP-A Visit Information Start: 01/01/21 14:30 Freq: Status: Active Protocol: Document 01/22/21 10:28 SP (Rec: 01/22/21 11:38 SP [id number]) Out-Patient Physical Therapy Visit Information Visit Information Visit Type Treatment Note Visit Note 4 weeks post-op Visit Start Time 10:28 Visit Stop Time 11:15 Total Visit Minutes 47 Visit Number 01/14 Number of HTML WEB DEVELOPER Visits 2 Evaluation Information Evaluation Date 01/01/21 Precautions Precautions post op protocol in EMR under therapy notes HEP. PT-OP-B Current Condition Start: 01/01/21 14:30 Freq: Status: Active Protocol: Document 01/01/21 14:31 HH (Rec: 01/01/21 15:00 HH [email or web address]) Current Condition History of Current Condition Onset Date 12/24/20 Current Complaints s/p R small rotator cuff repair, immobility History of Current Condition pt is a 65 returning patient for her R shoulder s/p R small rotator cuff repair on by Dr. Rodriguez. Pt initially injured her R shoulder by moving furniture out of the house in the summer of 2019. Pt then participated a course of PT and was able to regain most ROM and partial strength. However, her pain was still persistent at night. Pt was then diagnosed with full thickness tear of supraspinatus from MRI early this year and decided to have it surgically repair. 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 I did try easy table slides forward with no pain. Pt stated is able to get her R hand almost behind her R glut to get her arm in shirt better. Pt reported having pain in SI due to taken off medications for Polymyalgia rheumatica but has an appt with urology nurse next week to see if anything can do to improve joint pain. Patient Reported Progress Improving PT-OP-K Range of Motion Start: 01/01/21 14:30 Freq: Status: Active Protocol: Document 01/11/21 11:16 HH (Rec: 01/11/21 12:08 HH [id number]) Shoulder Goniometric Range of Motion Shoulder Right Passive Shoulder ROM WFL No Testing Position Supine Flexion 140 Abduction 120 External Rotation at 90 degrees 30 Abduction Internal Rotation 90 Comments Pain at all end range and from flexion to neutral position PT-OP-M Strength Start: 01/01/21 14:30 Freq: Status: Active Protocol: Document 01/01/21 14:31 HH (Rec: 01/01/21 15:00 HH [email or web address]) Shoulder Strength Shoulder Manual Muscle Testing Right Comments unable d/t post op protocol (6 week immobilization) PT-OP-Q Treatments Start: 01/01/21 14:30 Freq: Status: Active Protocol: Document 01/22/21 10:28 SP (Rec: 01/22/21 11:38 SP [id number]) Therapeutic Exercises Supine Exercises PROM Supine Exercise Name flexion to 129, abduction to 117 deg, ER to 55 deg (in 40 deg ABD) Side right Equipment Used by therapist Comments less muscle guarding noted at end feel. Sitting Exercises flexion table slides Side right Reps/Minutes x8 reps Comments no pain, gentle glides small range wrist AROm Sitting Exercise Name flexion, extension, fist squeeze Side right Reps/Minutes x10 elbow flexion/extension Sitting Exercise Name flexion, extension ,pronation and supination Side right Reps/Minutes x10 Comments for post op HEP [place] madeleine Sitting Exercise Name PROM on R Resistance shoulder up to 135 degree flexion, 104 deg ABD/ FL before pulling in deltoi Equipment Used mirror front for self feedback alignment Comments cued allow scap relax in downward position Upper Trap stretch Sitting Exercise Name Upper trap and Levator Scapula stretch Side right Reps/Minutes 30 x 2 Scalene stretch Sitting Exercise Name Scalene stretch Side bilateral Reps/Minutes 30 x 2 Standing Exercises self STMs racquetball at wall Standing Exercise Name UT, infraspinatus Side right Reps/Minutes 1 min Comments good feedback results of decreased tightness scap circles Standing Exercise Name scap posterior circles Side bilateral Reps/Minutes 10 x1 Comments no discomfort pendulum Standing Exercise Name f/b/sts/cw/ccw Side right Reps/Minutes x10 each Comments good form- pain free scap retraction/depression Standing Exercise Name scap retraction/ depression- seated w/ CS rotation Side bilateral Comments HEP, cued awareness of tall posture & CS neutral Manual Therapy Treatment Soft Tissue Mobilization scar mobility Body Location 1/3 still scar tissue nodule ( near AC jt) Mobilization Type Rolling Intensity/Depth Moderate Body Position Sitting R scapular PNF Body Location retraction, depression PROM, AROM feedback Body Position Sidelying Upper trap Body Location R Mobilization Type Sustained Pressure,Trigger Point Release Intensity/Depth Moderate Body Position Sitting Comments decreased tonicity noted, instruction on self using racquetball on wall. PT-OP-T Assessment and Plan Start: 01/01/21 14:30 Freq: Status: Active Protocol: Document 01/22/21 10:28 SP (Rec: 01/22/21 11:38 SP [id number]) Physical Therapy Assessment Goals strength Impairment pt is immobilized for 6 weeks in a sling Short Term Goal (STG) pt will be improve his overall R shoulder strength > 3/5 STG Duration 4 weeks Custodial Goal (LTG) pt will be improve his overall R shoulder strength > 4/5 LTG Duration 8 weeks pain Impairment pt has pain 6/10 at R shoulder in general Short Term Goal (STG) pt will have no more than 4/10 in a daily basis STG Duration 4 weeks Custodial Goal (LTG) pt will have no more than 2/10 in a daily basis which involves daily chores, opening jars etc LTG Duration 8 weeks ROM Impairment pt is immobilized for 6 weeks in a sling Short Term Goal (STG) pt will regain full PROM for her R shoulder in all planes in 4 weeks STG Duration 03/12/21 Custodial Goal (LTG) pt will regain full AROM her R shoulder in all planes in 8 weeks LTG Duration 04/11/21 Quickdash Impairment pt scores 84 on quickdash Short Term Goal (STG) Pt will score <50 on quickdash to improve overall shoulder mobility and strength. STG Duration 03/12/21 Custodial Goal (LTG) Pt will score <30 on quickdash to improve overall shoulder mobility and strength. LTG Duration 04/11 Assessment Summary Assessment Pt responded well to manual, PROM, HEP review with note of increase PROM supine and seated use of pulleys no pain mostly muscle tension eccentric directioning with good slow pacing control using LUE. Pt stated she initiated seated table slide slight active FF only with no pain and good demonstration shown during tx with verbal ok from supervising PT is within protocol. Physical Therapy Plan Frequency and Duration Frequency of Treatment 2x/Week Duration of Treatment 12 weeks Plan of Care Start Date 01/01/21 Plan of Care End Date 04/01/21 Therapeutic Interventions Therapeutic Interventions Home Exercise Program,Joint Mobilizations,Manual Therapy, Neuromuscular Re-education, Patient/Caregiver Education, Self-Care/Home Management,Soft Tissue Mobilization,Taping, Therapeutic Activities, Therapeutic Exercises Next Visit Focus/Plan Next Note Type Treatment Note Next Visit Plan Assess response to STMs, gentle PROM, scap stab/ circles, wrist/ elbow AROM, pulleys, pendulums Continue per PT POC: see protocol in EMR under HEP PROM AAROM if appropriate STM if needed
--- NOTE | 2021-01-25 09:00 | PT.OTN ---
Current Diagnoses Complete rotator cuff tear or rupture of right shoulder, not specified as traumatic (01/22/21) Physical Therapy Treatment Note PT-OP-A Visit Information Start: 01/01/21 14:30 Freq: Status: Active Protocol: Document 01/25/21 08:11 HH (Rec: 01/25/21 09:00 [id number]) Out-Patient Physical Therapy Visit Information Visit Information Visit Type Treatment Note Visit Note 4 weeks post-op pt is going to see surgeon next . Visit Start Time 08:15 Visit Stop Time 09:00 Total Visit Minutes 45 Visit Number 02/13 Number of DIRECTOR OF DIAGNOSTIC IMAGING Visits 0 PT-OP-B Current Condition Start: 01/01/21 14:30 Freq: Status: Active Protocol: Document 01/01/21 14:31 HH (Rec: 01/01/21 15:00 [email or web address]) Current Condition History of Current Condition Onset Date 12/24/20 Current Complaints s/p R small rotator cuff repair, immobility History of Current Condition pt is a 65 returning patient for her R shoulder s/p R small rotator cuff repair on by Dr. Rodriguez. Pt initially injured her R shoulder by moving furniture out of the house in the summer. Pt then participated a course of PT and was able to regain most ROM and partial strength. However, her pain was still persistent at night. Pt was then diagnosed with full thickness tear of supraspinatus from MRI early this year and decided to have it surgically repair. 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 Im feeling better today. Patient Reported Progress Improving PT-OP-K Range of Motion Start: 01/01/21 14:30 Freq: Status: Active Protocol: Document 01/11/21 11:16 HH (Rec: 01/11/21 12:08 [id number]) Shoulder Goniometric Range of Motion Shoulder Right Passive Shoulder ROM WFL No Testing Position Supine Flexion 140 Abduction 120 External Rotation at 90 degrees 30 Abduction Internal Rotation 90 Comments Pain at all end range and from flexion to neutral position PT-OP-M Strength Start: 01/01/21 14:30 Freq: Status: Active Protocol: Document 01/01/21 14:31 HH (Rec: 01/01/21 15:00 [email or web address]) Shoulder Strength Shoulder Manual Muscle Testing Right Comments unable d/t post op protocol (6 week immobilization) PT-OP-Q Treatments Start: 01/01/21 14:30 Freq: Status: Active Protocol: Document 01/25/21 08:11 HH (Rec: 01/25/21 09:00 [id number]) Therapeutic Exercises Supine Exercises PROM Supine Exercise Name flexion to 135, abduction to 117 deg, ER to 55 deg ,70 IR ( in 40 deg ABD) Side right Equipment Used by therapist Comments less muscle guarding noted at end feel. Sitting Exercises flexion table slides Sitting Exercise Name up to 100 degrees flexion and abduction Side right Reps/Minutes x8 reps Comments no pain, gentle glides small range OH madeleine Sitting Exercise Name PROM on R Resistance shoulder up to 135 degree flexion, 104 deg ABD/ FL before pulling in deltoi Equipment Used mirror front for self feedback alignment Comments cued allow scap relax in downward position Standing Exercises scap circles Standing Exercise Name scap posterior circles Side bilateral Reps/Minutes 10 x1 Comments no discomfort Manual Therapy Treatment Soft Tissue Mobilization scar mobility Body Location 1/3 still scar tissue nodule ( near AC jt) Mobilization Type Rolling Intensity/Depth Moderate Body Position Sitting Upper trap Body Location R Mobilization Type Sustained Pressure,Trigger Point Release Intensity/Depth Moderate Body Position Sitting Comments decreased tonicity noted, instruction on self using racquetball on wall. PT-OP-T Assessment and Plan Start: 01/01/21 14:30 Freq: Status: Active Protocol: Document 01/25/21 08:11 HH (Rec: 01/25/21 09:00 [id number]) Physical Therapy Assessment Goals strength Impairment pt is immobilized for 6 weeks in a sling Short Term Goal (STG) pt will be improve his overall R shoulder strength > 3/5 STG Duration 4 weeks Flat Surfacer Goal (LTG) pt will be improve his overall R shoulder strength > 4/5 LTG Duration 8 weeks pain Impairment pt has pain 6/10 at R shoulder in general Short Term Goal (STG) pt will have no more than 4/10 in a daily basis STG Duration 4 weeks Flat Surfacer Goal (LTG) pt will have no more than 2/10 in a daily basis which involves daily chores, opening jars etc LTG Duration 8 weeks ROM Impairment pt is immobilized for 6 weeks in a sling Short Term Goal (STG) pt will regain full PROM for her R shoulder in all planes in 4 weeks STG Duration 03/12/21 Flat Surfacer Goal (LTG) pt will regain full AROM her R shoulder in all planes in 8 weeks LTG Duration 04/11/21 Quickdash Impairment pt scores 84 on quickdash Short Term Goal (STG) Pt will score <50 on quickdash to improve overall shoulder mobility and strength. STG Duration 03/12/21 Flat Surfacer Goal (LTG) Pt will score <30 on quickdash to improve overall shoulder mobility and strength. LTG Duration 04/11 Assessment Summary Assessment Pt bolivar session well with improved PROM continuously. Added table slide for abduction today. Physical Therapy Plan Frequency and Duration Frequency of Treatment 2x/Week Duration of Treatment 12 weeks Plan of Care Start Date 01/01/21 Plan of Care End Date 04/01/21 Therapeutic Interventions Therapeutic Interventions Home Exercise Program,Joint Mobilizations,Manual Therapy, Neuromuscular Re-education, Patient/Caregiver Education, Self-Care/Home Management,Soft Tissue Mobilization,Taping, Therapeutic Activities, Therapeutic Exercises Next Visit Focus/Plan Next Note Type Treatment Note Next Visit Plan Assess response to STMs, gentle PROM, scap stab/ circles, wrist/ elbow AROM, pulleys, pendulums Continue per PT POC: see protocol in EMR under HEP PROM AAROM if appropriate STM if needed
--- NOTE | 2021-01-29 11:14 | PT.OTN ---
Current Diagnoses Complete rotator cuff tear or rupture of right shoulder, not specified as traumatic (01/29/21) Physical Therapy Treatment Note PT-OP-A Visit Information Start: 01/01/21 14:30 Freq: Status: Active Protocol: Document 01/29/21 10:36 HH (Rec: 01/29/21 11:14 [id number]) Out-Patient Physical Therapy Visit Information Visit Information Visit Type Treatment Note Visit Note 5 weeks post-op pt is going to see surgeon on . Visit Start Time 10:35 Visit Stop Time 11:15 Total Visit Minutes 40 Visit Number 03/16 Number of WIRE GALVANIZER Visits 0 PT-OP-B Current Condition Start: 01/01/21 14:30 Freq: Status: Active Protocol: Document 01/01/21 14:31 HH (Rec: 01/01/21 15:00 HH [email or web address]) Current Condition History of Current Condition Onset Date 12/24/20 Current Complaints s/p R small rotator cuff repair, immobility History of Current Condition pt is a 65 returning patient for her R shoulder s/p R small rotator cuff repair on by Dr. Rodriguez. Pt initially injured her R shoulder by moving furniture out of the house in the summer. Pt then participated a course of PT and was able to regain most ROM and partial strength. However, her pain was still persistent at night. Pt was then diagnosed with full thickness tear of supraspinatus from MRI early this year and decided to have it surgically repair. 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 So my shoulder was hurting since thursday. Patient Reported Progress Improving PT-OP-K Range of Motion Start: 01/01/21 14:30 Freq: Status: Active Protocol: Document 01/11/21 11:16 HH (Rec: 01/11/21 12:08 [id number]) Shoulder Goniometric Range of Motion Shoulder Right Passive Shoulder ROM WFL No Testing Position Supine Flexion 140 Abduction 120 External Rotation at 90 degrees 30 Abduction Internal Rotation 90 Comments Pain at all end range and from flexion to neutral position PT-OP-M Strength Start: 01/01/21 14:30 Freq: Status: Active Protocol: Document 01/01/21 14:31 HH (Rec: 01/01/21 15:00 [email or web address]) Shoulder Strength Shoulder Manual Muscle Testing Right Comments unable d/t post op protocol (6 week immobilization) PT-OP-Q Treatments Start: 01/01/21 14:30 Freq: Status: Active Protocol: Document 01/29/21 10:36 HH (Rec: 01/29/21 11:14 [id number]) Therapeutic Exercises Supine Exercises PROM Supine Exercise Name flexion to 135, abduction to 117 deg, ER to 55 deg ,70 IR ( in 40 deg ABD) Side right Equipment Used by therapist Comments less muscle guarding noted at end feel. Sitting Exercises flexion table slides Sitting Exercise Name up to 125 degrees flexion and 120 abduction Side right Reps/Minutes x8 reps Comments no pain, gentle glides small range OH madeleine Sitting Exercise Name PROM on R Resistance shoulder up to 135 degree flexion, 104 deg ABD/ FL before pulling in deltoi Equipment Used mirror front for self feedback alignment Comments cued allow scap relax in downward position Manual Therapy Treatment Soft Tissue Mobilization R scapular PNF Body Location retraction, depression PROM, AROM feedback Body Position Sidelying Upper trap Body Location R Mobilization Type Sustained Pressure,Trigger Point Release Intensity/Depth Moderate Body Position Sitting Comments decreased tonicity noted, instruction on self using racquetball on wall. PT-OP-T Assessment and Plan Start: 01/01/21 14:30 Freq: Status: Active Protocol: Document 01/29/21 10:36 (Rec: 01/29/21 11:14 [id number]) Physical Therapy Assessment Goals strength Impairment pt is immobilized for 6 weeks in a sling Short Term Goal (STG) pt will be improve his overall R shoulder strength > 3/5 STG Duration 4 weeks Correction Goal (LTG) pt will be improve his overall R shoulder strength > 4/5 LTG Duration 8 weeks pain Impairment pt has pain 6/10 at R shoulder in general Short Term Goal (STG) pt will have no more than 4/10 in a daily basis STG Duration 4 weeks Correction Goal (LTG) pt will have no more than 2/10 in a daily basis which involves daily chores, opening jars etc LTG Duration 8 weeks ROM Impairment pt is immobilized for 6 weeks in a sling Short Term Goal (STG) pt will regain full PROM for her R shoulder in all planes in 4 weeks STG Duration 03/12/21 System Safety Manager Goal (LTG) pt will regain full AROM her R shoulder in all planes in 8 weeks LTG Duration 04/11/21 Quickdash Impairment pt scores 84 on quickdash Short Term Goal (STG) Pt will score <50 on quickdash to improve overall shoulder mobility and strength. STG Duration 03/12/21 System Safety Manager Goal (LTG) Pt will score <30 on quickdash to improve overall shoulder mobility and strength. LTG Duration 04/11 Progress Towards Goals Progress Towards Goals Progressing Toward Goals Assessment Summary Assessment Pt has some soreness after her R arm was pulled by her dog. However, pt shows tenderness at infraspinatus only but no other deficits. Pt has less muscle guarding and able to reach >120 degrees on table slides. and ER up to 60 and IR 60 passively. Pt overall progress very well since surgery and she will see surgeon for f/u on . Physical Therapy Plan Frequency and Duration Frequency of Treatment 2x/Week Duration of Treatment 12 weeks Plan of Care Start Date 01/01/21 Plan of Care End Date 04/01/21 Therapeutic Interventions Therapeutic Interventions Home Exercise Program,Joint Mobilizations,Manual Therapy, Neuromuscular Re-education, Patient/Caregiver Education, Self-Care/Home Management,Soft Tissue Mobilization,Taping, Therapeutic Activities, Therapeutic Exercises Next Visit Focus/Plan Next Note Type Treatment Note Next Visit Plan Assess response to STMs, gentle PROM, scap stab/ circles, wrist/ elbow AROM, pulleys, pendulums Continue per PT POC: see protocol in EMR under HEP PROM AAROM if appropriate STM if needed
--- NOTE | 2021-02-01 09:52 | PT.OTN ---
Current Diagnoses Complete rotator cuff tear or rupture of right shoulder, not specified as traumatic (02/01/21) Physical Therapy Treatment Note PT-OP-A Visit Information Start: 01/01/21 14:30 Freq: Status: Active Protocol: Document 02/01/21 09:06 SP (Rec: 02/01/21 10:12 SP [id number]) Out-Patient Physical Therapy Visit Information Visit Information Visit Type Treatment Note Visit Note 5.5 weeks post-op Visit Start Time 09:06 Visit Stop Time 09:52 Total Visit Minutes 46 Visit Number 04/08 Number of CNC OPERATOR MACHINIST Visits 1 Evaluation Information Evaluation Date 01/01/21 Precautions Precautions post op protocol in EMR under therapy notes HEP. PT-OP-B Current Condition Start: 01/01/21 14:30 Freq: Status: Active Protocol: Document 01/01/21 14:31 HH (Rec: 01/01/21 15:00 HH [email or web address]) Current Condition History of Current Condition Onset Date 12/24/20 Current Complaints s/p R small rotator cuff repair, immobility History of Current Condition pt is a 65 returning patient for her R shoulder s/p R small rotator cuff repair on by Dr. Rodriguez. Pt initially injured her R shoulder by moving furniture out of the house in the summer of 2019. Pt then participated a course of PT and was able to regain most ROM and partial strength. However, her pain was still persistent at night. Pt was then diagnosed with full thickness tear of supraspinatus from MRI early this year and decided to have it surgically repair. 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 Pt stated feels weird to drive and nice to walk around with no sling, able to walk 1 mile this am with no problems. Pt stated Posterior neck and scap on R sore, requested manual to start. Patient Reported Progress Improving PT-OP-K Range of Motion Start: 01/01/21 14:30 Freq: Status: Active Protocol: Document 01/11/21 11:16 HH (Rec: 01/11/21 12:08 HH [id number]) Shoulder Goniometric Range of Motion Shoulder Right Passive Shoulder ROM WFL No Testing Position Supine Flexion 140 Abduction 120 External Rotation at 90 degrees 30 Abduction Internal Rotation 90 Comments Pain at all end range and from flexion to neutral position PT-OP-M Strength Start: 01/01/21 14:30 Freq: Status: Active Protocol: Document 01/01/21 14:31 HH (Rec: 01/01/21 15:00 HH [email or web address]) Shoulder Strength Shoulder Manual Muscle Testing Right Comments unable d/t post op protocol (6 week immobilization) PT-OP-Q Treatments Start: 01/01/21 14:30 Freq: Status: Active Protocol: Document 02/01/21 09:06 SP (Rec: 02/01/21 10:12 SP [id number]) Therapeutic Exercises Supine Exercises shld ABD Supine Exercise Name addd to HEP Side right Resistance AAROM Equipment Used dowel Reps/Minutes x5 Comments painfree range approx 95* shld ER Supine Exercise Name added to HEP Side right Resistance AAROM Equipment Used dowel Reps/Minutes x5 Comments max cues for elbow at side, better in standing back to wall PROM Supine Exercise Name flexion to 144, abduction to 118 deg, ER to 55 deg ,70 IR ( in 40 deg ABD) Side right Equipment Used by therapist Comments less muscle guarding noted at end feel. supine flexion Supine Exercise Name added to HEP Resistance AAROM Equipment Used Dowel Reps/Minutes 2x5 Comments 136* FF- pain free range Sitting Exercises Shld ER Sitting Exercise Name added to HEP Side right Resistance AAROM dowel Equipment Used back to wall for feedback, stationar trunk/humeral stationary Reps/Minutes x10 OH madeleine Sitting Exercise Name PROM on R (discussed performs 4day/wk HEP) not performed in PT today Resistance shoulder up to 135 degree flexion, 104 deg ABD/ FL before pulling in deltoi Equipment Used mirror front for self feedback alignment Comments cued allow scap relax in downward position Manual Therapy Treatment Soft Tissue Mobilization Upper trap Body Location R Mobilization Type Sustained Pressure,Trigger Point Release Intensity/Depth Moderate Body Position Sitting Comments decreased tonicity noted, instruction on self using racquetball on wall. Deltoids Mobilization Type Strumming Intensity/Depth Moderate Body Position Hooklying RTC Body Location distal tendons on humerus Mobilization Type Strumming Intensity/Depth Moderate Body Position Hooklying PT-OP-T Assessment and Plan Start: 01/01/21 14:30 Freq: Status: Active Protocol: Document 02/01/21 09:06 SP (Rec: 02/01/21 10:12 SP [id number]) Physical Therapy Assessment Goals strength Impairment pt is immobilized for 6 weeks in a sling Short Term Goal (STG) pt will be improve his overall R shoulder strength > 3/5 STG Duration 4 weeks Pacs Administrator Goal (LTG) pt will be improve his overall R shoulder strength > 4/5 LTG Duration 8 weeks pain Impairment pt has pain 6/10 at R shoulder in general Short Term Goal (STG) pt will have no more than 4/10 in a daily basis STG Duration 4 weeks Pacs Administrator Goal (LTG) pt will have no more than 2/10 in a daily basis which involves daily chores, opening jars etc LTG Duration 8 weeks ROM Impairment pt is immobilized for 6 weeks in a sling Short Term Goal (STG) pt will regain full PROM for her R shoulder in all planes in 4 weeks STG Duration 03/12/21 Pacs Administrator Goal (LTG) pt will regain full AROM her R shoulder in all planes in 8 weeks LTG Duration 04/11/21 Quickdash Impairment pt scores 84 on quickdash Short Term Goal (STG) Pt will score <50 on quickdash to improve overall shoulder mobility and strength. STG Duration 03/12/21 Mcc Goal (LTG) Pt will score <30 on quickdash to improve overall shoulder mobility and strength. LTG Duration 04/11 Assessment Summary Assessment Pt some soreness in R UT and lateral R shld musculature today, extra time spent STMs and PROM with noted decrease tightness response. Initiated AAROM using dowel gravity assisted with good feedback results, able to gain ROM 9 deg FF. Extra time spent in education on proper set up and directioning/form for ER stand better than supine and ABD best in supine w/ no adverse affects just good challenge. Physical Therapy Plan Frequency and Duration Frequency of Treatment 2x/Week Duration of Treatment 12 weeks Plan of Care Start Date 01/01/21 Plan of Care End Date 04/01/21 Therapeutic Interventions Therapeutic Interventions Home Exercise Program,Joint Mobilizations,Manual Therapy, Neuromuscular Re-education, Patient/Caregiver Education, Self-Care/Home Management,Soft Tissue Mobilization,Taping, Therapeutic Activities, Therapeutic Exercises Next Visit Focus/Plan Next Note Type Treatment Note Next Visit Plan Assess response to STMs, gentle PROM, AAROM w/dowel Continue per PT POC: see protocol in EMR under HEP Phase II 02/01/21 per ortho on FU appt. AA- AROM STM if needed
--- NOTE | 2021-02-05 10:29 | PT.OTN ---
Current Diagnoses Complete rotator cuff tear or rupture of right shoulder, not specified as traumatic (02/05/21) Physical Therapy Treatment Note PT-OP-A Visit Information Start: 01/01/21 14:30 Freq: Status: Active Protocol: Document 02/05/21 09:52 HH (Rec: 02/05/21 10:29 [id number]) Out-Patient Physical Therapy Visit Information Visit Information Visit Type Treatment Note Visit Note 6wks post op pt is 10 mins late Visit Start Time 09:55 Visit Stop Time 10:30 Total Visit Minutes 35 Visit Number 8 Number of CAR RENTAL MANAGER Visits 0 PT-OP-B Current Condition Start: 01/01/21 14:30 Freq: Status: Active Protocol: Document 01/01/21 14:31 HH (Rec: 01/01/21 15:00 HH [email or web address]) Current Condition History of Current Condition Onset Date 12/24/20 Current Complaints s/p R small rotator cuff repair, immobility History of Current Condition pt is a 65 returning patient for her R shoulder s/p R small rotator cuff repair on by Dr. Rodriguez. Pt initially injured her R shoulder by moving furniture out of the house in the summer. Pt then participated a course of PT and was able to regain most ROM and partial strength. However, her pain was still persistent at night. Pt was then diagnosed with full thickness tear of supraspinatus from MRI early this year and decided to have it surgically repair. 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 Functional Limitations- Recreation/ unable to participate Hobbies PT-OP-C Subjective Start: 01/01/21 14:30 Freq: Status: Active Protocol: Document 02/05/21 09:52 HH (Rec: 02/05/21 10:29 HH [id number]) OP-PT Subjective Patient Comments Patient Comments Im doing very well and i can finally tie my hair this morning Patient Reported Progress Improving PT-OP-K Range of Motion Start: 01/01/21 14:30 Freq: Status: Active Protocol: Document 01/11/21 11:16 HH (Rec: 01/11/21 12:08 HH [id number]) Shoulder Goniometric Range of Motion Shoulder Right Passive Shoulder ROM WFL No Testing Position Supine Flexion 140 Abduction 120 External Rotation at 90 degrees 30 Abduction Internal Rotation 90 Comments Pain at all end range and from flexion to neutral position PT-OP-M Strength Start: 01/01/21 14:30 Freq: Status: Active Protocol: Document 01/01/21 14:31 HH (Rec: 01/01/21 15:00 [email or web address]) Shoulder Strength Shoulder Manual Muscle Testing Right Comments unable d/t post op protocol (6 week immobilization) PT-OP-Q Treatments Start: 01/01/21 14:30 Freq: Status: Active Protocol: Document 02/05/21 09:52 HH (Rec: 02/05/21 10:29 [id number]) Therapeutic Exercises Supine Exercises shld ABD Supine Exercise Name addd to HEP Side right Resistance AAROM Equipment Used dowel Reps/Minutes x5 Comments painfree range approx 95* shld ER Supine Exercise Name added to HEP Side right Resistance AAROM Equipment Used dowel Reps/Minutes x5 Comments max cues for elbow at side, better in standing back to wall PROM Supine Exercise Name flexion to 150, abduction to 118 deg, ER to 55 deg ,70 IR , ER 50 Side right Equipment Used by therapist Comments less muscle guarding noted at end feel. Sitting Exercises [place] madeleine Sitting Exercise Name PROM on R (discussed performs 4day/wk HEP) not performed in PT today Resistance shoulder up to 135 degree flexion, 104 deg ABD/ FL before pulling in deltoi Equipment Used mirror front for self feedback alignment Comments cued allow scap relax in downward position Manual Therapy Treatment Soft Tissue Mobilization R scapular PNF Body Location retraction, depression PROM, AROM feedback Body Position Sidelying Upper trap Body Location R Mobilization Type Sustained Pressure,Trigger Point Release Intensity/Depth Moderate Body Position Sitting Comments decreased tonicity noted, instruction on self using racquetball on wall. RTC Body Location distal tendons on humerus Mobilization Type Strumming Intensity/Depth Moderate Body Position Hooklying Joint Mobilizations MWM Joint GHJ Direction post glide Grade III Body Position Standing Comments with active ER. up to 50 degrees PT-OP-T Assessment and Plan Start: 01/01/21 14:30 Freq: Status: Active Protocol: Document 02/05/21 09:52 HH (Rec: 02/05/21 10:29 [id number]) Physical Therapy Assessment Goals strength Impairment pt is immobilized for 6 weeks in a sling Short Term Goal (STG) pt will be improve his overall R shoulder strength > 3/5 STG Duration 4 weeks Straw Boss Goal (LTG) pt will be improve his overall R shoulder strength > 4/5 LTG Duration 8 weeks pain Impairment pt has pain 6/10 at R shoulder in general Short Term Goal (STG) pt will have no more than 4/10 in a daily basis STG Duration 4 weeks Straw Boss Goal (LTG) pt will have no more than 2/10 in a daily basis which involves daily chores, opening jars etc LTG Duration 8 weeks ROM Impairment pt is immobilized for 6 weeks in a sling Short Term Goal (STG) pt will regain full PROM for her R shoulder in all planes in 4 weeks STG Duration 03/12/21 Halfway Goal (LTG) pt will regain full AROM her R shoulder in all planes in 8 weeks LTG Duration 04/11/21 Quickdash Impairment pt scores 84 on quickdash Short Term Goal (STG) Pt will score <50 on quickdash to improve overall shoulder mobility and strength. STG Duration 03/12/21 Halfway Goal (LTG) Pt will score <30 on quickdash to improve overall shoulder mobility and strength. LTG Duration 04/11 Assessment Summary Assessment Pt is doing very well today with improved gross PROM and AROM. She has difficulty with AAROM on abduction, rec her to continue table slide/ madeleine for abduction. Physical Therapy Plan Frequency and Duration Frequency of Treatment 2x/Week Duration of Treatment 12 weeks Plan of Care Start Date 01/01/21 Plan of Care End Date 04/01/21 Therapeutic Interventions Therapeutic Interventions Home Exercise Program,Joint Mobilizations,Manual Therapy, Neuromuscular Re-education, Patient/Caregiver Education, Self-Care/Home Management,Soft Tissue Mobilization,Taping, Therapeutic Activities, Therapeutic Exercises Next Visit Focus/Plan Next Note Type Treatment Note Next Visit Plan Assess response to STMs, gentle PROM, AAROM w/dowel Continue per PT POC: see protocol in EMR under HEP Phase II 02/01/21 per ortho on FU appt. AA- AROM STM if needed
--- NOTE | 2021-02-08 13:45 | PT.OTN ---
Current Diagnoses Complete rotator cuff tear or rupture of right shoulder, not specified as traumatic (02/08/21) Physical Therapy Treatment Note PT-OP-A Visit Information Start: 01/01/21 14:30 Freq: Status: Active Protocol: Document 02/08/21 13:02 HH (Rec: 02/08/21 13:45 [id number]) Out-Patient Physical Therapy Visit Information Visit Information Visit Type Treatment Note Visit Note 6wks post op Visit Start Time 13:02 Visit Stop Time 13:45 Total Visit Minutes 43 Visit Number 06/09 Number of ENDOCRINOLOGY NURSE Visits 0 PT-OP-B Current Condition Start: 01/01/21 14:30 Freq: Status: Active Protocol: Document 01/01/21 14:31 HH (Rec: 01/01/21 15:00 HH [email or web address]) Current Condition History of Current Condition Onset Date 12/24/20 Current Complaints s/p R small rotator cuff repair, immobility History of Current Condition pt is a 65 returning patient for her R shoulder s/p R small rotator cuff repair on by Dr. Rodriguez. Pt initially injured her R shoulder by moving furniture out of the house in the summer. Pt then participated a course of PT and was able to regain most ROM and partial strength. However, her pain was still persistent at night. Pt was then diagnosed with full thickness tear of supraspinatus from MRI early this year and decided to have it surgically repair. 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 I can still tie my hair Patient Reported Progress Improving PT-OP-K Range of Motion Start: 01/01/21 14:30 Freq: Status: Active Protocol: Document 01/11/21 11:16 HH (Rec: 01/11/21 12:08 HH [id number]) Shoulder Goniometric Range of Motion Shoulder Right Passive Shoulder ROM WFL No Testing Position Supine Flexion 140 Abduction 120 External Rotation at 90 degrees 30 Abduction Internal Rotation 90 Comments Pain at all end range and from flexion to neutral position PT-OP-M Strength Start: 01/01/21 14:30 Freq: Status: Active Protocol: Document 01/01/21 14:31 HH (Rec: 01/01/21 15:00 [email or web address]) Shoulder Strength Shoulder Manual Muscle Testing Right Comments unable d/t post op protocol (6 week immobilization) PT-OP-Q Treatments Start: 01/01/21 14:30 Freq: Status: Active Protocol: Document 02/08/21 13:02 HH (Rec: 02/08/21 13:45 [id number]) Therapeutic Exercises Supine Exercises shld ER Supine Exercise Name added to HEP Side right Resistance AAROM Equipment Used dowel Reps/Minutes x5 Comments max cues for elbow at side, better in standing back to wall PROM Supine Exercise Name flexion to 150, abduction to 118 deg, ER to 60 deg ,70 IR , ER 50 Side right Equipment Used by therapist Comments less muscle guarding noted at end feel. supine flexion Supine Exercise Name added to HEP Resistance AAROM Equipment Used Dowel Reps/Minutes 2x5 Comments 155* FF- pain free range Sitting Exercises [place] madeleine Sitting Exercise Name PROM on R (discussed performs 4day/wk HEP) not performed in PT today Resistance shoulder up to 135 degree flexion, 104 deg ABD/ FL before pulling in deltoi Equipment Used mirror front for self feedback alignment Comments cued allow scap relax in downward position Standing Exercises wall slide Standing Exercise Name flexion, abduction Side right Equipment Used with towel Reps/Minutes 8 x 2, 8x1 for abduction Comments flexion Manual Therapy Treatment Soft Tissue Mobilization RTC Body Location distal tendons on humerus Mobilization Type Strumming Intensity/Depth Moderate Body Position Hooklying PT-OP-T Assessment and Plan Start: 01/01/21 14:30 Freq: Status: Active Protocol: Document 02/08/21 13:02 (Rec: 02/08/21 13:45 [id number]) Physical Therapy Assessment Goals strength Impairment pt is immobilized for 6 weeks in a sling Short Term Goal (STG) pt will be improve his overall R shoulder strength > 3/5 STG Duration 4 weeks Kennel Staff Member Goal (LTG) pt will be improve his overall R shoulder strength > 4/5 LTG Duration 8 weeks pain Impairment pt has pain 6/10 at R shoulder in general Short Term Goal (STG) pt will have no more than 4/10 in a daily basis STG Duration 4 weeks Mcc Goal (LTG) pt will have no more than 2/10 in a daily basis which involves daily chores, opening jars etc LTG Duration 8 weeks ROM Impairment pt is immobilized for 6 weeks in a sling Short Term Goal (STG) pt will regain full PROM for her R shoulder in all planes in 4 weeks STG Duration 03/12/21 Mcc Goal (LTG) pt will regain full AROM her R shoulder in all planes in 8 weeks LTG Duration 04/11/21 Quickdash Impairment pt scores 84 on quickdash Short Term Goal (STG) Pt will score <50 on quickdash to improve overall shoulder mobility and strength. STG Duration 03/12/21 Kennel Staff Member Goal (LTG) Pt will score <30 on quickdash to improve overall shoulder mobility and strength. LTG Duration 04/11 Physical Therapy Plan Frequency and Duration Frequency of Treatment 2x/Week Duration of Treatment 12 weeks Plan of Care Start Date 01/01/21 Plan of Care End Date 04/01/21 Therapeutic Interventions Therapeutic Interventions Home Exercise Program,Joint Mobilizations,Manual Therapy, Neuromuscular Re-education, Patient/Caregiver Education, Self-Care/Home Management,Soft Tissue Mobilization,Taping, Therapeutic Activities, Therapeutic Exercises Next Visit Focus/Plan Next Note Type Treatment Note Next Visit Plan Assess response to STMs, gentle PROM, JAKE w/jacques Continue per PT POC: see protocol in EMR under HEP Phase II 02/01/21 per ortho on FU appt. AA- AROM STM if needed
--- NOTE | 2021-02-12 16:32 | PT.OTN ---
Current Diagnoses Complete rotator cuff tear or rupture of right shoulder, not specified as traumatic (02/12/21) Physical Therapy Treatment Note PT-OP-A Visit Information Start: 01/01/21 14:30 Freq: Status: Active Protocol: Document 02/12/21 10:34 HH (Rec: 02/12/21 11:16 [id number]) Out-Patient Physical Therapy Visit Information Visit Information Visit Type Treatment Note Visit Note 7wks post op Visit Start Time 10:32 Visit Stop Time 11:15 Total Visit Minutes 43 Visit Number 07/09 Number of SECTION PLOTTER OPERATOR Visits 0 PT-OP-B Current Condition Start: 01/01/21 14:30 Freq: Status: Active Protocol: Document 01/01/21 14:31 HH (Rec: 01/01/21 15:00 HH [email or web address]) Current Condition History of Current Condition Onset Date 12/24/20 Current Complaints s/p R small rotator cuff repair, immobility History of Current Condition pt is a 65 returning patient for her R shoulder s/p R small rotator cuff repair on by Dr. Rodriguez. Pt initially injured her R shoulder by moving furniture out of the house in the summer. Pt then participated a course of PT and was able to regain most ROM and partial strength. However, her pain was still persistent at night. Pt was then diagnosed with full thickness tear of supraspinatus from MRI early this year and decided to have it surgically repair. 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 I had an injection for SI joint Patient Reported Progress Improving PT-OP-K Range of Motion Start: 01/01/21 14:30 Freq: Status: Active Protocol: Document 01/11/21 11:16 HH (Rec: 01/11/21 12:08 [id number]) Shoulder Goniometric Range of Motion Shoulder Right Passive Shoulder ROM WFL No Testing Position Supine Flexion 140 Abduction 120 External Rotation at 90 degrees 30 Abduction Internal Rotation 90 Comments Pain at all end range and from flexion to neutral position PT-OP-M Strength Start: 01/01/21 14:30 Freq: Status: Active Protocol: Document 01/01/21 14:31 HH (Rec: 01/01/21 15:00 [email or web address]) Shoulder Strength Shoulder Manual Muscle Testing Right Comments unable d/t post op protocol (6 week immobilization) PT-OP-Q Treatments Start: 01/01/21 14:30 Freq: Status: Active Protocol: Document 02/12/21 10:34 HH (Rec: 02/12/21 11:16 [id number]) Therapeutic Exercises Supine Exercises shld ER Supine Exercise Name added to HEP Side right Resistance AAROM Equipment Used dowel Reps/Minutes 10 x2 Comments up to 65 degrees supine flexion Supine Exercise Name added to HEP Side bilateral Resistance AAROM Equipment Used Dowel Reps/Minutes 8 x2 Comments 172* FF- pain free range Sidelying Exercises SL abd Sidelying Exercise Name arm externally rotated. Side bilateral Reps/Minutes 8 x2 Comments for HEP SL ER Side bilateral Reps/Minutes 8 x2 Sitting Exercises [place] madeleine Sitting Exercise Name PROM on R (discussed performs 4day/wk HEP) not performed in PT today Resistance shoulder up to 135 degree flexion, 104 deg ABD/ FL before pulling in deltoi Equipment Used mirror front for self feedback alignment Comments cued allow scap relax in downward position PT-OP-T Assessment and Plan Start: 01/01/21 14:30 Freq: Status: Active Protocol: Document 02/12/21 10:34 (Rec: 02/12/21 11:16 [id number]) Physical Therapy Assessment Goals strength Impairment pt is immobilized for 6 weeks in a sling Short Term Goal (STG) 02/12 not ready since pt's postop protocol is focusing on AROM only. pt will be improve his overall R shoulder strength > 3/5 STG Duration 4 weeks Sports Clerk Goal (LTG) pt will be improve his overall R shoulder strength > 4/5 LTG Duration 8 weeks pain Impairment pt has pain 6/10 at R shoulder in general Short Term Goal (STG) 02/12 goal met pt currently has pain no more than 2/10 in a daily basis at rest/ doing HEP. STG Duration 4 weeks Sports Clerk Goal (LTG) pt will have no more than 2/10 in a daily basis which involves daily chores, opening jars etc LTG Duration 8 weeks ROM Impairment pt is immobilized for 6 weeks in a sling Short Term Goal (STG) 02/11 goal met . pt currently regained 90 % of R shoulder PROM in all planes (7 weeks post op) pt will regain full PROM for her R shoulder in all planes in 4 weeks STG Duration 03/12/21 Long-Term Goal (LTG) pt will regain full AROM her R shoulder in all planes in 8 weeks LTG Duration 04/11/21 Quickdash Impairment pt scores 84 on quickdash Short Term Goal (STG) 02/11 did not assess, will update next visit Pt will score <50 on quickdash to improve overall shoulder mobility and strength. STG Duration 03/12/21 Sports Clerk Goal (LTG) Pt will score <30 on quickdash to improve overall shoulder mobility and strength. LTG Duration 04/11 Assessment Summary Assessment pt is s/p 7weeks post op and she shows great progress with 90% recovered PROM and AROM. Pt continues to improve with flexion and ER. Pt is now able to tolerate abduction and horizontal abduction in sidelying position. Added that into HEP today. Pt will continue to benefit from skilled therapy to increase her R shoulder ROM, strength and activity tolerance. Physical Therapy Plan Frequency and Duration Frequency of Treatment 2x/Week Duration of Treatment 12 weeks Plan of Care Start Date 01/01/21 Plan of Care End Date 04/01/21 Therapeutic Interventions Therapeutic Interventions Home Exercise Program,Joint Mobilizations,Manual Therapy, Neuromuscular Re-education, Patient/Caregiver Education, Self-Care/Home Management,Soft Tissue Mobilization,Taping, Therapeutic Activities, Therapeutic Exercises Next Visit Focus/Plan Next Note Type Treatment Note Next Visit Plan Assess response to STMs, gentle PROM, AAROM w/dowel Continue per PT POC: see protocol in EMR under HEP Phase II 02/01/21 per ortho on FU appt. AA- AROM STM if needed
--- NOTE | 2021-02-19 11:14 | PT.OTN ---
Current Diagnoses Complete rotator cuff tear or rupture of right shoulder, not specified as traumatic (02/19/21) Physical Therapy Treatment Note PT-OP-A Visit Information Start: 01/01/21 14:30 Freq: Status: Active Protocol: Document 02/19/21 10:30 HH (Rec: 02/19/21 11:13 HH [id number]) Out-Patient Physical Therapy Visit Information Visit Information Visit Type Treatment Note Visit Note 8 wks post op Visit Start Time 10:32 Visit Stop Time 11:16 Total Visit Minutes 44 Visit Number 11/12 Number of CHUCKING AND SAWING MACHINE OPERATOR Visits 0 PT-OP-B Current Condition Start: 01/01/21 14:30 Freq: Status: Active Protocol: Document 01/01/21 14:31 HH (Rec: 01/01/21 15:00 HH [email or web address]) Current Condition History of Current Condition Onset Date 12/24/20 Current Complaints s/p R small rotator cuff repair, immobility History of Current Condition pt is a 65 returning patient for her R shoulder s/p R small rotator cuff repair on by Dr. Rodriguez. Pt initially injured her R shoulder by moving furniture out of the house in the summer. Pt then participated a course of PT and was able to regain most ROM and partial strength. However, her pain was still persistent at night. Pt was then diagnosed with full thickness tear of supraspinatus from MRI early this year and decided to have it surgically repair. 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 Im still doing all my exercise. Patient Reported Progress Improving PT-OP-K Range of Motion Start: 01/01/21 14:30 Freq: Status: Active Protocol: Document 02/19/21 10:30 HH (Rec: 02/19/21 11:13 HH [id number]) Shoulder Goniometric Range of Motion Shoulder Right Passive Shoulder ROM WFL No Testing Position Supine Flexion 158 Abduction 140 External Rotation at 90 degrees 60 Abduction Internal Rotation 88 Comments Pain at all end range and from flexion to neutral position Right Active Shoulder ROM WFL No Testing Position Sitting Flexion 85 Extension 50 Abduction 65 PT-OP-M Strength Start: 01/01/21 14:30 Freq: Status: Active Protocol: Document 01/01/21 14:31 HH (Rec: 01/01/21 15:00 [email or web address]) Shoulder Strength Shoulder Manual Muscle Testing Right Comments unable d/t post op protocol (6 week immobilization) PT-OP-Q Treatments Start: 01/01/21 14:30 Freq: Status: Active Protocol: Document 02/19/21 10:30 HH (Rec: 02/19/21 11:13 [id number]) Therapeutic Exercises Supine Exercises AROM Supine Exercise Name flexion and abduction, thumb up Side right Reps/Minutes 8x2 Comments 160 flexion, shld ABD Supine Exercise Name addd to HEP, AROM Side right Resistance AROM Reps/Minutes x5 Comments abd 90 shld ER Supine Exercise Name added to HEP Side right Resistance AAROM Equipment Used dowel Reps/Minutes 10 x2 Comments up to 65 degrees supine flexion Supine Exercise Name added to HEP Side bilateral Resistance AROM Equipment Used Dowel Reps/Minutes 8 x2 Comments 172* FF- pain free range Sidelying Exercises SL abd Sidelying Exercise Name arm externally rotated. Side bilateral Reps/Minutes 8 x2 Comments for HEP SL ER Side bilateral Reps/Minutes 8 x2 Comments no pain noted. Standing Exercises scap retraction/depression Standing Exercise Name scap retraction Side bilateral Comments HEP, cued awareness of tall posture & CS neutral PT-OP-T Assessment and Plan Start: 01/01/21 14:30 Freq: Status: Active Protocol: Document 02/19/21 10:30 HH (Rec: 02/19/21 11:13 [id number]) Physical Therapy Assessment Goals strength Impairment pt is immobilized for 6 weeks in a sling Short Term Goal (STG) 02/12 not ready since pt's postop protocol is focusing on AROM only. pt will be improve his overall R shoulder strength > 3/5 STG Duration 4 weeks Mill Set Up Goal (LTG) pt will be improve his overall R shoulder strength > 4/5 LTG Duration 8 weeks pain Impairment pt has pain 6/10 at R shoulder in general Short Term Goal (STG) 02/12 goal met pt currently has pain no more than 2/10 in a daily basis at rest/ doing HEP. STG Duration 4 weeks Mill Set Up Goal (LTG) pt will have no more than 2/10 in a daily basis which involves daily chores, opening jars etc LTG Duration 8 weeks ROM Impairment pt is immobilized for 6 weeks in a sling Short Term Goal (STG) 02/11 goal met . pt currently regained 90 % of R shoulder PROM in all planes (7 weeks post op) pt will regain full PROM for her R shoulder in all planes in 4 weeks STG Duration 03/12/21 Detention Goal (LTG) pt will regain full AROM her R shoulder in all planes in 8 weeks LTG Duration 04/11/21 Quickdash Impairment pt scores 84 on quickdash Short Term Goal (STG) 02/11 did not assess, will update next visit Pt will score <50 on quickdash to improve overall shoulder mobility and strength. STG Duration 03/12/21 Mill Set Up Goal (LTG) Pt will score <30 on quickdash to improve overall shoulder mobility and strength. LTG Duration 04/11 Assessment Summary Assessment PT is 8 weeks post op. PROM is close to WFL, AROM= 50% PROM. pt is now progressed to AROM in gravity eliminated position . Physical Therapy Plan Frequency and Duration Frequency of Treatment 2x/Week Duration of Treatment 12 weeks Plan of Care Start Date 01/01/21 Plan of Care End Date 04/01/21 Therapeutic Interventions Therapeutic Interventions Home Exercise Program,Joint Mobilizations,Manual Therapy, Neuromuscular Re-education, Patient/Caregiver Education, Self-Care/Home Management,Soft Tissue Mobilization,Taping, Therapeutic Activities, Therapeutic Exercises Next Visit Focus/Plan Next Note Type Treatment Note Next Visit Plan Assess response to STMs, gentle PROM, PAYALOM w/dowel Continue per PT POC: see protocol in EMR under HEP Phase II 02/01/21 per ortho on FU appt. AA- AROM STM if needed
--- NOTE | 2021-02-22 15:13 | PT.OTN ---
Current Diagnoses Complete rotator cuff tear or rupture of right shoulder, not specified as traumatic (02/22/21) Physical Therapy Treatment Note PT-OP-A Visit Information Start: 01/01/21 14:30 Freq: Status: Active Protocol: Document 02/22/21 14:33 HH (Rec: 02/22/21 15:13 [id number]) Out-Patient Physical Therapy Visit Information Visit Information Visit Type Treatment Note Visit Note 8 wks post op Visit Start Time 14:33 Visit Stop Time 15:15 Total Visit Minutes 43 Visit Number 09/08 Number of BEHAVIORAL GENETICIST Visits 0 PT-OP-B Current Condition Start: 01/01/21 14:30 Freq: Status: Active Protocol: Document 01/01/21 14:31 HH (Rec: 01/01/21 15:00 HH [email or web address]) Current Condition History of Current Condition Onset Date 12/24/20 Current Complaints s/p R small rotator cuff repair, immobility History of Current Condition pt is a 65 returning patient for her R shoulder s/p R small rotator cuff repair on by Dr. Rodriguez. Pt initially injured her R shoulder by moving furniture out of the house in the summer. Pt then participated a course of PT and was able to regain most ROM and partial strength. However, her pain was still persistent at night. Pt was then diagnosed with full thickness tear of supraspinatus from MRI early this year and decided to have it surgically repair. 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 My neck and shoulder feel less tight now. Patient Reported Progress Improving PT-OP-K Range of Motion Start: 01/01/21 14:30 Freq: Status: Active Protocol: Document 02/19/21 10:30 HH (Rec: 02/19/21 11:13 [id number]) Shoulder Goniometric Range of Motion Shoulder Right Passive Shoulder ROM WFL No Testing Position Supine Flexion 158 Abduction 140 External Rotation at 90 degrees 60 Abduction Internal Rotation 88 Comments Pain at all end range and from flexion to neutral position Right Active Shoulder ROM WFL No Testing Position Sitting Flexion 85 Extension 50 Abduction 65 PT-OP-M Strength Start: 01/01/21 14:30 Freq: Status: Active Protocol: Document 01/01/21 14:31 (Rec: 01/01/21 15:00 [email or web address]) Shoulder Strength Shoulder Manual Muscle Testing Right Comments unable d/t post op protocol (6 week immobilization) PT-OP-Q Treatments Start: 01/01/21 14:30 Freq: Status: Active Protocol: Document 02/22/21 14:33 (Rec: 02/22/21 15:13 [id number]) Cardio Equipment Upper Body Ergometer (UBE) Duration (Minutes) 5 Other 30sec fwd, bwd Therapeutic Exercises Supine Exercises AROM Supine Exercise Name flexion and abduction, thumb up Side right Reps/Minutes 8x2 Comments 160 flexion, shld ER Supine Exercise Name added to HEP Side right Resistance AAROM Equipment Used dowel Reps/Minutes 10 x2 Comments up to 65 degrees PROM Supine Exercise Name flexion to 150, abduction to 118 deg, ER to 60 deg ,70 IR , ER 50 Side right Equipment Used by therapist Comments less muscle guarding noted at end feel. Sidelying Exercises SL abd Sidelying Exercise Name arm externally rotated. Side bilateral Reps/Minutes 8 x2 Comments for HEP SL ER Side bilateral Reps/Minutes 8 x2 Comments no pain noted. Sitting Exercises OH madeleine Sitting Exercise Name PROM on R (discussed performs 4day/wk HEP) not performed in PT today Resistance shoulder up to 135 degree flexion, 104 deg ABD/ FL before pulling in deltoi Equipment Used mirror front for self feedback alignment Comments cued allow scap relax in downward position PT-OP-T Assessment and Plan Start: 01/01/21 14:30 Freq: Status: Active Protocol: Document 02/22/21 14:33 (Rec: 02/22/21 15:13 [id number]) Physical Therapy Assessment Goals strength Impairment pt is immobilized for 6 weeks in a sling Short Term Goal (STG) 02/12 not ready since pt's postop protocol is focusing on AROM only. pt will be improve his overall R shoulder strength > 3/5 STG Duration 4 weeks Retirement Goal (LTG) pt will be improve his overall R shoulder strength > 4/5 LTG Duration 8 weeks pain Impairment pt has pain 6/10 at R shoulder in general Short Term Goal (STG) 02/12 goal met pt currently has pain no more than 2/10 in a daily basis at rest/ doing HEP. STG Duration 4 weeks Furnace Combination Analyst Goal (LTG) pt will have no more than 2/10 in a daily basis which involves daily chores, opening jars etc LTG Duration 8 weeks ROM Impairment pt is immobilized for 6 weeks in a sling Short Term Goal (STG) 02/11 goal met . pt currently regained 90 % of R shoulder PROM in all planes (7 weeks post op) pt will regain full PROM for her R shoulder in all planes in 4 weeks STG Duration 03/12/21 Furnace Combination Analyst Goal (LTG) pt will regain full AROM her R shoulder in all planes in 8 weeks LTG Duration 04/11/21 Quickdash Impairment pt scores 84 on quickdash Short Term Goal (STG) 02/11 did not assess, will update next visit Pt will score <50 on quickdash to improve overall shoulder mobility and strength. STG Duration 03/12/21 Retirement Goal (LTG) Pt will score <30 on quickdash to improve overall shoulder mobility and strength. LTG Duration 04/11 Assessment Summary Assessment Pt bolivar AROM ex in gravity eliminated position. ER reached up to 72 degrees. Added 5 mins UBE today and pt bolivar very well. Physical Therapy Plan Frequency and Duration Frequency of Treatment 2x/Week Duration of Treatment 12 weeks Plan of Care Start Date 01/01/21 Plan of Care End Date 04/01/21 Therapeutic Interventions Therapeutic Interventions Home Exercise Program,Joint Mobilizations,Manual Therapy, Neuromuscular Re-education, Patient/Caregiver Education, Self-Care/Home Management,Soft Tissue Mobilization,Taping, Therapeutic Activities, Therapeutic Exercises Next Visit Focus/Plan Next Note Type Treatment Note Next Visit Plan Assess response to STMs, gentle PROM, AAROM w/dowel Continue per PT POC: see protocol in EMR under HEP Phase II 02/01/21 per ortho on FU appt. AA- AROM STM if needed
--- NOTE | 2021-02-26 11:18 | PT.OTN ---
Current Diagnoses Complete rotator cuff tear or rupture of right shoulder, not specified as traumatic (02/26/21) Physical Therapy Treatment Note PT-OP-A Visit Information Start: 01/01/21 14:30 Freq: Status: Active Protocol: Document 02/26/21 10:30 SP (Rec: 02/26/21 12:28 SP [id number]) Out-Patient Physical Therapy Visit Information Visit Information Visit Type Treatment Note Visit Note 9 wks post op (12/24/20) Visit Start Time 10:30 Visit Stop Time 11:18 Total Visit Minutes 48 Visit Number 13/12 Number of ANALYST COMPETITIVE INTELLIGENCE Visits 1 Evaluation Information Evaluation Date 01/01/21 Precautions Precautions post op protocol in EMR under therapy notes HEP. PT-OP-B Current Condition Start: 01/01/21 14:30 Freq: Status: Active Protocol: Document 01/01/21 14:31 HH (Rec: 01/01/21 15:00 HH [email or web address]) Current Condition History of Current Condition Onset Date 12/24/20 Current Complaints s/p R small rotator cuff repair, immobility History of Current Condition pt is a 65 returning patient for her R shoulder s/p R small rotator cuff repair on by Dr. Rodriguez. Pt initially injured her R shoulder by moving furniture out of the house in the summer. Pt then participated a course of PT and was able to regain most ROM and partial strength. However, her pain was still persistent at night. Pt was then diagnosed with full thickness tear of supraspinatus from MRI early this year and decided to have it surgically repair. 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 Pt states getting an injection in SI tomorrow with Dr Warren. Patient Reported Progress Improving PT-OP-K Range of Motion Start: 01/01/21 14:30 Freq: Status: Active Protocol: Document 02/19/21 10:30 HH (Rec: 02/19/21 11:13 HH [id number]) Shoulder Goniometric Range of Motion Shoulder Right Passive Shoulder ROM WFL No Testing Position Supine Flexion 158 Abduction 140 External Rotation at 90 degrees 60 Abduction Internal Rotation 88 Comments Pain at all end range and from flexion to neutral position Right Active Shoulder ROM WFL No Testing Position Sitting Flexion 85 Extension 50 Abduction 65 PT-OP-M Strength Start: 01/01/21 14:30 Freq: Status: Active Protocol: Document 01/01/21 14:31 HH (Rec: 01/01/21 15:00 HH [email or web address]) Shoulder Strength Shoulder Manual Muscle Testing Right Comments unable d/t post op protocol (6 week immobilization) PT-OP-Q Treatments Start: 01/01/21 14:30 Freq: Status: Active Protocol: Document 02/26/21 10:30 SP (Rec: 02/26/21 12:28 SP [id number]) Cardio Equipment Upper Body Ergometer (UBE) Duration (Minutes) 6 Seat Position free standing UBE (seated on plinth) Other 30sec fwd, bwd Therapeutic Exercises Supine Exercises supine flexion Supine Exercise Name added to HEP Side bilateral Resistance #2 wt Equipment Used Dowel Reps/Minutes 8 x2 Comments pain free range Sidelying Exercises SL abd Sidelying Exercise Name arm externally rotated. Side bilateral Reps/Minutes 8 x2 Comments for HEP SL ER Side bilateral Resistance #2 db Reps/Minutes 8 x2 Comments no pain noted. Sitting Exercises OH madeleine Sitting Exercise Name FF, ABD seated, IR behind back standing Resistance 147 deg FF, 147 deg ABD / FL before pulling in deltoi Equipment Used mirror front for self feedback alignment Reps/Minutes IR behind back approx T12 Comments cued allow scap relax in downward position Standing Exercises shld IR/ ER Standing Exercise Name added to HEP Side right Equipment Used Tb #1 Reps/Minutes 2x10 Comments occasional cue for scap stab awareness standing row Tb Standing Exercise Name row- added to HEP Side bilateral Resistance Lv 1 Reps/Minutes 2x10 Comments occasional cue for scap stab awareness PT-OP-T Assessment and Plan Start: 01/01/21 14:30 Freq: Status: Active Protocol: Document 02/26/21 10:30 SP (Rec: 02/26/21 12:28 SP [id number]) Physical Therapy Assessment Goals strength Impairment pt is immobilized for 6 weeks in a sling Short Term Goal (STG) 02/12 not ready since pt's postop protocol is focusing on AROM only. pt will be improve his overall R shoulder strength > 3/5 STG Duration 4 weeks Traffic Warehouse Supervisor Goal (LTG) pt will be improve his overall R shoulder strength > 4/5 LTG Duration 8 weeks pain Impairment pt has pain 6/10 at R shoulder in general Short Term Goal (STG) 02/12 goal met pt currently has pain no more than 2/10 in a daily basis at rest/ doing HEP. STG Duration 4 weeks Senior Living Goal (LTG) pt will have no more than 2/10 in a daily basis which involves daily chores, opening jars etc LTG Duration 8 weeks ROM Impairment pt is immobilized for 6 weeks in a sling Short Term Goal (STG) 02/11 goal met . pt currently regained 90 % of R shoulder PROM in all planes (7 weeks post op) pt will regain full PROM for her R shoulder in all planes in 4 weeks STG Duration 03/12/21 Traffic Warehouse Supervisor Goal (LTG) pt will regain full AROM her R shoulder in all planes in 8 weeks LTG Duration 04/11/21 Quickdash Impairment pt scores 84 on quickdash Short Term Goal (STG) 02/11 did not assess, will update next visit Pt will score <50 on quickdash to improve overall shoulder mobility and strength. STG Duration 03/12/21 Traffic Warehouse Supervisor Goal (LTG) Pt will score <30 on quickdash to improve overall shoulder mobility and strength. LTG Duration 04/11 Assessment Summary Assessment Pt gained AAROM usign pulleys with compliance at home, see measurement. Initiated standing IR madeleine with good feedback. Pt progressed light strengthening R shld resisted rows and IR/ER today with occ cues as needed for scap stab with good feedback just tiring . Physical Therapy Plan Frequency and Duration Frequency of Treatment 2x/Week Duration of Treatment 12 weeks Plan of Care Start Date 01/01/21 Plan of Care End Date 04/01/21 Therapeutic Interventions Therapeutic Interventions Home Exercise Program,Joint Mobilizations,Manual Therapy, Neuromuscular Re-education, Patient/Caregiver Education, Self-Care/Home Management,Soft Tissue Mobilization,Taping, Therapeutic Activities, Therapeutic Exercises Next Visit Focus/Plan Next Note Type Treatment Note Next Visit Plan Assess response to light strengthening TB rows/ IR/ ER, pulleys FF, ABD, stand IR, supine HEP review with # 1 shld ER DB last tx. Continue per PT POC: see protocol in EMR under HEP Phase II 02/01/21 per ortho on FU appt. AA- AROM STM if needed
--- NOTE | 2021-03-01 12:16 | PT.OTN ---
Current Diagnoses Complete rotator cuff tear or rupture of right shoulder, not specified as traumatic (03/01/21) Physical Therapy Treatment Note PT-OP-A Visit Information Start: 01/01/21 14:30 Freq: Status: Active Protocol: Document 03/01/21 10:22 HH (Rec: 03/01/21 12:16 [id number]) Out-Patient Physical Therapy Visit Information Visit Information Visit Type Treatment Note Visit Note 9 wks post op (12/24/20) Visit Start Time 10:30 Visit Stop Time 11:15 Total Visit Minutes 45 Visit Number 14/12 Number of SHELLFISH DREDGE OPERATOR Visits 0 PT-OP-B Current Condition Start: 01/01/21 14:30 Freq: Status: Active Protocol: Document 01/01/21 14:31 HH (Rec: 01/01/21 15:00 [email or web address]) Current Condition History of Current Condition Onset Date 12/24/20 Current Complaints s/p R small rotator cuff repair, immobility History of Current Condition pt is a 65 returning patient for her R shoulder s/p R small rotator cuff repair on by Dr. Rodriguez. Pt initially injured her R shoulder by moving furniture out of the house in the summer. Pt then participated a course of PT and was able to regain most ROM and partial strength. However, her pain was still persistent at night. Pt was then diagnosed with full thickness tear of supraspinatus from MRI early this year and decided to have it surgically repair. 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 I had my injection couple days ago and i feel so much better now. Patient Reported Progress Improving PT-OP-K Range of Motion Start: 01/01/21 14:30 Freq: Status: Active Protocol: Document 02/19/21 10:30 (Rec: 02/19/21 11:13 [id number]) Shoulder Goniometric Range of Motion Shoulder Right Passive Shoulder ROM WFL No Testing Position Supine Flexion 158 Abduction 140 External Rotation at 90 degrees 60 Abduction Internal Rotation 88 Comments Pain at all end range and from flexion to neutral position Right Active Shoulder ROM WFL No Testing Position Sitting Flexion 85 Extension 50 Abduction 65 PT-OP-M Strength Start: 01/01/21 14:30 Freq: Status: Active Protocol: Document 01/01/21 14:31 HH (Rec: 01/01/21 15:00 [email or web address]) Shoulder Strength Shoulder Manual Muscle Testing Right Comments unable d/t post op protocol (6 week immobilization) PT-OP-Q Treatments Start: 01/01/21 14:30 Freq: Status: Active Protocol: Document 03/01/21 10:22 HH (Rec: 03/01/21 12:16 [id number]) Cardio Equipment Upper Body Ergometer (UBE) Duration (Minutes) 6 Seat Position free standing UBE (seated on plinth) Other 30sec fwd, bwd Therapeutic Exercises Sidelying Exercises SL abd Sidelying Exercise Name arm externally rotated. Side bilateral Reps/Minutes 8 x2 Comments for HEP SL ER Side bilateral Resistance #2 db Reps/Minutes 8 x2 Comments no pain noted. Sitting Exercises OH madeleine Sitting Exercise Name FF, ABD seated, IR behind back standing Equipment Used mirror front for self feedback alignment Reps/Minutes IR behind back approx T12 Comments cued allow scap relax in downward position Standing Exercises standing row Tb Standing Exercise Name row- added to HEP Side bilateral Resistance Lv 1 Reps/Minutes 2x10 Comments occasional cue for scap stab awareness IR R shld towel stretch Standing Exercise Name with PVC, extension and internal rotation Side bilateral Reps/Minutes 10 x2 Comments slight pinching sensation at R shoulder Manual Therapy Treatment Soft Tissue Mobilization RTC Body Location supraspinatus tendon Mobilization Type Sustained Pressure,Trigger Point Release Intensity/Depth Moderate Body Position Sidelying Comments tenderness noted PT-OP-T Assessment and Plan Start: 01/01/21 14:30 Freq: Status: Active Protocol: Document 03/01/21 10:22 HH (Rec: 03/01/21 12:16 [id number]) Physical Therapy Assessment Goals strength Impairment pt is immobilized for 6 weeks in a sling Short Term Goal (STG) 02/12 not ready since pt's postop protocol is focusing on AROM only. pt will be improve his overall R shoulder strength > 3/5 STG Duration 4 weeks Personal Financial Advisor Goal (LTG) pt will be improve his overall R shoulder strength > 4/5 LTG Duration 8 weeks pain Impairment pt has pain 6/10 at R shoulder in general Short Term Goal (STG) 02/12 goal met pt currently has pain no more than 2/10 in a daily basis at rest/ doing HEP. STG Duration 4 weeks Personal Financial Advisor Goal (LTG) pt will have no more than 2/10 in a daily basis which involves daily chores, opening jars etc LTG Duration 8 weeks ROM Impairment pt is immobilized for 6 weeks in a sling Short Term Goal (STG) 02/11 goal met . pt currently regained 90 % of R shoulder PROM in all planes (7 weeks post op) pt will regain full PROM for her R shoulder in all planes in 4 weeks STG Duration 03/12/21 Jail Goal (LTG) pt will regain full AROM her R shoulder in all planes in 8 weeks LTG Duration 04/11/21 Quickdash Impairment pt scores 84 on quickdash Short Term Goal (STG) 02/11 did not assess, will update next visit Pt will score <50 on quickdash to improve overall shoulder mobility and strength. STG Duration 03/12/21 Personal Financial Advisor Goal (LTG) Pt will score <30 on quickdash to improve overall shoulder mobility and strength. LTG Duration 04/11 Assessment Summary Assessment Pt has slight irritation at supraspinatus tendon today after she did a push up to get out from the procedure table after had her SI joint injection. However, pt continues to do very well and able to bolivar ROM ex with slight resistance. Physical Therapy Plan Frequency and Duration Frequency of Treatment 2x/Week Duration of Treatment 12 weeks Plan of Care Start Date 01/01/21 Plan of Care End Date 04/01/21 Therapeutic Interventions Therapeutic Interventions Home Exercise Program,Joint Mobilizations,Manual Therapy, Neuromuscular Re-education, Patient/Caregiver Education, Self-Care/Home Management,Soft Tissue Mobilization,Taping, Therapeutic Activities, Therapeutic Exercises Discharge Physical Therapy Discharge Reasons Plateau in Progress Discharge Comments pt consulted with Dr. Rodriguez and decided to have RTC repair on 11/27/20 d/t plateau in rehab. Pt anticipate to cont therapy post surgically. DC this case Next Visit Focus/Plan Next Note Type Treatment Note Next Visit Plan Assess response to light strengthening TB rows/ IR/ ER, pulleys FF, ABD, stand IR, supine HEP review with # 1 shld ER DB last tx. Continue per PT POC: see protocol in EMR under HEP Phase II 02/01/21 per ortho on FU appt. AA- AROM STM if needed
--- NOTE | 2021-03-05 11:16 | PT.OTN ---
Current Diagnoses Complete rotator cuff tear or rupture of right shoulder, not specified as traumatic (03/05/21) Physical Therapy Treatment Note PT-OP-A Visit Information Start: 01/01/21 14:30 Freq: Status: Active Protocol: Document 03/05/21 10:34 HH (Rec: 03/05/21 11:15 [id number]) Out-Patient Physical Therapy Visit Information Visit Information Visit Type Treatment Note Visit Note 10 wks post op (12/24/20) Visit Start Time 10:33 Visit Stop Time 11:15 Total Visit Minutes 43 Visit Number 15/12 Number of OCCUPATIONAL THERAPY DIRECTOR Visits 0 PT-OP-B Current Condition Start: 01/01/21 14:30 Freq: Status: Active Protocol: Document 01/01/21 14:31 HH (Rec: 01/01/21 15:00 [email or web address]) Current Condition History of Current Condition Onset Date 12/24/20 Current Complaints s/p R small rotator cuff repair, immobility History of Current Condition pt is a 65 returning patient for her R shoulder s/p R small rotator cuff repair on by Dr. Rodriguez. Pt initially injured her R shoulder by moving furniture out of the house in the summer. Pt then participated a course of PT and was able to regain most ROM and partial strength. However, her pain was still persistent at night. Pt was then diagnosed with full thickness tear of supraspinatus from MRI early this year and decided to have it surgically repair. 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 All the resistive exercise is fine so far Patient Reported Progress Improving PT-OP-K Range of Motion Start: 01/01/21 14:30 Freq: Status: Active Protocol: Document 02/19/21 10:30 HH (Rec: 02/19/21 11:13 [id number]) Shoulder Goniometric Range of Motion Shoulder Right Passive Shoulder ROM WFL No Testing Position Supine Flexion 158 Abduction 140 External Rotation at 90 degrees 60 Abduction Internal Rotation 88 Comments Pain at all end range and from flexion to neutral position Right Active Shoulder ROM WFL No Testing Position Sitting Flexion 85 Extension 50 Abduction 65 PT-OP-M Strength Start: 01/01/21 14:30 Freq: Status: Active Protocol: Document 01/01/21 14:31 HH (Rec: 01/01/21 15:00 [email or web address]) Shoulder Strength Shoulder Manual Muscle Testing Right Comments unable d/t post op protocol (6 week immobilization) PT-OP-Q Treatments Start: 01/01/21 14:30 Freq: Status: Active Protocol: Document 03/05/21 10:34 HH (Rec: 03/05/21 11:15 [id number]) Cardio Equipment Upper Body Ergometer (UBE) Duration (Minutes) 6 Seat Position free standing UBE (seated on plinth) Other 30sec fwd, bwd Therapeutic Exercises Supine Exercises supine flexion Supine Exercise Name added to HEP Side bilateral Resistance #4 ankle weight on PVC Equipment Used Dowel Reps/Minutes 8 x2 Comments pain free range Prone Exercises shoulder tap Side bilateral Reps/Minutes 10 x 2 Comments full WB on single arm Sidelying Exercises SL abd Sidelying Exercise Name arm externally rotated. Side bilateral Reps/Minutes 8 x2 Comments for HEP SL ER Side bilateral Resistance #2 db Reps/Minutes 8 x2 Comments no pain noted. Sitting Exercises OH madeleine Sitting Exercise Name FF, ABD seated, IR behind back standing Equipment Used mirror front for self feedback alignment Reps/Minutes IR behind back approx T12 Comments cued allow scap relax in downward position Standing Exercises shld IR/ ER Standing Exercise Name added to HEP Side right Equipment Used Tb #1 Reps/Minutes 2x10 Comments occasional cue for scap stab awareness standing row Tb Standing Exercise Name row- added to HEP Side bilateral Resistance Lv 1 Reps/Minutes 2x10 Comments occasional cue for scap stab awareness IR R shld towel stretch Standing Exercise Name with PVC, extension and internal rotation Side bilateral Reps/Minutes 10 x2 Comments slight pinching sensation at R shoulder PT-OP-T Assessment and Plan Start: 01/01/21 14:30 Freq: Status: Active Protocol: Document 03/05/21 10:34 HH (Rec: 03/05/21 11:15 [id number]) Physical Therapy Assessment Goals strength Impairment pt is immobilized for 6 weeks in a sling Short Term Goal (STG) 02/12 not ready since pt's postop protocol is focusing on AROM only. pt will be improve his overall R shoulder strength > 3/5 STG Duration 4 weeks [facility] Goal (LTG) pt will be improve his overall R shoulder strength > 4/5 LTG Duration 8 weeks pain Impairment pt has pain 6/10 at R shoulder in general Short Term Goal (STG) 02/12 goal met pt currently has pain no more than 2/10 in a daily basis at rest/ doing HEP. STG Duration 4 weeks [facility] Goal (LTG) pt will have no more than 2/10 in a daily basis which involves daily chores, opening jars etc LTG Duration 8 weeks ROM Impairment pt is immobilized for 6 weeks in a sling Short Term Goal (STG) 02/11 goal met . pt currently regained 90 % of R shoulder PROM in all planes (7 weeks post op) pt will regain full PROM for her R shoulder in all planes in 4 weeks STG Duration 03/12/21 Surgical Device Sales Representative Goal (LTG) pt will regain full AROM her R shoulder in all planes in 8 weeks LTG Duration 04/11/21 Quickdash Impairment pt scores 84 on quickdash Short Term Goal (STG) 02/11 did not assess, will update next visit Pt will score <50 on quickdash to improve overall shoulder mobility and strength. STG Duration 03/12/21 [facility] Goal (LTG) Pt will score <30 on quickdash to improve overall shoulder mobility and strength. LTG Duration 04/11 Assessment Summary Assessment Pt has less irritation at supraspinatus tendon today. She bolivar well with a full session of ROM and strengthening ex. She is going to have f/u with Dr. Rodriguez this . Physical Therapy Plan Frequency and Duration Frequency of Treatment 2x/Week Duration of Treatment 12 weeks Plan of Care Start Date 01/01/21 Plan of Care End Date 04/01/21 Therapeutic Interventions Therapeutic Interventions Home Exercise Program,Joint Mobilizations,Manual Therapy, Neuromuscular Re-education, Patient/Caregiver Education, Self-Care/Home Management,Soft Tissue Mobilization,Taping, Therapeutic Activities, Therapeutic Exercises Discharge Physical Therapy Discharge Reasons Plateau in Progress Discharge Comments pt consulted with Dr. Rodriguez and decided to have RTC repair on 11/27/20 d/t plateau in rehab. Pt anticipate to cont therapy post surgically. DC this case Next Visit Focus/Plan Next Note Type Treatment Note Next Visit Plan Assess response to light strengthening TB rows/ IR/ ER, pulleys FF, ABD, stand IR, supine HEP review with # 1 shld ER DB last tx. Continue per PT POC: see protocol in EMR under HEP Phase II 02/01/21 per ortho on FU appt. AA- AROM STM if needed
--- NOTE | 2021-03-08 11:14 | PT.OTN ---
Current Diagnoses Complete rotator cuff tear or rupture of right shoulder, not specified as traumatic (03/08/21) Physical Therapy Treatment Note PT-OP-A Visit Information Start: 01/01/21 14:30 Freq: Status: Active Protocol: Document 03/08/21 10:37 HH (Rec: 03/08/21 11:14 [id number]) Out-Patient Physical Therapy Visit Information Visit Information Visit Type Treatment Note Visit Note 10 wks post op (12/24/20) Visit Start Time 10:34 Visit Stop Time 11:15 Total Visit Minutes 41 Visit Number 16/12 Number of HOUSE FELLOW Visits 0 PT-OP-B Current Condition Start: 01/01/21 14:30 Freq: Status: Active Protocol: Document 01/01/21 14:31 HH (Rec: 01/01/21 15:00 HH [email or web address]) Current Condition History of Current Condition Onset Date 12/24/20 Current Complaints s/p R small rotator cuff repair, immobility History of Current Condition pt is a 65 returning patient for her R shoulder s/p R small rotator cuff repair on by Dr. Rodriguez. Pt initially injured her R shoulder by moving furniture out of the house in the summer. Pt then participated a course of PT and was able to regain most ROM and partial strength. However, her pain was still persistent at night. Pt was then diagnosed with full thickness tear of supraspinatus from MRI early this year and decided to have it surgically repair. 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 Rodriguez yesterday. He is pleased with the progress but dont lift much yet. I will see him one more time in March . Patient Reported Progress Improving PT-OP-K Range of Motion Start: 01/01/21 14:30 Freq: Status: Active Protocol: Document 02/19/21 10:30 HH (Rec: 02/19/21 11:13 [id number]) Shoulder Goniometric Range of Motion Shoulder Right Passive Shoulder ROM WFL No Testing Position Supine Flexion 158 Abduction 140 External Rotation at 90 degrees 60 Abduction Internal Rotation 88 Comments Pain at all end range and from flexion to neutral position Right Active Shoulder ROM WFL No Testing Position Sitting Flexion 85 Extension 50 Abduction 65 PT-OP-M Strength Start: 01/01/21 14:30 Freq: Status: Active Protocol: Document 01/01/21 14:31 HH (Rec: 01/01/21 15:00 [email or web address]) Shoulder Strength Shoulder Manual Muscle Testing Right Comments unable d/t post op protocol (6 week immobilization) PT-OP-Q Treatments Start: 01/01/21 14:30 Freq: Status: Active Protocol: Document 03/08/21 10:37 HH (Rec: 03/08/21 11:14 [id number]) Cardio Equipment Upper Body Ergometer (UBE) Duration (Minutes) 6 Seat Position free standing UBE (seated on plinth) Other 30sec fwd, bwd Therapeutic Exercises Sidelying Exercises SL abd Sidelying Exercise Name arm externally rotated. Side bilateral Reps/Minutes 8 x2 Comments for HEP hor abduction Side right Resistance 2# bilateral Reps/Minutes x5 Comments discont. due to pain SL ER Side bilateral Resistance #2 db Reps/Minutes 8 x2 Comments no pain noted. Sitting Exercises [place] madeleine Sitting Exercise Name FF, ABD seated, IR behind back standing Standing Exercises shld IR/ ER Standing Exercise Name added to HEP Side right Equipment Used Tb #1 Reps/Minutes 2x10 Comments occasional cue for scap stab awareness IR R shld towel stretch Standing Exercise Name with PVC, extension and internal rotation Side bilateral Reps/Minutes 10 x2 Comments slight pinching sensation at R shoulder Manual Therapy Treatment Soft Tissue Mobilization Upper trap Body Location supraspinatus Mobilization Type Sustained Pressure,Trigger Point Release Intensity/Depth Moderate Body Position Sitting Comments decreased tonicity noted, PT-OP-T Assessment and Plan Start: 01/01/21 14:30 Freq: Status: Active Protocol: Document 03/08/21 10:37 HH (Rec: 03/08/21 11:14 [id number]) Physical Therapy Assessment Goals strength Impairment pt is immobilized for 6 weeks in a sling Short Term Goal (STG) 02/12 not ready since pt's postop protocol is focusing on AROM only. pt will be improve his overall R shoulder strength > 3/5 STG Duration 4 weeks Parachute Repairer Goal (LTG) pt will be improve his overall R shoulder strength > 4/5 LTG Duration 8 weeks pain Impairment pt has pain 6/10 at R shoulder in general Short Term Goal (STG) 02/12 goal met pt currently has pain no more than 2/10 in a daily basis at rest/ doing HEP. STG Duration 4 weeks Long-Term Goal (LTG) pt will have no more than 2/10 in a daily basis which involves daily chores, opening jars etc LTG Duration 8 weeks ROM Impairment pt is immobilized for 6 weeks in a sling Short Term Goal (STG) 02/11 goal met . pt currently regained 90 % of R shoulder PROM in all planes (7 weeks post op) pt will regain full PROM for her R shoulder in all planes in 4 weeks STG Duration 03/12/21 Long-Term Goal (LTG) pt will regain full AROM her R shoulder in all planes in 8 weeks LTG Duration 04/11/21 Quickdash Impairment pt scores 84 on quickdash Short Term Goal (STG) 02/11 did not assess, will update next visit Pt will score <50 on quickdash to improve overall shoulder mobility and strength. STG Duration 03/12/21 Long-Term Goal (LTG) Pt will score <30 on quickdash to improve overall shoulder mobility and strength. LTG Duration 04/11 Assessment Summary Assessment Pt's surgeon is pleased with her progress but recommended to continue light strengthening as tolerated. Physical Therapy Plan Frequency and Duration Frequency of Treatment 2x/Week Duration of Treatment 12 weeks Plan of Care Start Date 01/01/21 Plan of Care End Date 04/01/21 Therapeutic Interventions Therapeutic Interventions Home Exercise Program,Joint Mobilizations,Manual Therapy, Neuromuscular Re-education, Patient/Caregiver Education, Self-Care/Home Management,Soft Tissue Mobilization,Taping, Therapeutic Activities, Therapeutic Exercises Discharge Physical Therapy Discharge Reasons Plateau in Progress Discharge Comments pt consulted with Dr. Rodriguez and decided to have RTC repair on 11/27/20 d/t plateau in rehab. Pt anticipate to cont therapy post surgically. DC this case Next Visit Focus/Plan Next Note Type Treatment Note Next Visit Plan Assess response to light strengthening TB rows/ IR/ ER, pulleys FF, ABD, stand IR, supine HEP review with # 1 shld ER DB last tx. Continue per PT POC: see protocol in EMR under HEP Phase II 02/01/21 per ortho on FU appt. AA- AROM STM if needed
--- NOTE | 2021-03-12 11:17 | PT.OTN ---
Current Diagnoses Complete rotator cuff tear or rupture of right shoulder, not specified as traumatic (03/12/21) Physical Therapy Treatment Note PT-OP-A Visit Information Start: 01/01/21 14:30 Freq: Status: Active Protocol: Document 03/12/21 10:34 HH (Rec: 03/12/21 11:17 [id number]) Out-Patient Physical Therapy Visit Information Visit Information Visit Type Treatment Note Visit Note 11 wks post op (12/24/20) Visit Start Time 10:35 Visit Stop Time 11:15 Total Visit Minutes 40 Visit Number 17/12 Number of GENERAL LABOR FORKLIFT OPERATOR Visits 0 PT-OP-B Current Condition Start: 01/01/21 14:30 Freq: Status: Active Protocol: Document 01/01/21 14:31 HH (Rec: 01/01/21 15:00 [email or web address]) Current Condition History of Current Condition Onset Date 12/24/20 Current Complaints s/p R small rotator cuff repair, immobility History of Current Condition pt is a 65 returning patient for her R shoulder s/p R small rotator cuff repair on by Dr. Rodriguez. Pt initially injured her R shoulder by moving furniture out of the house in the summer. Pt then participated a course of PT and was able to regain most ROM and partial strength. However, her pain was still persistent at night. Pt was then diagnosed with full thickness tear of supraspinatus from MRI early this year and decided to have it surgically repair. 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, do court deputy, wash her back Functional Limitations- Recreation/ unable to participate Hobbies PT-OP-C Subjective Start: 01/01/21 14:30 Freq: Status: Active Protocol: Document 03/12/21 10:34 HH (Rec: 03/12/21 11:17 [id number]) OP-PT Subjective Patient Comments Patient Comments my asked me to help him to lift but i tried it and i knew i couldnt do it so i stopped immediately. Patient Reported Progress Improving Patient Questionnaires Quick Dash- Upper Extremity Quick Dash UE Score 27.3 Quick Dash UE Impairment 20 to 39% Impaired (Score 20- 39) PT-OP-K Range of Motion Start: 01/01/21 14:30 Freq: Status: Active Protocol: Document 02/19/21 10:30 (Rec: 02/19/21 11:13 [id number]) Shoulder Goniometric Range of Motion Shoulder Right Passive Shoulder ROM WFL No Testing Position Supine Flexion 158 Abduction 140 External Rotation at 90 degrees 60 Abduction Internal Rotation 88 Comments Pain at all end range and from flexion to neutral position Right Active Shoulder ROM WFL No Testing Position Sitting Flexion 85 Extension 50 Abduction 65 PT-OP-M Strength Start: 01/01/21 14:30 Freq: Status: Active Protocol: Document 01/01/21 14:31 HH (Rec: 01/01/21 15:00 [email or web address]) Shoulder Strength Shoulder Manual Muscle Testing Right Comments unable d/t post op protocol (6 week immobilization) PT-OP-Q Treatments Start: 01/01/21 14:30 Freq: Status: Active Protocol: Document 03/12/21 10:34 HH (Rec: 03/12/21 11:17 [id number]) Therapeutic Exercises Sidelying Exercises SL abd Sidelying Exercise Name arm externally rotated. Side bilateral Equipment Used 2 lbs DB Reps/Minutes 8 x2 Comments for HEP hor abduction Side right Resistance 2# bilateral Reps/Minutes x5 Comments discont. due to pain SL ER Side bilateral Resistance #2 db Reps/Minutes 8 x2 Comments no pain noted. Sitting Exercises Shld ER Sitting Exercise Name AAROM Side right Equipment Used PVC Reps/Minutes 10 x2 Comments for HEP Standing Exercises shld IR/ ER Standing Exercise Name added to HEP Side right Equipment Used Tb #1 Reps/Minutes 2x10 Comments occasional cue for scap stab awareness PT-OP-T Assessment and Plan Start: 01/01/21 14:30 Freq: Status: Active Protocol: Document 03/12/21 10:34 HH (Rec: 03/12/21 11:17 [id number]) Physical Therapy Assessment Goals strength Impairment pt is immobilized for 6 weeks in a sling Short Term Goal (STG) 02/12 not ready since pt's postop protocol is focusing on AROM only. pt will be improve his overall R shoulder strength > 3/5 STG Duration 4 weeks Breaster Goal (LTG) pt will be improve his overall R shoulder strength > 4/5 LTG Duration 8 weeks pain Impairment pt has pain 6/10 at R shoulder in general Short Term Goal (STG) 02/12 goal met pt currently has pain no more than 2/10 in a daily basis at rest/ doing HEP. STG Duration 4 weeks Breaster Goal (LTG) pt will have no more than 2/10 in a daily basis which involves daily chores, opening jars etc LTG Duration 8 weeks ROM Impairment pt is immobilized for 6 weeks in a sling Short Term Goal (STG) 02/11 goal met . pt currently regained 90 % of R shoulder PROM in all planes (7 weeks post op) pt will regain full PROM for her R shoulder in all planes in 4 weeks STG Duration 03/12/21 Detention Goal (LTG) pt will regain full AROM her R shoulder in all planes in 8 weeks LTG Duration 04/11/21 Quickdash Impairment pt scores 84 on quickdash Short Term Goal (STG) 02/11 did not assess, will update next visit Pt will score <50 on quickdash to improve overall shoulder mobility and strength. STG Duration 03/12/21 Detention Goal (LTG) 03/12 goal met Pt scores 27 on quickdash to improve overall shoulder mobility and strength. pt will score <15 on quickdash LTG Duration 04/11 Assessment Summary Assessment this session focused on restoring pt's shoulder ER. Modified his ER stretch to do it in sitting today. Will f/u next visit. Physical Therapy Plan Frequency and Duration Frequency of Treatment 2x/Week Duration of Treatment 12 weeks Plan of Care Start Date 01/01/21 Plan of Care End Date 04/01/21 Therapeutic Interventions Therapeutic Interventions Home Exercise Program,Joint Mobilizations,Manual Therapy, Neuromuscular Re-education, Patient/Caregiver Education, Self-Care/Home Management,Soft Tissue Mobilization,Taping, Therapeutic Activities, Therapeutic Exercises Next Visit Focus/Plan Next Note Type Treatment Note Next Visit Plan Assess response to light strengthening TB rows/ IR/ ER, pulleys FF, ABD, stand IR, supine HEP review with # 1 shld ER DB last tx. Continue per PT POC: see protocol in EMR under HEP Phase II 02/01/21 per ortho on FU appt. AA- AROM STM if needed
--- NOTE | 2021-03-19 11:17 | PT.OTN ---
Current Diagnoses Complete rotator cuff tear or rupture of right shoulder, not specified as traumatic (03/19/21) Physical Therapy Treatment Note PT-OP-A Visit Information Start: 01/01/21 14:30 Freq: Status: Active Protocol: Document 03/19/21 10:34 HH (Rec: 03/19/21 11:16 [id number]) Out-Patient Physical Therapy Visit Information Visit Information Visit Type Treatment Note Visit Note 11 wks post op (12/24/20) Visit Start Time 10:30 Visit Stop Time 11:15 Total Visit Minutes 45 Visit Number 18/12 Number of INTERLOCKING MACHINE OPERATOR Visits 0 PT-OP-B Current Condition Start: 01/01/21 14:30 Freq: Status: Active Protocol: Document 01/01/21 14:31 HH (Rec: 01/01/21 15:00 HH [email or web address]) Current Condition History of Current Condition Onset Date 12/24/20 Current Complaints s/p R small rotator cuff repair, immobility History of Current Condition pt is a 65 returning patient for her R shoulder s/p R small rotator cuff repair on by Dr. Rodriguez. Pt initially injured her R shoulder by moving furniture out of the house in the summer. Pt then participated a course of PT and was able to regain most ROM and partial strength. However, her pain was still persistent at night. Pt was then diagnosed with full thickness tear of supraspinatus from MRI early this year and decided to have it surgically repair. 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 i did get sore after some gardening work couple days. Patient Reported Progress Improving PT-OP-K Range of Motion Start: 01/01/21 14:30 Freq: Status: Active Protocol: Document 02/19/21 10:30 HH (Rec: 02/19/21 11:13 [id number]) Shoulder Goniometric Range of Motion Shoulder Right Passive Shoulder ROM WFL No Testing Position Supine Flexion 158 Abduction 140 External Rotation at 90 degrees 60 Abduction Internal Rotation 88 Comments Pain at all end range and from flexion to neutral position Right Active Shoulder ROM WFL No Testing Position Sitting Flexion 85 Extension 50 Abduction 65 PT-OP-M Strength Start: 01/01/21 14:30 Freq: Status: Active Protocol: Document 01/01/21 14:31 (Rec: 01/01/21 15:00 [email or web address]) Shoulder Strength Shoulder Manual Muscle Testing Right Comments unable d/t post op protocol (6 week immobilization) PT-OP-Q Treatments Start: 01/01/21 14:30 Freq: Status: Active Protocol: Document 03/19/21 10:34 (Rec: 03/19/21 11:16 [id number]) Therapeutic Exercises Sidelying Exercises SL abd Sidelying Exercise Name arm externally rotated, full ROM Side bilateral Equipment Used 2 lbs DB Reps/Minutes 8 x2 SL ER Side bilateral Resistance #2 db Reps/Minutes 8 x2 Comments no pain noted. Standing Exercises shoulder ER stretch Side right Equipment Used PVC Reps/Minutes 2 mins Manual Therapy Treatment Soft Tissue Mobilization lats Mobilization Type Myofascial Release,Sustained Pressure,Trigger Point Release Intensity/Depth Moderate Body Position Sidelying Comments with upward rotation of R scapula, tightness and pain relief. RTC Body Location supraspinatus tendon Mobilization Type Sustained Pressure,Trigger Point Release Intensity/Depth Moderate Body Position Sidelying Comments tenderness noted PT-OP-T Assessment and Plan Start: 01/01/21 14:30 Freq: Status: Active Protocol: Document 03/19/21 10:34 (Rec: 03/19/21 11:16 [id number]) Physical Therapy Assessment Goals strength Impairment pt is immobilized for 6 weeks in a sling Short Term Goal (STG) 02/12 not ready since pt's postop protocol is focusing on AROM only. pt will be improve his overall R shoulder strength > 3/5 STG Duration 4 weeks Conductor And Engineer Goal (LTG) pt will be improve his overall R shoulder strength > 4/5 LTG Duration 8 weeks pain Impairment pt has pain 6/10 at R shoulder in general Short Term Goal (STG) 02/12 goal met pt currently has pain no more than 2/10 in a daily basis at rest/ doing HEP. STG Duration 4 weeks Shelter Goal (LTG) pt will have no more than 2/10 in a daily basis which involves daily chores, opening jars etc LTG Duration 8 weeks ROM Impairment pt is immobilized for 6 weeks in a sling Short Term Goal (STG) 02/11 goal met . pt currently regained 90 % of R shoulder PROM in all planes (7 weeks post op) pt will regain full PROM for her R shoulder in all planes in 4 weeks STG Duration 03/12/21 Conductor And Engineer Goal (LTG) pt will regain full AROM her R shoulder in all planes in 8 weeks LTG Duration 04/11/21 Quickdash Impairment pt scores 84 on quickdash Short Term Goal (STG) 02/11 did not assess, will update next visit Pt will score <50 on quickdash to improve overall shoulder mobility and strength. STG Duration 03/12/21 Conductor And Engineer Goal (LTG) 03/12 goal met Pt scores 27 on quickdash to improve overall shoulder mobility and strength. pt will score <15 on quickdash LTG Duration 04/11 Assessment Summary Assessment pt has WFL AROM for flexion but 50% abduction. After mobilization for scapular upward rotation and lat release, pt was able to reach close to full range of abduction. Her active ER = 68, Passive= 70-75 Physical Therapy Plan Frequency and Duration Frequency of Treatment 2x/Week Duration of Treatment 12 weeks Plan of Care Start Date 01/01/21 Plan of Care End Date 04/01/21 Therapeutic Interventions Therapeutic Interventions Home Exercise Program,Joint Mobilizations,Manual Therapy, Neuromuscular Re-education, Patient/Caregiver Education, Self-Care/Home Management,Soft Tissue Mobilization,Taping, Therapeutic Activities, Therapeutic Exercises Next Visit Focus/Plan Next Note Type Treatment Note Next Visit Plan Assess response to light strengthening TB rows/ IR/ ER, pulleys FF, ABD, stand IR, supine HEP review with # 1 shld ER DB last tx. Continue per PT POC: see protocol in EMR under HEP Phase II 02/01/21 per ortho on FU appt. AA- AROM STM if needed
--- NOTE | 2021-03-26 11:13 | PT.OTN ---
Current Diagnoses Complete rotator cuff tear or rupture of right shoulder, not specified as traumatic (03/26/21) Physical Therapy Treatment Note PT-OP-A Visit Information Start: 01/01/21 14:30 Freq: Status: Active Protocol: Document 03/26/21 10:35 HH (Rec: 03/26/21 11:12 [id number]) Out-Patient Physical Therapy Visit Information Visit Information Visit Type Treatment Note Visit Note 12 wks post op (12/24/20) Visit Start Time 10:33 Visit Stop Time 11:15 Total Visit Minutes 42 Visit Number 19/12 Number of PREPRINT ANALYST Visits 0 PT-OP-B Current Condition Start: 01/01/21 14:30 Freq: Status: Active Protocol: Document 01/01/21 14:31 HH (Rec: 01/01/21 15:00 HH [email or web address]) Current Condition History of Current Condition Onset Date 12/24/20 Current Complaints s/p R small rotator cuff repair, immobility History of Current Condition pt is a 65 returning patient for her R shoulder s/p R small rotator cuff repair on by Dr. Rodriguez. Pt initially injured her R shoulder by moving furniture out of the house in the summer. Pt then participated a course of PT and was able to regain most ROM and partial strength. However, her pain was still persistent at night. Pt was then diagnosed with full thickness tear of supraspinatus from MRI early this year and decided to have it surgically repair. 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 Patient Reported Progress Worse PT-OP-K Range of Motion Start: 01/01/21 14:30 Freq: Status: Active Protocol: Document 02/19/21 10:30 HH (Rec: 02/19/21 11:13 HH [id number]) Shoulder Goniometric Range of Motion Shoulder Right Passive Shoulder ROM WFL No Testing Position Supine Flexion 158 Abduction 140 External Rotation at 90 degrees 60 Abduction Internal Rotation 88 Comments Pain at all end range and from flexion to neutral position Right Active Shoulder ROM WFL No Testing Position Sitting Flexion 85 Extension 50 Abduction 65 PT-OP-M Strength Start: 01/01/21 14:30 Freq: Status: Active Protocol: Document 01/01/21 14:31 (Rec: 01/01/21 15:00 [email or web address]) Shoulder Strength Shoulder Manual Muscle Testing Right Comments unable d/t post op protocol (6 week immobilization) PT-OP-Q Treatments Start: 01/01/21 14:30 Freq: Status: Active Protocol: Document 03/26/21 10:35 (Rec: 03/26/21 11:12 [id number]) Therapeutic Exercises Supine Exercises shld ER Side right Resistance AAROM Equipment Used dowel Reps/Minutes 4 mins Comments up to 75 degrees Sitting Exercises [place] madeleine Sitting Exercise Name FF, ABD seated, IR behind back standing Reps/Minutes 5 mins Manual Therapy Treatment Soft Tissue Mobilization bicep tendon Body Location long head of bicep tendon on R Mobilization Type Sustained Pressure,Trigger Point Release Intensity/Depth Moderate Body Position Sidelying Comments increased tenderness noted at bicep long head tendon Joint Mobilizations MWM Joint GHJ Direction post glide Grade III Body Position Standing Comments with active ER. up to 70 degrees PT-OP-T Assessment and Plan Start: 01/01/21 14:30 Freq: Status: Active Protocol: Document 03/26/21 10:35 (Rec: 03/26/21 11:12 [id number]) Physical Therapy Assessment Goals strength Impairment pt is immobilized for 6 weeks in a sling Short Term Goal (STG) 02/12 not ready since pt's postop protocol is focusing on AROM only. pt will be improve his overall R shoulder strength > 3/5 STG Duration 4 weeks Safety Risk Lead Goal (LTG) pt will be improve his overall R shoulder strength > 4/5 LTG Duration 8 weeks pain Impairment pt has pain 6/10 at R shoulder in general Short Term Goal (STG) 02/12 goal met pt currently has pain no more than 2/10 in a daily basis at rest/ doing HEP. STG Duration 4 weeks Safety Risk Lead Goal (LTG) pt will have no more than 2/10 in a daily basis which involves daily chores, opening jars etc LTG Duration 8 weeks ROM Impairment pt is immobilized for 6 weeks in a sling Short Term Goal (STG) 02/11 goal met . pt currently regained 90 % of R shoulder PROM in all planes (7 weeks post op) pt will regain full PROM for her R shoulder in all planes in 4 weeks STG Duration 03/12/21 Penitentiary Goal (LTG) pt will regain full AROM her R shoulder in all planes in 8 weeks LTG Duration 04/11/21 Quickdash Impairment pt scores 84 on quickdash Short Term Goal (STG) 02/11 did not assess, will update next visit Pt will score <50 on quickdash to improve overall shoulder mobility and strength. STG Duration 03/12/21 Safety Risk Lead Goal (LTG) 03/12 goal met Pt scores 27 on quickdash to improve overall shoulder mobility and strength. pt will score <15 on quickdash LTG Duration 04/11 Assessment Summary Assessment pt came in with pain and soreness at long head of bicep tendon after pushing off from the chair. I believe she has a minor strain but supraspinatus = WFL. her active ER= 75, Passive ER= 80. Today focused mostly on manual therapy and ROM ex d/t new onset of bicep pain. Physical Therapy Plan Frequency and Duration Frequency of Treatment 2x/Week Duration of Treatment 12 weeks Plan of Care Start Date 01/01/21 Plan of Care End Date 04/01/21 Therapeutic Interventions Therapeutic Interventions Home Exercise Program,Joint Mobilizations,Manual Therapy, Neuromuscular Re-education, Patient/Caregiver Education, Self-Care/Home Management,Soft Tissue Mobilization,Taping, Therapeutic Activities, Therapeutic Exercises Next Visit Focus/Plan Next Note Type Treatment Note Next Visit Plan Assess response to light strengthening TB rows/ IR/ ER, pulleys FF, ABD, stand IR, supine HEP review with # 1 shld ER DB last tx. Continue per PT POC: see protocol in EMR under HEP Phase II 02/01/21 per ortho on FU appt. AA- AROM STM if needed
--- NOTE | 2021-04-16 12:20 | PT.OTN ---
Current Diagnoses Complete rotator cuff tear or rupture of right shoulder, not specified as traumatic (04/16/21) Physical Therapy Treatment Note PT-OP-A Visit Information Start: 01/01/21 14:30 Freq: Status: Active Protocol: Document 04/16/21 11:20 HH (Rec: 04/16/21 12:19 [id number]) Out-Patient Physical Therapy Visit Information Visit Information Visit Type Treatment Note Visit Note 14 wks post op (12/24/20) Visit Start Time 11:16 Visit Stop Time 12:00 Total Visit Minutes 44 Visit Number 16/09 Number of ENVIRONMENTAL CONFLICT MANAGER Visits 0 PT-OP-B Current Condition Start: 01/01/21 14:30 Freq: Status: Active Protocol: Document 01/01/21 14:31 HH (Rec: 01/01/21 15:00 [email or web address]) Current Condition History of Current Condition Onset Date 12/24/20 Current Complaints s/p R small rotator cuff repair, immobility History of Current Condition pt is a 65 returning patient for her R shoulder s/p R small rotator cuff repair on by Dr. Rodriguez. Pt initially injured her R shoulder by moving furniture out of the house in the summer. Pt then participated a course of PT and was able to regain most ROM and partial strength. However, her pain was still persistent at night. Pt was then diagnosed with full thickness tear of supraspinatus from MRI early this year and decided to have it surgically repair. 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 I feel fine now. My shoulder is doing okay. I have this snapping sensation at the top of the shoulder. I only have soreness most of the time. Patient Reported Progress Improving Patient Questionnaires Quick Dash- Upper Extremity Quick Dash UE Score 25 Quick Dash UE Impairment 20 to 39% Impaired (Score 20- 39) PT-OP-K Range of Motion Start: 01/01/21 14:30 Freq: Status: Active Protocol: Document 04/16/21 11:20 HH (Rec: 04/16/21 12:19 [id number]) Shoulder Goniometric Range of Motion Shoulder Right Passive Shoulder ROM WFL No Testing Position Supine Flexion 158 Abduction 156 External Rotation at 90 degrees 75 Abduction Internal Rotation 88 Comments Pain at all end range and from flexion to neutral position Right Active Shoulder ROM WFL No Testing Position Standing Flexion 155 Extension 50 Abduction 145 Comments painful arc for abduction painful at end range flexion PT-OP-M Strength Start: 01/01/21 14:30 Freq: Status: Active Protocol: Document 04/16/21 11:20 HH (Rec: 04/16/21 12:19 [id number]) Shoulder Strength Shoulder Manual Muscle Testing Right Flexion 4 Good Extension 4 Good Abduction (C5) 3+ Fair+ Comments pain noted at abduction PT-OP-Q Treatments Start: 01/01/21 14:30 Freq: Status: Active Protocol: Document 04/16/21 11:20 HH (Rec: 04/16/21 12:19 [id number]) Cardio Equipment Upper Body Ergometer (UBE) Duration (Minutes) 6 Seat Position free standing UBE (seated on plinth) Other 30sec fwd, bwd Therapeutic Exercises Sidelying Exercises scap bunch Sidelying Exercise Name for HEP Side right Reps/Minutes 10 x2 Comments cues on scap protraction/ upward rotation Manual Therapy Treatment Soft Tissue Mobilization scar mobility Mobilization Type Rolling Joint Mobilizations MWM Joint GHJ Direction post glide Grade III Body Position Standing 1 Joint scap Direction upward rotation Grade III Comments with passive shoulder abd PT-OP-T Assessment and Plan Start: 01/01/21 14:30 Freq: Status: Active Protocol: Document 04/16/21 11:20 HH (Rec: 04/16/21 12:19 [id number]) Physical Therapy Assessment Goals strength Impairment pt is immobilized for 6 weeks in a sling Short Term Goal (STG) 02/12 not ready since pt's postop protocol is focusing on AROM only. pt will be improve his overall R shoulder strength > 3/5 STG Duration 4 weeks Senior Living Goal (LTG) pt has overall R shoulder strength > 4/5 except 3+/5 on abduction LTG Duration 8 weeks pain Impairment pt has pain 6/10 at R shoulder in general Short Term Goal (STG) 02/12 goal met pt currently has pain no more than 2/10 in a daily basis at rest/ doing HEP. STG Duration 4 weeks Senior Living Goal (LTG) pt will have no more than 2/10 in a daily basis which involves daily chores, opening jars etc LTG Duration 8 weeks ROM Impairment pt is immobilized for 6 weeks in a sling Short Term Goal (STG) 02/11 goal met . pt currently regained 90 % of R shoulder PROM in all planes (7 weeks post op) pt will regain full PROM for her R shoulder in all planes in 4 weeks STG Duration 03/12/21 Quality Process Auditor Goal (LTG) 04/16 pt partially gained AROM pt will regain full AROM her R shoulder in all planes in 8 weeks LTG Duration 04/11/21 Quickdash Impairment pt scores 84 on quickdash Short Term Goal (STG) 02/11 did not assess, will update next visit Pt will score <50 on quickdash to improve overall shoulder mobility and strength. STG Duration 03/12/21 Quality Process Auditor Goal (LTG) 03/12 goal met, 04/16 pt scores 25 Pt scores 27 on quickdash to improve overall shoulder mobility and strength. pt will score <15 on quickdash LTG Duration 04/11 Progress Towards Goals Progress Towards Goals Progressing Toward Goals Assessment Summary Assessment pt has not been seen for 2 weeks d/t appendix removal surgery. Reassessment today and her AROM continues to improved but impingement noted with abduction and ER. Her pain subsides with assisted upward rotation of R scapula and recommended her to perform scap mobility at home. 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 Physical Therapy Plan Frequency and Duration Frequency of Treatment 1x/Week Duration of Treatment 8 weeks Plan of Care Start Date 04/16/21 Plan of Care End Date 06/15/21 Therapeutic Interventions Therapeutic Interventions Home Exercise Program,Joint Mobilizations,Manual Therapy, Neuromuscular Re-education, Patient/Caregiver Education, Self-Care/Home Management,Soft Tissue Mobilization,Taping, Therapeutic Activities, Therapeutic Exercises Modalities Cold Pack/Ice Massage,Electric Stimulation,Hot Packs, Infrared Therapy,Ultrasound Next Visit Focus/Plan Next Note Type Treatment Note
--- NOTE | 2021-04-16 12:20 | PT.OPPOC ---
Physical, Occupational & Speech Therapy At [facility] Current Diagnoses Complete rotator cuff tear or rupture of right shoulder, not specified as traumatic (04/16/21) Visit Care Team Role Provider Type Jj Hernandez MD Family Provider Physician Primary Care Provider Specialty: Internal Medicine Address: [address] [place] [address], [id number] Email: [email or web address] Mihai Rodriguez MD Attending Provider Physician Referring Provider Specialty: Orthopedic Surgery Address: [address] [place] [address], [id number] Email: [email or web address] Plan Of Care PT-OP-T Assessment and Plan Start: 01/01/21 14:30 Freq: Status: Active Protocol: Document 04/16/21 11:20 HH (Rec: 04/16/21 12:19 HH [id number]) Physical Therapy Assessment Goals strength Impairment pt is immobilized for 6 weeks in a sling Short Term Goal (STG) 02/12 not ready since pt's postop protocol is focusing on AROM only. pt will be improve his overall R shoulder strength > 3/5 STG Duration 4 weeks Trauma Manager Goal (LTG) pt has overall R shoulder strength > 4/5 except 3+/5 on abduction LTG Duration 8 weeks pain Impairment pt has pain 6/10 at R shoulder in general Short Term Goal (STG) 02/12 goal met pt currently has pain no more than 2/10 in a daily basis at rest/ doing HEP. STG Duration 4 weeks Trauma Manager Goal (LTG) pt will have no more than 2/10 in a daily basis which involves daily chores, opening jars etc LTG Duration 8 weeks ROM Impairment pt is immobilized for 6 weeks in a sling Short Term Goal (STG) 02/11 goal met . pt currently regained 90 % of R shoulder PROM in all planes (7 weeks post op) pt will regain full PROM for her R shoulder in all planes in 4 weeks STG Duration 03/12/21 Senior Living Goal (LTG) 04/16 pt partially gained AROM pt will regain full AROM her R shoulder in all planes in 8 weeks LTG Duration 04/11/21 Quickdash Impairment pt scores 84 on quickdash Short Term Goal (STG) 02/11 did not assess, will update next visit Pt will score <50 on quickdash to improve overall shoulder mobility and strength. STG Duration 03/12/21 Trauma Manager Goal (LTG) 03/12 goal met, 04/16 pt scores 25 Pt scores 27 on quickdash to improve overall shoulder mobility and strength. pt will score <15 on quickdash LTG Duration 04/11 Progress Towards Goals Progress Towards Goals Progressing Toward Goals Assessment Summary Assessment pt has not been seen for 2 weeks d/t appendix removal surgery. Reassessment today and her AROM continues to improved but impingement noted with abduction and ER. Her pain subsides with assisted upward rotation of R scapula and recommended her to perform scap mobility at home. 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 Physical Therapy Plan Frequency and Duration Frequency of Treatment 1x/Week Duration of Treatment 8 weeks Plan of Care Start Date 04/16/21 Plan of Care End Date 06/15/21 Therapeutic Interventions Therapeutic Interventions Home Exercise Program,Joint Mobilizations,Manual Therapy, Neuromuscular Re-education, Patient/Caregiver Education, Self-Care/Home Management,Soft Tissue Mobilization,Taping, Therapeutic Activities, Therapeutic Exercises Modalities Cold Pack/Ice Massage,Electric Stimulation,Hot Packs, Infrared Therapy,Ultrasound Next Visit Focus/Plan Next Note Type Treatment Note Plan of Care Dates Plan of Care Start Date 04/16/21 Plan of Care End Date 06/15/21 Electronically Signed by: Jose Benjamin, PT 04/16/21 [id number] Please Sign and Return: I have reviewed this Plan of Care and certify that the skilled therapy services above are required to meet the patient?s needs. Physician Signature Date Printed Name and Credentials Clinical Instructor Signature Printed Name and Credentials
--- NOTE | 2021-04-22 12:06 | PT.OTN ---
Current Diagnoses Complete rotator cuff tear or rupture of right shoulder, not specified as traumatic (04/22/21) Physical Therapy Treatment Note PT-OP-A Visit Information Start: 01/01/21 14:30 Freq: Status: Active Protocol: Document 04/22/21 11:17 HH (Rec: 04/22/21 12:05 [id number]) Out-Patient Physical Therapy Visit Information Visit Information Visit Type Treatment Note Visit Note 15 wks post op (12/24/20) Visit Start Time 11:20 Visit Stop Time 12:00 Total Visit Minutes 40 Visit Number 17/09 Number of RIBBON LAPPER TENDER Visits 0 PT-OP-B Current Condition Start: 01/01/21 14:30 Freq: Status: Active Protocol: Document 01/01/21 14:31 HH (Rec: 01/01/21 15:00 [email or web address]) Current Condition History of Current Condition Onset Date 12/24/20 Current Complaints s/p R small rotator cuff repair, immobility History of Current Condition pt is a 65 returning patient for her R shoulder s/p R small rotator cuff repair on by Dr. Rodriguez. Pt initially injured her R shoulder by moving furniture out of the house in the summer. Pt then participated a course of PT and was able to regain most ROM and partial strength. However, her pain was still persistent at night. Pt was then diagnosed with full thickness tear of supraspinatus from MRI early this year and decided to have it surgically repair. 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 Constance been doing gardening work and its been doing okay. Im somewhere 75% regarding my recovery from the surgery. Patient Reported Progress Same PT-OP-K Range of Motion Start: 01/01/21 14:30 Freq: Status: Active Protocol: Document 04/16/21 11:20 HH (Rec: 04/16/21 12:19 [id number]) Shoulder Goniometric Range of Motion Shoulder Right Passive Shoulder ROM WFL No Testing Position Supine Flexion 158 Abduction 156 External Rotation at 90 degrees 75 Abduction Internal Rotation 88 Comments Pain at all end range and from flexion to neutral position Right Active Shoulder ROM WFL No Testing Position Standing Flexion 155 Extension 50 Abduction 145 Comments painful arc for abduction painful at end range flexion PT-OP-M Strength Start: 01/01/21 14:30 Freq: Status: Active Protocol: Document 04/16/21 11:20 (Rec: 04/16/21 12:19 [id number]) Shoulder Strength Shoulder Manual Muscle Testing Right Flexion 4 Good Extension 4 Good Abduction (C5) 3+ Fair+ Comments pain noted at abduction PT-OP-Q Treatments Start: 01/01/21 14:30 Freq: Status: Active Protocol: Document 04/22/21 11:17 (Rec: 04/22/21 12:05 [id number]) Cardio Equipment Upper Body Ergometer (UBE) Duration (Minutes) 5 Seat Position free standing UBE (seated on plinth) Other 30sec fwd, bwd Therapeutic Exercises Sidelying Exercises SL abd Sidelying Exercise Name arm externally rotated, full ROM Side bilateral Equipment Used 1 lbs DB Reps/Minutes 8 x2 Comments no discomfort, cues with upward rotation of scap SL ER Side bilateral Resistance #2 db Reps/Minutes 8 x2 Comments no pain noted. Sitting Exercises shoulder press Side bilateral Equipment Used PVC pipe Reps/Minutes 10 x2 Comments for HEP, no discomfort Standing Exercises scap retraction/depression Standing Exercise Name shoulder extension Side bilateral Comments HEP, cued awareness of tall posture & CS neutral Manual Therapy Treatment Joint Mobilizations MWM Joint GHJ Direction post glide Grade III Body Position Standing Comments able to reach 80-85 degrees. 1 Joint scap Direction upward rotation Grade III Comments with passive shoulder abd PT-OP-T Assessment and Plan Start: 01/01/21 14:30 Freq: Status: Active Protocol: Document 04/22/21 11:17 (Rec: 04/22/21 12:05 [id number]) Physical Therapy Assessment Goals strength Impairment pt is immobilized for 6 weeks in a sling Short Term Goal (STG) 02/12 not ready since pt's postop protocol is focusing on AROM only. pt will be improve his overall R shoulder strength > 3/5 STG Duration 4 weeks Fci Goal (LTG) pt has overall R shoulder strength > 4/5 except 3+/5 on abduction LTG Duration 8 weeks pain Impairment pt has pain 6/10 at R shoulder in general Short Term Goal (STG) 02/12 goal met pt currently has pain no more than 2/10 in a daily basis at rest/ doing HEP. STG Duration 4 weeks Fci Goal (LTG) pt will have no more than 2/10 in a daily basis which involves daily chores, opening jars etc LTG Duration 8 weeks ROM Impairment pt is immobilized for 6 weeks in a sling Short Term Goal (STG) 02/11 goal met . pt currently regained 90 % of R shoulder PROM in all planes (7 weeks post op) pt will regain full PROM for her R shoulder in all planes in 4 weeks STG Duration 03/12/21 Fci Goal (LTG) 04/16 pt partially gained AROM pt will regain full AROM her R shoulder in all planes in 8 weeks LTG Duration 04/11/21 Quickdash Impairment pt scores 84 on quickdash Short Term Goal (STG) 02/11 did not assess, will update next visit Pt will score <50 on quickdash to improve overall shoulder mobility and strength. STG Duration 03/12/21 Pallet Repairer Goal (LTG) 03/12 goal met, 04/16 pt scores 25 Pt scores 27 on quickdash to improve overall shoulder mobility and strength. pt will score <15 on quickdash LTG Duration 04/11 Assessment Summary Assessment Pt's ER is close to WNL. Consolidated her strengthening ex today with ABD and ER in sidelying, shoulder press and extension in seated. Pt bolivar session without increase in discomfort. Physical Therapy Plan Frequency and Duration Frequency of Treatment 1x/Week Duration of Treatment 8 weeks Plan of Care Start Date 04/16/21 Plan of Care End Date 06/15/21 Therapeutic Interventions Therapeutic Interventions Home Exercise Program,Joint Mobilizations,Manual Therapy, Neuromuscular Re-education, Patient/Caregiver Education, Self-Care/Home Management,Soft Tissue Mobilization,Taping, Therapeutic Activities, Therapeutic Exercises Modalities Cold Pack/Ice Massage,Electric Stimulation,Hot Packs, Infrared Therapy,Ultrasound Next Visit Focus/Plan Next Note Type Treatment Note Next Visit Plan continue overall shoulder stabilization ABD in SL position and progress as bolivar flexion in gravity position as bolivar
--- NOTE | 2021-04-29 10:40 | PT.OTN ---
Current Diagnoses Complete rotator cuff tear or rupture of right shoulder, not specified as traumatic (04/29/21) Physical Therapy Treatment Note PT-OP-A Visit Information Start: 01/01/21 14:30 Freq: Status: Active Protocol: Document 04/29/21 09:50 SP (Rec: 04/29/21 12:11 SP [id number]) Out-Patient Physical Therapy Visit Information Visit Information Visit Type Treatment Note Visit Note 16 weeks post op (12/24/20) Visit Start Time 09:50 Visit Stop Time 10:40 Total Visit Minutes 50 Visit Number 22/12 Number of PARALEGAL SECRETARY Visits 1 Evaluation Information Evaluation Date 01/01/21 Precautions Precautions post op protocol in EMR under therapy notes HEP PT-OP-B Current Condition Start: 01/01/21 14:30 Freq: Status: Active Protocol: Document 01/01/21 14:31 HH (Rec: 01/01/21 15:00 HH [id number]) Current Condition History of Current Condition Onset Date 12/24/20 Current Complaints s/p R small rotator cuff repair, immobility History of Current Condition pt is a 65 returning patient for her R shoulder s/p R small rotator cuff repair on by Dr. Rodriguez. Pt initially injured her R shoulder by moving furniture out of the house in the summer. Pt then participated a course of PT and was able to regain most ROM and partial strength. However, her pain was still persistent at night. Pt was then diagnosed with full thickness tear of supraspinatus from MRI early this year and decided to have it surgically repair. 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 Had another recently with Dr Warren into her L pirformis approx 2 weeks ago and has not decreased the pain much. She has been trying stretching and not significant relief. She reports has a new referral that will start in May and current shld referral will end . She states her shoulder is improving inROM and tolerating strengthening when has been shown so far. PT-OP-K Range of Motion Start: 01/01/21 14:30 Freq: Status: Active Protocol: Document 04/16/21 11:20 HH (Rec: 04/16/21 12:19 HH [id number]) Shoulder Goniometric Range of Motion Shoulder Right Passive Shoulder ROM WFL No Testing Position Supine Flexion 158 Abduction 156 External Rotation at 90 degrees 75 Abduction Internal Rotation 88 Comments Pain at all end range and from flexion to neutral position Right Active Shoulder ROM WFL No Testing Position Standing Flexion 155 Extension 50 Abduction 145 Comments painful arc for abduction painful at end range flexion PT-OP-M Strength Start: 01/01/21 14:30 Freq: Status: Active Protocol: Document 04/16/21 11:20 HH (Rec: 04/16/21 12:19 HH [id number]) Shoulder Strength Shoulder Manual Muscle Testing Right Flexion 4 Good Extension 4 Good Abduction (C5) 3+ Fair+ Comments pain noted at abduction PT-OP-Q Treatments Start: 01/01/21 14:30 Freq: Status: Active Protocol: Document 04/29/21 09:50 SP (Rec: 04/29/21 12:11 SP [id number]) Therapeutic Exercises Supine Exercises supine flexion Supine Exercise Name added to HEP Side bilateral Resistance 2nd set 2# LUE, AROM-1# DB RUE Equipment Used 1st set dowel 2# leg wt ( doesnt have leg wt home) Reps/Minutes x10 each equipment for trial at home Comments pain free range Sidelying Exercises shld ABD Side right Resistance AROM- #1 DB Reps/Minutes 2x10 total Comments cued trunk alignment and tolerance- good pain free scap bunch Sidelying Exercise Name reviewed HEP- serratus punch Side right Resistance 2# DB LUE, 1# RUE Reps/Minutes 10 x2 Comments cues on scap protraction/ upward rotation Standing Exercises Over head press Standing Exercise Name added to HEP- alternate BUE Side bilateral Resistance 2# DB LUE, AROM RUE Equipment Used front mirror for posture awareness- helpful Reps/Minutes 2x5 reps Comments cued scap and trunk alignment and AROM to tolerance toward FROM can shoulder ext Standing Exercise Name pull down angled from above- HEP review Side bilateral Resistance TB #1 Reps/Minutes 2x10 Comments occasional cue for scap stab during eccentric return- painfree shld IR/ ER Standing Exercise Name reviewed HEP Side right Equipment Used Tb #1 Reps/Minutes 2x10 Comments occasional cue for scap stab awareness scap retraction/depression Standing Exercise Name shoulder extension Side bilateral Comments HEP, cued awareness of tall posture & CS neutral PT-OP-T Assessment and Plan Start: 01/01/21 14:30 Freq: Status: Active Protocol: Document 04/29/21 09:50 SP (Rec: 04/29/21 12:11 SP [id number]) Physical Therapy Assessment Goals strength Impairment pt is immobilized for 6 weeks in a sling Short Term Goal (STG) 02/12 not ready since pt's postop protocol is focusing on AROM only. pt will be improve his overall R shoulder strength > 3/5 STG Duration 4 weeks Pulmonologist Intensivist Goal (LTG) pt has overall R shoulder strength > 4/5 except 3+/5 on abduction LTG Duration 8 weeks pain Impairment pt has pain 6/10 at R shoulder in general Short Term Goal (STG) 02/12 goal met pt currently has pain no more than 2/10 in a daily basis at rest/ doing HEP. STG Duration 4 weeks Pulmonologist Intensivist Goal (LTG) pt will have no more than 2/10 in a daily basis which involves daily chores, opening jars etc LTG Duration 8 weeks ROM Impairment pt is immobilized for 6 weeks in a sling Short Term Goal (STG) 02/11 goal met . pt currently regained 90 % of R shoulder PROM in all planes (7 weeks post op) pt will regain full PROM for her R shoulder in all planes in 4 weeks STG Duration 03/12/21 Pulmonologist Intensivist Goal (LTG) 04/16 pt partially gained AROM pt will regain full AROM her R shoulder in all planes in 8 weeks LTG Duration 04/11/21 Quickdash Impairment pt scores 84 on quickdash Short Term Goal (STG) 02/11 did not assess, will update next visit Pt will score <50 on quickdash to improve overall shoulder mobility and strength. STG Duration 03/12/21 Shelter Goal (LTG) 03/12 goal met, 04/16 pt scores 25 Pt scores 27 on quickdash to improve overall shoulder mobility and strength. pt will score <15 on quickdash LTG Duration 04/11 Assessment Summary Assessment Pt demonstrated good effort, cued for scap and posture alignment during ther ex. Pt able to increase OH press into HEP and add resistance to HEP. Will continue to progress strength as bolivar. Physical Therapy Plan Frequency and Duration Frequency of Treatment 1x/Week Duration of Treatment 8 weeks Plan of Care Start Date 04/16/21 Plan of Care End Date 06/15/21 Therapeutic Interventions Therapeutic Interventions Home Exercise Program,Joint Mobilizations,Manual Therapy, Neuromuscular Re-education, Patient/Caregiver Education, Self-Care/Home Management,Soft Tissue Mobilization,Taping, Therapeutic Activities, Therapeutic Exercises Modalities Cold Pack/Ice Massage,Electric Stimulation,Hot Packs, Infrared Therapy,Ultrasound Next Visit Focus/Plan Next Note Type Treatment Note Next Visit Plan Next tx: recheck TB standing, OH AROM- #1 DB, add D1 if tolerated. POC: continue overall shoulder stabilization ABD in SL position and progress as bolivar flexion in gravity position as bolivar
--- NOTE | 2021-05-06 13:02 | PT.OTN ---
Current Diagnoses Complete rotator cuff tear or rupture of right shoulder, not specified as traumatic (05/06/21) Physical Therapy Treatment Note PT-OP-A Visit Information Start: 01/01/21 14:30 Freq: Status: Active Protocol: Document 05/06/21 12:15 SP (Rec: 05/06/21 14:36 SP [id number]) Out-Patient Physical Therapy Visit Information Visit Information Visit Type Treatment Note Visit Note 20 weeks post op (12/24/20) Visit Start Time 12:15 Visit Stop Time 13:02 Total Visit Minutes 47 Visit Number 23/ Number of EXPLORATION GEOLOGIST Visits 2 Evaluation Information Evaluation Date 01/01/21 Precautions Precautions post op protocol in EMR under therapy notes HEP PT-OP-B Current Condition Start: 01/01/21 14:30 Freq: Status: Active Protocol: Document 01/01/21 14:31 HH (Rec: 01/01/21 15:00 HH [email or web address]) Current Condition History of Current Condition Onset Date 12/24/20 Current Complaints s/p R small rotator cuff repair, immobility History of Current Condition pt is a 65 returning patient for her R shoulder s/p R small rotator cuff repair on by Dr. Rodriguez. Pt initially injured her R shoulder by moving furniture out of the house in the summer. Pt then participated a course of PT and was able to regain most ROM and partial strength. However, her pain was still persistent at night. Pt was then diagnosed with full thickness tear of supraspinatus from MRI early this year and decided to have it surgically repair. 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 Saw Dr Warren follow up from pirformis injection, did some muscle relaxing, will return Oct for another injection in pirfomis muscle relaxant. PT-OP-K Range of Motion Start: 01/01/21 14:30 Freq: Status: Active Protocol: Document 04/16/21 11:20 HH (Rec: 04/16/21 12:19 HH [id number]) Shoulder Goniometric Range of Motion Shoulder Right Passive Shoulder ROM WFL No Testing Position Supine Flexion 158 Abduction 156 External Rotation at 90 degrees 75 Abduction Internal Rotation 88 Comments Pain at all end range and from flexion to neutral position Right Active Shoulder ROM WFL No Testing Position Standing Flexion 155 Extension 50 Abduction 145 Comments painful arc for abduction painful at end range flexion PT-OP-M Strength Start: 01/01/21 14:30 Freq: Status: Active Protocol: Document 04/16/21 11:20 HH (Rec: 04/16/21 12:19 HH [id number]) Shoulder Strength Shoulder Manual Muscle Testing Right Flexion 4 Good Extension 4 Good Abduction (C5) 3+ Fair+ Comments pain noted at abduction PT-OP-Q Treatments Start: 01/01/21 14:30 Freq: Status: Active Protocol: Document 05/06/21 12:15 SP (Rec: 05/06/21 14:36 SP [id number]) Cardio Equipment Upper Body Ergometer (UBE) Duration (Minutes) 6 RPM 120 Seat Position seated regular UBE Other 1 min f/b - little stapping forward but not painful Therapeutic Exercises Supine Exercises supine flexion Supine Exercise Name Reviewed FF, Scaption Side bilateral Resistance Tb#1 Reps/Minutes x15 each Comments cued scap depress and humeral head inf glide Standing Exercises UT, lev scap stretch Side bilateral Reps/Minutes 30 x2 Comments decrease neck tension post TB ther ex. HABD Standing Exercise Name below chest height Resistance TB#1 Equipment Used in front mirror Reps/Minutes x8 Comments cued scap depression and humeral head inf glide- good work response Over head press Standing Exercise Name added to HEP- alternate BUE Side bilateral Resistance 2# DB LUE, AROM RUE Equipment Used front mirror for posture awareness- helpful Reps/Minutes x10 AROM, x10 1# DB L, 2# DB Comments cued scap retract/dep and slow OH raise w/ humeral head inf glide-dec snap shoulder ext Standing Exercise Name pull down angled from above- HEP review Side bilateral Resistance TB #1 Reps/Minutes 2x10 Comments cued scap retract, inf glide R humerus with no snap feeling- painfree shld IR/ ER Standing Exercise Name reviewed HEP Side right Equipment Used Tb #1 Reps/Minutes 2x10 Comments occasional cue for scap stab awareness self STMs racquetball at wall Standing Exercise Name UT, infraspinatus Side right Reps/Minutes 3min in sock Comments good feedback results of decreased tightness standing wall slide Standing Exercise Name wall clock: 1, 2, 3, 4 o'clock Side right Resistance AROM x3 reps each position, Tb #1 x1 position each increase compensations Reps/Minutes hold band use Comments good self corrections, AROM only right now PT-OP-T Assessment and Plan Start: 01/01/21 14:30 Freq: Status: Active Protocol: Document 05/06/21 12:15 SP (Rec: 05/06/21 14:36 SP [id number]) Physical Therapy Assessment Goals strength Impairment pt is immobilized for 6 weeks in a sling Short Term Goal (STG) 02/12 not ready since pt's postop protocol is focusing on AROM only. pt will be improve his overall R shoulder strength > 3/5 STG Duration 4 weeks Care Home Goal (LTG) pt has overall R shoulder strength > 4/5 except 3+/5 on abduction LTG Duration 8 weeks pain Impairment pt has pain 6/10 at R shoulder in general Short Term Goal (STG) 02/12 goal met pt currently has pain no more than 2/10 in a daily basis at rest/ doing HEP. STG Duration 4 weeks Care Home Goal (LTG) pt will have no more than 2/10 in a daily basis which involves daily chores, opening jars etc LTG Duration 8 weeks ROM Impairment pt is immobilized for 6 weeks in a sling Short Term Goal (STG) 02/11 goal met . pt currently regained 90 % of R shoulder PROM in all planes (7 weeks post op) pt will regain full PROM for her R shoulder in all planes in 4 weeks STG Duration 03/12/21 Hose Handler Goal (LTG) 04/16 pt partially gained AROM pt will regain full AROM her R shoulder in all planes in 8 weeks LTG Duration 04/11/21 Quickdash Impairment pt scores 84 on quickdash Short Term Goal (STG) 02/11 did not assess, will update next visit Pt will score <50 on quickdash to improve overall shoulder mobility and strength. STG Duration 03/12/21 Care Home Goal (LTG) 03/12 goal met, 04/16 pt scores 25 Pt scores 27 on quickdash to improve overall shoulder mobility and strength. pt will score <15 on quickdash LTG Duration 04/11 Assessment Summary Assessment Pt responded well to HEP review, required occasional cues for scap depression and humeral head inferior glide during eccentric return standing TB and OH ther ex with improvement in self corrections and decreased snapping and discomfrot in R shld. Pt stated the exercises seem just right, no adverse affects. Physical Therapy Plan Frequency and Duration Frequency of Treatment 1x/Week Duration of Treatment 8 weeks Plan of Care Start Date 04/16/21 Plan of Care End Date 06/15/21 Therapeutic Interventions Therapeutic Interventions Home Exercise Program,Joint Mobilizations,Manual Therapy, Neuromuscular Re-education, Patient/Caregiver Education, Self-Care/Home Management,Soft Tissue Mobilization,Taping, Therapeutic Activities, Therapeutic Exercises Modalities Cold Pack/Ice Massage,Electric Stimulation,Hot Packs, Infrared Therapy,Ultrasound Next Visit Focus/Plan Next Note Type Treatment Note Next Visit Plan Next tx: recheck HEP strengthening in standing and supine. POC: continue overall shoulder stabilization, ABD in SL position, flexion in gravity position as bolivar. Progress as bolivar.
--- NOTE | 2021-05-21 10:51 | PT.OTN ---
Current Diagnoses Complete rotator cuff tear or rupture of right shoulder, not specified as traumatic (05/21/21) Physical Therapy Treatment Note PT-OP-A Visit Information Start: 01/01/21 14:30 Freq: Status: Active Protocol: Document 05/21/21 09:45 HH (Rec: 05/21/21 10:51 [id number]) Out-Patient Physical Therapy Visit Information Visit Information Visit Type Treatment Note Visit Note 22 weeks post op (12/24/20) KX modifier after next visit Visit Start Time 09:45 Visit Stop Time 10:39 Total Visit Minutes 54 Visit Number 20/09 Number of WIND TURBINE MACHINIST Visits 0 PT-OP-B Current Condition Start: 01/01/21 14:30 Freq: Status: Active Protocol: Document 01/01/21 14:31 HH (Rec: 01/01/21 15:00 HH [email or web address]) Current Condition History of Current Condition Onset Date 12/24/20 Current Complaints s/p R small rotator cuff repair, immobility History of Current Condition pt is a 65 returning patient for her R shoulder s/p R small rotator cuff repair on by Dr. Rodriguez. Pt initially injured her R shoulder by moving furniture out of the house in the summer. Pt then participated a course of PT and was able to regain most ROM and partial strength. However, her pain was still persistent at night. Pt was then diagnosed with full thickness tear of supraspinatus from MRI early this year and decided to have it surgically repair. 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 Abduction is still somewhat painful sometimes.I can do gardening work and house chores. I think im 80 % right now. Patient Reported Progress Same PT-OP-K Range of Motion Start: 01/01/21 14:30 Freq: Status: Active Protocol: Document 04/16/21 11:20 HH (Rec: 04/16/21 12:19 [id number]) Shoulder Goniometric Range of Motion Shoulder Right Passive Shoulder ROM WFL No Testing Position Supine Flexion 158 Abduction 156 External Rotation at 90 degrees 75 Abduction Internal Rotation 88 Comments Pain at all end range and from flexion to neutral position Right Active Shoulder ROM WFL No Testing Position Standing Flexion 155 Extension 50 Abduction 145 Comments painful arc for abduction painful at end range flexion PT-OP-M Strength Start: 01/01/21 14:30 Freq: Status: Active Protocol: Document 04/16/21 11:20 HH (Rec: 04/16/21 12:19 [id number]) Shoulder Strength Shoulder Manual Muscle Testing Right Flexion 4 Good Extension 4 Good Abduction (C5) 3+ Fair+ Comments pain noted at abduction PT-OP-Q Treatments Start: 01/01/21 14:30 Freq: Status: Active Protocol: Document 05/21/21 09:45 HH (Rec: 05/21/21 10:51 [id number]) Cardio Equipment Upper Body Ergometer (UBE) Duration (Minutes) 6 RPM 120 Seat Position seated regular UBE Other 1 min f/b - little stapping forward but not painful Therapeutic Exercises Supine Exercises shoulder pull apart Resistance lvl 1 band Reps/Minutes 10 x2 Comments HEP no discomfort shld ER Side right Resistance AAROM Equipment Used dowel Reps/Minutes 4 mins Comments up to 75 degrees supine flexion Supine Exercise Name Reviewed FF, Scaption Side bilateral Resistance PVC Reps/Minutes x15 each Comments cued scap depress and humeral head inf glide Sidelying Exercises SL abd Sidelying Exercise Name 10-90 degrees Side bilateral Equipment Used 1 lbs DB Reps/Minutes 8 x2 Comments snapping sensation noted. Standing Exercises wall slide Standing Exercise Name flexion, abduction Side right Equipment Used with towel Reps/Minutes 8 x 2, 8x1 for abduction Comments flexion Manual Therapy Treatment Soft Tissue Mobilization lats Mobilization Type Myofascial Release,Sustained Pressure,Trigger Point Release Intensity/Depth Moderate Body Position Sidelying Comments with upward rotation of R scapula, tightness and pain relief. RTC Body Location supraspinatus tendon Mobilization Type Sustained Pressure,Trigger Point Release Intensity/Depth Moderate Body Position Sidelying Comments tenderness noted Self-Care/Home Management Treatment Education Other Education educated pt the importance of rest time to prevent overload her supraspinatus tendon. Recommended to use support surface as a armrest to reduce stress on tendon as well PT-OP-T Assessment and Plan Start: 01/01/21 14:30 Freq: Status: Active Protocol: Document 05/21/21 09:45 HH (Rec: 05/21/21 10:51 HH [id number]) Physical Therapy Assessment Goals strength Impairment pt is immobilized for 6 weeks in a sling Short Term Goal (STG) 02/12 not ready since pt's postop protocol is focusing on AROM only. pt will be improve his overall R shoulder strength > 3/5 STG Duration 4 weeks Senior Care Goal (LTG) pt has overall R shoulder strength > 4/5 except 3+/5 on abduction LTG Duration 8 weeks pain Impairment pt has pain 6/10 at R shoulder in general Short Term Goal (STG) 02/12 goal met pt currently has pain no more than 2/10 in a daily basis at rest/ doing HEP. STG Duration 4 weeks Brand Mgr Goal (LTG) pt will have no more than 2/10 in a daily basis which involves daily chores, opening jars etc LTG Duration 8 weeks ROM Impairment pt is immobilized for 6 weeks in a sling Short Term Goal (STG) 02/11 goal met . pt currently regained 90 % of R shoulder PROM in all planes (7 weeks post op) pt will regain full PROM for her R shoulder in all planes in 4 weeks STG Duration 03/12/21 Senior Care Goal (LTG) 04/16 pt partially gained AROM pt will regain full AROM her R shoulder in all planes in 8 weeks LTG Duration 04/11/21 Quickdash Impairment pt scores 84 on quickdash Short Term Goal (STG) 02/11 did not assess, will update next visit Pt will score <50 on quickdash to improve overall shoulder mobility and strength. STG Duration 03/12/21 Senior Care Goal (LTG) 03/12 goal met, 04/16 pt scores 25 Pt scores 27 on quickdash to improve overall shoulder mobility and strength. pt will score <15 on quickdash LTG Duration 04/11 Assessment Summary Assessment pt reports she has good and bad days depends on her activity level since she has been participating more house chores and gardening work. Educated pt to allow rest day and use arm support to reduce pressure at supraspinatus tendon. I also consolidated the HEP since she stated she has difficulty choosing what HEP to do. possible DC next visit. Physical Therapy Plan Frequency and Duration Frequency of Treatment 1x/Week Duration of Treatment 8 weeks Plan of Care Start Date 04/16/21 Plan of Care End Date 06/15/21 Therapeutic Interventions Therapeutic Interventions Home Exercise Program,Joint Mobilizations,Manual Therapy, Neuromuscular Re-education, Patient/Caregiver Education, Self-Care/Home Management,Soft Tissue Mobilization,Taping, Therapeutic Activities, Therapeutic Exercises Modalities Cold Pack/Ice Massage,Electric Stimulation,Hot Packs, Infrared Therapy,Ultrasound Next Visit Focus/Plan Next Note Type Treatment Note Next Visit Plan Next tx: recheck HEP strengthening in standing and supine. POC: continue overall shoulder stabilization, ABD in SL position, flexion in gravity position as bolivar. Progress as bolivar.
--- NOTE | 2021-05-28 11:23 | PT.OTN ---
Current Diagnoses Complete rotator cuff tear or rupture of right shoulder, not specified as traumatic (05/28/21) Physical Therapy Treatment Note PT-OP-A Visit Information Start: 01/01/21 14:30 Freq: Status: Active Protocol: Document 05/28/21 09:43 HH (Rec: 05/28/21 10:34 [id number]) Out-Patient Physical Therapy Visit Information Visit Information Visit Type Discharge Summary Visit Note 23 weeks post op (12/24/20) KX modifier after next visit Visit Start Time 09:45 Visit Stop Time 10:30 Total Visit Minutes 45 Visit Number 25/ Number of WORD PROCESSOR TECHNICIAN Visits 0 PT-OP-B Current Condition Start: 01/01/21 14:30 Freq: Status: Active Protocol: Document 01/01/21 14:31 HH (Rec: 01/01/21 15:00 HH [email or web address]) Current Condition History of Current Condition Onset Date 12/24/20 Current Complaints s/p R small rotator cuff repair, immobility History of Current Condition pt is a 65 returning patient for her R shoulder s/p R small rotator cuff repair on by Dr. Rodriguez. Pt initially injured her R shoulder by moving furniture out of the house in the summer. Pt then participated a course of PT and was able to regain most ROM and partial strength. However, her pain was still persistent at night. Pt was then diagnosed with full thickness tear of supraspinatus from MRI early this year and decided to have it surgically repair. 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, do denitrator, wash her back Functional Limitations- Recreation/ unable to participate Hobbies PT-OP-C Subjective Start: 01/01/21 14:30 Freq: Status: Active Protocol: Document 05/28/21 09:43 HH (Rec: 05/28/21 10:34 [id number]) OP-PT Subjective Patient Comments Patient Comments I fell backward while i was pulling some weed out on Thursday. So my back and R butt are very sore. My shoulder is doing okay so far and i still have snapping sensation. Patient Reported Progress Same PT-OP-K Range of Motion Start: 01/01/21 14:30 Freq: Status: Active Protocol: Document 04/16/21 11:20 (Rec: 04/16/21 12:19 [id number]) Shoulder Goniometric Range of Motion Shoulder Right Passive Shoulder ROM WFL No Testing Position Supine Flexion 158 Abduction 156 External Rotation at 90 degrees 75 Abduction Internal Rotation 88 Comments Pain at all end range and from flexion to neutral position Right Active Shoulder ROM WFL No Testing Position Standing Flexion 155 Extension 50 Abduction 145 Comments painful arc for abduction painful at end range flexion PT-OP-M Strength Start: 01/01/21 14:30 Freq: Status: Active Protocol: Document 04/16/21 11:20 (Rec: 04/16/21 12:19 [id number]) Shoulder Strength Shoulder Manual Muscle Testing Right Flexion 4 Good Extension 4 Good Abduction (C5) 3+ Fair+ Comments pain noted at abduction PT-OP-Q Treatments Start: 01/01/21 14:30 Freq: Status: Active Protocol: Document 05/28/21 09:43 (Rec: 05/28/21 10:34 [id number]) Cardio Equipment Upper Body Ergometer (UBE) Duration (Minutes) 6 RPM 120 Seat Position seated regular UBE Other 1 min f/b - little stapping forward but not painful Therapeutic Exercises Supine Exercises shoulder pull apart Resistance lvl 1 band Reps/Minutes 10 x2 Comments HEP no discomfort supine flexion Supine Exercise Name Reviewed FF, Scaption Side bilateral Resistance level 1 band Reps/Minutes 10 x2 Comments cued scap depress and humeral head inf glide Supine Punch Side right Equipment Used PVC Reps/Minutes 10 x2 Prone Exercises I, T Side bilateral Reps/Minutes 10 x2 Comments no discomfort noted, good stabillzation Sidelying Exercises SL abd Sidelying Exercise Name 10-90 degrees Side bilateral Equipment Used 1 lbs DB Reps/Minutes 8 x2 Comments no discomfort hor abduction Side right Resistance 2# bilateral Reps/Minutes x5 Comments discont. due to pain Standing Exercises wall slide Standing Exercise Name flexion, abduction Side right Equipment Used with towel Reps/Minutes 8 x 2, 8x1 for abduction Comments flexion PT-OP-T Assessment and Plan Start: 01/01/21 14:30 Freq: Status: Active Protocol: Document 05/28/21 09:43 (Rec: 05/28/21 10:34 [id number]) Physical Therapy Assessment Goals strength Impairment pt is immobilized for 6 weeks in a sling Short Term Goal (STG) 02/12 not ready since pt's postop protocol is focusing on AROM only. pt will be improve his overall R shoulder strength > 3/5 STG Duration 4 weeks Residential Goal (LTG) pt has overall R shoulder strength > 4/5 except 3+/5 on abduction LTG Duration 8 weeks pain Impairment pt has pain 6/10 at R shoulder in general Short Term Goal (STG) 02/12 goal met pt currently has pain no more than 2/10 in a daily basis at rest/ doing HEP. STG Duration 4 weeks Residential Goal (LTG) pt will have no more than 2/10 in a daily basis which involves daily chores, opening jars etc LTG Duration 8 weeks ROM Impairment pt is immobilized for 6 weeks in a sling Short Term Goal (STG) 02/11 goal met . pt currently regained 90 % of R shoulder PROM in all planes (7 weeks post op) pt will regain full PROM for her R shoulder in all planes in 4 weeks STG Duration 03/12/21 Beveller Operator Goal (LTG) 04/16 pt partially gained AROM pt will regain full AROM her R shoulder in all planes in 8 weeks LTG Duration 04/11/21 Quickdash Impairment pt scores 84 on quickdash Short Term Goal (STG) 02/11 did not assess, will update next visit Pt will score <50 on quickdash to improve overall shoulder mobility and strength. STG Duration 03/12/21 Residential Goal (LTG) 03/12 goal met, 04/16 pt scores 25 Pt scores 27 on quickdash to improve overall shoulder mobility and strength. pt will score <15 on quickdash LTG Duration 04/11 Assessment Summary Assessment pt overall has WNL AROM but still has slight weakness at abduction 90 degrees (painful arc). Pt has upcoming eval for her LBP which she thinks its more urgent compared to her shoulder. Pt agreed to be DC this shoulder case and have her lower back eval . Recommended her to continue progressive strengthening ex at home Physical Therapy Plan Frequency and Duration Frequency of Treatment 1x/Week Duration of Treatment 8 weeks Plan of Care Start Date 04/16/21 Plan of Care End Date 06/15/21 Therapeutic Interventions Therapeutic Interventions Home Exercise Program,Joint Mobilizations,Manual Therapy, Neuromuscular Re-education, Patient/Caregiver Education, Self-Care/Home Management,Soft Tissue Mobilization,Taping, Therapeutic Activities, Therapeutic Exercises Modalities Cold Pack/Ice Massage,Electric Stimulation,Hot Packs, Infrared Therapy,Ultrasound Next Visit Focus/Plan Next Note Type Treatment Note Next Visit Plan Next tx: recheck HEP strengthening in standing and supine. POC: continue overall shoulder stabilization, ABD in SL position, flexion in gravity position as bolivar. Progress as bolivar.
== END 2021-05-29 10:23 | disposition home or self-care (01) ==
LOC: PHYS 09:45
PROVIDERS: Family Provider Internal Medicine; PCP Internal Medicine; Referring Provider Orthopaedic Surgery; Visit Provider Orthopaedic Surgery
DX: M75.121 Complete rotator cuff tear or rupture of right shoulder, not specified as traumatic (principal)
CPT/HCPCS: 95851; 97110; 97140; 97161; 97535

== ENCOUNTER → 2021-06-12 16:16 | Outpatient (CLI) | payer MEDICARE, OTHER, SELFPAY ==
[2021-03-29 00:51] VITALS: BMI 38.6
--- NOTE | 2021-06-12 | DI.MG.S_ITS ---
BILATERAL DIGITAL SCREENING MAMMOGRAM 3D/2D WITH CAD: 06/12/2021 CLINICAL: Routine screening. Family history of breast cancer. Comparison is made to exams dated: 05/09/2020 mammogram, 04/01/2019 mammogram, and 03/25/2018 mammogram - [facility]. There are scattered fibroglandular elements in both breasts. Current study was also evaluated with a Computer Aided Detection (CAD) system. There is a mole marker on the left breast. No significant masses, calcifications, or other findings are seen in either breast. There has been no significant interval change. IMPRESSION: NEGATIVE There is no mammographic evidence of malignancy. A 1 year screening mammogram is recommended. This exam was interpreted at Station ID: [id number]. NOTE: For mammograms, a report in lay terms will be sent to the patient. Approximately 15% of breast malignancies will not be visualized mammographically. In the management of a palpable breast mass, a negative mammogram must not discourage biopsy of a clinically suspicious lesion. Electronically Signed By: Master Enrique acr/matteo:06/12/2021 18:33:13 copy to: Lala Nuñez letter sent: Normal Exam ACR BI-RADS Category 1: Negative [id number]
== END ==
PROVIDERS: Family Provider Internal Medicine; PCP Internal Medicine; Referring Provider Internal Medicine; Visit Provider Internal Medicine
DX: Z12.31 Encounter for screening mammogram for malignant neoplasm of breast (principal); Z80.3 Family history of malignant neoplasm of breast
CPT/HCPCS: 77063; 77067

== ENCOUNTER 2021-07-08 08:15 | Outpatient (RCR) | payer MEDICARE, OTHER, SELFPAY ==
[2020-11-12 11:27] VITALS: BMI 37.9
[2021-03-29 00:51] VITALS: BMI 38.6
--- NOTE | 2021-06-11 14:22 | PT.OIE ---
Current Diagnoses Lesion of sciatic nerve, left lower limb (06/11/21) Spondylosis without myelopathy or radiculopathy, lumbar region (06/11/21) Sacrococcygeal disorders, not elsewhere classified (06/11/21) Past Medical History (Last Updated 03/28/21 @ 23:06 by Nilson Olson MD) Acute appendicitis Arthritis Asthma Basal cell carcinoma (BCC) in situ of skin Depression Diastolic heart failure GERD (gastroesophageal reflux disease) Hayfever History of chronic urinary tract infection History of prediabetes Hx of lipoma Hypertension Hypertrophic obstructive cardiomyopathy (~05/2020) Insulin resistance Left ventricular outflow tract obstruction Liver disease Lower extremity edema Nontraumatic complete tear of right rotator cuff Obstructive sleep apnea (~2005) Osteoarthritis PCOS (polycystic ovarian syndrome) Plantar fasciitis Polymyalgia rheumatica Prediabetes Primary biliary cirrhosis Primary insomnia Rosacea S/P epidural steroid injection Snoring Past Surgical History (Last Reviewed 03/28/21 @ 22:57 by Nilson Olson MD) History of third molar tooth extraction (1973) History of tonsillectomy (1958) S/P epidural steroid injection Status post delivery (12/28/80) Status post cholecystectomy (1991) Status post colonoscopy (2013) Status post dilation and curettage (09/16/11) Visit Care Team Role Provider Type Jj Hernandez MD Family Provider Physician Primary Care Provider Specialty: Internal Medicine Address: [address] [place] [address], [phone] Email: [email or web address] Luis Hood MD Attending Provider Physician Referring Provider Specialty: Physical Medicine and Rehab Address: [address] [place] [address], [phone] Email: [email or web address] Physical Therapy Initial Evaluation PT-OP-A Visit Information Start: 06/11/21 13:53 Freq: Status: Active Protocol: Document 06/11/21 13:53 (Rec: 06/11/21 14:22 [email or web address]) Out-Patient Physical Therapy Visit Information Visit Information Visit Type Initial Evaluation Visit Note next Visit Start Time 10:30 Visit Stop Time 11:15 Total Visit Minutes 45 Visit Number 1 Number of NURSE PRN Visits 0 Evaluation Information Evaluation Date 06/11/21 Precautions Precautions HTN hypertrophic cardiomyopathy PT-OP-B Current Condition Start: 06/11/21 13:53 Freq: Status: Active Protocol: Document 06/11/21 13:53 (Rec: 06/11/21 14:22 [email or web address]) Current Condition History of Current Condition Onset Date >10 years ago Current Complaints chronic LBP L>R, difficulty in WB activities History of Current Condition Marie is a 65yo female here for her chronic LBP L>R. Pt reports her pain started basically after her 1st many years ago who also had . Her pain is localized at L4-SIJ region L worse than R. She described it as constant ache and stiffness. Stiffness is the worst in the mornning and needed to do hip and back stretches before it loosens up . 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 She notices lying flat, standing and walking increase her pain. Bending over, posterior pelvic tilt tend to relieve her symptoms. Pt has had cortisone injection on both SIJ and relaxant injection at L piriformis but they were not that helpful. 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 Her ortho Dr. Hood recommended to attempt PT to see if it helps. Prior Treatments and Tests R RTC repair early this year by Dr. Rodriguez. Pt has had cortisone injection on both SIJ and relaxant injection at L piriformis but they were not that helpful. Current Functional Impairments (Reported) Functional Limitations- ADL's pain in standing, washing dishes, and bend over positions. PT-OP-C Subjective Start: 06/11/21 13:53 Freq: Status: Active Protocol: Document 06/11/21 13:53 (Rec: 06/11/21 14:22 [email or web address]) Patient Questionnaires Oswestry Low Back Index Oswestry Score 28 Oswestry Impairment 20 to 39% Impaired (Score 20- 39) OP-PT Pain Assessment Location LBP Pain Location Details lower lumbar Intensity 2 Description Aching,Tightness Frequency Frequent Pain Aggravating Factors Position,Changing Position,ADL 's,Activity,Exercise,Standing, Walking Pain Alleviating Factors Inactivity,Sitting PT-OP-F Manual Assessment Start: 06/11/21 13:53 Freq: Status: Active Protocol: Document 06/11/21 13:53 HH (Rec: 06/11/21 14:22 [email or web address]) Manual Assessments Soft Tissue Assessment Soft Tissue Mobility Assessment significant tonicity at lumbar paraspinals Joint Mobility Assessment Joint Mobility Assessment hypermobile L4-L5 PT-OP-H Neuro Start: 06/11/21 13:53 Freq: Status: Active Protocol: Document 06/11/21 13:53 HH (Rec: 06/11/21 14:22 [email or web address]) Sensation Evaluation Gross Sensation Gross Sensation WNL Deep Tendon Reflex & Clonus Assessment Deep Tendon Reflex Bilateral Achilles Deep Tendon Reflex 2+ Normal Bilateral Patellar Deep Tendon Reflex 3+ Normal But Brisk PT-OP-J Posture/Palpation/Skin Start: 06/11/21 13:53 Freq: Status: Active Protocol: Document 06/11/21 13:53 HH (Rec: 06/11/21 14:22 [email or web address]) Posture Evaluation Position Standing Evaluation View Lateral T-Spine Posture Increased Kyphosis L-Spine Posture Increased Lordosis Pelvis Posture Anteriorly Tilted PT-OP-K Range of Motion Start: 06/11/21 13:53 Freq: Status: Active Protocol: Document 06/11/21 13:53 HH (Rec: 06/11/21 14:22 [email or web address]) Lumbar Spine Range of Motion Lumbar Spine Active Degrees Comments toe touch test = able to reach floor, mostly from hip flexion, no lumbar flexion noted extension= pain at L5 region Hip Goniometric Range of Motion Hip Right Active Hip ROM WFL Yes Straight Leg Raise 100 Comments hip ROM = WFL Left Active Hip ROM WFL Yes Straight Leg Raise 100 Comments hip ROM = WFL PT-OP-L Special Tests Start: 06/11/21 13:53 Freq: Status: Active Protocol: Document 06/11/21 13:53 HH (Rec: 06/11/21 14:22 [email or web address]) Special Tests Lumbar Spine Special Tests A-P Shearing Test Results +VE Comments L3L5, hypermobility noted. Prone Instability Test Test Results +VE Straight Leg Raise Test Results +VE Comments >100 without discomfort Vertical Spine Loading Test Results +VE Comments pain decreased with PPT PT-OP-M Strength Start: 06/11/21 13:53 Freq: Status: Active Protocol: Document 06/11/21 13:53 HH (Rec: 06/11/21 14:22 [email or web address]) Hip Strength Hip Manual Muscle Testing Right Flexion (L2) 4+ Good+ Extension (S1) 4+ Good+ Abduction 4+ Good+ Adduction 4+ Good+ Comments pain with MMT, but pain decreased with cues of posterior pelvic tilt Left Flexion (L2) 4- Good- Extension (S1) 4- Good- Abduction 4- Good- Adduction 4- Good- Comments pain with MMT, but pain decreased with cues of posterior pelvic tilt Knee Strength Knee Manual Muscle Testing Right Flexion (S2) 4+ Good+ Extension (L3) 5 Normal Left Flexion (S2) 4 Good Extension (L3) 4 Good Ankle/Foot Strength Ankle and Foot Manual Muscle Testing Right Dorsiflexion (L4) 5 Normal Plantarflexion (S1) 5 Normal Left Dorsiflexion (L4) 4- Good- Plantarflexion (S1) 4- Good- PT-OP-Q Treatments Start: 06/11/21 13:53 Freq: Status: Active Protocol: Document 06/11/21 13:53 (Rec: 06/11/21 14:22 [email or web address]) Self-Care/Home Management Treatment Education Patient Education Body Mechanics,Home Exercise Program,Joint Protection,Pain Management,Posture Other Education Educated pt regarding the safe movement patterns and activities for lumbar stenosis such as forward bending exercises, biking, sitting and non WB activities. Also recommended her to use hiking poles for long walks to off load her lumbar spine. PT-OP-T Assessment and Plan Start: 06/11/21 13:53 Freq: Status: Active Protocol: Document 06/11/21 13:53 (Rec: 06/11/21 14:22 [email or web address]) Physical Therapy Assessment Rehab Potential Rehabilitation Potential Good Evaluation Complexity Number of Personal Factors/Comorbidities 1-2 Number of Body Systems Impaired 1-2 Clinical Presentation at Evaluation Stable Impairments Impairments Activity Tolerance,Balance, Functional Activities, Functional Mobility,Gait,Pain, Posture,ROM,Soft Tissue Mobility,Strength,Transfers Goals activity tolerance Impairment pt has difficulty doing WB activities > 30 mins d/t pain Short Term Goal (STG) pt will be able to tolerate WB activities such as walking, standing >45 mins wthiout increase in pain 4/10 STG Duration 4 weeks Halfway Goal (LTG) pt will be able to tolerate WB activities such as walking, standing >60 mins wthiout increase in pain 2/10 LTG Duration 8 weeks HEP Impairment pt has been doing hip stretch for her LBP only Short Term Goal (STG) pt will comply to her daily HEP safely and independently which involves trunk stabilization and lumbar flexion STG Duration 4 weeks Owestry Impairment pt scores 29 on Owestry Short Term Goal (STG) pt will be able to show improved functional mobility and activity tolerance by scoring <20 on Owestry STG Duration 5 weeks Cardiovascular Operating Room Nurse Goal (LTG) pt will be able to show improved functional mobility and activity tolerance by scoring <15 on Owestry LTG Duration 10 weeks Assessment Summary Assessment Marie is a 65yo female here for her chronic LBP L>R. Upon assessment, pt presents signs of lumbar stenosis L>R who has extension intolerance. Her pain increases with WB activities and lumbar extension but improves with lumbar flexion. However, pt has close to none segmental lumbar flexion d/t hypermobile hip joint. (SLR>100degrees). Pt will benefit from skilled therapy to increase segmental lumbar flexion, core and hip stability and strength, therefore, she can tolerate longer for WB activities such as house cleaning and walking. Physical Therapy Plan Frequency and Duration Frequency of Treatment 1-2x/wk Duration of Treatment 10 weeks Plan of Care Start Date 06/11/21 Plan of Care End Date 08/25/21 Therapeutic Interventions Therapeutic Interventions Aquatic Therapy,Balance Training,Gait Training,Home Exercise Program,Joint Mobilizations,Manual Therapy, Neuromuscular Re-education, Patient/Caregiver Education, Self-Care/Home Management,Soft Tissue Mobilization,Taping, Therapeutic Activities, Therapeutic Exercises Modalities Cold Pack/Ice Massage,Electric Stimulation,Hot Packs, Infrared Therapy,Traction- Mechanical,Ultrasound Next Visit Focus/Plan Next Note Type Treatment Note Next Visit Plan lumbar flexion, knee to chest PPT LTR, supine marches, sLR
--- NOTE | 2021-06-11 14:23 | PT.OPPOC ---
Physical, Occupational & Speech Therapy At [facility] Current Diagnoses Lesion of sciatic nerve, left lower limb (06/11/21) Spondylosis without myelopathy or radiculopathy, lumbar region (06/11/21) Sacrococcygeal disorders, not elsewhere classified (06/11/21) Visit Care Team Role Provider Type Jj Hernandez MD Family Provider Physician Primary Care Provider Specialty: Internal Medicine Address: [address] [place] [address], [address] Email: [email or web address] Luis Hood MD Attending Provider Physician Referring Provider Specialty: Physical Medicine and Rehab Address: [address] [place] [address], [phone] Email: [email or web address] Plan Of Care PT-OP-T Assessment and Plan Start: 06/11/21 13:53 Freq: Status: Active Protocol: Document 06/11/21 13:53 (Rec: 06/11/21 14:22 [email or web address]) Physical Therapy Assessment Rehab Potential Rehabilitation Potential Good Evaluation Complexity Number of Personal Factors/Comorbidities 1-2 Number of Body Systems Impaired 1-2 Clinical Presentation at Evaluation Stable Impairments Impairments Activity Tolerance,Balance, Functional Activities, Functional Mobility,Gait,Pain, Posture,ROM,Soft Tissue Mobility,Strength,Transfers Goals activity tolerance Impairment pt has difficulty doing WB activities > 30 mins d/t pain Short Term Goal (STG) pt will be able to tolerate WB activities such as walking, standing >45 mins wthiout increase in pain 4/10 STG Duration 4 weeks Fpc Goal (LTG) pt will be able to tolerate WB activities such as walking, standing >60 mins wthiout increase in pain 2/10 LTG Duration 8 weeks HEP Impairment pt has been doing hip stretch for her LBP only Short Term Goal (STG) pt will comply to her daily HEP safely and independently which involves trunk stabilization and lumbar flexion STG Duration 4 weeks Owestry Impairment pt scores 29 on Owestry Short Term Goal (STG) pt will be able to show improved functional mobility and activity tolerance by scoring <20 on Owestry STG Duration 5 weeks Founder President And Ceo Goal (LTG) pt will be able to show improved functional mobility and activity tolerance by scoring <15 on Owestry LTG Duration 10 weeks Assessment Summary Assessment Marie is a 65yo female here for her chronic LBP L>R. Upon assessment, pt presents signs of lumbar stenosis L>R who has extension intolerance. Her pain increases with WB activities and lumbar extension but improves with lumbar flexion. However, pt has close to none segmental lumbar flexion d/t hypermobile hip joint. (SLR>100degrees). Pt will benefit from skilled therapy to increase segmental lumbar flexion, core and hip stability and strength, therefore, she can tolerate longer for WB activities such as house cleaning and walking. Physical Therapy Plan Frequency and Duration Frequency of Treatment 1-2x/wk Duration of Treatment 10 weeks Plan of Care Start Date 06/11/21 Plan of Care End Date 08/25/21 Therapeutic Interventions Therapeutic Interventions Aquatic Therapy,Balance Training,Gait Training,Home Exercise Program,Joint Mobilizations,Manual Therapy, Neuromuscular Re-education, Patient/Caregiver Education, Self-Care/Home Management,Soft Tissue Mobilization,Taping, Therapeutic Activities, Therapeutic Exercises Modalities Cold Pack/Ice Massage,Electric Stimulation,Hot Packs, Infrared Therapy,Traction- Mechanical,Ultrasound Next Visit Focus/Plan Next Note Type Treatment Note Next Visit Plan lumbar flexion, knee to chest PPT LTR, supine marches, sLR Plan of Care Dates Plan of Care Start Date 06/11/21 Plan of Care End Date 08/25/21 Electronically Signed by: Jose Benjamin, PT 06/11/21 [id number] Please Sign and Return: I have reviewed this Plan of Care and certify that the skilled therapy services above are required to meet the patient?s needs. Physician Signature Date Printed Name and Credentials Clinical Instructor Signature Printed Name and Credentials
--- NOTE | 2021-06-14 11:18 | PT.OTN ---
Current Diagnoses Lesion of sciatic nerve, left lower limb (06/14/21) Spondylosis without myelopathy or radiculopathy, lumbar region (06/14/21) Sacrococcygeal disorders, not elsewhere classified (06/14/21) Physical Therapy Treatment Note PT-OP-A Visit Information Start: 06/11/21 13:53 Freq: Status: Active Protocol: Document 06/14/21 10:33 HH (Rec: 06/14/21 11:18 [id number]) Out-Patient Physical Therapy Visit Information Visit Information Visit Type Treatment Note Visit Start Time 10:32 Visit Stop Time 11:15 Total Visit Minutes 43 Visit Number 2 Number of FINANCIAL AGENT Visits 0 PT-OP-B Current Condition Start: 06/11/21 13:53 Freq: Status: Active Protocol: Document 06/11/21 13:53 HH (Rec: 06/11/21 14:22 [email or web address]) Current Condition History of Current Condition Onset Date >10 years ago Current Complaints chronic LBP L>R, difficulty in WB activities History of Current Condition Marie is a 65yo female here for her chronic LBP L>R. Pt reports her pain started basically after her 1st many years ago who also had . Her pain is localized at L4-SIJ region L worse than R. She described it as constant ache and stiffness. Stiffness is the worst in the mornning and needed to do hip and back stretches before it loosens up . 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 She notices lying flat, standing and walking increase her pain. Bending over, posterior pelvic tilt tend to relieve her symptoms. Pt has had cortisone injection on both SIJ and relaxant injection at L piriformis but they were not that helpful. 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 Her ortho Dr. Hood recommended to attempt PT to see if it helps. Prior Treatments and Tests R RTC repair early this year by Dr. Rodriguez. Pt has had cortisone injection on both SIJ and relaxant injection at L piriformis but they were not that helpful. Current Functional Impairments (Reported) Functional Limitations- ADL's pain in standing, washing dishes, and bend over positions. PT-OP-C Subjective Start: 06/11/21 13:53 Freq: Status: Active Protocol: Document 06/14/21 10:33 HH (Rec: 06/14/21 11:18 HH [id number]) OP-PT Subjective Patient Comments Patient Comments My back was very painful and stiff this morning. Patient Reported Progress Same PT-OP-F Manual Assessment Start: 06/11/21 13:53 Freq: Status: Active Protocol: Document 06/11/21 13:53 HH (Rec: 06/11/21 14:22 HH [email or web address]) Manual Assessments Soft Tissue Assessment Soft Tissue Mobility Assessment significant tonicity at lumbar paraspinals Joint Mobility Assessment Joint Mobility Assessment hypermobile L4-L5 PT-OP-H Neuro Start: 06/11/21 13:53 Freq: Status: Active Protocol: Document 06/11/21 13:53 HH (Rec: 06/11/21 14:22 [email or web address]) Sensation Evaluation Gross Sensation Gross Sensation WNL Deep Tendon Reflex & Clonus Assessment Deep Tendon Reflex Bilateral Achilles Deep Tendon Reflex 2+ Normal Bilateral Patellar Deep Tendon Reflex 3+ Normal But Brisk PT-OP-J Posture/Palpation/Skin Start: 06/11/21 13:53 Freq: Status: Active Protocol: Document 06/11/21 13:53 HH (Rec: 06/11/21 14:22 [email or web address]) Posture Evaluation Position Standing Evaluation View Lateral T-Spine Posture Increased Kyphosis L-Spine Posture Increased Lordosis Pelvis Posture Anteriorly Tilted PT-OP-K Range of Motion Start: 06/11/21 13:53 Freq: Status: Active Protocol: Document 06/11/21 13:53 HH (Rec: 06/11/21 14:22 [email or web address]) Lumbar Spine Range of Motion Lumbar Spine Active Degrees Comments toe touch test = able to reach floor, mostly from hip flexion, no lumbar flexion noted extension= pain at L5 region Hip Goniometric Range of Motion Hip Right Active Hip ROM WFL Yes Straight Leg Raise 100 Comments hip ROM = WFL Left Active Hip ROM WFL Yes Straight Leg Raise 100 Comments hip ROM = WFL PT-OP-L Special Tests Start: 06/11/21 13:53 Freq: Status: Active Protocol: Document 06/11/21 13:53 HH (Rec: 06/11/21 14:22 [email or web address]) Special Tests Lumbar Spine Special Tests A-P Shearing Test Results +VE Comments L3L5, hypermobility noted. Prone Instability Test Test Results +VE Straight Leg Raise Test Results +VE Comments >100 without discomfort Vertical Spine Loading Test Results +VE Comments pain decreased with PPT PT-OP-M Strength Start: 06/11/21 13:53 Freq: Status: Active Protocol: Document 06/11/21 13:53 (Rec: 06/11/21 14:22 [email or web address]) Hip Strength Hip Manual Muscle Testing Right Flexion (L2) 4+ Good+ Extension (S1) 4+ Good+ Abduction 4+ Good+ Adduction 4+ Good+ Comments pain with MMT, but pain decreased with cues of posterior pelvic tilt Left Flexion (L2) 4- Good- Extension (S1) 4- Good- Abduction 4- Good- Adduction 4- Good- Comments pain with MMT, but pain decreased with cues of posterior pelvic tilt Knee Strength Knee Manual Muscle Testing Right Flexion (S2) 4+ Good+ Extension (L3) 5 Normal Left Flexion (S2) 4 Good Extension (L3) 4 Good Ankle/Foot Strength Ankle and Foot Manual Muscle Testing Right Dorsiflexion (L4) 5 Normal Plantarflexion (S1) 5 Normal Left Dorsiflexion (L4) 4- Good- Plantarflexion (S1) 4- Good- PT-OP-Q Treatments Start: 06/11/21 13:53 Freq: Status: Active Protocol: Document 06/14/21 10:33 (Rec: 06/14/21 11:18 [id number]) Cardio Equipment Bicycle (Upright) Duration (Minutes) 6 Therapeutic Exercises Supine Exercises pelvic tilt Supine Exercise Name cues on segmental flexion Comments for HEP knee to chest Supine Exercise Name cues on segmental flexion Comments for HEP Standing Exercises lumbar flexion Standing Exercise Name use of pole Reps/Minutes 10s x5 Comments cues on PPT to engage segmental flexion Manual Therapy Treatment Soft Tissue Mobilization lumbar paraspinals Mobilization Type Myofascial Release Intensity/Depth Moderate Body Position Sitting PT-OP-T Assessment and Plan Start: 06/11/21 13:53 Freq: Status: Active Protocol: Document 06/14/21 10:33 (Rec: 06/14/21 11:18 [id number]) Physical Therapy Assessment Goals activity tolerance Impairment pt has difficulty doing WB activities > 30 mins d/t pain Short Term Goal (STG) pt will be able to tolerate WB activities such as walking, standing >45 mins wthiout increase in pain 4/10 STG Duration 4 weeks Taxi Cab Driver Goal (LTG) pt will be able to tolerate WB activities such as walking, standing >60 mins wthiout increase in pain 11/07 LTG Duration 8 weeks HEP Impairment pt has been doing hip stretch for her LBP only Short Term Goal (STG) pt will comply to her daily HEP safely and independently which involves trunk stabilization and lumbar flexion STG Duration 4 weeks Owestry Impairment pt scores 29 on Owestry Short Term Goal (STG) pt will be able to show improved functional mobility and activity tolerance by scoring <20 on Owestry STG Duration 5 weeks [employer] Cab Driver Goal (LTG) pt will be able to show improved functional mobility and activity tolerance by scoring <15 on Owestry LTG Duration 10 weeks Assessment Summary Assessment first tx session focused on cueing pt to engage segmental flexion by PPT and lumbar stretch with a pole. Will assess her post session tolerance. Physical Therapy Plan Frequency and Duration Frequency of Treatment 1-2x/wk Duration of Treatment 10 weeks Plan of Care Start Date 06/11/21 Plan of Care End Date 08/25/21 Therapeutic Interventions Therapeutic Interventions Aquatic Therapy,Balance Training,Gait Training,Home Exercise Program,Joint Mobilizations,Manual Therapy, Neuromuscular Re-education, Patient/Caregiver Education, Self-Care/Home Management,Soft Tissue Mobilization,Taping, Therapeutic Activities, Therapeutic Exercises Modalities Cold Pack/Ice Massage,Electric Stimulation,Hot Packs, Infrared Therapy,Traction- Mechanical,Ultrasound Next Visit Focus/Plan Next Note Type Treatment Note Next Visit Plan lumbar flexion, knee to chest PPT LTR, supine marches, sLR
--- NOTE | 2021-06-21 11:24 | PT.OTN ---
Current Diagnoses Lesion of sciatic nerve, left lower limb (06/21/21) Spondylosis without myelopathy or radiculopathy, lumbar region (06/21/21) Sacrococcygeal disorders, not elsewhere classified (06/21/21) Physical Therapy Treatment Note PT-OP-A Visit Information Start: 06/11/21 13:53 Freq: Status: Active Protocol: Document 06/21/21 10:31 HH (Rec: 06/21/21 11:20 [id number]) Out-Patient Physical Therapy Visit Information Visit Information Visit Type Treatment Note Visit Start Time 10:32 Visit Stop Time 11:15 Total Visit Minutes 43 Visit Number 3 Number of SAFETY PERSON Visits 0 PT-OP-B Current Condition Start: 06/11/21 13:53 Freq: Status: Active Protocol: Document 06/11/21 13:53 HH (Rec: 06/11/21 14:22 [email or web address]) Current Condition History of Current Condition Onset Date >10 years ago Current Complaints chronic LBP L>R, difficulty in WB activities History of Current Condition Marie is a 65yo female here for her chronic LBP L>R. Pt reports her pain started basically after her 1st many years ago who also had . Her pain is localized at L4-SIJ region L worse than R. She described it as constant ache and stiffness. Stiffness is the worst in the mornning and needed to do hip and back stretches before it loosens up . 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 She notices lying flat, standing and walking increase her pain. Bending over, posterior pelvic tilt tend to relieve her symptoms. Pt has had cortisone injection on both SIJ and relaxant injection at L piriformis but they were not that helpful. 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 Her ortho Dr. Hood recommended to attempt PT to see if it helps. Prior Treatments and Tests R RTC repair early this year by Dr. Rodriguez. Pt has had cortisone injection on both SIJ and relaxant injection at L piriformis but they were not that helpful. Current Functional Impairments (Reported) Functional Limitations- ADL's pain in standing, washing dishes, and bend over positions. PT-OP-C Subjective Start: 06/11/21 13:53 Freq: Status: Active Protocol: Document 06/21/21 10:31 HH (Rec: 06/21/21 11:20 [id number]) OP-PT Subjective Patient Comments Patient Comments My back is about the same. Constance been using hiking sticks during my hike and walks and it helps a lot. Patient Reported Progress Improving PT-OP-F Manual Assessment Start: 06/11/21 13:53 Freq: Status: Active Protocol: Document 06/11/21 13:53 HH (Rec: 06/11/21 14:22 [email or web address]) Manual Assessments Soft Tissue Assessment Soft Tissue Mobility Assessment significant tonicity at lumbar paraspinals Joint Mobility Assessment Joint Mobility Assessment hypermobile L4-L5 PT-OP-H Neuro Start: 06/11/21 13:53 Freq: Status: Active Protocol: Document 06/11/21 13:53 HH (Rec: 06/11/21 14:22 [email or web address]) Sensation Evaluation Gross Sensation Gross Sensation WNL Deep Tendon Reflex & Clonus Assessment Deep Tendon Reflex Bilateral Achilles Deep Tendon Reflex 2+ Normal Bilateral Patellar Deep Tendon Reflex 3+ Normal But Brisk PT-OP-J Posture/Palpation/Skin Start: 06/11/21 13:53 Freq: Status: Active Protocol: Document 06/11/21 13:53 HH (Rec: 06/11/21 14:22 [email or web address]) Posture Evaluation Position Standing Evaluation View Lateral T-Spine Posture Increased Kyphosis L-Spine Posture Increased Lordosis Pelvis Posture Anteriorly Tilted PT-OP-K Range of Motion Start: 06/11/21 13:53 Freq: Status: Active Protocol: Document 06/11/21 13:53 HH (Rec: 06/11/21 14:22 [email or web address]) Lumbar Spine Range of Motion Lumbar Spine Active Degrees Comments toe touch test = able to reach floor, mostly from hip flexion, no lumbar flexion noted extension= pain at L5 region Hip Goniometric Range of Motion Hip Right Active Hip ROM WFL Yes Straight Leg Raise 100 Comments hip ROM = WFL Left Active Hip ROM WFL Yes Straight Leg Raise 100 Comments hip ROM = WFL PT-OP-L Special Tests Start: 06/11/21 13:53 Freq: Status: Active Protocol: Document 06/11/21 13:53 HH (Rec: 06/11/21 14:22 [email or web address]) Special Tests Lumbar Spine Special Tests A-P Shearing Test Results +VE Comments L3L5, hypermobility noted. Prone Instability Test Test Results +VE Straight Leg Raise Test Results +VE Comments >100 without discomfort Vertical Spine Loading Test Results +VE Comments pain decreased with PPT PT-OP-M Strength Start: 06/11/21 13:53 Freq: Status: Active Protocol: Document 06/11/21 13:53 HH (Rec: 06/11/21 14:22 HH [email or web address]) Hip Strength Hip Manual Muscle Testing Right Flexion (L2) 4+ Good+ Extension (S1) 4+ Good+ Abduction 4+ Good+ Adduction 4+ Good+ Comments pain with MMT, but pain decreased with cues of posterior pelvic tilt Left Flexion (L2) 4- Good- Extension (S1) 4- Good- Abduction 4- Good- Adduction 4- Good- Comments pain with MMT, but pain decreased with cues of posterior pelvic tilt Knee Strength Knee Manual Muscle Testing Right Flexion (S2) 4+ Good+ Extension (L3) 5 Normal Left Flexion (S2) 4 Good Extension (L3) 4 Good Ankle/Foot Strength Ankle and Foot Manual Muscle Testing Right Dorsiflexion (L4) 5 Normal Plantarflexion (S1) 5 Normal Left Dorsiflexion (L4) 4- Good- Plantarflexion (S1) 4- Good- PT-OP-Q Treatments Start: 06/11/21 13:53 Freq: Status: Active Protocol: Document 06/21/21 10:31 HH (Rec: 06/21/21 11:20 HH [id number]) Cardio Equipment Bicycle (Upright) Duration (Minutes) 6 Resistance 5 Therapeutic Exercises Supine Exercises ball squeeze Supine Exercise Name hip adductors Side bilateral Reps/Minutes 10s hold x 5 Comments for HEP LTR Side bilateral Equipment Used red therapy ball Reps/Minutes 10 x2 leg curls Equipment Used red therapy ball Reps/Minutes 10 x2 Comments cues on PPT the whole way. hollow hold Side bilateral Reps/Minutes 10 secs hold Comments hip knee 90 degrees, for HEP pelvic tilt Supine Exercise Name cues on segmental flexion Comments for HEP Standing Exercises lumbar flexion Standing Exercise Name use of pole Reps/Minutes 10s x5 Comments cues on PPT to engage segmental flexion Manual Therapy Treatment Soft Tissue Mobilization lumbar paraspinals Mobilization Type Myofascial Release Intensity/Depth Moderate Body Position Sitting Manual Traction hip Body Position Supine Reps/Duration 10 s holdx 10 Comments both L and R hip PT-OP-T Assessment and Plan Start: 06/11/21 13:53 Freq: Status: Active Protocol: Document 06/21/21 10:31 HH (Rec: 06/21/21 11:20 HH [id number]) Physical Therapy Assessment Goals activity tolerance Impairment pt has difficulty doing WB activities > 30 mins d/t pain Short Term Goal (STG) pt will be able to tolerate WB activities such as walking, standing >45 mins wthiout increase in pain 4/10 STG Duration 4 weeks Bus Starter Goal (LTG) pt will be able to tolerate WB activities such as walking, standing >60 mins wthiout increase in pain 2/10 LTG Duration 8 weeks HEP Impairment pt has been doing hip stretch for her LBP only Short Term Goal (STG) pt will comply to her daily HEP safely and independently which involves trunk stabilization and lumbar flexion STG Duration 4 weeks Owestry Impairment pt scores 29 on Owestry Short Term Goal (STG) pt will be able to show improved functional mobility and activity tolerance by scoring <20 on Owestry STG Duration 5 weeks Skilled Nursing Goal (LTG) pt will be able to show improved functional mobility and activity tolerance by scoring <15 on Owestry LTG Duration 10 weeks Assessment Summary Assessment Pt reports improved activity tolerance with use of hiking sticks. She has good understanding with her HEP and focusing on lumbar flexion and increase lumbar stability. Added hollow hold and hip adducotr ball squeeze today. Physical Therapy Plan Frequency and Duration Frequency of Treatment 1-2x/wk Duration of Treatment 10 weeks Plan of Care Start Date 06/11/21 Plan of Care End Date 08/25/21 Therapeutic Interventions Therapeutic Interventions Aquatic Therapy,Balance Training,Gait Training,Home Exercise Program,Joint Mobilizations,Manual Therapy, Neuromuscular Re-education, Patient/Caregiver Education, Self-Care/Home Management,Soft Tissue Mobilization,Taping, Therapeutic Activities, Therapeutic Exercises Modalities Cold Pack/Ice Massage,Electric Stimulation,Hot Packs, Infrared Therapy,Traction- Mechanical,Ultrasound Discharge Physical Therapy Discharge Reasons Plateau in Progress Discharge Comments pt consulted with Dr. Rodriguez and decided to have RTC repair on 11/27/20 d/t plateau in rehab. Pt anticipate to cont therapy post surgically. DC this case Next Visit Focus/Plan Next Note Type Treatment Note Next Visit Plan lumbar flexion, knee to chest PPT LTR, supine marchMeir taylor
--- NOTE | 2021-06-25 11:20 | PT.OTN ---
Current Diagnoses Lesion of sciatic nerve, left lower limb (06/25/21) Spondylosis without myelopathy or radiculopathy, lumbar region (06/25/21) Sacrococcygeal disorders, not elsewhere classified (06/25/21) Physical Therapy Treatment Note PT-OP-A Visit Information Start: 06/11/21 13:53 Freq: Status: Active Protocol: Document 06/25/21 10:38 HH (Rec: 06/25/21 11:20 [id number]) Out-Patient Physical Therapy Visit Information Visit Information Visit Type Treatment Note Visit Start Time 10:35 Visit Stop Time 11:15 Total Visit Minutes 40 Visit Number 4 Number of DIETARY SERVICES MANAGER Visits 0 PT-OP-B Current Condition Start: 06/11/21 13:53 Freq: Status: Active Protocol: Document 06/11/21 13:53 HH (Rec: 06/11/21 14:22 [email or web address]) Current Condition History of Current Condition Onset Date >10 years ago Current Complaints chronic LBP L>R, difficulty in WB activities History of Current Condition Marie is a 65yo female here for her chronic LBP L>R. Pt reports her pain started basically after her 1st many years ago who also had . Her pain is localized at L4-SIJ region L worse than R. She described it as constant ache and stiffness. Stiffness is the worst in the mornning and needed to do hip and back stretches before it loosens up . 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 She notices lying flat, standing and walking increase her pain. Bending over, posterior pelvic tilt tend to relieve her symptoms. Pt has had cortisone injection on both SIJ and relaxant injection at L piriformis but they were not that helpful. 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 Her ortho Dr. Hodo recommended to attempt PT to see if it helps. Prior Treatments and Tests R RTC repair early this year by Dr. Rodriguez. Pt has had cortisone injection on both SIJ and relaxant injection at L piriformis but they were not that helpful. Current Functional Impairments (Reported) Functional Limitations- ADL's pain in standing, washing dishes, and bend over positions. PT-OP-C Subjective Start: 06/11/21 13:53 Freq: Status: Active Protocol: Document 06/25/21 10:38 HH (Rec: 06/25/21 11:20 [id number]) OP-PT Subjective Patient Comments Patient Comments Dr. Hood recommended me to do another cortisone shot soon for my upcoming trip to [facility] since i will walk a lot. I notice hiking poles do help me to walk longer distance Patient Reported Progress Improving PT-OP-F Manual Assessment Start: 06/11/21 13:53 Freq: Status: Active Protocol: Document 06/11/21 13:53 HH (Rec: 06/11/21 14:22 [email or web address]) Manual Assessments Soft Tissue Assessment Soft Tissue Mobility Assessment significant tonicity at lumbar paraspinals Joint Mobility Assessment Joint Mobility Assessment hypermobile L4-L5 PT-OP-H Neuro Start: 06/11/21 13:53 Freq: Status: Active Protocol: Document 06/11/21 13:53 HH (Rec: 06/11/21 14:22 [email or web address]) Sensation Evaluation Gross Sensation Gross Sensation WNL Deep Tendon Reflex & Clonus Assessment Deep Tendon Reflex Bilateral Achilles Deep Tendon Reflex 2+ Normal Bilateral Patellar Deep Tendon Reflex 3+ Normal But Brisk PT-OP-J Posture/Palpation/Skin Start: 06/11/21 13:53 Freq: Status: Active Protocol: Document 06/11/21 13:53 HH (Rec: 06/11/21 14:22 [email or web address]) Posture Evaluation Position Standing Evaluation View Lateral T-Spine Posture Increased Kyphosis L-Spine Posture Increased Lordosis Pelvis Posture Anteriorly Tilted PT-OP-K Range of Motion Start: 06/11/21 13:53 Freq: Status: Active Protocol: Document 06/11/21 13:53 HH (Rec: 06/11/21 14:22 [email or web address]) Lumbar Spine Range of Motion Lumbar Spine Active Degrees Comments toe touch test = able to reach floor, mostly from hip flexion, no lumbar flexion noted extension= pain at L5 region Hip Goniometric Range of Motion Hip Right Active Hip ROM WFL Yes Straight Leg Raise 100 Comments hip ROM = WFL Left Active Hip ROM WFL Yes Straight Leg Raise 100 Comments hip ROM = WFL PT-OP-L Special Tests Start: 06/11/21 13:53 Freq: Status: Active Protocol: Document 06/11/21 13:53 HH (Rec: 06/11/21 14:22 [email or web address]) Special Tests Lumbar Spine Special Tests A-P Shearing Test Results +VE Comments L3L5, hypermobility noted. Prone Instability Test Test Results +VE Straight Leg Raise Test Results +VE Comments >100 without discomfort Vertical Spine Loading Test Results +VE Comments pain decreased with PPT PT-OP-M Strength Start: 06/11/21 13:53 Freq: Status: Active Protocol: Document 06/11/21 13:53 HH (Rec: 06/11/21 14:22 [email or web address]) Hip Strength Hip Manual Muscle Testing Right Flexion (L2) 4+ Good+ Extension (S1) 4+ Good+ Abduction 4+ Good+ Adduction 4+ Good+ Comments pain with MMT, but pain decreased with cues of posterior pelvic tilt Left Flexion (L2) 4- Good- Extension (S1) 4- Good- Abduction 4- Good- Adduction 4- Good- Comments pain with MMT, but pain decreased with cues of posterior pelvic tilt Knee Strength Knee Manual Muscle Testing Right Flexion (S2) 4+ Good+ Extension (L3) 5 Normal Left Flexion (S2) 4 Good Extension (L3) 4 Good Ankle/Foot Strength Ankle and Foot Manual Muscle Testing Right Dorsiflexion (L4) 5 Normal Plantarflexion (S1) 5 Normal Left Dorsiflexion (L4) 4- Good- Plantarflexion (S1) 4- Good- PT-OP-Q Treatments Start: 06/11/21 13:53 Freq: Status: Active Protocol: Document 06/25/21 10:38 HH (Rec: 06/25/21 11:20 [id number]) Cardio Equipment Bicycle (Upright) Duration (Minutes) 6 Resistance 5 Other no hand support for 2mins and increased in discomfort, then hand support. Therapeutic Exercises Supine Exercises ball squeeze Supine Exercise Name hip adductors Side bilateral Reps/Minutes 10s hold x 5 Comments for HEP LTR Side bilateral Equipment Used red therapy ball Reps/Minutes 10 x2 leg curls Equipment Used red therapy ball Reps/Minutes 10 x2 Comments cues on PPT the whole way. hollow hold Side bilateral Reps/Minutes 10 secs hold Comments hip knee 90 degrees, for HEP Standing Exercises lumbar flexion Standing Exercise Name use of pole Reps/Minutes 10s x5 Comments cues on PPT to engage segmental flexion Manual Therapy Treatment Soft Tissue Mobilization lumbar paraspinals Mobilization Type Myofascial Release Intensity/Depth Moderate Body Position Sitting PT-OP-T Assessment and Plan Start: 06/11/21 13:53 Freq: Status: Active Protocol: Document 06/25/21 10:38 HH (Rec: 06/25/21 11:20 HH [id number]) Physical Therapy Assessment Goals activity tolerance Impairment pt has difficulty doing WB activities > 30 mins d/t pain Short Term Goal (STG) pt will be able to tolerate WB activities such as walking, standing >45 mins wthiout increase in pain 4/10 STG Duration 4 weeks Custodial Goal (LTG) pt will be able to tolerate WB activities such as walking, standing >60 mins wthiout increase in pain 2/10 LTG Duration 8 weeks HEP Impairment pt has been doing hip stretch for her LBP only Short Term Goal (STG) pt will comply to her daily HEP safely and independently which involves trunk stabilization and lumbar flexion STG Duration 4 weeks Owestry Impairment pt scores 29 on Owestry Short Term Goal (STG) pt will be able to show improved functional mobility and activity tolerance by scoring <20 on Owestry STG Duration 5 weeks Custodial Goal (LTG) pt will be able to show improved functional mobility and activity tolerance by scoring <15 on Owestry LTG Duration 10 weeks Assessment Summary Assessment Pt likes using hiking poles for long walks which reduces her pain and increases her tolerance. However, pt still c / o significant pain and stiffness in the morning. I recommended her to acquire a 55cm therapy ball to focus on core stability. Will continue to focus on therex on table and segmental flexion and core stability. Physical Therapy Plan Frequency and Duration Frequency of Treatment 1-2x/wk Duration of Treatment 10 weeks Plan of Care Start Date 06/11/21 Plan of Care End Date 08/25/21 Therapeutic Interventions Therapeutic Interventions Aquatic Therapy,Balance Training,Gait Training,Home Exercise Program,Joint Mobilizations,Manual Therapy, Neuromuscular Re-education, Patient/Caregiver Education, Self-Care/Home Management,Soft Tissue Mobilization,Taping, Therapeutic Activities, Therapeutic Exercises Modalities Cold Pack/Ice Massage,Electric Stimulation,Hot Packs, Infrared Therapy,Traction- Mechanical,Ultrasound Next Visit Focus/Plan Next Note Type Treatment Note Next Visit Plan lumbar flexion, knee to chest PPT LTR, supine marches, sLR
--- NOTE | 2021-06-28 15:36 | PT.OTN ---
Current Diagnoses Lesion of sciatic nerve, left lower limb (06/28/21) Spondylosis without myelopathy or radiculopathy, lumbar region (06/28/21) Sacrococcygeal disorders, not elsewhere classified (06/28/21) Physical Therapy Treatment Note PT-OP-A Visit Information Start: 06/11/21 13:53 Freq: Status: Active Protocol: Document 06/28/21 15:31 HH (Rec: 06/28/21 15:34 [id number]) Out-Patient Physical Therapy Visit Information Visit Information Visit Type Treatment Note Visit Start Time 10:38 Visit Stop Time 11:15 Total Visit Minutes 42 Visit Number 5 Number of SKILLED LABORER Visits 0 PT-OP-B Current Condition Start: 06/11/21 13:53 Freq: Status: Active Protocol: Document 06/11/21 13:53 HH (Rec: 06/11/21 14:22 HH [email or web address]) Current Condition History of Current Condition Onset Date >10 years ago Current Complaints chronic LBP L>R, difficulty in WB activities History of Current Condition Marie is a 65yo female here for her chronic LBP L>R. Pt reports her pain started basically after her 1st many years ago who also had . Her pain is localized at L4-SIJ region L worse than R. She described it as constant ache and stiffness. Stiffness is the worst in the mornning and needed to do hip and back stretches before it loosens up . 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 She notices lying flat, standing and walking increase her pain. Bending over, posterior pelvic tilt tend to relieve her symptoms. Pt has had cortisone injection on both SIJ and relaxant injection at L piriformis but they were not that helpful. 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 Her ortho Dr. Hood recommended to attempt PT to see if it helps. Prior Treatments and Tests R RTC repair early this year by Dr. Rodriguez. Pt has had cortisone injection on both SIJ and relaxant injection at L piriformis but they were not that helpful. Current Functional Impairments (Reported) Functional Limitations- ADL's pain in standing, washing dishes, and bend over positions. PT-OP-C Subjective Start: 06/11/21 13:53 Freq: Status: Active Protocol: Document 06/28/21 15:31 HH (Rec: 06/28/21 15:34 [id number]) OP-PT Subjective Patient Comments Patient Comments the hiking poles are helping a lot for my walking and standing. The HEP is also helping a lot to reduce stiffness. Patient Reported Progress Improving PT-OP-F Manual Assessment Start: 06/11/21 13:53 Freq: Status: Active Protocol: Document 06/11/21 13:53 HH (Rec: 06/11/21 14:22 [email or web address]) Manual Assessments Soft Tissue Assessment Soft Tissue Mobility Assessment significant tonicity at lumbar paraspinals Joint Mobility Assessment Joint Mobility Assessment hypermobile L4-L5 PT-OP-H Neuro Start: 06/11/21 13:53 Freq: Status: Active Protocol: Document 06/11/21 13:53 HH (Rec: 06/11/21 14:22 [email or web address]) Sensation Evaluation Gross Sensation Gross Sensation WNL Deep Tendon Reflex & Clonus Assessment Deep Tendon Reflex Bilateral Achilles Deep Tendon Reflex 2+ Normal Bilateral Patellar Deep Tendon Reflex 3+ Normal But Brisk PT-OP-J Posture/Palpation/Skin Start: 06/11/21 13:53 Freq: Status: Active Protocol: Document 06/11/21 13:53 HH (Rec: 06/11/21 14:22 [email or web address]) Posture Evaluation Position Standing Evaluation View Lateral T-Spine Posture Increased Kyphosis L-Spine Posture Increased Lordosis Pelvis Posture Anteriorly Tilted PT-OP-K Range of Motion Start: 06/11/21 13:53 Freq: Status: Active Protocol: Document 06/11/21 13:53 HH (Rec: 06/11/21 14:22 [email or web address]) Lumbar Spine Range of Motion Lumbar Spine Active Degrees Comments toe touch test = able to reach floor, mostly from hip flexion, no lumbar flexion noted extension= pain at L5 region Hip Goniometric Range of Motion Hip Right Active Hip ROM WFL Yes Straight Leg Raise 100 Comments hip ROM = WFL Left Active Hip ROM WFL Yes Straight Leg Raise 100 Comments hip ROM = WFL PT-OP-L Special Tests Start: 06/11/21 13:53 Freq: Status: Active Protocol: Document 06/11/21 13:53 HH (Rec: 06/11/21 14:22 [email or web address]) Special Tests Lumbar Spine Special Tests A-P Shearing Test Results +VE Comments L3L5, hypermobility noted. Prone Instability Test Test Results +VE Straight Leg Raise Test Results +VE Comments >100 without discomfort Vertical Spine Loading Test Results +VE Comments pain decreased with PPT PT-OP-M Strength Start: 06/11/21 13:53 Freq: Status: Active Protocol: Document 06/11/21 13:53 HH (Rec: 06/11/21 14:22 HH [email or web address]) Hip Strength Hip Manual Muscle Testing Right Flexion (L2) 4+ Good+ Extension (S1) 4+ Good+ Abduction 4+ Good+ Adduction 4+ Good+ Comments pain with MMT, but pain decreased with cues of posterior pelvic tilt Left Flexion (L2) 4- Good- Extension (S1) 4- Good- Abduction 4- Good- Adduction 4- Good- Comments pain with MMT, but pain decreased with cues of posterior pelvic tilt Knee Strength Knee Manual Muscle Testing Right Flexion (S2) 4+ Good+ Extension (L3) 5 Normal Left Flexion (S2) 4 Good Extension (L3) 4 Good Ankle/Foot Strength Ankle and Foot Manual Muscle Testing Right Dorsiflexion (L4) 5 Normal Plantarflexion (S1) 5 Normal Left Dorsiflexion (L4) 4- Good- Plantarflexion (S1) 4- Good- PT-OP-Q Treatments Start: 06/11/21 13:53 Freq: Status: Active Protocol: Document 06/28/21 15:31 HH (Rec: 06/28/21 15:34 [id number]) Therapeutic Exercises Supine Exercises bridging Supine Exercise Name with hip abducted d/t HS cramp Side bilateral Reps/Minutes 10 x2 Comments cues on PPT first, LTR Side bilateral Equipment Used red therapy ball Reps/Minutes 10 x2 leg curls Equipment Used red therapy ball Reps/Minutes 10 x2 Comments cues on PPT the whole way. Prone Exercises cat camel Comments cues on PPT and lumbar segmental flexion Manual Therapy Treatment Soft Tissue Mobilization lumbar paraspinals Mobilization Type Myofascial Release Intensity/Depth Moderate Body Position Sitting PT-OP-T Assessment and Plan Start: 06/11/21 13:53 Freq: Status: Active Protocol: Document 06/28/21 15:31 HH (Rec: 06/28/21 15:34 [id number]) Physical Therapy Assessment Goals activity tolerance Impairment pt has difficulty doing WB activities > 30 mins d/t pain Short Term Goal (STG) pt will be able to tolerate WB activities such as walking, standing >45 mins wthiout increase in pain 4/10 STG Duration 4 weeks Half-Way Goal (LTG) pt will be able to tolerate WB activities such as walking, standing >60 mins wthiout increase in pain 2/10 LTG Duration 8 weeks HEP Impairment pt has been doing hip stretch for her LBP only Short Term Goal (STG) pt will comply to her daily HEP safely and independently which involves trunk stabilization and lumbar flexion STG Duration 4 weeks Owestry Impairment pt scores 29 on Owestry Short Term Goal (STG) pt will be able to show improved functional mobility and activity tolerance by scoring <20 on Owestry STG Duration 5 weeks Feed Research Aide Goal (LTG) pt will be able to show improved functional mobility and activity tolerance by scoring <15 on Owestry LTG Duration 10 weeks Assessment Summary Assessment pt shows good progress with the use of hiking poles and HEP. progressed to prone position to focus on segmental flexion today and she needed extensiive cues to engage PPT. Physical Therapy Plan Frequency and Duration Frequency of Treatment 1-2x/wk Duration of Treatment 10 weeks Plan of Care Start Date 06/11/21 Plan of Care End Date 08/25/21 Therapeutic Interventions Therapeutic Interventions Aquatic Therapy,Balance Training,Gait Training,Home Exercise Program,Joint Mobilizations,Manual Therapy, Neuromuscular Re-education, Patient/Caregiver Education, Self-Care/Home Management,Soft Tissue Mobilization,Taping, Therapeutic Activities, Therapeutic Exercises Modalities Cold Pack/Ice Massage,Electric Stimulation,Hot Packs, Infrared Therapy,Traction- Mechanical,Ultrasound Discharge Physical Therapy Discharge Reasons Plateau in Progress Discharge Comments pt consulted with Dr. Rodriguez and decided to have RTC repair on 11/27/20 d/t plateau in rehab. Pt anticipate to cont therapy post surgically. DC this case Next Visit Focus/Plan Next Note Type Treatment Note Next Visit Plan lumbar flexion, knee to chest PPT LTR, supine marches, sLCaty
--- NOTE | 2021-07-02 11:23 | PT.OTN ---
Current Diagnoses Lesion of sciatic nerve, left lower limb (07/02/21) Spondylosis without myelopathy or radiculopathy, lumbar region (07/02/21) Sacrococcygeal disorders, not elsewhere classified (07/02/21) Physical Therapy Treatment Note PT-OP-A Visit Information Start: 06/11/21 13:53 Freq: Status: Active Protocol: Document 07/02/21 10:32 HH (Rec: 07/02/21 11:23 [id number]) Out-Patient Physical Therapy Visit Information Visit Information Visit Type Treatment Note Visit Start Time 10:36 Visit Stop Time 11:15 Total Visit Minutes 44 Visit Number 6 Number of MASTER SCHEDULER Visits 0 PT-OP-B Current Condition Start: 06/11/21 13:53 Freq: Status: Active Protocol: Document 06/11/21 13:53 HH (Rec: 06/11/21 14:22 [email or web address]) Current Condition History of Current Condition Onset Date >10 years ago Current Complaints chronic LBP L>R, difficulty in WB activities History of Current Condition Marie is a 65yo female here for her chronic LBP L>R. Pt reports her pain started basically after her 1st many years ago who also had . Her pain is localized at L4-SIJ region L worse than R. She described it as constant ache and stiffness. Stiffness is the worst in the mornning and needed to do hip and back stretches before it loosens up . 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 She notices lying flat, standing and walking increase her pain. Bending over, posterior pelvic tilt tend to relieve her symptoms. Pt has had cortisone injection on both SIJ and relaxant injection at L piriformis but they were not that helpful. 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 Her ortho Dr. Hood recommended to attempt PT to see if it helps. Prior Treatments and Tests R RTC repair early this year by Dr. Rodriguez. Pt has had cortisone injection on both SIJ and relaxant injection at L piriformis but they were not that helpful. Current Functional Impairments (Reported) Functional Limitations- ADL's pain in standing, washing dishes, and bend over positions. PT-OP-C Subjective Start: 06/11/21 13:53 Freq: Status: Active Protocol: Document 07/02/21 10:32 HH (Rec: 07/02/21 11:23 [id number]) OP-PT Subjective Patient Comments Patient Comments walking with the poles doesnt bother my back at all. The doctor found out i have stomach ulcer yesterday and ill see her again for more details. Patient Reported Progress Improving PT-OP-F Manual Assessment Start: 06/11/21 13:53 Freq: Status: Active Protocol: Document 06/11/21 13:53 HH (Rec: 06/11/21 14:22 [email or web address]) Manual Assessments Soft Tissue Assessment Soft Tissue Mobility Assessment significant tonicity at lumbar paraspinals Joint Mobility Assessment Joint Mobility Assessment hypermobile L4-L5 PT-OP-H Neuro Start: 06/11/21 13:53 Freq: Status: Active Protocol: Document 06/11/21 13:53 HH (Rec: 06/11/21 14:22 [email or web address]) Sensation Evaluation Gross Sensation Gross Sensation WNL Deep Tendon Reflex & Clonus Assessment Deep Tendon Reflex Bilateral Achilles Deep Tendon Reflex 2+ Normal Bilateral Patellar Deep Tendon Reflex 3+ Normal But Brisk PT-OP-J Posture/Palpation/Skin Start: 06/11/21 13:53 Freq: Status: Active Protocol: Document 06/11/21 13:53 HH (Rec: 06/11/21 14:22 [email or web address]) Posture Evaluation Position Standing Evaluation View Lateral T-Spine Posture Increased Kyphosis L-Spine Posture Increased Lordosis Pelvis Posture Anteriorly Tilted PT-OP-K Range of Motion Start: 06/11/21 13:53 Freq: Status: Active Protocol: Document 06/11/21 13:53 HH (Rec: 06/11/21 14:22 [email or web address]) Lumbar Spine Range of Motion Lumbar Spine Active Degrees Comments toe touch test = able to reach floor, mostly from hip flexion, no lumbar flexion noted extension= pain at L5 region Hip Goniometric Range of Motion Hip Right Active Hip ROM WFL Yes Straight Leg Raise 100 Comments hip ROM = WFL Left Active Hip ROM WFL Yes Straight Leg Raise 100 Comments hip ROM = WFL PT-OP-L Special Tests Start: 06/11/21 13:53 Freq: Status: Active Protocol: Document 06/11/21 13:53 HH (Rec: 06/11/21 14:22 [email or web address]) Special Tests Lumbar Spine Special Tests A-P Shearing Test Results +VE Comments L3L5, hypermobility noted. Prone Instability Test Test Results +VE Straight Leg Raise Test Results +VE Comments >100 without discomfort Vertical Spine Loading Test Results +VE Comments pain decreased with PPT PT-OP-M Strength Start: 06/11/21 13:53 Freq: Status: Active Protocol: Document 06/11/21 13:53 HH (Rec: 06/11/21 14:22 HH [email or web address]) Hip Strength Hip Manual Muscle Testing Right Flexion (L2) 4+ Good+ Extension (S1) 4+ Good+ Abduction 4+ Good+ Adduction 4+ Good+ Comments pain with MMT, but pain decreased with cues of posterior pelvic tilt Left Flexion (L2) 4- Good- Extension (S1) 4- Good- Abduction 4- Good- Adduction 4- Good- Comments pain with MMT, but pain decreased with cues of posterior pelvic tilt Knee Strength Knee Manual Muscle Testing Right Flexion (S2) 4+ Good+ Extension (L3) 5 Normal Left Flexion (S2) 4 Good Extension (L3) 4 Good Ankle/Foot Strength Ankle and Foot Manual Muscle Testing Right Dorsiflexion (L4) 5 Normal Plantarflexion (S1) 5 Normal Left Dorsiflexion (L4) 4- Good- Plantarflexion (S1) 4- Good- PT-OP-Q Treatments Start: 06/11/21 13:53 Freq: Status: Active Protocol: Document 07/02/21 10:32 HH (Rec: 07/02/21 11:23 [id number]) Cardio Equipment Bicycle (Upright) Duration (Minutes) 6 Resistance 5 Seat Position 4 Other no hand support for 1st support then 5 mins witohut support, no discomfort. Therapeutic Exercises Supine Exercises bridging Supine Exercise Name with hip abducted d/t HS cramp Side bilateral Reps/Minutes 10 x2 Comments cues on PPT first, LTR Side bilateral Equipment Used red therapy ball Reps/Minutes 10 x2 leg curls Equipment Used red therapy ball Reps/Minutes 10 x2 Comments cues on PPT the whole way. Prone Exercises cat camel Comments cues on PPT and lumbar segmental flexion Standing Exercises STS Side bilateral Reps/Minutes 12 x2 Comments slight R lateral shift, no maria isabel sign, no discomfort. lumbar flexion Standing Exercise Name use of pole Reps/Minutes 10s x5 Comments no discomfort at back, no maria isabel sign Manual Therapy Treatment Manual Traction hip Body Position Supine Reps/Duration 10 s holdx 10 Comments both L and R hip PT-OP-T Assessment and Plan Start: 06/11/21 13:53 Freq: Status: Active Protocol: Document 07/02/21 10:32 HH (Rec: 07/02/21 11:23 HH [id number]) Physical Therapy Assessment Goals activity tolerance Impairment pt has difficulty doing WB activities > 30 mins d/t pain Short Term Goal (STG) pt will be able to tolerate WB activities such as walking, standing >45 mins wthiout increase in pain 4/10 STG Duration 4 weeks Supervisor [employer] Goal (LTG) pt will be able to tolerate WB activities such as walking, standing >60 mins wthiout increase in pain 2/10 LTG Duration 8 weeks HEP Impairment pt has been doing hip stretch for her LBP only Short Term Goal (STG) pt will comply to her daily HEP safely and independently which involves trunk stabilization and lumbar flexion STG Duration 4 weeks Owestry Impairment pt scores 29 on Owestry Short Term Goal (STG) pt will be able to show improved functional mobility and activity tolerance by scoring <20 on Owestry STG Duration 5 weeks Detention Goal (LTG) pt will be able to show improved functional mobility and activity tolerance by scoring <15 on Owestry LTG Duration 10 weeks Assessment Summary Assessment pt is able to progress to WB exercises today with squatting . She does show lateral shift to R during squatting and slight discomfort at L SIJ. Will add leg press SL next visit. Physical Therapy Plan Frequency and Duration Frequency of Treatment 1-2x/wk Duration of Treatment 10 weeks Plan of Care Start Date 06/11/21 Plan of Care End Date 08/25/21 Therapeutic Interventions Therapeutic Interventions Aquatic Therapy,Balance Training,Gait Training,Home Exercise Program,Joint Mobilizations,Manual Therapy, Neuromuscular Re-education, Patient/Caregiver Education, Self-Care/Home Management,Soft Tissue Mobilization,Taping, Therapeutic Activities, Therapeutic Exercises Modalities Cold Pack/Ice Massage,Electric Stimulation,Hot Packs, Infrared Therapy,Traction- Mechanical,Ultrasound Next Visit Focus/Plan Next Note Type Treatment Note Next Visit Plan lumbar flexion, knee to chest PPT LTR, supine marches, sLR
--- NOTE | 2021-07-05 11:16 | PT.OTN ---
Current Diagnoses Lesion of sciatic nerve, left lower limb (07/05/21) Spondylosis without myelopathy or radiculopathy, lumbar region (07/05/21) Sacrococcygeal disorders, not elsewhere classified (07/05/21) Physical Therapy Treatment Note PT-OP-A Visit Information Start: 06/11/21 13:53 Freq: Status: Active Protocol: Document 07/05/21 10:33 HH (Rec: 07/05/21 11:15 [id number]) Out-Patient Physical Therapy Visit Information Visit Information Visit Type Treatment Note Visit Start Time 10:32 Visit Stop Time 11:15 Total Visit Minutes 43 Visit Number 7 Number of CARBONIZER TESTER Visits 0 PT-OP-B Current Condition Start: 06/11/21 13:53 Freq: Status: Active Protocol: Document 06/11/21 13:53 HH (Rec: 06/11/21 14:22 [email or web address]) Current Condition History of Current Condition Onset Date >10 years ago Current Complaints chronic LBP L>R, difficulty in WB activities History of Current Condition Marie is a 65yo female here for her chronic LBP L>R. Pt reports her pain started basically after her 1st many years ago who also had . Her pain is localized at L4-SIJ region L worse than R. She described it as constant ache and stiffness. Stiffness is the worst in the mornning and needed to do hip and back stretches before it loosens up . 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 She notices lying flat, standing and walking increase her pain. Bending over, posterior pelvic tilt tend to relieve her symptoms. Pt has had cortisone injection on both SIJ and relaxant injection at L piriformis but they were not that helpful. 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 Her ortho Dr. Hood recommended to attempt PT to see if it helps. Prior Treatments and Tests R RTC repair early this year by Dr. Rodriguez. Pt has had cortisone injection on both SIJ and relaxant injection at L piriformis but they were not that helpful. Current Functional Impairments (Reported) Functional Limitations- ADL's pain in standing, washing dishes, and bend over positions. PT-OP-C Subjective Start: 06/11/21 13:53 Freq: Status: Active Protocol: Document 07/05/21 10:33 HH (Rec: 07/05/21 11:15 [id number]) OP-PT Subjective Patient Comments Patient Comments I was diagnosed with stage 4 liver fibrosis. yesterday so they might have to do the surgery to help my enlarged esophagus. Patient Reported Progress Improving PT-OP-F Manual Assessment Start: 06/11/21 13:53 Freq: Status: Active Protocol: Document 06/11/21 13:53 HH (Rec: 06/11/21 14:22 [email or web address]) Manual Assessments Soft Tissue Assessment Soft Tissue Mobility Assessment significant tonicity at lumbar paraspinals Joint Mobility Assessment Joint Mobility Assessment hypermobile L4-L5 PT-OP-H Neuro Start: 06/11/21 13:53 Freq: Status: Active Protocol: Document 06/11/21 13:53 HH (Rec: 06/11/21 14:22 [email or web address]) Sensation Evaluation Gross Sensation Gross Sensation WNL Deep Tendon Reflex & Clonus Assessment Deep Tendon Reflex Bilateral Achilles Deep Tendon Reflex 2+ Normal Bilateral Patellar Deep Tendon Reflex 3+ Normal But Brisk PT-OP-J Posture/Palpation/Skin Start: 06/11/21 13:53 Freq: Status: Active Protocol: Document 06/11/21 13:53 HH (Rec: 06/11/21 14:22 [email or web address]) Posture Evaluation Position Standing Evaluation View Lateral T-Spine Posture Increased Kyphosis L-Spine Posture Increased Lordosis Pelvis Posture Anteriorly Tilted PT-OP-K Range of Motion Start: 06/11/21 13:53 Freq: Status: Active Protocol: Document 06/11/21 13:53 HH (Rec: 06/11/21 14:22 [email or web address]) Lumbar Spine Range of Motion Lumbar Spine Active Degrees Comments toe touch test = able to reach floor, mostly from hip flexion, no lumbar flexion noted extension= pain at L5 region Hip Goniometric Range of Motion Hip Right Active Hip ROM WFL Yes Straight Leg Raise 100 Comments hip ROM = WFL Left Active Hip ROM WFL Yes Straight Leg Raise 100 Comments hip ROM = WFL PT-OP-L Special Tests Start: 06/11/21 13:53 Freq: Status: Active Protocol: Document 06/11/21 13:53 HH (Rec: 06/11/21 14:22 [email or web address]) Special Tests Lumbar Spine Special Tests A-P Shearing Test Results +VE Comments L3L5, hypermobility noted. Prone Instability Test Test Results +VE Straight Leg Raise Test Results +VE Comments >100 without discomfort Vertical Spine Loading Test Results +VE Comments pain decreased with PPT PT-OP-M Strength Start: 06/11/21 13:53 Freq: Status: Active Protocol: Document 06/11/21 13:53 HH (Rec: 06/11/21 14:22 HH [email or web address]) Hip Strength Hip Manual Muscle Testing Right Flexion (L2) 4+ Good+ Extension (S1) 4+ Good+ Abduction 4+ Good+ Adduction 4+ Good+ Comments pain with MMT, but pain decreased with cues of posterior pelvic tilt Left Flexion (L2) 4- Good- Extension (S1) 4- Good- Abduction 4- Good- Adduction 4- Good- Comments pain with MMT, but pain decreased with cues of posterior pelvic tilt Knee Strength Knee Manual Muscle Testing Right Flexion (S2) 4+ Good+ Extension (L3) 5 Normal Left Flexion (S2) 4 Good Extension (L3) 4 Good Ankle/Foot Strength Ankle and Foot Manual Muscle Testing Right Dorsiflexion (L4) 5 Normal Plantarflexion (S1) 5 Normal Left Dorsiflexion (L4) 4- Good- Plantarflexion (S1) 4- Good- PT-OP-Q Treatments Start: 06/11/21 13:53 Freq: Status: Active Protocol: Document 07/05/21 10:33 HH (Rec: 07/05/21 11:15 [id number]) Cardio Equipment Bicycle (Upright) Duration (Minutes) 6 Resistance 5 Seat Position 4 Other no hand support for 1st support then 5 mins witohut support, no discomfort. Therapeutic Exercises Supine Exercises SLR Side bilateral Reps/Minutes 10 x2 Comments cues on flat back. bridging Supine Exercise Name with hip abducted d/t HS cramp Side bilateral Reps/Minutes 10 x2 Comments cues on PPT first, Prone Exercises cat camel Comments cues on PPT and lumbar segmental flexion Sitting Exercises seated pelvic tilt Reps/Minutes 15 x2 Standing Exercises STS Side bilateral Reps/Minutes 12 x2 Comments slight R lateral shift, no maria isabel sign, no discomfort. Therapeutic Activity Therapeutic Activity squat Reps/Minutes 10 x2 Comments cues on not using trunk lean Manual Therapy Treatment Manual Traction hip Body Position Supine Reps/Duration 10 s holdx 10 Comments both L and R hip PT-OP-T Assessment and Plan Start: 06/11/21 13:53 Freq: Status: Active Protocol: Document 07/05/21 10:33 (Rec: 07/05/21 11:15 [id number]) Physical Therapy Assessment Goals activity tolerance Impairment pt has difficulty doing WB activities > 30 mins d/t pain Short Term Goal (STG) pt will be able to tolerate WB activities such as walking, standing >45 mins wthiout increase in pain 4/10 STG Duration 4 weeks Audio Visual Technician Goal (LTG) pt will be able to tolerate WB activities such as walking, standing >60 mins wthiout increase in pain 2/10 LTG Duration 8 weeks HEP Impairment pt has been doing hip stretch for her LBP only Short Term Goal (STG) pt will comply to her daily HEP safely and independently which involves trunk stabilization and lumbar flexion STG Duration 4 weeks Owestry Impairment pt scores 29 on Owestry Short Term Goal (STG) pt will be able to show improved functional mobility and activity tolerance by scoring <20 on Owestry STG Duration 5 weeks Fdc Goal (LTG) pt will be able to show improved functional mobility and activity tolerance by scoring <15 on Owestry LTG Duration 10 weeks Assessment Summary Assessment pt shows improved core stability in supine but she does need cues not to use trunk lean for sit to stand. Will add hip hinge next week. Physical Therapy Plan Frequency and Duration Frequency of Treatment 1-2x/wk Duration of Treatment 10 weeks Plan of Care Start Date 06/11/21 Plan of Care End Date 08/25/21 Therapeutic Interventions Therapeutic Interventions Aquatic Therapy,Balance Training,Gait Training,Home Exercise Program,Joint Mobilizations,Manual Therapy, Neuromuscular Re-education, Patient/Caregiver Education, Self-Care/Home Management,Soft Tissue Mobilization,Taping, Therapeutic Activities, Therapeutic Exercises Modalities Cold Pack/Ice Massage,Electric Stimulation,Hot Packs, Infrared Therapy,Traction- Mechanical,Ultrasound Next Visit Focus/Plan Next Note Type Treatment Note Next Visit Plan lumbar flexion, knee to chest PPT LTR, supine marches, sLCaty
--- NOTE | 2021-07-08 15:31 | PT.OTN ---
Current Diagnoses Lesion of sciatic nerve, left lower limb (07/08/21) Spondylosis without myelopathy or radiculopathy, lumbar region (07/08/21) Sacrococcygeal disorders, not elsewhere classified (07/08/21) Physical Therapy Treatment Note PT-OP-A Visit Information Start: 06/11/21 13:53 Freq: Status: Active Protocol: Document 07/08/21 08:09 HH (Rec: 07/08/21 09:01 [id number]) Out-Patient Physical Therapy Visit Information Visit Information Visit Type Treatment Note Visit Start Time 08:15 Visit Stop Time 09:00 Total Visit Minutes 45 Visit Number 8 Number of ROBOT OPERATOR Visits 0 PT-OP-B Current Condition Start: 06/11/21 13:53 Freq: Status: Active Protocol: Document 06/11/21 13:53 HH (Rec: 06/11/21 14:22 [email or web address]) Current Condition History of Current Condition Onset Date >10 years ago Current Complaints chronic LBP L>R, difficulty in WB activities History of Current Condition Marie is a 65yo female here for her chronic LBP L>R. Pt reports her pain started basically after her 1st many years ago who also had . Her pain is localized at L4-SIJ region L worse than R. She described it as constant ache and stiffness. Stiffness is the worst in the mornning and needed to do hip and back stretches before it loosens up . 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 She notices lying flat, standing and walking increase her pain. Bending over, posterior pelvic tilt tend to relieve her symptoms. Pt has had cortisone injection on both SIJ and relaxant injection at L piriformis but they were not that helpful. 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 Her ortho Dr. Hood recommended to attempt PT to see if it helps. Prior Treatments and Tests R RTC repair early this year by Dr. Rodriguez. Pt has had cortisone injection on both SIJ and relaxant injection at L piriformis but they were not that helpful. Current Functional Impairments (Reported) Functional Limitations- ADL's pain in standing, washing dishes, and bend over positions. PT-OP-C Subjective Start: 06/11/21 13:53 Freq: Status: Active Protocol: Document 07/08/21 08:09 HH (Rec: 07/08/21 09:01 [id number]) OP-PT Subjective Patient Comments Patient Comments Im doing pretty good so far. My back got sore after standing for 3 hours in the kitchen, stretching through the pole helps a lot. Patient Reported Progress Improving PT-OP-F Manual Assessment Start: 06/11/21 13:53 Freq: Status: Active Protocol: Document 06/11/21 13:53 HH (Rec: 06/11/21 14:22 [email or web address]) Manual Assessments Soft Tissue Assessment Soft Tissue Mobility Assessment significant tonicity at lumbar paraspinals Joint Mobility Assessment Joint Mobility Assessment hypermobile L4-L5 PT-OP-H Neuro Start: 06/11/21 13:53 Freq: Status: Active Protocol: Document 06/11/21 13:53 HH (Rec: 06/11/21 14:22 [email or web address]) Sensation Evaluation Gross Sensation Gross Sensation WNL Deep Tendon Reflex & Clonus Assessment Deep Tendon Reflex Bilateral Achilles Deep Tendon Reflex 2+ Normal Bilateral Patellar Deep Tendon Reflex 3+ Normal But Brisk PT-OP-J Posture/Palpation/Skin Start: 06/11/21 13:53 Freq: Status: Active Protocol: Document 06/11/21 13:53 HH (Rec: 06/11/21 14:22 [email or web address]) Posture Evaluation Position Standing Evaluation View Lateral T-Spine Posture Increased Kyphosis L-Spine Posture Increased Lordosis Pelvis Posture Anteriorly Tilted PT-OP-K Range of Motion Start: 06/11/21 13:53 Freq: Status: Active Protocol: Document 06/11/21 13:53 HH (Rec: 06/11/21 14:22 [email or web address]) Lumbar Spine Range of Motion Lumbar Spine Active Degrees Comments toe touch test = able to reach floor, mostly from hip flexion, no lumbar flexion noted extension= pain at L5 region Hip Goniometric Range of Motion Hip Right Active Hip ROM WFL Yes Straight Leg Raise 100 Comments hip ROM = WFL Left Active Hip ROM WFL Yes Straight Leg Raise 100 Comments hip ROM = WFL PT-OP-L Special Tests Start: 06/11/21 13:53 Freq: Status: Active Protocol: Document 06/11/21 13:53 HH (Rec: 06/11/21 14:22 [email or web address]) Special Tests Lumbar Spine Special Tests A-P Shearing Test Results +VE Comments L3L5, hypermobility noted. Prone Instability Test Test Results +VE Straight Leg Raise Test Results +VE Comments >100 without discomfort Vertical Spine Loading Test Results +VE Comments pain decreased with PPT PT-OP-M Strength Start: 06/11/21 13:53 Freq: Status: Active Protocol: Document 06/11/21 13:53 HH (Rec: 06/11/21 14:22 HH [email or web address]) Hip Strength Hip Manual Muscle Testing Right Flexion (L2) 4+ Good+ Extension (S1) 4+ Good+ Abduction 4+ Good+ Adduction 4+ Good+ Comments pain with MMT, but pain decreased with cues of posterior pelvic tilt Left Flexion (L2) 4- Good- Extension (S1) 4- Good- Abduction 4- Good- Adduction 4- Good- Comments pain with MMT, but pain decreased with cues of posterior pelvic tilt Knee Strength Knee Manual Muscle Testing Right Flexion (S2) 4+ Good+ Extension (L3) 5 Normal Left Flexion (S2) 4 Good Extension (L3) 4 Good Ankle/Foot Strength Ankle and Foot Manual Muscle Testing Right Dorsiflexion (L4) 5 Normal Plantarflexion (S1) 5 Normal Left Dorsiflexion (L4) 4- Good- Plantarflexion (S1) 4- Good- PT-OP-Q Treatments Start: 06/11/21 13:53 Freq: Status: Active Protocol: Document 07/08/21 08:09 (Rec: 07/08/21 09:01 [id number]) Cardio Equipment Bicycle (Upright) Duration (Minutes) 6 Resistance 5 Seat Position 4 Other no hand support, no discomfort . Therapeutic Exercises Supine Exercises bridging Supine Exercise Name with hip abducted d/t HS cramp Side bilateral Reps/Minutes 10 x2 Comments cues on PPT first, hollow hold Side bilateral Reps/Minutes 10 secs hold Comments hip knee 90 degrees, for HEP Prone Exercises cat camel Comments cues on PPT and lumbar segmental flexion Sitting Exercises seated pelvic tilt Reps/Minutes 15 x2 Standing Exercises hip hinge Standing Exercise Name neutral spine Reps/Minutes 10 x2 STS Side bilateral Reps/Minutes 12 x2 Comments slight R lateral shift, no maria isabel sign, no discomfort. PT-OP-T Assessment and Plan Start: 06/11/21 13:53 Freq: Status: Active Protocol: Document 07/08/21 08:09 (Rec: 07/08/21 09:01 [id number]) Physical Therapy Assessment Goals activity tolerance Impairment pt has difficulty doing WB activities > 30 mins d/t pain Short Term Goal (STG) pt will be able to tolerate WB activities such as walking, standing >45 mins wthiout increase in pain 4/10 STG Duration 4 weeks Truck Hop Goal (LTG) 07/08 pt is able to tolerate WB activities such as walking, standing >60 mins wthiout increase in pain 2/10 with use of hiking poles. LTG Duration 8 weeks HEP Impairment pt has been doing hip stretch for her LBP only Short Term Goal (STG) pt will comply to her daily HEP safely and independently which involves trunk stabilization and lumbar flexion STG Duration 4 weeks Snf Goal (LTG) 07/08 pt has been doing all her HEP Owestry Impairment pt scores 29 on Owestry Short Term Goal (STG) pt will be able to show improved functional mobility and activity tolerance by scoring <20 on Owest[place] STG Duration 5 weeks Truck Hop Goal (LTG) pt will be able to show improved functional mobility and activity tolerance by scoring <15 on [employer] LTG Duration 10 weeks Assessment Summary Assessment this is pt's last appointment before her trip to [facility]. She has been doing progressively better with good understanding of managing her pain and activity tolerance. She also shows improved segmental lumbar flexion to reduce extension pressure. will f.u with her after her trip 08/06. Physical Therapy Plan Frequency and Duration Frequency of Treatment 1-2x/wk Duration of Treatment 10 weeks Plan of Care Start Date 06/11/21 Plan of Care End Date 08/25/21 Therapeutic Interventions Therapeutic Interventions Aquatic Therapy,Balance Training,Gait Training,Home Exercise Program,Joint Mobilizations,Manual Therapy, Neuromuscular Re-education, Patient/Caregiver Education, Self-Care/Home Management,Soft Tissue Mobilization,Taping, Therapeutic Activities, Therapeutic Exercises Modalities Cold Pack/Ice Massage,Electric Stimulation,Hot Packs, Infrared Therapy,Traction- Mechanical,Ultrasound Next Visit Focus/Plan Next Note Type Treatment Note Next Visit Plan lumbar flexion, knee to chest PPT LTR, supine marches, sLR
== END 2021-08-08 14:43 ==
LOC: PHYS 08:15
PROVIDERS: Family Provider Internal Medicine; PCP Internal Medicine; Referring Provider Physical Medicine & Rehabilitation Pain Medicine; Visit Provider Physical Medicine & Rehabilitation Pain Medicine
DX: M53.3 Sacrococcygeal disorders, not elsewhere classified (principal); M47.816 Spondylosis without myelopathy or radiculopathy, lumbar region; G57.02 Lesion of sciatic nerve, left lower limb
CPT/HCPCS: 97110; 97140; 97161; 97530; 97535

== ENCOUNTER → 2021-07-08 12:25 | Outpatient (CLI) | payer MEDICARE, OTHER, SELFPAY ==
[2021-03-29 00:51] VITALS: BMI 38.6
[2021-07-08 13:24] LABS: HEMOLYSIS < 15 (0-50); Sodium 140 mmol/L (137-145)
[2021-07-08 13:25] LABS: Alanine Aminotransferase 15 IU/L (<35); Albumin 4.1 g/dL (3.5-5.0); Albumin Globulin Ratio 1.5 (1.0-2.8); Alkaline Phosphatase 75 U/L (38-126); Aspartate Aminotransferase 31 IU/L (14-36); BUN Creatinine Ratio 23.5 (6-22); Bilirubin Total 0.4 mg/dL (0.2-1.3); Blood Urea Nitrogen 16 mg/dL (7-17); Calcium 9.5 mg/dL (8.4-10.2); Carbon Dioxide 31 mmol/L (22-32); Chloride 104 mmol/L (98-107); Estimated Glomerular Filt Rate > 60.0 mL/min (>60); Globulin 2.8 g/dL (1.7-4.1); Glucose 74 mg/dL (80-110); Total Protein 6.9 g/dL (6.3-8.2)
[2021-07-08 13:26] LABS: Erythrocyte Sedimentation Rate 74 MM/HR (0-20)
[2021-07-08 15:44] LABS: Add Manual Diff / Slide Review NO; Basophils Absolute Auto 0 /uL (0-100); Basophils Percent Auto 0.6 % (0-2); Eosinophils Absolute Auto 100 /uL (0-450); Eosinophils Percent Auto 2.5 % (2-4); Hematocrit 38.9 % (36-46); Hemoglobin 13.1 g/dL (12.0-16.0); Lymphocytes Absolute Auto 1700 /uL (1100-4500); Lymphocytes Percent Auto 27.9 % (25-40); Mean Corpuscular HGB Conc 33.7 % (30-36); Mean Corpuscular Volume 92.2 fL (80-100); Monocytes Absolute Auto 500 /uL (0-900); Monocytes Percent Auto 7.8 % (3-14); Neutrophils Absolute Auto 3600 /uL (1500-7000); Neutrophils Percent Auto 61.2 % (50-75); Platelet Count 137 X10^3/uL (150-400); Red Blood Cell Count 4.22 X10^6/uL (4.0-5.2)
== END ==
PROVIDERS: Family Provider Internal Medicine; PCP Internal Medicine; Referring Provider Internal Medicine; Visit Provider Internal Medicine
DX: M35.3 Polymyalgia rheumatica (principal)
CPT/HCPCS: 36415; 80053; 85025; 85651

== ENCOUNTER → 2021-12-06 10:37 | Outpatient (CLI) | payer MEDICARE, OTHER, SELFPAY ==
[2021-03-29 00:51] VITALS: BMI 38.6
[2021-12-06 14:11] LABS: COVID-19 CEPHEID PCR (VTM/NP) Negative (Negative)
== END ==
PROVIDERS: Family Provider Internal Medicine; PCP Internal Medicine; Visit Provider Nurse Practitioner Family
DX: Z20.822 Contact with and (suspected) exposure to COVID-19 (principal)
CPT/HCPCS: C9803; U0003; U0005

== ENCOUNTER → 2022-06-17 15:42 | Outpatient (CLI) | payer MEDICARE, OTHER, SELFPAY ==
[2021-03-29 00:51] VITALS: BMI 38.6
--- NOTE | 2022-06-17 15:44 | DI.MRI.S_ITS ---
PROCEDURE: MR LUMBAR SPINE WO CON INDICATIONS: Spondylosis without myelopathy or radiculopathy TECHNIQUE: Noncontrast sagittal T1 spin echo and T2 fast echo, sagittal STIR, and T2 fast spin echo through the lumbar spine. In cases with scoliosis, additional coronal T2 fast spin echo may be performed. COMPARISON: Merged With [facility], , L-SPINE WITHOUT CONTRAST, 05/06/2016, 9:29. FINDINGS: Image quality: Excellent. Alignment and Curvature: There is normal bony alignment. Bone Marrow: Marrow is of normal overall signal. Increased T1 and T2 signal are present within T12 and L2 most suggestive of hemangiomas and are unchanged. No acute vertebral body compression fractures. Spinal Cord: Conus medullaris terminates at the L1 level. Visualized cord demonstrates normal signal and size. Paraspinous Soft Tissues: No paravertebral masses. Discs: Overall mild desiccation is present throughout the lumbar spine. L1-L2: No disc bulge, spinal stenosis or foraminal narrowing. No interval change. L2-L3: No disc bulge, spinal stenosis or foraminal narrowing. No interval change. Facet and ligamentum flavum hypertrophy as well as epidural lipomatosis are present. L3-L4: Mild disc bulge without spinal stenosis or foraminal narrowing. Facet and ligamentum flavum hypertrophy as well as epidural lipomatosis are present. L4-L5: Mild disc bulge without spinal stenosis or foraminal narrowing. Prominent facet and ligamentum flavum hypertrophy are present. No interval progression. L5-S1: Minimal disc bulge without spinal stenosis or foraminal narrowing. Facet hypertrophy is present. IMPRESSION: Stable interval exam. No spinal stenosis or foraminal narrowing. Dictated by: Summer Keller M.D. on 06/17/2022 at 22:53 Approved by: Summer Keller M.D. on 06/17/2022 at 22:57
== END ==
PROVIDERS: Family Provider Internal Medicine; PCP Internal Medicine; Referring Provider Physical Medicine & Rehabilitation Pain Medicine; Visit Provider Physical Medicine & Rehabilitation Pain Medicine
DX: M47.816 Spondylosis without myelopathy or radiculopathy, lumbar region (principal); G47.33 Obstructive sleep apnea (adult) (pediatric)
CPT/HCPCS: 72148; 99213

== ENCOUNTER → 2022-07-25 15:46 | Outpatient (CLI) | payer MEDICARE, OTHER, SELFPAY ==
[2021-03-29 00:51] VITALS: BMI 38.6
--- NOTE | 2022-07-25 | DI.MG.S_ITS ---
BILATERAL DIGITAL SCREENING MAMMOGRAM 3D/2D WITH CAD: 07/25/2022 CLINICAL: Routine screening. Family history of breast cancer. Comparison is made to exams dated: 06/12/2021 mammogram, 05/09/2020 mammogram, and 04/01/2019 mammogram - [facility]. There are scattered areas of fibroglandular density in both breasts (category b / 25%-50% glandular tissue). Current study was also evaluated with a Computer Aided Detection (CAD) system. There is a mole marker on the left breast. No significant masses, calcifications, or other findings are seen in either breast. There has been no significant interval change. IMPRESSION: NEGATIVE There is no mammographic evidence of malignancy. A 1 year screening mammogram is recommended. Based on the Tyrer Cuzick model (a risk assessment model) the patient's lifetime risk is 9.1% and her 10 year risk is 5.1%. According to the ACR, ACS, and NCCN guidelines, an annual breast MRI exam along with mammogram is recommended if the patient's lifetime risk is 20% or greater. This exam was interpreted at Station ID: [id number]. NOTE: For mammograms, a report in lay terms will be sent to the patient. Approximately 15% of breast malignancies will not be visualized mammographically. In the management of a palpable breast mass, a negative mammogram must not discourage biopsy of a clinically suspicious lesion. Electronically Signed By: Geraldine [email or web address]:07/25/2022 17:02:07 copy to: Lala Nuñez letter sent: Normal Exam ACR BI-RADS Category 1: Negative [id number]
== END ==
PROVIDERS: Family Provider Internal Medicine; PCP Internal Medicine; Referring Provider Internal Medicine; Visit Provider Internal Medicine
DX: Z12.31 Encounter for screening mammogram for malignant neoplasm of breast (principal); Z80.3 Family history of malignant neoplasm of breast
CPT/HCPCS: 77063; 77067

== ENCOUNTER → 2022-07-31 14:09 | Outpatient (CLI) | payer MEDICARE, OTHER, SELFPAY ==
[2021-03-29 00:51] VITALS: BMI 38.6
== END ==
PROVIDERS: Family Provider Internal Medicine; PCP Internal Medicine; Referring Provider Internal Medicine; Visit Provider Internal Medicine
DX: Z78.0 Asymptomatic menopausal state (principal); Z13.820 Encounter for screening for osteoporosis; Z79.890 Hormone replacement therapy
CPT/HCPCS: 77080

== ENCOUNTER → 2022-08-20 15:10 | Outpatient (CLI) | payer MEDICARE, OTHER, SELFPAY ==
[2021-03-29 00:51] VITALS: BMI 38.6
[2022-08-20 17:58] LABS: C-Reactive Protein Quant 0.7 mg/dL (<1.0)
[2022-08-20 20:46] LABS: Erythrocyte Sedimentation Rate 34 MM/HR (0-20)
[2022-08-22 20:46] LABS: Hep C Virus Ab w/Reflex Quant NEGATIVE s/c (NEGATIVE)
[2022-08-23 16:52] LABS: QuantiFERON Mitogen Value 2.98 IU/mL (.); QuantiFERON Nil Value 0.07 IU/mL (.); QuantiFERON TB Gold Plus Negative (Negative); QuantiFERON TB1 Ag Value 0.09 IU/mL (.); QuantiFERON TB2 Ag Value 0.08 IU/mL (.)
[2022-08-25 06:08] LABS: Hepatitis B Virus HBV DNA not detected IU/mL (.)
[2022-08-25 13:22] LABS: Immunoglobulin A, Serum 78 mg/dL (87-352); Immunoglobulin G,Serum 519 mg/dL (586-1602); Immunoglobulin M, Serum 535 mg/dL (26-217)
[2022-08-25 14:02] LABS: Albumin 3.4 g/dL (2.9-4.4); Alpha-1-Globulin 0.2 g/dL (0.0-0.4); Alpha-2-Globulin 0.7 g/dL (0.4-1.0); Gamma Globulin 0.8 g/dL (0.4-1.8); Globulin Total 2.6 g/dL (2.2-3.9)
[2022-08-29 22:14] LABS: HLA B27 Negative (.)
== END ==
PROVIDERS: Family Provider Internal Medicine; PCP Internal Medicine; Referring Provider Internal Medicine Rheumatology; Visit Provider Internal Medicine Rheumatology
DX: M06.4 Inflammatory polyarthropathy (principal); Z79.899 Other long term (current) drug therapy
CPT/HCPCS: 36415; 81374; 82784; 84155; 84165; 85651; 86140; 86334; 86480; 86803

== ENCOUNTER → 2022-10-30 13:36 | Outpatient (ROUT) | payer MEDICARE, OTHER, SELFPAY ==
[2021-03-29 00:51] VITALS: BMI 38.6
== END ==
PROVIDERS: Family Provider Internal Medicine; PCP Internal Medicine; Visit Provider Ophthalmology
DX: H57.9 Unspecified disorder of eye and adnexa (principal)
CPT/HCPCS: 87070; 87075; 87205; 87252

== ENCOUNTER 2022-12-14 02:39 | Emergency (ER) | payer MEDICARE, OTHER, SELFPAY ==
[2021-03-29 00:51] VITALS: BMI 38.6
[2022-12-14 03:02] VITALS: BP 187/88; PULSE 95; RESP 17; TEMP 37.7; O2SAT 95
[2022-12-14] MEDS: SODIUM CHLORIDE 0.9% 1,000 ML 1000 ML IV (03:27)
[2022-12-14 03:35] LABS: Hematocrit 40.2 % (36-46); Hemoglobin 13.8 g/dL (12.0-16.0); Mean Corpuscular HGB Conc 34.3 % (30-36); Mean Corpuscular Hemoglobin 30.1 PG (26-34); Mean Corpuscular Volume 87.7 fL (80-100); Platelet Count 98 X10^3/uL (150-400); Red Blood Cell Count 4.59 X10^6/uL (4.0-5.2); Red Cell Distribution Width 14.3 % (11.6-14.8); White Blood Cell Count 5.1 X10^3/uL (4.5-11.0)
[2022-12-14 03:42] LABS: Add Manual Diff / Slide Review YES
[2022-12-14 03:50] LABS: Creatine Kinase 37 U/L (30-135); Magnesium 1.8 mg/dL (1.6-2.3)
[2022-12-14 03:52] LABS: Alanine Aminotransferase 29 IU/L (<35); Albumin 4.4 g/dL (3.5-5.0); Albumin Globulin Ratio 1.3 (1.0-2.8); Alkaline Phosphatase 99 U/L (38-126); Aspartate Aminotransferase 39 IU/L (14-36); BUN Creatinine Ratio 34.7 (6-22); Bilirubin Total 0.6 mg/dL (0.2-1.3); Blood Urea Nitrogen 17 mg/dL (7-17); C-Reactive Protein Quant 4.2 mg/dL (<1.0); Calcium 8.9 mg/dL (8.4-10.2); Carbon Dioxide 26 mmol/L (22-32); Chloride 105 mmol/L (98-107); Estimated Glomerular Filt Rate > 60 mL/min (>60); Globulin 3.5 g/dL (1.7-4.1); Glucose 133 mg/dL (80-110); HEMOLYSIS < 15 (0-50); Potassium 3.9 mmol/L (3.4-5.1); Sodium 140 mmol/L (137-145); Total Protein 7.9 g/dL (6.3-8.2)
[2022-12-14 03:53] LABS: Erythrocyte Sedimentation Rate 37 MM/HR (0-20)
[2022-12-14 03:59] LABS: Neutrophils Absolute Manual 1530 /uL (3000-5900); RBC Morphology Normal Morphology; Total Cells Counted 100
[2022-12-14 04:01] LABS: Troponin I < 0.012 ng/mL (0.01-0.034)
--- NOTE | 2022-12-14 04:46 | ED_ITS ---
HPI - Extremity Problem General Chief complaint: Extremity Problem,Nontraumatic Stated complaint: Pain in both arms/shoulders/wrist Time Seen by Provider: 12/14/22 02:46 Source: patient Mode of arrival: Ambulatory History of Present Illness HPI Narrative: 67-year-old female nonsmoker with history of ankylosing spondylitis, hypertrophic obstructive cardiomyopathy, osteoarthritis, polymyalgia rheumatica, polycystic ovarian syndrome, cirrhosis presents with a chief complaint of severe and widespread joint and muscle pain. She states that she had just received her 2nd infusion of infliximab for ankylosing spondylitis and in the days afterwards developed these symptoms. Her pain is now so severe that she has a hard time even lifting her arms or flexing her wrist. She states that after her 1st infusion of infliximab she had some symptoms but not nearly as severe and then went away after a few days. She is not dizzy nor weak or lightheaded. She denies any chest pain or shortness of breath. She is had no nausea, vomiting or diarrhea and denies urinary complaints. 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 Marisol Archer Related Data Home Medications Medication Instructions Recorded Confirmed albuterol sulfate 90 mcg/actuation 2 puff inhalation Q6H PRN 03/02/18 06/17/22 aerosol inhaler Shortness Of Breath Or Wheezing Resmed Airsense 10 CPAP #1 ea 04/13/19 06/17/22 carvedilol 6.25 mg tablet 6.25 mg PO BID 10/09/20 06/17/22 hydrochlorothiazide 25 mg tablet 25 mg PO PRN PRN Edema 10/09/20 06/17/22 cyanocobalamin (vitamin B-12) 100 100 mcg PO DAILY 11/09/20 06/17/22 mcg tablet (Vitamin B-12) fluticasone 250 mcg-salmeterol 50 1 inh inhalation BID PRN allergies 11/09/20 06/17/22 mcg/dose blistr powdr for inhalation (Advair Diskus) loratadine-pseudoephedrine ER 10 1 tab PO DAILY 11/09/20 06/17/22 mg-240 mg tablet,extended [id number] (Claritin-D 24 Hour) nystatin-triamcinolone 100,000 1 applic topical DAILY 11/09/20 06/17/22 unit/g-0.1 % topical cream venlafaxine 75 mg capsule,extended 150 mg PO DAILY 11/09/20 06/17/22 release 24 hr cholecalciferol (vitamin D3) 100 1,000 unit PO DAILY 12/21/20 06/17/22 mcg (4,000 unit) capsule (Vitamin D3) folic acid 1 mg tablet 1,000 mcg PO DAILY 12/24/21 06/17/22 pantoprazole 20 mg tablet,delayed 20 mg PO DAILY 12/24/21 06/17/22 release prednisone 10 mg tablet 10 mg PO DAILY 12/24/21 06/17/22 cranberry extract-vitamin C 250 cap PO 06/17/22 06/17/22 mg-60 mg capsule (Azo Cranberry Plus Vit C) mirabegron 25 mg tablet,extended 12.5 mg PO DAILY 06/17/22 06/17/22 release 24 hr (Myrbetriq) Previous Rx's Medication Instructions Recorded acetaminophen 325 mg capsule 650 mg PO QID PRN pain #60 caps 03/29/21 (Tylenol) prednisone 10 mg tablet See Rx Instructions .Route 12/14/22 .COMPLEX #30 tabs Allergies Allergy/AdvReac Type Severity Reaction Status Date / Time clarithromycin [From BIAXIN] Allergy Unknown Verified 06/17/22 10:07 ciprofloxacin AdvReac Severe tendonitis Verified 06/17/22 10:07 sulfamethoxazole AdvReac Intermediate Nausea Verified 06/17/22 10:07 [From Bactrim] trimethoprim [From Bactrim] AdvReac Intermediate Nausea Verified 06/17/22 10:07 Review of Systems Review of Systems Narrative: GENERAL: Denies chills, fatigue, malaise, fever, sweats. HEENT: Denies sinus pain, ear pain, sore throat, difficulty swallowing, dizzines s. RESPIRATORY: Denies dyspnea, cough, wheezing, hemoptysis, sputum. CARDIOVASCULAR: Denies chest pain, palpitations, orthopnea, edema, GASTROINTESTINAL: Denies nausea, vomiting, abdominal pain, diarrhea, constipation, melena. : Denies dysuria, frequency, incontinence, hematuria, urinary retention. MUSCULOSKELETAL: see HPI SKIN: Denies rash, skin lesions, or other NEUROLOGIC: Denies weakness, headache, numbness, change in speech, confusion, seizures, incoordination. PSYCHIATRIC: No concerning psychosocial issues. 12 point review of systems is negative except for those stated above Patient History Medical History Acute appendicitis Arthritis Asthma Basal cell carcinoma (BCC) in situ of skin Depression Diastolic heart failure GERD (gastroesophageal reflux disease) Hayfever History of appendicitis History of chronic urinary tract infection History of prediabetes Hx of lipoma Hypertension Hypertrophic obstructive cardiomyopathy (~05/2020) Insulin resistance Left ventricular outflow tract obstruction Liver disease Lower extremity edema Nontraumatic complete tear of right rotator cuff Osteoarthritis PCOS (polycystic ovarian syndrome) Plantar fasciitis Polymyalgia rheumatica Prediabetes Primary biliary cirrhosis Primary insomnia Rosacea Snoring Surgical History History of third molar tooth extraction (1973) History of tonsillectomy (1958) S/P epidural steroid injection Status post delivery (12/28/80) Status post cholecystectomy (1991) Status post colonoscopy (2013) Status post dilation and curettage (09/16/11) Family History Father CVA (cerebral vascular accident) Chronic lymphocytic leukemia Mother Lewy body dementia Other Dementia Habitual snoring Social History marital status: number of children: 1 household members: spouse occupational status: previously employed Smoking Status: Never smoker alcohol intake: former substance use type: does not use caffeine: Yes Smoking Status: Never smoker alcohol intake frequency: a few times a week Substance Use Type: does not use Exam Narrative Exam Narrative: GENERAL: [67] year old patient appears stated age. Well-developed patient, in mild distress. Sitting upright, wrapped warm blankets HEAD: Atraumatic. Normocephalic. EYES: Pupils equal round and reactive. Extraocular motions intact. No scleral icterus. No injection or drainage. ENT: Nose without bleeding, purulent drainage. Throat without erythema, tonsillar hypertrophy or exudate. Airway patent. NECK: Trachea midline. Non tender CARDIOVASCULAR: Regular rate and rhythm without murmurs, gallops, or rubs. RESPIRATORY: Clear to auscultation. Breath sounds equal bilaterally. No wheezes, rales, or rhonchi. GASTROINTESTINAL: Abdomen soft, non-tender, nondistended. EXTREMITIES: No edema or joint tenderness. Significant limit in her range of motion secondary to pain BACK: Nontender without deformity or crepitance. No flank tenderness. NEURO: AOx3. SKIN: No rash or erythema of visible areas Initial Vital Signs Initial Vital Signs: Vital Signs Temperature 99.8 F H 12/14/22 03:02 Pulse Rate 95 H 12/14/22 03:02 Respiratory Rate 17 12/14/22 03:02 Blood Pressure 187/88 H 12/14/22 03:02 Pulse Oximetry 95 12/14/22 03:02 Oxygen Delivery Method Room Air 12/14/22 03:02 Course Orders Ordered: Discontinued Medications Sodium Chloride (Normal Saline 0.9%) 1,000 mls @ 1,000 mls/hr IV BOLUS ONE Stop: 12/14/22 04:10 Last Infusion: 12/14/22 04:27 Dose: 0 mls/hr Documented By: Admin: 12/14/22 03:27 Dose: 1,000 mls/hr Documented By: STACEY Ketorolac Tromethamine (Ketorolac 30 Mg/Ml Vial) 15 mg IV NOW ONE Stop: 12/14/22 05:02 Last Admin: 12/14/22 05:28 Dose: 15 mg Documented By: SERENA Methylprednisolone (Methylprednisolone 125 Mg/2 Ml Vial) 125 mg IV NOW ONE Stop: 12/14/22 05:02 Last Admin: 12/14/22 05:27 Dose: 125 mg Documented By: SERENA Prednisone (Prednisone 20 Mg Tablet) 40 mg PO NOW ONE Stop: 12/14/22 07:23 Last Admin: 12/14/22 07:29 Dose: 40 mg Documented By: RICHARD Reevaluation(s) Reevaluation #1: Patient given Toradol and Solu-Medrol, thus far little improvement Consultations Consultation #1: Call to Dr. Marisol Archer (rheumatology in [place]) she is not available, however her partner is. After discussion of patient's history and physical exam as well as labs and response to therapies. She recommends a steroid taper starting at 40-60 mg and tapering down to 10 mg per day over the next 2 weeks or so and close follow-up in the office. Time: 05:45 Vital Signs Vital signs: Vital Signs - 8 hr 12/14/22 03:02 Temperature 99.8 F H Pulse Rate 95 H Respiratory Rate 17 Blood Pressure 187/88 H Pulse Oximetry 95 Oxygen Delivery Method Room Air MDM - Extremity (Nontraumatic) Lab Data 12/14/22 03:25 12/14/22 03:25 Labs: Lab Results 12/14/22 12/14/22 12/14/22 Range/Units 03:25 03:25 03:25 WBC 5.1 (4.5-11.0) X10^3/uL RBC 4.59 (4.0-5.2) X10^6/uL Hgb 13.8 (12.0-16.0) g/dL Hct 40.2 (36-46) % MCV 87.7 (80-100) fL MCH 30.1 (26-34) PG MCHC 34.3 (30-36) % RDW 14.3 (11.6-14.8) % Plt Count 98 L (150-400) X10^3/uL Neut % (Auto) Not Reportable Lymph % (Auto) Not Reportable Graves % (Auto) Not Reportable Eos % (Auto) Not Reportable Baso % (Auto) Not Reportable Lymph # (Auto) Not Reportable Graves # (Auto) Not Reportable Baso # (Auto) Not Reportable Total Counted 100 Seg Neutrophils % 30.0 L (38-70) % Lymphocytes % (Manual) 52.0 H (25-45) % Atypical Lymphs % 2.0 H ( - 0) % Monocytes % (Manual) 13.0 H (2-11) % Eosinophils % (Manual) 1.0 L (2-4) % Basophils % (Manual) 2.0 H (0-1) % Neutrophils # (Manual) 1530 L (5651-8746) /uL RBC Morphology Normal morphology ESR 37 H (0-20) MM/HR Sodium 140 (137-145) mmol/L Potassium 3.9 (3.4-5.1) mmol/L Chloride 105 (98-107) mmol/L Carbon Dioxide 26 (22-32) mmol/L BUN 17 (7-17) mg/dL Creatinine 0.49 L (0.52-1.04) mg/dL Estimated GFR > 60 (>60) mL/min BUN/Creatinine Ratio 34.7 H (6-22) Glucose 133 H (80-110) mg/dL Calcium 8.9 (8.4-10.2) mg/dL Magnesium (1.6-2.3) mg/dL Total Bilirubin 0.6 (0.2-1.3) mg/dL AST 39 H (14-36) IU/L ALT 29 (<35) IU/L Alkaline Phosphatase 99 (38-126) U/L Total Creatine Kinase (30-135) U/L CK-MB (CK-2) CK-MB (CK-2) Rel Index Troponin I (0.01-0.034) ng/mL C-Reactive Protein 4.2 H (<1.0) mg/dL Total Protein 7.9 (6.3-8.2) g/dL Albumin 4.4 (3.5-5.0) g/dL Globulin 3.5 (1.7-4.1) g/dL Albumin/Globulin Ratio 1.3 (1.0-2.8) / Range/Units 03:25 WBC (4.5-11.0) X10^3/uL RBC (4.0-5.2) X10^6/uL Hgb (12.0-16.0) g/dL Hct (36-46) % MCV (80-100) fL MCH (26-34) PG MCHC (30-36) % RDW (11.6-14.8) % Plt Count (150-400) X10^3/uL Neut % (Auto) Lymph % (Auto) Graves % (Auto) Eos % (Auto) Baso % (Auto) Lymph # (Auto) Graves # (Auto) Baso # (Auto) Total Counted Seg Neutrophils % (38-70) % Lymphocytes % (Manual) (25-45) % Atypical Lymphs % ( - 0) % Monocytes % (Manual) (2-11) % Eosinophils % (Manual) (2-4) % Basophils % (Manual) (0-1) % Neutrophils # (Manual) (5794-7832) /uL RBC Morphology ESR (0-20) MM/HR Sodium (137-145) mmol/L Potassium (3.4-5.1) mmol/L Chloride (98-107) mmol/L Carbon Dioxide (22-32) mmol/L BUN (7-17) mg/dL Creatinine (0.52-1.04) mg/dL Estimated GFR (>60) mL/min BUN/Creatinine Ratio (6-22) Glucose (80-110) mg/dL Calcium (8.4-10.2) mg/dL Magnesium 1.8 (1.6-2.3) mg/dL Total Bilirubin (0.2-1.3) mg/dL AST (14-36) IU/L ALT (<35) IU/L Alkaline Phosphatase (38-126) U/L Total Creatine Kinase 37 (30-135) U/L CK-MB (CK-2) TNP CK-MB (CK-2) Rel Index TNP Troponin I < 0.012 (0.01-0.034) ng/mL C-Reactive Protein (<1.0) mg/dL Total Protein (6.3-8.2) g/dL Albumin (3.5-5.0) g/dL Globulin (1.7-4.1) g/dL Albumin/Globulin Ratio (1.0-2.8) MDM Narrative Medical decision making narrative: [67] year old patient presents with widespread arthralgias and myalgias after infliximab injections Multiple etiologies for patient's symptoms considered including, but not limited to: [Medication reaction, drug induced lupus versus other] Prior Charts reviewed in our EMR Primary Historian: patient Labs reviewed and interpreted by myself: Inflammatory markers elevated but not significantly so, labs largely unremarkable and without evidence of the need for specific or immediate intervention Consultations: [place] [facility] as noted above Patient's symptoms improved over duration of stay with above-stated therapies. Findings and discharge diagnosis discussed with patient/family followed by verbalization of understanding Return precautions discussed with patient/family whom verbalize understanding of diagnosis and plan Discharge Plan Departure Patient Disposition: Home Clinical Impression: Medication adverse effect, Polyarthralgia Instructions: DI for Arthralgia Activity Restrictions/Additional Instructions: *You have been diagnosed with [polyarthralgia, likely secondary to infliximab infusion] *What to do: *Please continue to take your regular medications as directed. [x] New medication prescriptions sent to your pharmacy: [ [facility]] [ ] New medication written as a paper prescription [ ] No new medications given *Please follow up with your primary rheumatology provider in 2-3 days, call for an appointment. Let them know you were seen in the Emergency Department and that we ask that you be seen in follow up. *Return to Emergency Department if you should have any new, worsening or concerning symptoms, such as [fever greater than 101 F, shaking chills, worsening pain, persistent vomiting or other bothersome symptoms] Prescriptions: New prednisone 10 mg tablet See Rx Instructions .ROUTE .COMPLEX Qty: 30 0RF Rx Instructions: Day 1,2,3: 40mg PO Daily Day 4,5,6: 30mg PO Daily Day 7,8,9: 20mg PO Daily Day 10,11,12: 10mg PO Daily #30 No Action albuterol sulfate 90 mcg/actuation HFA aerosol inhaler 2 puff INHALATION Q6H PRN (Reason: Shortness Of Breath Or Wheezing) fluticasone propion-salmeterol [Advair Diskus] 250-50 mcg/dose blister with device 1 inh INHALATION BID PRN (Reason: allergies) Rx Instructions: Morning and evening approximately 12 hours apart loratadine-pseudoephedrine [Claritin-D 24 Hour] 10-240 mg Tablet Extended Release 24 Hr 1 tab PO DAILY venlafaxine 75 mg Capsule,Extended Release 24hr 150 mg PO DAILY cyanocobalamin (vitamin B-12) [Vitamin B-12] 100 mcg Tablet 100 mcg PO DAILY nystatin-triamcinolone 100,000-0.1 unit/g-% Cream 1 applic TOPICAL DAILY Vitamin D3 100 mcg (4,000 unit) Capsule 1,000 unit PO DAILY acetaminophen [Tylenol] 325 mg capsule 650 mg PO QID PRN (Reason: pain) Qty: 60 0RF carvedilol 6.25 mg tablet 6.25 mg PO BID Rx Instructions: must administer with a meal/food hydrochlorothiazide 25 mg tablet 25 mg PO PRN PRN (Reason: Edema) pantoprazole 20 mg tablet,delayed release (DR/EC) 20 mg PO DAILY folic acid 1 mg tablet 1,000 mcg PO DAILY prednisone 10 mg tablet 10 mg PO DAILY cranberry extract-vitamin C [Azo Cranberry Plus Vit C] 250-60 mg capsule PO Myrbetriq 25 mg tablet extended release 24 hr 12.5 mg PO DAILY (DME) Resmed Airsense 10 CPAP Qty: 1 Dose Instruction: As directed Patient Comments: Pressure: 8-14 cmH2O DME: [facility] Rx Instructions: As directed Referrals: Delmi Lacy PA-C [Primary Care Provider] - Stand Alone Forms: Patient Portal/API
[2022-12-14] MEDS: methylPREDNISolone 125 MG/2 ML VIAL IV (05:27)
[2022-12-14] MEDS: KETOROLAC 30 MG/ML VIAL 15 MG IV (05:28)
[2022-12-14] MEDS: predniSONE 20 MG TABLET 40 MG PO (07:29)
[2022-12-14 07:49] VITALS: PULSE 78; RESP 17; O2SAT 98
== END 2022-12-14 07:49 | disposition home or self-care (01) ==
PROVIDERS: Emergency Provider Emergency Medicine; Family Provider Internal Medicine; PCP Physician Assistant
DX: M25.512 Pain in left shoulder (principal); M25.511 Pain in right shoulder; M25.532 Pain in left wrist; M25.531 Pain in right wrist; T39.8X5A Adverse effect of other nonopioid analgesics and antipyretics, not elsewhere classified, initial encounter
CPT/HCPCS: 36415; 80053; 82550; 83735; 84484; 85007; 85025; 85651; 86140; 96374; 96375; 99284; J1885; J2930

== ENCOUNTER → 2022-12-26 08:57 | Outpatient (CLI) | payer MEDICARE, OTHER, SELFPAY ==
[2021-03-29 00:51] VITALS: BMI 38.6
[2022-12-26 10:33] LABS: Erythrocyte Sedimentation Rate 46 MM/HR (0-20)
[2022-12-26 15:41] LABS: C-Reactive Protein Quant 0.6 mg/dL (<1.0)
== END ==
PROVIDERS: Family Provider Internal Medicine; PCP Physician Assistant; Referring Provider Internal Medicine Rheumatology; Visit Provider Internal Medicine Rheumatology
DX: M45.7 Ankylosing spondylitis of lumbosacral region (principal); Z79.899 Other long term (current) drug therapy
CPT/HCPCS: 80230; 82397; 85651; 86140

== ENCOUNTER → 2023-02-21 10:06 | Outpatient (CLI) | payer MEDICARE, OTHER, SELFPAY ==
[2021-03-29 00:51] VITALS: BMI 38.6
== END ==
PROVIDERS: Family Provider Internal Medicine; PCP Physician Assistant; Visit Provider Physician Assistant
DX: N39.0 Urinary tract infection, site not specified (principal)
CPT/HCPCS: 87077; 87086; 87186

== ENCOUNTER → 2023-04-24 13:35 | Outpatient (CLI) | payer MEDICARE, OTHER, SELFPAY ==
[2021-03-29 00:51] VITALS: BMI 38.6
--- NOTE | 2023-04-24 | DI.RAD.S_ITS ---
PROCEDURE: XR CHEST 2V INDICATIONS: cough TECHNIQUE: 2 views of the chest were acquired. COMPARISON: [facility], , XR CHEST 1V, 06/20/2020, 15:40. [facility], , CHEST 2 VIEW, 06/14/2015, 18:41. FINDINGS: Surgical changes and devices: None. Lungs and pleura: Lungs are clear. No pleural effusions or pneumothorax. Mediastinum: Mediastinal contours are normal. Heart size is normal. Bones and chest wall: No suspicious bony abnormalities. Soft tissues appear unremarkable. IMPRESSION: No acute cardiopulmonary abnormality. Dictated by: Tomasz Hurt M.D. on 04/24/2023 at 16:24 Approved by: Tomasz Hurt M.D. on 04/24/2023 at 16:27
== END ==
PROVIDERS: Family Provider Internal Medicine; PCP Physician Assistant; Referring Provider Physician Assistant; Visit Provider Physician Assistant
DX: R05.9 Cough, unspecified (principal)
CPT/HCPCS: 71046

== ENCOUNTER → 2023-05-19 10:53 | Outpatient (CLI) | payer MEDICARE, OTHER, SELFPAY ==
[2021-03-29 00:51] VITALS: BMI 38.6
[2023-05-19 12:16] LABS: Add Manual Diff / Slide Review NO; Basophils Absolute Auto 0 /uL (0-100); Basophils Percent Auto 0.5 % (0-2); Eosinophils Absolute Auto 100 /uL (0-450); Eosinophils Percent Auto 1.9 % (2-4); Hematocrit 40.1 % (36-46); Hemoglobin 13.5 g/dL (12.0-16.0); Lymphocytes Absolute Auto 1400 /uL (1100-4500); Lymphocytes Percent Auto 20.8 % (25-40); Mean Corpuscular HGB Conc 33.8 % (30-36); Mean Corpuscular Hemoglobin 30.3 PG (26-34); Mean Corpuscular Volume 89.8 fL (80-100); Monocytes Absolute Auto 400 /uL (0-900); Monocytes Percent Auto 6.2 % (3-14); Neutrophils Absolute Auto 4800 /uL (1500-7000); Neutrophils Percent Auto 70.6 % (50-75); Platelet Count 111 X10^3/uL (150-400); Red Blood Cell Count 4.47 X10^6/uL (4.0-5.2); Red Cell Distribution Width 14.7 % (11.6-14.8); White Blood Cell Count 6.8 X10^3/uL (4.5-11.0)
[2023-05-22 09:21] LABS: Alder IgE <0.10 kU/L (Class 0); Alternaria alternata IgE <0.10 kU/L (Class 0); Aspergillus fumigatus IgE <0.10 kU/L (Class 0); Box Elder IgE <0.10 kU/L (Class 0); Cat Dander IgE <0.10 kU/L (Class 0); Cladosporium herbarum IgE <0.10 kU/L (Class 0); Cockroach IgE <0.10 kU/L (Class 0); Cottonwood IgE <0.10 kU/L (Class 0); D farinae IgE <0.10 kU/L (Class 0); D pteronyssinus IgE <0.10 kU/L (Class 0); Dog Dander IgE <0.10 kU/L (Class 0); Elm Tree IgE <0.10 kU/L (Class 0); IgE Mugwort <0.10 kU/L (Class 0); IgE Thistle,Russian <0.10 kU/L (Class 0); Immunoglobulin E 3 IU/mL (6-495); Mountain Cedar IgE <0.10 kU/L (Class 0); Mouse Urine Proteins IgE <0.10 kU/L (Class 0); Oak Tree IgE <0.10 kU/L (Class 0); Penicillium chrysogen IgE <0.10 kU/L (Class 0); Pigweed, Common IgE <0.10 kU/L (Class 0); Sheep Sorrel IgE <0.10 kU/L (Class 0); Silver Birch IgE <0.10 kU/L (Class 0); Timothy Grass IgE <0.10 kU/L (Class 0)
== END ==
PROVIDERS: Family Provider Internal Medicine; PCP Physician Assistant; Referring Provider Internal Medicine Critical Care Medicine; Visit Provider Internal Medicine Critical Care Medicine
DX: K21.9 Gastro-esophageal reflux disease without esophagitis (principal); J45.40 Moderate persistent asthma, uncomplicated
CPT/HCPCS: 36415; 82785; 85025; 86003; 99214

== ENCOUNTER → 2023-05-21 12:26 | Outpatient (CLI) | payer MEDICARE, OTHER, SELFPAY ==
[2021-03-29 00:51] VITALS: BMI 38.6
--- NOTE | 2023-05-21 | DI.ECHO.S_ITS ---
[facility]---------+ [facility] +---------+ : : [address] : : : : [id number] : : : : Phone: [phone] Echocardiogram Report + + :Name: JOSY LE Study Date: 05/21/2023 Height: 64 in : :[facility] ReadingLocation: Weight: 220 lb : : Gender: Female BSA: 2.0 m2 : :: 1955 Age: 67 yrs BP: 129/78 mmHg: :Reason For Study: OBSTRUCTIVE HYPERTROPHIC CARDIOMYOPATHY : :Ordering Physician: CRISTY, : :ALBERTO Performed By: Pat Benavidez : :Referring: ALBERTO MARIA : + + Interpretation Summary 1) Normal left ventricular thickness, size, wall motion, and systolic function (EF 65-70%). 2) Proximal septal thickening is noted. Peak LVOT gradient 9mmHg. 3) Normal right ventricular size and function. 4) No significant valvular abnormalities. 5) Compared to the Echo done 06/21/2020, no LVOT obstruction is present on this study. Procedure: A two-dimensional transthoracic echocardiogram with color flow and Doppler was performed. The study quality was technically adequate. Comparison is made with the echocardiogram of 06/21/2020. The heart rate ranged between 62-72 bpm during the study. Left Ventricle: The left ventricle is normal in size. Proximal septal thickening is noted. There is normal left ventricular wall thickness. The ejection fraction is estimated to be 65-70%. Left ventricular systolic function appears normal without focal wall motion abnormalities. Right Ventricle: The right ventricle is normal in size and function. Atria: The left atrial size is normal. Right atrial size is normal. There is no Doppler evidence for an interatrial shunt. Mitral Valve: The mitral valve is normal in structure and function. There is trace mitral regurgitation. Aortic Valve: The aortic valve is trileaflet. The aortic valve opens well. There is no aortic valve stenosis. No aortic regurgitation is present. Tricuspid Valve: The tricuspid valve is normal in structure and function. There is mild tricuspid regurgitation. The right ventricular systolic pressure is estimated to be at least 19 mmHg based on an estimated right atrial pressure of 3 mm Hg. Pulmonic Valve: The pulmonic valve leaflets are thin and pliable; valve motion is normal. There is trace pulmonic regurgitation. Great Vessels: The aortic root is normal size. The dimensions of the ascending aorta are normal. The IVC is of normal diameter and collapses greater than 50% with a sniff. This suggests a low right atrial pressure of 3 mm Hg. Pericardium/ Pleura There is no pericardial effusion. There is no pleural effusion. MMode/2D Measurements & Calculations LVIDd: 4.4 cm LVOT diam: 2.0 cm LVIDs: 2.7 cm Ao root diam: 3.0 cm FS: 39.1 % asc Aorta Diam: 3.4 cm IVSd: 0.72 cm Ao Arch Diam (Prox Trans): 2.9 cm LVPWd: 0.64 cm LV fraser. diameter/BSA (cm/m^2): 2.2 LV sys. diameter/BSA (cm/m^2): 1.3 LA A2 area: 16.6 cm2 RA long axis: 3.5 cm LA A4 area: 13.8 cm2 RA area: 9.2 cm2 LA length (vol): 4.5 cm RA vol: 20.5 ml LA vol: 42.9 ml RA : 10.1 ml/m2 LA vol index: 21.1 ml/m2 IVC diam: 1.1 cm RVD1 (basal): 3.9 cm RVD2 (mid): 3.7 cm TAPSE: 2.0 cm Doppler Measurements & Calculations Ao V2 max: 131.9 cm/sec LVOT Max Lalit: 125.1 cm/sec Ao V2 mean: 101.7 cm/sec LV V1 max P.3 mmHg Ao max P.0 mmHg LV V1 VTI: 28.6 cm Ao mean P.3 mmHg DONI(I,D): 2.9 cm2 Ao V2 VTI: 29.8 cm DONI(V,D): 2.9 cm2 sev ratio: 0.96 DONI indexed to BSA (cm^2/m^2): 1.4 MV E max lalit: 74.6 cm/sec TR max lalit: 200.5 cm/sec MV A max lalit: 77.5 cm/sec TR max P.1 mmHg MV E/A: 0.96 PA V2 max: 91.8 cm/sec Med Peak E' Lalit: 7.0 cm/sec PA V2 mean: 64.0 cm/sec E/E' med: 10.7 PA mean P.8 mmHg Lat Peak E' Lalit: 8.3 cm/sec PA pr(Accel): 24.2 mmHg E/E' lat: 9.0 E/e' average: 9.8 MV dec time: 0.19 sec Pulm Zi Revs Lalit: 23.4 cm/sec SV(LVOT): 87.5 ml Pulm Zi Revs Dur: 0.13 sec Reading Physician:04:30 PM
== END ==
PROVIDERS: Family Provider Internal Medicine; PCP Physician Assistant; Referring Provider Internal Medicine Cardiovascular Disease; Visit Provider Internal Medicine Cardiovascular Disease
DX: I07.1 Rheumatic tricuspid insufficiency (principal); I42.1 Obstructive hypertrophic cardiomyopathy
CPT/HCPCS: 93306

== ENCOUNTER → 2023-05-27 14:36 | Outpatient (CLI) | payer MEDICARE, OTHER, SELFPAY ==
[2021-03-29 00:51] VITALS: BMI 38.6
== END ==
PROVIDERS: Family Provider Internal Medicine; PCP Physician Assistant; Referring Provider Internal Medicine Critical Care Medicine; Visit Provider Internal Medicine Critical Care Medicine
DX: J45.41 Moderate persistent asthma with (acute) exacerbation (principal)
CPT/HCPCS: 94060; 94726; 94729

== ENCOUNTER → 2023-08-08 | Outpatient (CLI) | payer MEDICARE, OTHER, SELFPAY ==
[2021-03-29 00:51] VITALS: BMI 38.6
--- NOTE | 2023-08-08 10:12 | DI.MG.S_ITS ---
BILATERAL DIGITAL SCREENING MAMMOGRAM 3D/2D WITH CAD: 08/08/2023 CLINICAL: Routine screening. Family history of breast cancer. Comparison is made to exams dated: 07/25/2022 mammogram, 06/12/2021 mammogram, and 05/09/2020 mammogram - [facility]. There are scattered areas of fibroglandular density in both breasts (category b / 25%-50% glandular tissue). Current study was also evaluated with a Computer Aided Detection (CAD) system. There is a mole marker on the left breast. No significant masses, calcifications, or other findings are seen in either breast. There has been no significant interval change. IMPRESSION: BENIGN There is no mammographic evidence of malignancy. A 1 year screening mammogram is recommended. Based on the Tyrer Cuzick model (a risk assessment model) the patient's lifetime risk is 8.7% and her 10 year risk is 5.1%. According to the ACR, ACS, and NCCN guidelines, an annual breast MRI exam along with mammogram is recommended if the patient's lifetime risk is 20% or greater. This exam was interpreted at Station ID: [id number]. NOTE: For mammograms, a report in lay terms will be sent to the patient. Approximately 15% of breast malignancies will not be visualized mammographically. In the management of a palpable breast mass, a negative mammogram must not discourage biopsy of a clinically suspicious lesion. Electronically Signed By: Sal webster/matteo:08/13/2023 07:51:47 copy to: Lala Nuñez letter sent: Normal Exam ACR BI-RADS Category 2: Benign Finding(s) [id number]
== END ==
LOC: MAMMO 10:11
PROVIDERS: Family Provider Internal Medicine; PCP Physician Assistant; Referring Provider Physician Assistant; Visit Provider Physician Assistant
DX: Z12.31 Encounter for screening mammogram for malignant neoplasm of breast (principal); Z80.3 Family history of malignant neoplasm of breast
CPT/HCPCS: 77063; 77067

== ENCOUNTER → 2024-03-18 08:00 | Outpatient (CLI) | payer MEDICARE, OTHER, SELFPAY ==
[2021-03-29 00:51] VITALS: BMI 38.6
--- NOTE | 2024-03-18 08:02 | DI.US.S_ITS ---
PROCEDURE: US EXTREMITY NONVASC LOWER LT INDICATIONS: left knee pain TECHNIQUE: Real-time scanning was performed of the left knee, with image documentation. COMPARISON: None. FINDINGS: Examination of left popliteal fossa shows elongated hypoechoic area with ill-defined margin measures 3.5 x 0.7 x 1.3 cm in size and show no internal vascularity. IMPRESSION: Finding may represent a ruptured popliteal cyst as above. Dictated by: Óscar Magana M.D. on 03/18/2024 at 11:33 Approved by: Óscar Magana M.D. on 03/18/2024 at 11:39
== END ==
LOC: US 08:01
PROVIDERS: Family Provider Internal Medicine; PCP Family Medicine; Referring Provider Physical Medicine & Rehabilitation Pain Medicine; Visit Provider Physical Medicine & Rehabilitation Pain Medicine
DX: M17.12 Unilateral primary osteoarthritis, left knee (principal)
CPT/HCPCS: 76882

== ENCOUNTER → 2024-05-24 13:46 | Outpatient (CLI) | payer MEDICARE, OTHER, SELFPAY ==
[2021-03-29 00:51] VITALS: BMI 38.6
--- NOTE | 2024-05-24 13:48 | DI.ECHO.S_ITS ---
[facility] : : [id number] : : [place] : : [id number] : : Phone: [phone] Echocardiogram Report + + :Name: JOSY LE Study Date: 05/24/2024 Height: 64 in : :[facility] ReadingLocation: Weight: 240 lb: : Gender: Female BSA: 2.1 m2 : :: 1955 Age: 68 yrs : :Reason For Study: OBSTRUCTIVE HYPERTROPHIC CARDIOMYOPATHY : :Ordering Physician: CRISTY, : :ALBERTO Performed By: Paras Mercado : :Referring: ALBERTO MARIA : + + Interpretation Summary 1) Normal left ventricular thickness, size, wall motion, and systolic function (EF 60-65%). 2) Proximal septal thickening is noted. Peak LVOT gradient 6mmHg. 3) Mildly enlarged right ventricle with normal function. 4) No significant valvular abnormalities. 5) Compared to the Echo done 05/21/2023, no significant change. Procedure: A two-dimensional transthoracic echocardiogram with color flow and Doppler was performed. The study quality was technically difficult. Comparison is made with the echocardiogram of 05/21/2023. The patient was in sinus rhythm with heart rates between 70-79 bpm during the exam. Left Ventricle: The left ventricle is normal in size. Left ventricular wall thickness is at the upper limits of normal. Valsalva LVOT velocity 1.2m/sec and peak LVOT gradient 6mmHg. Proximal septal thickening is noted. The ejection fraction is estimated to be 60-65%. Left ventricular systolic function appears normal without focal wall motion abnormalities. Diastolic parameters suggest a relaxation abnormality of the left ventricle, consistent with probable normal filling pressures. Right Ventricle: The right ventricle is mildly dilated. The right ventricular systolic function is normal. Atria: The left atrial size is normal. Right atrial size is normal. The interatrial septum grossly appears intact with no obvious evidence for an atrial septal defect. Mitral Valve: The mitral valve is normal. There is no mitral valve stenosis. There is trace mitral regurgitation. Aortic Valve: The aortic valve is not well visualized. There is no aortic valve stenosis. No aortic regurgitation is present. Tricuspid Valve: The tricuspid valve is normal. There is no tricuspid stenosis. No tricuspid regurgitation. Pulmonic Valve: The pulmonic valve is not well visualized. There is no pulmonic valvular stenosis. There is no pulmonic valvular regurgitation. Great Vessels: The aortic root is normal size. The dimensions of the ascending aorta are normal. The IVC is of normal diameter and collapses greater than 50% with a sniff. This suggests a low right atrial pressure of 3 mm Hg. Pericardium/ Pleura There is no pericardial effusion. There is no pleural effusion. MMode/2D Measurements & Calculations LVIDd: 4.2 cm LVOT diam: 2.0 cm LVIDs: 2.5 cm Ao root diam: 3.3 cm FS: 40.4 % asc Aorta Diam: 3.4 cm IVSd: 1.2 cm LVPWd: 1.1 cm LV fraser. diameter/BSA (cm/m^2): 2.0 LV sys. diameter/BSA (cm/m^2): 1.2 LA A2 area: 12.9 cm2 RA long axis: 4.7 cm LA A4 area: 18.3 cm2 RA area: 17.1 cm2 LA length (vol): 4.9 cm RA vol: 53.3 ml LA vol: 40.6 ml RA : 25.2 ml/m2 LA vol index: 19.2 ml/m2 IVC diam: 1.7 cm RVD1 (basal): 4.1 cm RVD2 (mid): 3.4 cm TAPSE: 2.6 cm Doppler Measurements & Calculations Ao V2 max: 142.3 cm/sec LVOT Max Lalit: 121.5 cm/sec Ao V2 mean: 99.9 cm/sec LV V1 max P.9 mmHg Ao max P.1 mmHg LV V1 VTI: 29.8 cm Ao mean P.4 mmHg DONI(I,D): 3.0 cm2 Ao V2 VTI: 30.1 cm DONI(V,D): 2.6 cm2 sev ratio: 0.99 DONI indexed to BSA (cm^2/m^2): 1.4 MV E max lalit: 90.3 cm/sec PA V2 max: 116.5 cm/sec MV A max lalit: 94.9 cm/sec PA V2 mean: 81.4 cm/sec MV E/A: 0.95 PA mean P.9 mmHg Med Peak E' Lalit: 6.2 cm/sec PA pr(Accel): 37.9 mmHg E/E' med: 14.6 Lat Peak E' Lalit: 9.1 cm/sec E/E' lat: 9.9 E/e' average: 12.2 MV dec time: 0.21 sec SV(LVOT): 90.6 ml Reading Physician:03:19 PM
== END ==
LOC: ECHO 13:47
PROVIDERS: Family Provider Internal Medicine; PCP Family Medicine; Referring Provider Internal Medicine Cardiovascular Disease; Visit Provider Internal Medicine Cardiovascular Disease
DX: I42.1 Obstructive hypertrophic cardiomyopathy (principal)
CPT/HCPCS: 93306

== ENCOUNTER → 2024-06-22 15:57 | Outpatient (CLI) | payer MEDICARE, OTHER, SELFPAY ==
[2021-03-29 00:51] VITALS: BMI 38.6
--- NOTE | 2024-06-22 15:58 | DI.CT.S_ITS ---
PROCEDURE: CT PEL WO CON INDICATIONS: SI JOINT DYSFUNCTION / LOW BACK PAIN TECHNIQUE: Noncontrast 3 mm axial sections acquired through the bony pelvis, with coronal and sagittal reformatting. COMPARISON: [facility], MR, MR LUMBAR SPINE WO CON, 06/22/2024, 16:44. FINDINGS: Image quality: Excellent. Bones: There is mild right and [id number] left asymmetric sacroiliac joint degenerative osteoarthritic change. No evidence of ankylosis. Soft tissues: No abnormality found. 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 No prior trauma found. Dictated by: Patricio Hodgson M.D. on 06/23/2024 at 11:41 Approved by: Patricio Hodgson M.D. on 06/23/2024 at 11:44
--- NOTE | 2024-06-22 15:59 | DI.MRI.S_ITS ---
PROCEDURE: MR LUMBAR SPINE WO CON INDICATIONS: SI JOINT DYSFUNCTION / LOW BACK PAIN TECHNIQUE: Noncontrast sagittal T1 spin echo and T2 fast echo, sagittal STIR, and T2 fast spin echo through the lumbar spine. In cases with scoliosis, additional coronal T2 fast spin echo may be performed. COMPARISON: [facility], , L-SPINE WITHOUT CONTRAST, 05/06/2016, 9:29. FINDINGS: Image quality: Excellent Please note, hypoplastic T12 ribs. The last well-formed disc space is considered as L5-S1. Mild retrolisthesis L3 on L4. Grade 1 anterolisthesis of L4 on L5. Vertebral body height of the lumbar spine is well maintained. Multiple vertebral hemangioma. No suspicious marrow replacing lesion. Conus terminates at the level of T12-L1, and is unremarkable. Right neural foraminal stenosis: Mild at L4-5. Left neural foraminal stenosis: Mild at L3-4, L4-5. Axial images: T12-L1: No central canal stenosis. L1-2: Mild bilateral facet arthropathy. No central canal stenosis. L2-3: Mild bilateral facet arthropathy. No central canal stenosis. L3-4: Disc bulge. Moderate bilateral facet arthropathy. Epidural lipomatosis. Mild central canal stenosis. L4-5: Moderate bilateral facet arthropathy. No central canal stenosis. L5-S1: Mild bilateral facet arthropathy. No central canal stenosis. Visualized sacrum is intact. No abdominal aortic aneurysm. IMPRESSION: 1. Multilevel degenerative changes of the lumbar spine with mild central canal stenosis at L3-4, and multilevel mild neural foraminal stenosis, grossly unchanged from prior exam. Dictated by: Mariya Sanchez M.D. on 06/23/2024 at 10:37 Approved by: Mariya Sancehz M.D. on 06/23/2024 at 10:46
== END ==
PROVIDERS: Family Provider Internal Medicine; PCP Family Medicine; Referring Provider Neurological Surgery; Visit Provider Neurological Surgery
DX: M47.816 Spondylosis without myelopathy or radiculopathy, lumbar region (principal); M47.817 Spondylosis without myelopathy or radiculopathy, lumbosacral region; M47.818 Spondylosis without myelopathy or radiculopathy, sacral and sacrococcygeal region; M48.061 Spinal stenosis, lumbar region without neurogenic claudication; M54.50 Low back pain, unspecified
CPT/HCPCS: 72148; 72192

== ENCOUNTER → 2024-06-26 12:15 | Outpatient (CLI) | payer MEDICARE, OTHER, SELFPAY ==
[2021-03-29 00:51] VITALS: BMI 38.6
== END ==
PROVIDERS: Family Provider Internal Medicine; PCP Family Medicine; Visit Provider Nurse Practitioner Family
DX: R30.0 Dysuria (principal)
CPT/HCPCS: 87077; 87086; 87186

== ENCOUNTER → 2024-08-11 16:50 | Outpatient (CLI) | payer MEDICARE, OTHER, SELFPAY ==
[2021-03-29 00:51] VITALS: BMI 38.6
--- NOTE | 2024-08-11 16:51 | DI.MG.S_ITS ---
BILATERAL DIGITAL SCREENING MAMMOGRAM 3D/2D WITH CAD: 08/11/2024 CLINICAL: Routine screening. Family history of breast cancer. Comparison is made to exams dated: 08/08/2023 mammogram, 07/25/2022 mammogram, 06/12/2021 mammogram, 05/09/2020 mammogram, 04/01/2019 mammogram, and 03/25/2018 mammogram - [facility]. There are scattered areas of fibroglandular density (category b / 25%-50% glandular tissue). Current study was also evaluated with a Computer Aided Detection (CAD) system. No significant masses, calcifications, or other findings are seen in either breast. There has been no significant interval change. IMPRESSION: NEGATIVE There is no mammographic evidence of malignancy. A 1 year screening mammogram is recommended. Based on the Tyrer Cuzick model (a risk assessment model) the patient's lifetime risk is 8.2% and her 10 year risk is 5.2%. According to the ACR, ACS, and NCCN guidelines, an annual breast MRI exam along with mammogram is recommended if the patient's lifetime risk is 20% or greater. This exam was interpreted at Station ID: [id number]. NOTE: For mammograms, a report in lay terms will be sent to the patient. Approximately 15% of breast malignancies will not be visualized mammographically. In the management of a palpable breast mass, a negative mammogram must not discourage biopsy of a clinically suspicious lesion. Electronically Signed By: Sherry Chanel M.D., Ph.D. kaitlin/[email or web address]:08/12/2024 23:25:44 copy to: Lala Nuñez letter sent: Normal Exam ACR BI-RADS Category 1: Negative
== END ==
LOC: MAMMO 16:50
PROVIDERS: Family Provider Internal Medicine; PCP Family Medicine; Referring Provider Family Medicine; Visit Provider Family Medicine
DX: Z12.31 Encounter for screening mammogram for malignant neoplasm of breast (principal); Z80.3 Family history of malignant neoplasm of breast
CPT/HCPCS: 77063; 77067

== ENCOUNTER → 2024-10-08 10:03 | Outpatient (CLI) | payer MEDICARE, OTHER, SELFPAY ==
[2021-03-29 00:51] VITALS: BMI 38.6
--- NOTE | 2024-10-08 10:04 | DI.MRI.S_ITS ---
PROCEDURE: MR ANKLE LT WO CON INDICATIONS: INSERTIONAL ACHILLES TENDINOPATHY TECHNIQUE: Noncontrast sagittal T1 spin echo and T2 fast spin echo with fat saturation, axial proton density fast spin echo and T2 fast spin echo with fat saturation, coronal T1 spin echo and T2 fast spin echo with fat saturation through the ankle/hindfoot. COMPARISON: [facility], CR, XR CALCANEUS LEFT, 10/06/2024, 13:48. FINDINGS: Image quality: Excellent. Bones and joints: Mild osseous edema at the medial malleolus and medial talus. Small nonedematous ossification adjacent to the medial malleolus likely the sequela of a remote prior injury. Mild sagging of the midfoot, and pes planus is not excluded. Knki-hu-bfhcoetp degenerative changes at the 1st and 2nd tarsometatarsal joints with mild subchondral edema. No hindfoot coalitions. No osteochondral injuries of the talar dome. Nonspecific subcutaneous edema surrounding the ankle. Medial structures: Remote prior moderate grade sprain of the deep fibers of the deltoid ligament. The spring ligament components are intact. Mild posterior tibialis tenosynovitis. The flexor digitorum longus and flexor hallucis longus tendons are intact. The posterior tibial neurovascular bundle appears normal within the tarsal tunnel, without extrinsic mass effect. Lateral structures: Remote prior sprains of the anterior talofibular ligament and calcaneofibular ligament. Posterior talofibular ligament appears to be intact. The anterior and posterior tibiofibular ligaments are intact. Moderate peroneus brevis and longus tendinosis and mild tenosynovitis. There is partial effacement of the fat signal in the sinus tarsi with ganglion cyst formation laterally. Anterior structures: The tibialis anterior, extensor hallucis longus, and extensor digitorum longus tendons appear intact. Posterior and plantar structures: Moderate distal Achilles tendinosis. Mild thickening of the proximal plantar fascia with mild adjacent soft tissue edema. No fluid-filled defect is seen. No abductor digiti minimi muscle atrophy to suggest Carranza neuropathy. IMPRESSION: 1. Moderate distal Achilles tendinosis. 2. Moderate acute on chronic proximal plantar fasciitis. 3. Mild osseous edema at the medial malleolus and medial talus may be secondary to mild osseous contusions or traction trabecular bone injury. 4. Remote prior grade 2 sprain of the deltoid ligament. 5. Mild posterior tibialis tenosynovitis. 6. Remote prior grade 1-2 sprains of the anterior talofibular ligament and the calcaneofibular ligament. 7. Moderate peroneus brevis and longus tendinosis and mild tenosynovitis. Approved by: Tomasz Ge M.D. on 10/10/2024 at 20:58
== END ==
PROVIDERS: Family Provider Internal Medicine; PCP Family Medicine; Referring Provider Orthopaedic Surgery Foot and Ankle Surgery; Visit Provider Orthopaedic Surgery Foot and Ankle Surgery
DX: M76.62 Achilles tendinitis, left leg (principal); M72.2 Plantar fascial fibromatosis; S93.422A Sprain of deltoid ligament of left ankle, initial encounter; S93.492A Sprain of other ligament of left ankle, initial encounter; S93.412A Sprain of calcaneofibular ligament of left ankle, initial encounter; M65.972 Unspecified synovitis and tenosynovitis, left ankle and foot
CPT/HCPCS: 73721

== ENCOUNTER → 2024-12-19 16:56 | Outpatient (CLI) | payer MEDICARE, OTHER, SELFPAY ==
[2021-03-29 00:51] VITALS: BMI 38.6
--- NOTE | 2024-12-19 17:00 | DI.RAD.S_ITS ---
PROCEDURE: XR PELVIS 1-2V INDICATIONS: S1 joint dysfunction TECHNIQUE: Two views (s) of the pelvis acquired. COMPARISON: None. FINDINGS: Bones: There are no osseous abnormalities. SI and hip joints: 3 pins provide arthrodesis across left SI joint. It is anatomically aligned. Mild degeneration in the right SI joint , moderate degeneration in the right hip and mild degeneration of the left hip noted. Soft tissues: No soft tissue swelling, calcification or mass. IMPRESSION: Degeneration. Three pins stabilize the left SI joint which is , otherwise, normal Dictated by: Jaime De Oliveira M.D. on 12/20/2024 at 10:43 Approved by: Jaime De Oliveira M.D. on 12/20/2024 at 10:44
== END ==
PROVIDERS: Family Provider Internal Medicine; PCP Family Medicine; Referring Provider Neurological Surgery; Visit Provider Neurological Surgery
DX: M47.898 Other spondylosis, sacral and sacrococcygeal region (principal); M16.0 Bilateral primary osteoarthritis of hip; M53.88 Other specified dorsopathies, sacral and sacrococcygeal region; Z98.1 Arthrodesis status
CPT/HCPCS: 72170

== ENCOUNTER → 2025-02-14 12:49 | Outpatient (CLI) | payer MEDICARE, OTHER, SELFPAY ==
[2021-03-29 00:51] VITALS: BMI 38.6
--- NOTE | 2025-02-14 12:53 | DI.RAD.S_ITS ---
PROCEDURE: XR PELVIS 1-2V INDICATIONS: Other specified dorsopathies, sacral and sacrococcygeal rashel TECHNIQUE: Two views (s) of the pelvis acquired. COMPARISON: [facility], CR, XR PELVIS 1-2V, 12/19/2024, 17:02. FINDINGS: Bones: There are no osseous abnormalities. SI and hip joints: 3 screws provide arthrodesis across the left SI joint which is anatomically aligned. Mild right SI degeneration noted. There is moderate right and mild left hip degeneration. Moderate L5-S1 degenerative disc and facet disease noted Soft tissues: No soft tissue swelling, calcification or mass. IMPRESSION: Moderate right and mild left hip degeneration. Left SI arthrodesis -anatomic alignment Dictated by: Jaime De Oliveira M.D. on 02/15/2025 at 10:12 Approved by: Jaime De Oliveira M.D. on 02/15/2025 at 10:13
== END ==
PROVIDERS: Family Provider Internal Medicine; PCP Nurse Practitioner Family; Referring Provider Urology; Visit Provider Urology
DX: M53.88 Other specified dorsopathies, sacral and sacrococcygeal region (principal); M16.0 Bilateral primary osteoarthritis of hip; Z98.1 Arthrodesis status
CPT/HCPCS: 72170

== ENCOUNTER → 2025-06-14 13:40 | Outpatient (CLI) | payer MEDICARE, OTHER, SELFPAY ==
[2021-03-29 00:51] VITALS: BMI 38.6
[2025-06-14 14:41] LABS: Hematocrit 40.6 % (36-46); Hemoglobin 14.2 g/dL (12.0-16.0); Mean Corpuscular HGB Conc 34.9 % (30-36); Mean Corpuscular Hemoglobin 31.2 PG (26-34); Mean Corpuscular Volume 89.5 fL (80-100); Platelet Count 161 X10^3/uL (150-400)
[2025-06-14 15:01] LABS: Blood Urea Nitrogen 20 mg/dL (7-17); Calcium 9.4 mg/dL (8.4-10.2); Carbon Dioxide 26 mmol/L (22-32); Chloride 103 mmol/L (98-107); Cholesterol 144 mg/dL (140-199); Estimated Glomerular Filt Rate > 60 mL/min (>60); Glucose 79 mg/dL (70-99); HDL Cholesterol 61 mg/dL (40-60); HEMOLYSIS 17 (0-50); Potassium 4.7 mmol/L (3.4-5.1); Sodium 138 mmol/L (137-145); Triglycerides 75 mg/dL (35-150)
[2025-06-14 15:08] LABS: NT-proBNP (BNP-Adult 18+) 44 pg/mL (<125)
== END ==
PROVIDERS: Family Provider Internal Medicine; PCP Nurse Practitioner Family; Referring Provider Internal Medicine Cardiovascular Disease; Visit Provider Internal Medicine Cardiovascular Disease
DX: I10 Essential (primary) hypertension (principal); I50.32 Chronic diastolic (congestive) heart failure
CPT/HCPCS: 36415; 80048; 80061; 83880; 85027

== ENCOUNTER → 2025-08-29 13:26 | Outpatient (CLI) | payer MEDICARE, OTHER, SELFPAY ==
[2021-03-29 00:51] VITALS: BMI 38.6
--- NOTE | 2025-08-29 13:28 | DI.MG.S_ITS ---
MM screening mammo BI: 08/29/2025. BI-RADS: 2 CLINICAL: 69-year old female for bilateral screening mammogram. Tyrer-Cuzick lifetime risk of 4.5%. No personal or first-degree family history of breast cancer. Current reported family history of breast cancer: maternal aunt and second maternal aunt. PRIOR EXAMS 08/11/2024, 08/08/2023, 07/25/2022, 06/12/2021, MAMMOGRAPHY TECHNIQUE: 2D and 3D (tomosynthesis) digital mammographic views obtained, with additional images as needed for full coverage. Current study was also evaluated with a Computer Aided Detection (CAD) system. DENSITY A. The breasts are almost entirely fatty. MAMMOGRAPHY FINDINGS Right: No suspicious mass, asymmetry, microcalcification, or other abnormality seen. Left: Benign-appearing calcifications noted on the left. There are no suspicious masses, calcifications, or other findings in the breast. IMPRESSION: Right * No evidence of malignancy. Left * No evidence of malignancy with benign findings. RECOMMENDATIONS Bilateral * Annual screening mammography. OVERALL ASSESSMENT CATEGORY BI-RADS-2: Benign. The [employer] recommends annual screening mammography beginning at age 40 for women with average risk of breast cancer. ELECTRONICALLY SIGNED: Avery Kelly M.D. on 08/30/2025 at 01:09:47 PM PT Interpreting Station ID: [id number]
== END ==
LOC: MAMMO 13:27
PROVIDERS: Family Provider Internal Medicine; PCP Nurse Practitioner Family; Referring Provider Nurse Practitioner Family; Visit Provider Nurse Practitioner Family
DX: Z12.31 Encounter for screening mammogram for malignant neoplasm of breast (principal); R92.313 Mammographic fatty tissue density, bilateral breasts; Z80.3 Family history of malignant neoplasm of breast
CPT/HCPCS: 77063; 77067

== ENCOUNTER → 2025-09-09 10:49 | Outpatient (CLI) | payer MEDICARE, OTHER, SELFPAY ==
[2021-03-29 00:51] VITALS: BMI 38.6
--- NOTE | 2025-09-09 10:51 | DI.MRI.S_ITS ---
PROCEDURE: MR PELVIS WO CON INDICATIONS: OTHER SPECIFIED TECHNIQUE: Noncontrast axial and oblique coronal T1 spin echo and STIR through the sacroiliac joints. COMPARISON: [facility], CT, CT PEL WO CON, 06/22/2024, 16:04. FINDINGS: Image quality: Excellent. Fusion hardware along the left sacroiliac joint which creates susceptibility artifact which partially obscures adjacent structures. Degenerative sclerosis along the joint line with no bone marrow edema. No fracture. No osseous fusion visible. Moderate degenerative change of the right sacroiliac joint. No effusion. Included portions of the pelvis are unremarkable. No muscle or soft tissue edema, fluid collection or mass. Facet arthropathy noted in the lower lumbar spine IMPRESSION: Bilateral sacroiliac degenerative arthritis with fusion hardware on the left. Incomplete osseous fusion. No evidence of acute inflammation. Dictated by: Xavier Cornell M.D. on 09/11/2025 at 11:23 Approved by: Xavier Cornell M.D. on 09/11/2025 at 11:30
== END ==
PROVIDERS: Family Provider Internal Medicine; PCP Nurse Practitioner Family; Referring Provider Neurological Surgery; Visit Provider Neurological Surgery
DX: M46.1 Sacroiliitis, not elsewhere classified (principal); M47.816 Spondylosis without myelopathy or radiculopathy, lumbar region; M53.88 Other specified dorsopathies, sacral and sacrococcygeal region; Z98.1 Arthrodesis status
CPT/HCPCS: 72195